=== PATIENT | female | born 1970 | race Caucasian/White ===

== ENCOUNTER → 2019-08-31 15:00 | Outpatient (CLI) | payer BC, SELFPAY ==
--- NOTE | ~2019-08-31 | US_ITS ---
EXAMINATION: US thyroid DATE: 08/31/2019 15:15 INDICATION: Multinodular goiter TECHNIQUE: Multiple ultrasound images of the thyroid were obtained. COMPARISON: 10/18/2018 FINDINGS: The right thyroid lobe measures 4.2 x 1.6 x 1.2 cm. The left thyroid lobe measures 3.9 x 1.2 x 1.3 c m. No significant interval change in a 1.6 x 1.2 x 1.3 cm wider than tall solid heterogeneously hypo echoic nodule was with margins and without internal echogenic foci at the inferior left thyroid (TI-R ADS 4, moderately suspicious , FNA if >=1.5 cm, annual followup is >1 cm). There is normal echotextur e, echogenicity and vascular flow throughout the thyroid gland. IMPRESSION: 1. 1.6 cm TI-RADS 4 nodule at the inferior left thyroid. Size is borderline for, now meeting criteria for recommendation of ultrasound-guided biopsy although there has been no significant interval lutz e since 2016 and could also consider continued annual ultrasound follow-up. Reviewed, dictated and finalized at location A. IMPRESSION: 1. 1.6 cm TI-RADS 4 nodule at the inferior left thyroid. Size is borderline for , now meeting criteria for recommendation of ultrasound-guided biopsy although there has been no significant interval change since 2017 and could also conside r continued annual ultrasound follow-up.
== END ==
PROVIDERS: PCP Internal Medicine
DX: E04.2 Nontoxic multinodular goiter (principal)
CPT/HCPCS: 76536

== ENCOUNTER → 2020-01-09 14:57 | Outpatient (CLI) | payer BC, SELFPAY ==
--- NOTE | ~2020-01-09 | MM_ITS ---
EXAMINATION: MM screening sergio BI w ekta HISTORY: Screening mammogram TECHNIQUE: Craniocaudal and mediolateral oblique 3-D tomosynthesis images were obtained and synthetic 2-D images were generated. CAD analysis was submitted and interpreted. COMPARISON: 10/12/2018 bilateral diagnostic digital mammogram 07/31/2017 diagnostic left digital mammogram and complete left breast ultrasound 07/18/2017 bilateral digital screening mammogram BREAST PARENCHYMAL COMPOSITION: The breasts are heterogeneously dense, which may obscure small masses . The included in the FINDINGS: Focal mild asymmetry along the upper anterior right fibroglandular margin on MLO view. Diag nostic right mammogram is recommended, with ultrasound if required. Otherwise there is no evidence of suspicious mass, calcification, or architectural distortion to sugg est malignancy in either breast. There has been no suspicious interval change. IMPRESSION: 1. Focal asymmetry, right breast, upper outer quadrant 2. Diagnostic right mammogram is recommended, with ultrasound if required BI-RADS Category 0: Incomplete: Needs additional imaging evaluation. Reviewed, dictated and finalized at location A.
== END ==
PROVIDERS: PCP Internal Medicine; Visit Provider Nurse Practitioner
DX: Z12.31 Encounter for screening mammogram for malignant neoplasm of breast (principal); R92.8 Other abnormal and inconclusive findings on diagnostic imaging of breast
CPT/HCPCS: 77063; 77067

== ENCOUNTER → 2020-01-27 08:46 | Outpatient (CLI) | payer BC, SELFPAY ==
--- NOTE | ~2020-01-27 | MMUS_ITS ---
EXAMINATION: MM diagnostic mammo unilat RT, US breast RT limited HISTORY: Follow-up right breast asymmetries TECHNIQUE: Additional 3-D tomosynthesis images of the right breast were performed and synthetic 2-D i mages were generated. CAD analysis was submitted and interpreted. High resolution right breast ultras ound was performed. COMPARISON: Comparison to multiple prior studies sequentially, with oldest reviewed study dated 04/16. BREAST PARENCHYMAL COMPOSITION: The breasts are heterogenously dense, which may obscure small masses. FINDINGS: MAMMOGRAPHIC FINDINGS: There are no suspicious masses, calcifications or architectural distortion in the right breast to sug gest malignancy. ULTRASOUND: Right breast ultrasound: There are cysts in the right breast including a 6 mm cyst at 10:00, 3.5 cm from the nipple and a 1.4 cm cyst near the nipple. No suspicious masses to suggest malignancy. IMPRESSION: 1. No evidence for malignancy in the right breast. Benign findings. 2. Routine yearly screening mammogram and regular clinical breast examination are recommended. BI-RADS Category 2: Benign finding(s). Reviewed, dictated and finalized at location A. IMPRESSION: 1. No evidence for malignancy in the right breast. Benign findings. 2. Routine yearly screening mammogram and regular clinical breast examination a re recommended. BI-RADS Category 2: Benign finding(s).
== END ==
PROVIDERS: Visit Provider Obstetrics & Gynecology Gynecology
DX: R92.8 Other abnormal and inconclusive findings on diagnostic imaging of breast (principal)
CPT/HCPCS: 76642; 77065

== ENCOUNTER → 2020-02-22 15:10 | Outpatient (CLI) | payer BC, SELFPAY ==
--- NOTE | ~2020-02-22 | US_ITS ---
EXAMINATION: US thyroid EXAM DATE: 02/22/2020 15:29 INDICATION: Hypothyroidism. TECHNIQUE: Multiple grayscale and Doppler images of the thyroid were obtained (by a technologist who performed the scan) and subsequently reviewed. Individual nodules and recommendations may be reporte d in accordance with TI-RADS system as designated by the 2017 ACR White Paper TI-RADS committee. Comp tank is made to prior examination from 08/31/2019, 08/30/2016, 02/23/2017. FINDINGS: The right thyroid lobe measures 4.7 x 1.7 x 1.1 cm, the left measuring 4.1 x 1.4 x 1.2 cm. There is m ildly heterogeneous thyroid echogenicity. There is a left thyroid lobe nodule measuring 1.4 x 1.2 x 1.6 centimeters, predominantly solid (2 po ints), hypoechoic (2 points) with spongiform cystic spaces, wider than tall, smooth margin, without e chogenic foci, category TR4 for this nodule. Unchanged compared to 2006, consistent with benign hist ology. There is 4 mm right thyroid lobe nodule also unchanged. IMPRESSION: Stable thyroid nodules for 3 years, not likely clinically significant. Consider 1 or 2 ye ar follow-up ultrasound. Reviewed, dictated and finalized at location A. IMPRESSION: Stable thyroid nodules for 3 years, not likely clinically significa nt. Consider 1 or 2 year follow-up ultrasound.
== END ==
PROVIDERS: Visit Provider Internal Medicine Endocrinology, Diabetes & Metabolism
DX: E03.9 Hypothyroidism, unspecified (principal); E04.2 Nontoxic multinodular goiter
CPT/HCPCS: 76536

== ENCOUNTER 2020-04-16 09:18 | Outpatient (CLI) | payer BC, SELFPAY ==
--- NOTE | ~2020-04-16 | US_ITS ---
EXAMINATION: US abdomen complete EXAM DATE: 04/16/2020 10:45 INDICATION: ABD PAIN R10.9 - Unspecified abdominal pain . TECHNIQUE: Multiple grayscale and Doppler images of the complete abdomen were obtained (by a technolo gist who performed the scan) and subsequently reviewed. There is no prior study for comparison. FINDINGS: The abdominal aorta is normal in caliber. Visualized portion IVC is patent. The pancreatic head a nd body are normal in appearance. The pancreatic tail is not visualized. The liver has normal echogenicity and contour. There are no focal liver lesions identified. There is no evidence of intrahepatic biliary duct dilation. Portal venous flow was seen in the hepatopedal , normal direction and has normal Doppler waveform. Common bile duct measures 2 mm, which is normal. The gallbladder wall is normal in thickness, with ex pected amount of distention. No sonographic evidence of pericholecystic fluid. There is no cholelit hiases. Technologist performing exam reports patient did not demonstrate sonographic Rogers's sign. Please note that this sign is less reliable in patients who have received pain medication. Right kidney: There is normal contour and echogenicity. It measures 10.4 x 5.3 x 5.2 centimeters. There are no focal renal lesions identified. There is no hydronephrosis. Left kidney: There is normal contour and echogenicity. It measures 9.5 x 4.7 x 4.5 centimeters. Ech ogenic region contiguous or within collecting system, could be nephrolithiasis measuring 8 mm. Ther e is no hydronephrosis. The spleen measures 9.1 centimeters and is morphologically normal. IMPRESSION: 1. Possible left nephrolithiasis. 2. No acute findings. Reviewed, dictated and finalized at location B. L TUNER
== END 2020-04-16 09:19 | disposition home or self-care (01) ==
LOC: ANHIMG 09:26
PROVIDERS: PCP Internal Medicine; Visit Provider Internal Medicine
DX: R10.9 Unspecified abdominal pain (principal)
CPT/HCPCS: 76700

== ENCOUNTER 2020-07-02 03:48 | Outpatient (CLI) | payer BC, SELFPAY ==
[2020-07-02 16:31] LABS: SARS-CoV-2 RNA PCR Negative
== END 2020-07-02 03:49 | disposition home or self-care (01) ==
LOC: ANHCOVIDDT 03:48
PROVIDERS: PCP Internal Medicine; Visit Provider Internal Medicine Gastroenterology
DX: Z01.812 Encounter for preprocedural laboratory examination (principal); Z20.822 Contact with and (suspected) exposure to COVID-19
CPT/HCPCS: C9803; U0003; U0005

== ENCOUNTER 2020-07-05 01:32 | Day surgery (SDC) | payer BC, SELFPAY ==
[2020-06-22 10:29] VITALS: BMI 21.7
[2020-07-05 11:48] VITALS: BP 112/77; PULSE 71; RESP 18; TEMP 36.9; O2SAT 98
[2020-07-05] MEDS: LACTATED RINGERS 1,000 ML 150 ML IV CONT (12:03)
--- NOTE | 2020-07-05 12:26 | WPDANESEPPF ---
Anes - Initial Pre Proc Eval Procedure: Operation Date: 07/05/20 13:30 Proposed Procedures p Esophagogastroduodenoscopy & Screening Colonoscopy - Jeramy Velasco MD Date/Time: 07/05/20 12:26 Surgeon: Jeramy Velasco MD Pre Op Diagnosis: abdominal pain, Neoplasm Screening Patient Data Age: 49 Gender: F Height: 5 ft 6 in Weight: 62.6 kg Last Vital Signs Temp 98.5 F 07/05/20 11:48 Pulse 71 07/05/20 11:48 Resp 18 07/05/20 11:48 BP 112/77 07/05/20 11:48 Pulse Ox 98 07/05/20 11:48 Allergies Allergy/AdvReac Type Severity Reaction Status Date / Time Penicillins Allergy Mild Hives Verified 07/05/20 11:45 Home Medications Medication Instructions Recorded Confirmed Type atorvastatin 40 mg tablet 40 mg PO DAILY 04/23/19 06/22/20 History fluticasone propionate 50 1 spray INTRANASAL DAILY #15.8 ml 12/14/19 06/22/20 Rx mcg/actuation nasal spray,suspension lancets #100 each 12/15/19 05/14/20 Rx omeprazole 20 mg capsule,delayed 20 mg PO DAILY #90 cap 12/15/19 06/22/20 Rx release blood sugar diagnostic #100 each 12/19/19 05/14/20 Rx blood-glucose meter #1 each 12/19/19 05/14/20 Rx lancets #100 each 12/19/19 05/14/20 Rx lorazepam 0.5 mg tablet 0.5 mg PO BID PRN #20 tablet 03/21/20 06/22/20 Rx metoprolol succinate 25 mg PO DAILY 06/22/20 06/22/20 History Patient hx anesthesia problems: none Family hx anesthesia problems: none PMFSH Past Medical History Medical History (Updated 07/05/20 @ 12:27 by Kannan Ramos MD) Anemia during Colon cancer screening Gestational diabetes Graves disease High platelet count Hx of gastroesophageal reflux (GERD) Nausea Palpitations Paroxysmal SVT (supraventricular tachycardia) Surgical History Surgical History History of knee surgery History of tonsillectomy Family History Family History Father Cerebrovascular accident Hypertension Family history of elevated blood lipids Family history of diabetes mellitus in first degree relative Grandparent Hypertension Mother Family history of elevated blood lipids Family history of malignant neoplasm of skin FH: cholecystectomy Other Depression Diabetes mellitus Family history of anemia Family history of arthritis Family history of cardiovascular disease Family history of congestive heart failure Family history of malignant neoplasm Social History Social History Smoking status: Never smoker Second hand tobacco smoke exposure: No Alcohol intake: never Substance use type: does not use Living arrangements: with family Gender identity (if verbalized by the patient): Female Spiritual care concerns: No Anes - Eval Final PreProcedure Day of Procedure 07/05/20 12:26 Patient weight: normal Heart: regular rate and rhythm Lungs: clear to auscultation Airway: Mallampati scale class II Neurological: alert and oriented Last oral intake: >/= 8 hours ASA classification: III Emergent: no Anesthetic plan: proceed Anesthesia type and monitoring: general GIVS and standard monitoring Informed Consent: The patient's anesthetic plan and its attendant risks and benefits were discussed with the patient/family/POA. Questions were solicited and answers provided to the satisfaction of the patient/family/POA.
--- NOTE | 2020-07-05 12:31 | PM.HPGS ---
History of Present Illness History of Present Illness Consent: Risks, benefits, and alternatives have been discussed and questions answered. Patient agrees to proceed with procedure. Chief complaint: abdominal pain, Neoplasm Screening Narrative: Chioma Chu is a 49 year old female here with intermittent bloating, dyspepsia already on ppi, also llq pain and alternating constipation diarrhea, never had colonoscopy Review of Systems Constitutional: Constitutional: Denies headache(s) and Denies weakness Eyes: Eyes: Denies blurry vision ENT: Reports Normal hearing present, Denies headache(s) and Denies neck pain Cardiovascular: Cardiovascular: Denies chest pain and Denies dyspnea Respiratory: Respiratory: Denies dyspnea Gastrointestinal: Gastrointestinal: Reports no additional gastrointestinal complaints Genitourinary: Genitourinary: Denies dysuria Musculoskeletal: Musculoskeletal: Denies neck pain Integumentary/Breasts: Skin/Breast: Denies dry skin Neurologic: Reports Normal hearing present, Denies headache(s) and Denies weakness Psychiatric: Psychiatric: Denies anxiety Endocrine: Endocrine: Denies change in body appearance Hematologic/Lymphatic: Hematologic/Lymphatic: Denies easy bleeding Allergic/Immunologic: Allergic/Immunologic: Denies urticaria PMFSH Past Medical History Medical History (Updated 07/05/20 @ 12:32 by Jeramy Velasco MD) Anemia during Bloating Colon cancer screening Gestational diabetes Graves disease High platelet count Hx of gastroesophageal reflux (GERD) Nausea Palpitations Paroxysmal SVT (supraventricular tachycardia) Surgical History Surgical History History of knee surgery History of tonsillectomy Family History Family History Father Cerebrovascular accident Hypertension Family history of elevated blood lipids Family history of diabetes mellitus in first degree relative Grandparent Hypertension Mother Family history of elevated blood lipids Family history of malignant neoplasm of skin FH: cholecystectomy Other Depression Diabetes mellitus Family history of anemia Family history of arthritis Family history of cardiovascular disease Family history of congestive heart failure Family history of malignant neoplasm Social History Social History Smoking status: Never smoker Second hand tobacco smoke exposure: No Alcohol intake: never Substance use type: does not use Living arrangements: with family Gender identity (if verbalized by the patient): Female Spiritual care concerns: No Meds Home Medications and Allergies Home Medications Medication Instructions Recorded Confirmed Type atorvastatin 40 mg tablet 40 mg PO DAILY 04/23/19 06/22/20 History fluticasone propionate 50 1 spray INTRANASAL DAILY #15.8 ml 12/14/19 06/22/20 Rx mcg/actuation nasal spray,suspension lancets #100 each 12/15/19 05/14/20 Rx omeprazole 20 mg capsule,delayed 20 mg PO DAILY #90 cap 12/15/19 06/22/20 Rx release blood sugar diagnostic #100 each 12/19/19 05/14/20 Rx blood-glucose meter #1 each 12/19/19 05/14/20 Rx lancets #100 each 12/19/19 05/14/20 Rx lorazepam 0.5 mg tablet 0.5 mg PO BID PRN #20 tablet 03/21/20 06/22/20 Rx metoprolol succinate 25 mg PO DAILY 06/22/20 06/22/20 History Allergies Allergy/AdvReac Type Severity Reaction Status Date / Time Penicillins Allergy Mild Hives Verified 07/05/20 11:45 Vital Signs Vital Signs - 24 hr 07/05/20 11:48 Temperature 98.5 F Pulse Rate 71 Respiratory Rate 18 Blood Pressure 112/77 Pulse Oximetry 98 Exam Const: General: comfortable and no acute distress HENMT: General nose exam: Normal nares present Eyes: General: appearance normal, both eyes and all related structures Nec
[2020-07-05 13:00] VITALS: BP 101/63; PULSE 84; RESP 22; O2SAT 100
[2020-07-05 13:10] VITALS: BP 112/69; PULSE 61; RESP 18; O2SAT 100
[2020-07-05 13:20] VITALS: BP 119/80; PULSE 55; RESP 14; O2SAT 100
== END 2020-07-05 13:39 | disposition home or self-care (01) ==
PROVIDERS: PCP Internal Medicine; Visit Provider Internal Medicine Gastroenterology
PROC: 0DJ08ZZ Inspection of Upper Intestinal Tract, Via Natural or Artificial Opening Endoscopic (ICD-10-PCS; CPT 43235; principal; 2020-07-05 13:30)
DX: Z12.11 Encounter for screening for malignant neoplasm of colon (principal); K52.9 Noninfective gastroenteritis and colitis, unspecified; K62.89 Other specified diseases of anus and rectum; K64.8 Other hemorrhoids; K29.50 Unspecified chronic gastritis without bleeding; K44.9 Diaphragmatic hernia without obstruction or gangrene; E05.00 Thyrotoxicosis with diffuse goiter without thyrotoxic crisis or storm; I47.1 Supraventricular tachycardia
CPT/HCPCS: 45380; 43239; 88305; J2001; J2704; J7120

== ENCOUNTER → 2021-01-14 17:44 | Outpatient (CLI) | payer BC, SELFPAY ==
--- NOTE | ~2021-01-14 | MM_ITS ---
EXAMINATION: MM screening sergio BI w ekta HISTORY: Screening TECHNIQUE: Craniocaudal and mediolateral oblique 3-D tomosynthesis images were obtained and synthetic 2-D images were generated. CAD analysis was submitted and interpreted. COMPARISON: Comparison to multiple prior studies sequentially, with oldest reviewed study dated 04/16. BREAST PARENCHYMAL COMPOSITION: The breasts are heterogeneously dense, which may obscure small masses . FINDINGS: There are developing nodular asymmetries centered in the upper outer quadrant of the left b reast. The right breast is stable without evidence for malignant IMPRESSION: 1. Developing nodular left breast asymmetries, upper outer quadrant. 2. Additional mammographic views and possible breast ultrasound are recommended. BI-RADS Category 0: Incomplete: Needs additional imaging evaluation. Reviewed, dictated and finalized at location A. IMPRESSION: 1. Developing nodular left breast asymmetries, upper outer quadrant. 2. Additional mammographic views and possible breast ultrasound are recommended . BI-RADS Category 0: Incomplete: Needs additional imaging evaluation.
== END ==
PROVIDERS: Visit Provider Obstetrics & Gynecology Gynecology
DX: Z12.31 Encounter for screening mammogram for malignant neoplasm of breast (principal); R92.8 Other abnormal and inconclusive findings on diagnostic imaging of breast
CPT/HCPCS: 77063; 77067

== ENCOUNTER → 2021-02-11 08:43 | Outpatient (CLI) | payer BC, SELFPAY ==
--- NOTE | ~2021-02-11 | MMUS_ITS ---
EXAMINATION: MM diagnostic sergio LT w ekta, US breast LT complete HISTORY: Follow-up left breast asymmetries TECHNIQUE: Additional 3-D tomosynthesis images of the left breast were performed and synthetic 2-D im ages were generated. CAD analysis was submitted and interpreted. High resolution Limited left breast ultrasound was performed. COMPARISON: None BREAST PARENCHYMAL COMPOSITION: Breast composed of scattered areas of fibroglandular density. The yolanda asts are heterogenously dense, which may obscure small masses. FINDINGS: MAMMOGRAPHIC FINDINGS: There are multiple small masses measuring 5 mm or less in the outer aspect of the left breast, partia lly obscured by fibroglandular tissue. There are no suspicious areas of architectural distortion abno rmal clusters of calcifications. ULTRASOUND: Limited left breast ultrasound: There are multiple cysts of the left breast, largest located superfic ially at 1:00, 5 cm from the nipple, measuring 4 mm. These correspond to the mammographic findings. N o suspicious masses to suggest malignancy. IMPRESSION: 1. No evidence for malignancy in the left breast. Benign findings. 2. Routine yearly screening mammogram and regular clinical breast examination are recommended. BI-RADS Category 2: Benign finding(s). Reviewed, dictated and finalized at location A. IMPRESSION: 1. No evidence for malignancy in the left breast. Benign findings. 2. Routine yearly screening mammogram and regular clinical breast examination a re recommended. BI-RADS Category 2: Benign finding(s).
== END ==
PROVIDERS: PCP Internal Medicine; Visit Provider Obstetrics & Gynecology Gynecology
DX: R92.8 Other abnormal and inconclusive findings on diagnostic imaging of breast (principal)
CPT/HCPCS: 76641; 77061; 77065; G0279

== ENCOUNTER → 2021-03-15 03:01 | Outpatient (CLI) | payer BC, SELFPAY ==
[2021-03-15 18:36] LABS: SARS-CoV-2 RNA PCR Negative
== END ==
PROVIDERS: PCP Internal Medicine; Visit Provider Physician Assistant
DX: R68.89 Other general symptoms and signs (principal); Z20.822 Contact with and (suspected) exposure to COVID-19
CPT/HCPCS: C9803; U0003; U0005

== ENCOUNTER → 2021-04-25 09:22 | Outpatient (CLI) | payer BC, SELFPAY ==
--- NOTE | ~2021-04-25 | US_ITS ---
EXAMINATION: US thyroid EXAM DATE: 04/25/2021 10:09 INDICATION: Nontoxic single thyroid nodule. TECHNIQUE: Multiple grayscale and Doppler images of the thyroid were obtained (by a technologist who performed the scan) and subsequently reviewed. Individual nodules and recommendations may be reporte d in accordance with TI-RADS system as designated by the 2017 ACR White Paper TI-RADS committee. Comp arison is made to prior examination from 02/22/2020, ultrasound from 2017. FINDINGS: The right thyroid lobe measures 4.2 x 1.1 x 1.2 cm, the left measuring 4.1 x 1.7 x 1.2 cm. There is m ildly heterogeneous thyroid echogenicity. In the lower pole of the left thyroid lobe there is a nodule measuring 1.9 x 1.3 x 1.2 cm, solid (2 p oints), hypoechoic (2 points), wider than tall, smooth well defined margin, without echogenic foci, c ategory TR4 for this nodule. Dimensions on previous scan reported as 1.6 x 1.4 x 1.2 cm, which does not constitute interval growth. This has demonstrated stability going back to 2017. IMPRESSION: Stable left thyroid nodule, likely benign. Consider 1 or 2 year follow-up to acquire 5 years stability. Reviewed, dictated and finalized at location A. NNER
== END ==
PROVIDERS: PCP Internal Medicine; Visit Provider Internal Medicine Endocrinology, Diabetes & Metabolism
DX: E04.1 Nontoxic single thyroid nodule (principal)
CPT/HCPCS: 76536

== ENCOUNTER 2021-05-27 09:19 | Outpatient (CLI) | payer BC, SELFPAY ==
--- NOTE | ~2021-05-27 | US_ITS ---
EXAMINATION: US FNA w image guidance DATE: 05/27/2021 10:04 INDICATION: Nontoxic single thyroid nodule. TECHNIQUE: The procedure and its benefits and risks were discussed with the patient. Risks specifically discusse d included bleeding. The patient verbalized understanding of the risks and agreed to proceed. The nec k was prepped and draped in the usual sterile manner. 1% lidocaine was used for local anesthesia. 5 passes were made with a 25G needle into the lesion under ultrasound guidance. There were no immedia te complications. FINDINGS: Grayscale ultrasound images demonstrate needles advanced into a 2.2 cm nodule in left thyroid lobe fo r biopsy. IMPRESSION: 1. Ultrasound-guided fine needle aspiration of a left thyroid nodule. Reviewed, dictated and finalized at location A. RNMENT EMPLOYEE
== END 2021-05-27 09:20 | disposition home or self-care (01) ==
LOC: ANHIMG 09:24
PROVIDERS: PCP Internal Medicine; Visit Provider Internal Medicine Endocrinology, Diabetes & Metabolism
DX: E04.1 Nontoxic single thyroid nodule (principal)
CPT/HCPCS: 10005; 88173; 88305

== ENCOUNTER → 2021-09-30 15:49 | Outpatient (CLI) | payer BC, SELFPAY ==
--- NOTE | ~2021-09-30 | US_ITS ---
EXAMINATION: US thyroid DATE: 09/30/2021 16:01 INDICATION: Thyroid nodule. TECHNIQUE: Multiple ultrasound images of the thyroid were obtained. COMPARISON: Ultrasound 04/25/2021, 05/27/21 FINDINGS: The right thyroid lobe measures 4.6 x 1.6 x 1.1 cm. The left thyroid lobe measures 4.1 x 1.6 x 1.4 c m. In the left thyroid lobe, there is a 2.1 cm predominantly solid, hypoechoic, [id number] nodu le with ill-defined margin without echogenic foci (TI-RADS TR4). IMPRESSION: 1. Left thyroid nodule, stable from 05/27/2021 when biopsy was benign. Reviewed, dictated and finalized at location B.
== END ==
PROVIDERS: Visit Provider Internal Medicine Endocrinology, Diabetes & Metabolism
DX: E04.1 Nontoxic single thyroid nodule (principal)
CPT/HCPCS: 76536

== ENCOUNTER → 2021-12-30 15:41 | Outpatient (CLI) | payer BC, SELFPAY ==
--- NOTE | ~2021-12-30 | US_ITS ---
EXAMINATION: US thyroid DATE: 12/30/2021 15:56 INDICATION: Thyroid nodule. TECHNIQUE: Multiple ultrasound images of the thyroid were obtained. COMPARISON: Ultrasound 09/30/2021, 05/27/2021 FINDINGS: The right thyroid lobe measures 4.9 x 1.8 x 1.6 cm. The left thyroid lobe measures 4.3 x 1.7 x 1.5 c m. In the left thyroid lobe, there is a 1.9 cm solid, hypoechoic, wider than tall nodule with ill-de fined margin without echogenic foci (TI-RADS TR4). IMPRESSION: 1. Left thyroid nodule, stable from 05/27/2021 when biopsy was benign. Reviewed, dictated and finalized at location A.
== END ==
PROVIDERS: PCP Internal Medicine Endocrinology, Diabetes & Metabolism; Visit Provider Internal Medicine Endocrinology, Diabetes & Metabolism
DX: E04.1 Nontoxic single thyroid nodule (principal)
CPT/HCPCS: 76536

== ENCOUNTER → 2022-05-07 14:59 | Outpatient (CLI) | payer BC, SELFPAY ==
--- NOTE | ~2022-05-07 | US_ITS ---
US thyroid INDICATION: Thyroid goiter. Previous benign left thyroid biopsy on 05/27/2021 TECHNIQUE: Real-time sonographic images of the thyroid gland were obtained. COMPARISON: Ultrasound dated 12/30/2021 FINDINGS: The right thyroid lobe measures 4.2 x 1.3 x 1.3 cm. There is a small 4 mm cyst of the right thyroid lobe. The left thyroid lobe measures 4.2 x 1.7 x 1.3 cm. There is a heterogeneous predominan tly hypoechoic solid left thyroid mass measuring 2 x 1.6 x 1.4 cm which is wider than tall, ill-defin ed margins and no echogenic foci. Previous biopsy report demonstrated findings consistent with benign follicular nodule. No new left thyroid masses. Normal vascular flow is present. IMPRESSION: 1. No significant change to 2 cm left thyroid mass, previously biopsy-proven benign. Reviewed, dictated and finalized at location A. UTIVE PERSONAL ASSISTANT IMPRESSION: 1. No significant change to 2 cm left thyroid mass, previously biopsy-proven b enign.
== END ==
PROVIDERS: PCP Internal Medicine; Visit Provider Internal Medicine Endocrinology, Diabetes & Metabolism
DX: E04.9 Nontoxic goiter, unspecified (principal)
CPT/HCPCS: 76536

== ENCOUNTER → 2022-05-27 13:31 | Outpatient (CLI) | payer BC, SELFPAY ==
--- NOTE | ~2022-05-27 | MM_ITS ---
EXAMINATION: MM screening sergio BI w ekta HISTORY: Screening TECHNIQUE: Craniocaudal and mediolateral oblique 3-D tomosynthesis images were obtained and synthetic 2-D images were generated. CAD analysis was submitted and interpreted. COMPARISON: Comparison to multiple prior studies sequentially, with oldest reviewed study dated 10/12. BREAST PARENCHYMAL COMPOSITION: The breasts are heterogeneously dense, which may obscure small masses . FINDINGS: There is no evidence of suspicious mass, calcification, or architectural distortion to sugg est malignancy in either breast. There has been no suspicious interval change. IMPRESSION: 1. No mammographic evidence of malignancy. 2. Recommend routine screening mammography in one year. BI-RADS Category 1: Negative Reviewed, dictated and finalized at location B. GER RECOVERY
--- NOTE | ~2022-05-27 | DEXA_ITS ---
Bone Density Report Name: CECILY WIN Age: 51 Sex: Female Ethnicity: White Date of : 1970 Indication: postmenopausal; Referring Provider: MYLENE HARRIS Study: Bone densitometry was performed. Exam Date: May 27, 2022 Accession number: [id number] Bone Density: Region BMD T-score Z-score Classification AP Spine (L1-L4) 0.877 -1.5 -0.8 Osteopenia Femoral Neck (Left) 0.748 -0.9 -0.2 Normal Total Hip (Left) 0.780 -1.3 -0.9 Osteopenia Femoral Neck (Right) 0.705 -1.3 -0.6 Osteopenia Total Hip (Right) 0.774 -1.4 -0.9 Osteopenia Total Hip Mean 0.777 -1.4 -0.9 Osteopenia World Health Organization criteria for BMD impression classify patients as: Normal (T-score at or above -1.0), Osteopenia (T-score between -1.0 and -2.5), or Osteoporosis (T-score at or below -2.5). 10-year Fracture Risk(1): Major Osteoporotic Fracture 4.1% Hip Fracture 0.3% Reported Risk Factors: [place] (), Neck BMD=0.705, BMI=24.0 (1) FRAX(R) Version 3.08. Fracture probability calculated for an untreated patient. Fracture probability may be lower if the patient has received treatment. Clinical Information Provided by Patient: Patient maximum height was 66.0 Menopause Age: 49 No regular weight bearing exercise Drinks caffeinated beverages Onset of menses at age 14 Number of children 5 Missed period for more than 6 months in a row Impression: The patient has low bone mass, based on the Total Spine T-score. The patient has an estimated ten-year risk of hip fracture of 0.3% and an estimated ten-year risk of major fracture of 4.1%, based on the WHO FRAX algorithm. Discussion: BONE DENSITY IS LOW AT ONE OR MORE SKELETAL SITES. This patient's lowest T-score is low at one or more skeletal sites. It meets the World Health Organization's (WHO) criteria for ?low bone mass? (T-score between -1.0 and -2.5). The patient's 10-year risk of fracture as calculated by FRAX is less than the threshold where pharmacological therapy is recommended by the National Osteoporosis Foundation (NOF). However, all treatment decisions require clinical judgment and consideration of individual patient factors, including patient preferences, comorbidities, previous drug use, risk factors not captured in the FRAX model (e.g., frailty, falls, vitamin D deficiency, increased bone turnover, interval significant decline in bone density) and possible under or overestimation of fracture risk by FRAX. The patient should follow a healthful lifestyle (good nutrition with adequate calcium and vitamin D, and appropriate weight-bearing exercise). Follow-Up: Consider repeating this study in 2 to 3 years to reassess this patient's status, or sooner if there is some new clinical indication. Reported by: DWIGHT on 05/27/2022 2:36:00 PM.
== END ==
PROVIDERS: PCP Internal Medicine; Visit Provider Obstetrics & Gynecology Gynecology
DX: Z12.31 Encounter for screening mammogram for malignant neoplasm of breast (principal); Z78.0 Asymptomatic menopausal state; M85.89 Other specified disorders of bone density and structure, multiple sites
CPT/HCPCS: 77063; 77067; 77080

== ENCOUNTER 2022-08-12 12:50 | Outpatient (CLI) | payer BC, SELFPAY ==
--- NOTE | ~2022-08-12 | US_ITS ---
EXAMINATION: US thyroid DATE: 08/12/2022 13:33 INDICATION: Thyroid nodule. TECHNIQUE: Multiple ultrasound images of the thyroid were obtained. COMPARISON: Ultrasound 05/07/2022, 05/27/21 FINDINGS: The right thyroid lobe measures 4.8 x 1.4 x 1.2 cm. The left thyroid lobe measures 4.3 x 1.4 x 1.6 c m. In the left thyroid lobe, there is a 2.0 cm mixed solid and cystic, hypoechoic, wider than tall nodule with smooth margin without echogenic foci (TI-RADS TR3), stable from 05/27/21 when biopsy was benign. IMPRESSION: 1. Stable benign left thyroid nodule. Reviewed, dictated and finalized at location A. E LACER
== END 2022-08-12 12:51 | disposition home or self-care (01) ==
PROVIDERS: PCP Internal Medicine; Visit Provider Internal Medicine Endocrinology, Diabetes & Metabolism
DX: E04.1 Nontoxic single thyroid nodule (principal)
CPT/HCPCS: 76536

== ENCOUNTER 2023-10-09 15:48 | Outpatient (CLI) | payer BC, SELFPAY ==
--- NOTE | ~2023-10-09 | MM_ITS ---
EXAMINATION: MM screening sergio BI w ekta HISTORY: Screening mammogram TECHNIQUE: Craniocaudal and mediolateral oblique 3-D tomosynthesis images were obtained and synthetic 2-D images were generated. CAD analysis was submitted and interpreted. COMPARISON: 05/27/2022 screening mammogram 02/11/2021 diagnostic left mammogram incomplete left breast ultrasound 01/14/2021 bilateral screening mammogram BREAST PARENCHYMAL COMPOSITION: There are scattered areas of fibroglandular density. FINDINGS: There is no evidence of suspicious mass, calcification, or architectural distortion to sugg est malignancy in either breast. There has been no suspicious interval change. IMPRESSION: 1. No mammographic evidence of malignancy. 2. Recommend routine screening mammography in one year. BI-RADS Category 1: Negative Reviewed, dictated and finalized at location A.
== END 2023-10-09 15:49 ==
LOC: MICIMG 15:52
PROVIDERS: PCP Obstetrics & Gynecology Gynecology; Visit Provider Obstetrics & Gynecology Gynecology
DX: Z12.31 Encounter for screening mammogram for malignant neoplasm of breast (principal)
CPT/HCPCS: 77063; 77067

== ENCOUNTER 2024-02-27 09:03 | Outpatient (CLI) | payer BC, SELFPAY ==
--- NOTE | ~2024-02-27 | US_ITS ---
EXAMINATION: US thyroid DATE: 02/27/2024 09:41 INDICATION: Thyroid nodule TECHNIQUE: Multiple ultrasound images of the thyroid were obtained. COMPARISON: 08/12/2022 FINDINGS: The right thyroid lobe measures 4.7 x 1.6 x 1.3 cm. The thyroid isthmus measures 2 mm in thickness. T he left thyroid lobe measures 5.1 x 1.9 x 1.7 cm. No significant interval change in a 2.3 cm wider t jacinto tall predominately solid isoechoic nodule with smooth to ill-defined margins and without echogeni c foci in the left thyroid lobe (TI-RADS 3, mildly suspicious , FNA if >=2.5 cm, annual followup is > =1.5 cm). There is otherwise normal echotexture, echogenicity and vascular flow throughout the thyroi d gland. IMPRESSION: 1. No significant interval change in a 2.3 cm TI-RADS 3 left thyroid nodule with prior benign biopsy consistent with benign follicular nodule on 05/27/2021. Reviewed, dictated and finalized at location A. IMPRESSION: 1. No significant interval change in a 2.3 cm TI-RADS 3 left thyroid nodule wit h prior benign biopsy consistent with benign follicular nodule on 05/27/2021.
== END 2024-02-27 09:04 | disposition home or self-care (01) ==
PROVIDERS: PCP Obstetrics & Gynecology Gynecology; Referring Provider Internal Medicine
DX: E04.1 Nontoxic single thyroid nodule (principal)
CPT/HCPCS: 76536

== ENCOUNTER 2024-05-28 08:52 | Outpatient (CLI) | payer BC, SELFPAY ==
--- NOTE | ~2024-05-28 | DEXA_ITS ---
Bone Density Report Name: CECILY WIN Age: 53 Sex: Female Ethnicity: White Date of : 1970 Indication: postmenopausal; screening for osteoporosis; Referring Provider: MYLENE HARRIS Study: Bone densitometry was performed. Exam Date: May 28, 2024 Accession number: [id number] Bone Density: Region BMD T-score Z-score Classification AP Spine(L1-L4) 0.830 -2.0 -1.1 Osteopenia Femoral Neck (Left) 0.683 -1.5 -0.7 Osteopenia Total Hip (Left) 0.851 -0.7 -0.2 Normal Femoral Neck (Right) 0.694 -1.4 -0.6 Osteopenia Total Hip (Right) 0.846 -0.8 -0.3 Normal Total Hip Mean 0.849 -0.8 -0.3 Normal World Health Organization criteria for BMD impression classify patients as: Normal (T-score at or above -1.0), Osteopenia (T-score between -1.0 and -2.5), or Osteoporosis (T-score at or below -2.5). 10-year Fracture Risk(1): Major Osteoporotic Fracture 4.9% Hip Fracture 0.4% Reported Risk Factors: US (), Neck BMD=0.683, BMI=22.3 (1) FRAX(R) Version 3.08. Fracture probability calculated for an untreated patient. Fracture probability may be lower if the patient has received treatment. Clinical Information Provided by Patient: Patient maximum height was 66 Menopause Age: 49 No regular weight bearing exercise Drinks caffeinated beverages Onset of menses at age 14 Number of children 5 Impression: The patient has low bone mass, based on the Total Spine T-score. The patient has an estimated ten-year risk of hip fracture of 0.4% and an estimated ten-year risk of major fracture of 4.9%, based on the WHO FRAX algorithm. Discussion: BONE DENSITY IS LOW AT ONE OR MORE SKELETAL SITES. This patient's lowest T-score is low at one or more skeletal sites. It meets the World Health Organization's (WHO) criteria for ?low bone mass? (T-score between -1.0 and -2.5). The patient's 10-year risk of fracture as calculated by FRAX is less than the threshold where pharmacological therapy is recommended by the National Osteoporosis Foundation (NOF). However, all treatment decisions require clinical judgment and consideration of individual patient factors, including patient preferences, comorbidities, previous drug use, risk factors not captured in the FRAX model (e.g., frailty, falls, vitamin D deficiency, increased bone turnover, interval significant decline in bone density) and possible under or overestimation of fracture risk by FRAX. The patient should follow a healthful lifestyle (good nutrition with adequate calcium and vitamin D, and appropriate weight-bearing exercise). Follow-Up: Consider repeating this study in 2 to 3 years to reassess this patient's status, or sooner if there is some new clinical indication. Reported by: DWIGHT on 05/28/2024 10:31:00 AM. Reviewed, dictated and finalized at location A. [facility]
--- OUTSIDE RECORDS SUMMARY | 2024-06-01 00:21 | XMS_ITS | Encounter Summary ---
Author Organization [facility] Healthcare Address [address] [place] [address] Care Team Providers Care Manager User Experience Name Role Phone Jett Yarbrough MD Primary Care Provider [phone]- [phone] Encounter Details Date Type Department Care Team (Late st Contact Info) Description 01/27/2024 3:00 PM CDT Lab [facility] [address] [place] [address] History of hyperthyroidism Social History Tobacco Use Types Packs/Day Years Used Date Smoking Tobacco: Never Smokeless Tobacco: Never Alcohol Use Standard Drinks/Week Comments No 0 (1 standard drink = 0.6 oz pur e alcohol) AUDIT-C Answer Date Recorded Q1: How often do you have a drink containing alc ohol? 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 Please let me know if you have any questions or concerns. Ethan Muñoz MD Endocrinology documented in this encounter Plan of Treatment Not on file documented as of this encounter Procedures Procedure Name Priority Date/Time Associated Diagnosis Comments THYROID FUNCTION CASCADE Routine 01/27/2024 3:15 PM CDT History of hyperthyroidism THYROID PEROXIDASE ANTIBODY Routine 01/27/2024 3:15 PM CDT History of hyperthyroidism THYROID STIMULATING IMMUNOGLOBULIN Routine 01/27/2024 3:15 PM CDT History of hyperthyroidism documented in this encounter Results * Thyroid peroxidase antibody (TPO) (01/27/2024 3:15 PM CDT) Anti Thyroid Peroxidase <30 <=34 IUnits/mL Comment: ATPO Interpretive Data Results may be up to 28% higher in patients receiving Itraconazole. Current interpretive data was last revised 2020. Testing performed by: [facility], [address] [place]., [address] Blood 01/27/2024 3:15 PM CDT 01/27/2024 6:41 PM CDT Ethan Renner MD LAB BLOOD ORDERABLES Final Re sult [facility] [address] [facility]. [place] [address] * Thyroid stimulating immunoglobulin (01/27/2024 3:15 PM CDT) TSIG <1.0 <=1.3 [place] ref [facility] Comment: Test Performed by: [facility] [address] [place] [id number] Interactive Account Manager: Lucius Levy Ph.D.; CLIA# [id number] Blood 01/27/2024 3:15 PM CDT 01/27/2024 4:20 PM CDT us Ethan Renner MD LAB BLOOD ORDERABLES Final Re sult [facility] [address] [employer]. Department Group Therapy Records [place], [place] [id number] [facility] * Thyroid Function [place] (01/27/2024 3:15 PM CDT) TSH 1.14 0.30 - 4.20 mcIUnit/mL Blood 01/27/2024 3:15 PM CDT 01/27/2024 4:20 PM CDT Ethan Renner MD LAB BLOOD ORDERABLES Final Re sult Performing Organization Address [facility] Co de Phone Number [facility] [address] [employer] [address] documented in this encounter Visit Diagnoses Diagnosis History of hyperthyroidism documented in this encounter Care Teams Manager User Experience Relationship Specialty Start Date End Date Jett Yarbrough MD [address] [facility] [address] [place] [address] PCP - General 09/27/15 documented as of this encounter
--- OUTSIDE RECORDS SUMMARY | 2024-06-01 00:21 | XMS_ITS | Encounter Summary ---
Author Organization [facility] Address [address] [place] [address] Phone Care Team Providers Care Highway Technician Name Role Phone Jett Yarbrough MD Primary Care Provider +1- [phone] Reason for Visit * Cardiology (Routine) - Closed Specialty Diagnoses / Procedures Referred By Camryn lo Referred To Contact Diagnoses Palpitations Procedures MCT Mobile Cardiac Telemetry Event Monitor Ирина Murray MD Phone: tel: fax: [facility] (All Locations) Referral ID Status Reason Start Date Expiration Date Visits Re quested Visits Authorized [id number] Closed 08/08/2022 09/07/2023 1 1 Encounter Details Date Type Department Care Team (Late st Contact Info) Description 08/08/2022 3:45 PM METAL CLEANER Ancillary Procedure [facility] Cardiology [facility] [address]th [place] [address] [place] [id number] Palpitations Social History Tobacco Use Types Packs/Day Years Used Date Smoking Tobacco: Never Smokeless Tobacco: Never Alcohol Use Standard Drinks/Week Comments No 0 (1 standard drink = 0.6 oz pur e alcohol) AUDIT-C Answer Date Recorded Q1: How often do you have a drink containing alc ohol? Monthly or less 04/03/2021 Q2: How many drinks containi ng alcohol do you have on a typical day when you are drinking? 1 or 2 04/03/2021 Q3: How often do you have si x or more drinks on one occasion? 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 Monitor overall looks good with no concerning arrhythmias. Overall burden of PACs and PVCs were low(<1%) There were short episodes of Atach and PACs that correlated to times of heart fluttering etc. The episodes were not long and most were over in 1-2secs. There were some epsiodes that did not correlateto anything other than SR or ST. Lets check on the current state of her symptoms to see if we need to make any adjustments to meds/strategy DHC documented in this encounter Plan of Treatment Not on file documented as of this encounter Procedures Procedure Name Priority Date/Time Associated Diagnosis Comments MCT - MOBILE CARDIAC TELEMETRY EVENT MONITOR Routine 08/08/2022 3:23 PM METAL CLEANER Palpitations documented in this encounter Results * MCT Mobile Cardiac Telemetry Event Monitor (08/08/2022 3:23 PM METAL CLEANER) Anatomical Region Laterality Modality Electrocardiogra phy 08/08/2022 3:45 PM METAL CLEANER Narrative 09/21/2022 10:34 PM CDT Patient name: Chioma Chu Date of test: 08/08/2022 Type of Test: Event Monitor ([facility]) [facility] #: [id number] ?Location: [facility] Heart and Vascular : 1970 ??Age: 51 ??Sex: F Ref Physician(s): ИРИНА MURRAY MD Interpreted by: Brian Lara MD Hook-Up Tech: NATASHA Magana Diagnosis: Monitoring Service: [employer] Reason for Test: R00.2: Palpitations Monitor Used: Body Guardian Heart (MCT) ??MAIL Enrollment Period: Aug 19 - Sep 17, 2022 [email or web address] comments: MAIL Number of Transmissions Sent During Enrollment Period: 1 To obtain transmission tracing contact: Rhythm Summary: Bradycardia avg rate: 57 Bradycardia longest duration: 00:54:46 Bradycardia longest episode: 09/07/2022 05:36:00 Bradycardia shortest duration: 00:00:12 Bradycardia shortest episode: 08/21/2022 21:41:00 Mean heart rate: 70 Pauses >= 3 seconds: 0 Tachycardia avg rate: 112 Tachycardia longest duration: 00:47:35 Tachycardia longest episode: 08/23/2022 11:53:00 Tachycardia shortest duration: 00:00:06 Tachycardia shortest episode: 08/20/2022 21:26:00 Cardiologis Review of Transmissions: I have reviewed the findings on the individual tracings for the dates noted below and I agree., The full scanned/data report is available in [employer]. labeled MONITOR STRIPS PDF . This study was interpreted by Brian Lara MD Confirmed on ??09/21/2022 - 22:34:36 by Brina Lara MD Summary of Transmitted Events: # ??Date ? Time ?HR ?Symptoms/Rhythm ? 1 ??08/21/22 15:06 ?? 72.7 ?Baseline Shortness of Breath ? Sinus Rhythm ? I have personally reviewed and interpreted this study. Procedure Note Brian Lara MD PhD - 09/21/2022 Patient name: Chioma Chu Date of test: 08/08/2022 Type of Test: Event Monitor ([facility]) [facility] #: [id number] Location: [facility] Heart and Vascular : 1970 Age: 51 Sex: F Ref Physician(s): ИРИНА MURRAY MD Interpreted by: Brian Lara MD [facility] Tech: NATASHA Magana Diagnosis: Monitoring Service: [employer] Reason for Test: R00.2: Palpitations Monitor Used: Body Guardian Heart (MCT) MAIL Enrollment Period: Aug 19 - Sep 17, 2022 [employer] comments: MAIL Number of Transmissions Sent During Enrollment Period: 1 To obtain transmission tracing contact: Rhythm Summary: Bradycardia avg rate: 57 Bradycardia longest duration: 00:54:46 Bradycardia longest episode: 09/07/2022 05:36:00 Bradycardia shortest duration: 00:00:12 Bradycardia shortest episode: 08/21/2022 21:41:00 Mean heart rate: 70 Pauses >= 3 seconds: 0 Tachycardia avg rate: 112 Tachycardia longest duration: 00:47:35 Tachycardia longest episode: 08/23/2022 11:53:00 Tachycardia shortest duration: 00:00:06 Tachycardia shortest episode: 08/20/2022 21:26:00 Cardiologis Review of Transmissions: I have reviewed the findings on the individual tracings for the dates noted below and I agree., The full scanned/data report is available in [employer]. labeled MONITOR STRIPS PDF . This study was interpreted by Brian Lara MD Confirmed on 09/21/2022 - 22:34:36 by Brian Lara MD Summary of Transmitted Events: # Date Time HR Symptoms/Rhythm 1 08/21/22 15:06 72.7 Baseline Shortness of Breath Sinus Rhythm I have personally reviewed and interpreted this study. us Ирина Murray MD CV C[facility]AC [facility] PRO CEDURES Final Result documented in this encounter Visit Diagnoses Diagnosis Palpitations documented in this encounter Care Teams Highway Technician Relationship Specialty Start Date End Date Jett Yarbrough MD [address] [facility] [address] [place] [address] PCP - General 09/27/15 documented as of this encounter
--- OUTSIDE RECORDS SUMMARY | 2024-06-01 00:21 | XMS_ITS | Encounter Summary ---
Author Organization [facility] Address [address] [place] [address] Phone Care Team Providers Care Churner Name Role Phone Jett Yarbrough MD Primary Care Provider [phone]- [phone] Reason for Referral * Cardiology (Routine) - Closed Specialty Diagnoses / Procedures Referred By Camryn lo Referred To Contact Diagnoses SVT (supraventricular tachycardia) (HCC) Procedures ECG 12 lead Britt Newell NP Phone: tel: fax: [facility] (All Locations) Referral ID Status Reason Start Date Expiration Date Visits Re quested Visits Authorized [id number] Closed 05/01/2021 05/31/2022 1 1 IAC SURGEON Encounter Details Date Type Department Care Team (Late st Contact Info) Description 05/01/2021 9:45 AM CARDIAC SURGEON Office Visit [facility] Cardiology [address] [place] [id number] Britt Newell NP [address] [place] [id number] SVT (supraventricular tachycardia) (CMS/HCC) (HCC) (Primary Dx); Paroxysmal SVT (supraventricular tachycardia) (CMS/HCC) (HCC) Social History Tobacco Use Types Packs/Day Years [...] on file Legal Sex Female 7:06 AM CARDIAC SURGEON Gender Identity Not on file Sexual Orientation Not on file documented as of this encounter Last Filed Vital Signs Vital Sign Reading Time Taken Comments Blood Pressure 92/74 05/01/2021 9:49 AM CARDIAC SURGEON Pulse 84 05/01/2021 9:49 AM CARDIAC SURGEON Temperature - - Respiratory Rate - - Oxygen Saturation 99% 05/01/2021 9:49 AM CARDIAC SURGEON Inhaled Oxygen Concentration - - Weight 67.6 kg (149 lb) 05/01/2021 9:49 AM CARDIAC SURGEON Height 167.6 cm (5' 6 ) 05/01/2021 9:49 AM CARDIAC SURGEON Body Mass Index 24.05 05/01/2021 9:49 AM CARDIAC SURGEON documented in this encounter Patient Instructions * Patient Instructions* Britt Newell NP - 05/01/2021 9:45 AM CARDIAC SURGEON -Can stop ASA in 3 days. -Reduce Metoprolol to 12.5 mg daily. Send me a message in [employer] to let me know how you are feeling on 12.5 mg daily. We may stop it all together. IAC SURGEON IAC SURGEON documented in this encounter Progress Notes * Britt Newell NP - 05/01/2021 9:45 AM CST Electrophysiology Note Patient ID Chioma Chu 1970 is a 50 y.o. female following up on 05/01/2021. The patient's heavy truck technician is Dr. Dale Thibodeaux. HISTORY Chief Complaint: ~1 month post atrial tachycardia ablation ?? HPI I had the pleasure of speaking with??Chioma Chu??in follow-up while [facility]. She??is a 50 y.o.??female??with the following arrhythmia-specific history: ?? 1.??Palpitations/SVT/Ectopic Beats ?? Seen in consultation in June 2019.??Symptoms of frequent episodes of palpitations that were most consistent with paroxysmal SVT with prior monitoring detecting several episodes of short runs oflikely atrial tachycardia.?Episodes occur randomly, often at rest and sometimes wake her from sleep. ??It generally lasts several minutes but she had several episodes that lasted over 1 hour. ?? Associated symptoms also included atypical chest discomfort which prompted stress testing and cardiac catheterization that showed normal coronaries ?? 30dMCT 07/2019:?Episodes of symptoms were consistent with sinus rhythm with frequent PACs or PVCs with occasional short runs of atrial tachycardia. ?? EP study with intent to ablate her arrhythmia mechanism had been discussed but given the multitude of ectopic beats and no clear sustained SVT mechanism,??this was deferred and pharmacologic options were pursued with p.r.n. calcium channel david.? Role of antiarrhythmic drug therapy such as dofetilide also discussed.?Pharmacologic options are somewhat limited due to slow resting heart rate ?? Long-acting diltiazem prescribed for continued palpitations??by??her primary hotbed transfer operator, Dr Guerrero,??in November 2019 to address ongoing palpitations.?The combination of long-acting diltiazem short-acting diltiazem seem to make her heart rate lower as expected and at times has made her feel bad even in the absence of palpitation. ?? Saw Yeny Marylu CNC MILLING MACHINE OPERATOR in clinic on 02/06/21 and was having worsening symptoms of palpitations and associated dizziness. ?? EP Study and ablation was done 04/03/[address] Thibodeaux. Atrial tachycardia was induced that mapped to the RA/high roberta. It was close to the phrenic nerve so he carefully ablated the region and the AT was no longer inducible. DC'd home on ASAx 1 month. 2.??Sinus bradycardia ?? Slow resting heart rate does limit pharmacologic options for palpitations/SVT as noted above ?? Today the pt presents for one month post ablation visit. She has not had any sustained recurrences of her arrhythmia. She has has short lived palpitations from time to time. She also noticed that herresting heart rate was elevated to 90 on one occasion. Denies shortness of breath, chest pain, syncope/near syncope, or fatigue. She did have significant groin bruising post ablation but she tells methat this is almost completely resolved. I offered to evaluate the site today and she declined. Sadia notes occasional dizziness but thinks that this may be due to allergies (ears are full as well). Past Medical History: Diagnosis Date ??? Delayed emergence from general anesthesia ??? History of knee surgery History of knee surgery ??? Hypercholesterolemia High cholesterol ??? PONV (postoperative nausea and vomiting) Past Surgical History: Procedure Laterality Date ??? TONSILLECTOMY Tonsillectomy Allergies Allergies Allergen Reactions ??? Penicillins Hives Medications Outpatient Encounter Medications as of 05/01/2021 Medication Sig Dispense Refill ??? aspirin 81 mg chewable tablet Take 1 tablet (81 mg total) by mouth daily 30 tablet 0 ??? atorvastatin (LIPITOR) 40 mg tablet Take 1 tablet (40 mg total) by mouth daily (Patient taking differently: Take 40 mg by mouth nightly ) 30 tablet 11 ??? azelastine (ASTELIN) 137 mcg (0.1 %) nasal spray Administer 1 spray into each nostril every morning ??? dilTIAZem (CARDIZEM) 30 mg tablet Take 1 tablet (30 mg total) by mouth 4 (four) times a day as needed (for palps) (Patient taking differently: Take 30 mg by mouth as needed (for palps) ) 360 tablet 1 ??? loratadine (Claritin) 10 mg tablet daily ??? LORazepam (ATIVAN) 0.5 mg tablet Take 0.5 mg by mouth as needed for anxiety ??? metoprolol XL (TOPROL-XL) 25 mg extended release tablet Take 1 tablet (25 mg total) by mouth daily (Patient taking differently: Take 25 mg by mouth nightly ) 30 tablet 11 ??? omeprazole (PriLOSEC) 20 mg capsule Take by mouth nightly 3 ??? PARoxetine (PAXIL) 20 mg tablet Take 20 mg by mouth nightly ??? ibuprofen (ibuprofen) 200 mg tab/cap Take 400 mg by mouth as needed for pain (Patient not taking: Reported on 05/01/2021) No facility-administered encounter medications on file as of 05/01/2021. PHYSICAL EXAM BP 92/74 (BP Location: Left arm, Patient Position: Sitting) Pulse 84 Ht 167.6 cm (5' 6 ) Wt 67.6 kg (149 lb) SpO2 99% BMI 24.05 kg/m?? General: Patient is well appearing. No acute distress. HEENT: Normocephalic atraumatic Neck: No thyromegaly, or JVD. Cardiovascular: Regular rate and rhythm. Normal S1-S2. No murmurs, gallops, rubs. Lungs: Clear to auscultation Neuro: Alert and oriented x 3. Gait is normal. Extremities: No edema, no cyanosis, no clubbing. DIAGNOSTIC DATA ECG: SR with non specific t abnormality, rate 77 bpm EP Study with ablation 04/03/21: Procedure Synopsis: The patient entered the room in SR. Catheters were placed. Baseline intervals were normal includinga normal HV. There was no evidence of accessory pathway and there was no evidence of dual AV josh physiology. With single atrial extrastimuli we could reproducibly induce a long RP, narrow complex tachycardia with TCL~ 450ms. This would terminate spontaneously but could be easily reproduced. Characteristics were c/w with atrial tachycardia. Morphology and activation pattern suggested a HRA origin. Utilizing a multielectrode catheter to maximize data collection during nonsustained AT. Earliest activation was near the high CT, approaching the SVC/RA junction. Activation was 80ms pre P wave with QS on unipolar signal. The right phrenic nerve was mapped and was located in close proximity but posterior to our earliest site allowing us to keep 5-10mm away from this region. Ablation was only carried out were diaphragm stim could not be induced with high output pacing. Diaphragm excursion withrespiration was confirmed before and after each ablation. Following ablation, AT could no longer beinduced despite waiting period and repeat testing on and off isuprel. ASA 81mg x 1 month ? Recommendations 1. Bedrest with straight-leg precautions 3 hours 2. Anticipate discharge home after bedrest 3. F/U with Carlos Eduardo FERRARI in 4-6 weeks Lab Results Component Value Date GLUCOSE 105 04/01/2021 CALCIUM 9.5 04/01/2021 SODIUM 141 04/01/2021 POTASSIUM 3.8 04/01/2021 CO2 29 04/01/2021 CHLORIDE 107 04/01/2021 BUNSER 11 04/01/2021 CREATININE 0.61 04/01/2021 Lab Results Component Value Date TSH 1.770 12/22/2019 No results found for: INR, PROTIME IMPRESSION AND PLAN 1. AT s/p ablation on 04/03/21. No sustained recurrences. Metoprolol decreased to 12.5 mg daily dueto dizziness (she is hypotensive today). She will call me in a few weeks and let me know how she isdoing on 12.5 mg a day. We can consider discontinuing if no recurrence. She can stop her ASA 81 mg in 3 days. We will plan routine follow-up in 12 months. Ms. Chu has my contact information for any questions in the interim. Please do not hesitate to call me at for any questions regarding the care of Ms. Chu. Britt Newell NP 05/01/2021 Department of Medicine Cardiovascular Division-Electrophysiology [place] [address] [place] [phone] This note was written using a voice recognition system hardware device. Please note there may be variance in spelling, grammar, and syntax because of the voice recognition system hardware. Not every sentence has been reviewed in its entirety and if there are any concerns about the verbage above please contact Britt Newell directly at [phone]. IAC SURGEON documented in this encounter Plan of Treatment Not on file documented as of this encounter Procedures Procedure Name Priority Date/Time Associated Diagnosis Comments ECG 12-LEAD Routine 05/01/2021 SVT (supraventricular tachycardia) (CMS/HCC) (HCC) documented in this encounter Results * ECG 12 lead (05/01/2021) us Britt Downs Reece CNC MILLING MACHINE OPERATOR ECG ORDERABLES Final Re sult documented in this encounter Visit Diagnoses Diagnosis SVT (supraventricular tachycardia) (HCC)- Primary Other specified cardiac dysrhythmias Paroxysmal SVT (supraventricular tachycardia) (HCC) documented in this encounter Historical Medications * This list may reflect changes made after this encounter. Medication Sig Dispense Quantity Refills Last Filled Start D ate End Date loratadine (CLARITIN) 10 mg tablet daily 09/28/2020 01/27/2024 added in this encounter Care Teams Churner Relationship Specialty Start Date End Date Jett Yarbrough MD [address] [facility] [address] [place] [address] PCP - General 09/27/15 documented as of this encounter
--- OUTSIDE RECORDS SUMMARY | 2024-06-01 00:21 | XMS_ITS | Clinical Summary ---
Author Organization [facility] [address] Address [address] [place] [address] Care Team Providers Care Communications Technologist Name Role Phone Jett Yarbrough MD Primary Care Provider [phone]- [phone] Allergies Active Allergy Reactions Criticality Noted Date Comments Penicillins Hives Medium 07/14/2019 Medications LORazepam (ATIVAN) 0.5 mg tablet Take 1 tablet (0.5 mg total) by mouth as needed for anxiety Active atorvastatin (LIPITOR) 40 mg tabletIndicatio ns:Dyslipidemia Take 1 tablet (40 mg total) by mouth daily 30 tablet 11 0 Active Additional Information Patient taking differently:40 mg oralNightly, Indications: hyperlipidemia, Informant: Self, Reported on 06/03/2023 azelastine (ASTELIN) 137 mcg (0.1 %) nasal sprayIndication s:Seasonal Allergic Rhinitis Administer 1 spray into each nostril every morning 1 Active ibuprofen (ADVIL,MOTRIN) 200 mg tab/cap Take 2 tablet/capsule (400 mg total) by mouth as needed for pain Active dilTIAZem (CARDIZEM) 30 mg tabletIndicatio ns:Paroxysmal SVT (supraventricul ar tachycardia) (HCC) TAKE 1 TABLET BY MOUTH FOUR TIMES A DAY NEEDED FOR PALPS 360 tablet [address] (PROTONIX) 40 mg EC tablet 1 tablet (40 mg total) daily Active PARoxetine (PAXIL) 10 mg tablet Take 1 tablet (10 mg total) by mouth daily 4 Active Active Problems Problem Noted Date Diagnosed Date PAC (premature atrial contraction) 04/24/2020 PVC (premature ventricular contraction) 04/24/20 20 Sinus bradycardia 04/24/2020 Other chest pain 05/05/2019 Multinodular goiter 01/26/2019 Assessment & Plan (07/30/2019 1:25 PM BUSINESS LOAN PROCESSOR): 48 y.o. female with history of hyperthyroidism with MNG (most probable Grave's disease) status-post treatment with Methimazole no longer taking, all of which occurred outside [facility]. Referred here for persistent fatigue and globus sensation, and monitoring of thyroid function. Active symptoms: (+)fatigue and(+)globus sensation Thyroid exam shows no enlargement, masses, nodules, or tenderness Physical exam unremarkable All results from outside labs-facilities Normal TSH and Free T4 No antibodies: anti-TPO Abs and TSI Thyroid US with homogeneous uptake and has refused prior FNA biopsy for nodules Recommendations: Repeat thyroid function studies (TSH and Free T4); monitor annually Thyroid US - if negative, will no longer continue imaging surveillance Assessment & Plan (01/26/2019 6:48 PM CDT): # Multinodular Goiter -Prior history of hyperthyroidism with suppressed TSH -Longstanding fatigue and globus sensation -No overt symptoms of hyperthyroidism or hypothyroidism -No presence of goiter, masses, or enlarged thyroid -No significant thyroid asymmetry, focal firm consistency, or tenderness -No compressive or obstructive symptoms (no dyspnea, cough, wheezing) -Recheck TSH and free T4 Paroxysmal SVT (supraventricular tachycardia) Thrombocytosis 02/26/2017 Immunizations Name Administration Dates Next Due Influenza, Quadrivalent, Spl it, Preservative Free, Intramuscular 04/03/2021 Surgical History Surgery Date Site/Laterality Comments TONSILLECTOMY Tonsillectomy Medical History Medical History Date Comments Hypercholesterolemia High choles terol History of knee surgery History of knee surgery Delayed emergence from general anesthesia PONV (postoperative nausea and vomiting) Family History Medical History Relation Name Comments Other Father 2 Heart Condition ; Cause of : Heart Condition Other Mother 2 Alive and well; Relation Name Status Comments Father 1 (Age 64) Father 2 Mother 1 Alive Mother 2 Social History Tobacco Use Types Packs/Day Years Used Date Smoking Tobacco: Never Smokeless Tobacco: Never Tobacco Cessation:Counseling Given: Not Answered Alcohol Use Standard Drinks/Week Comments No 0 [...] on file Legal Sex Female 7:06 AM BUSINESS LOAN PROCESSOR Gender Identity Not on file Sexual Orientation Not on file Obstetrics History Last Filed Vital Signs Vital Sign Reading Time Taken Comments Blood Pressure 123/84 01/27/2024 2:03 PM CDT Pulse 69 01/27/2024 2:03 PM CDT Temperature 36.9 ??C (98.4 ??F) 04/03/2021 4:06 PM CD T Respiratory Rate 13 04/03/2021 7:35 PM CDT Oxygen Saturation 98% 06/03/2023 10:57 AM BUSINESS LOAN PROCESSOR Inhaled Oxygen Concentration - - Weight 62.6 kg (138 lb) 01/27/2024 2:03 PM CDT Height 167.6 cm (5' 6 ) 01/27/2024 2:03 PM CDT Body Mass Index 22.27 01/27/2024 2:03 PM CDT Plan of Treatment Health Maintenance Due Date Last Done Comments Breast Cancer Screening-Mammogram 1970 Cervical Cancer Screening 1970 Colon Cancer Screening-Colonoscopy 1972 Depression Screening 1972 Hepatitis C Screening 1972 DTaP/Tdap/Td Vaccine (1 - Tdap) 12/10/1983 Hepatitis B Screening 1990 Regular Well Visit/Exam 18-64 1990 Zoster Vaccine (1 of 2) 2022 Influenza Vaccine (#1) 2024 , 07/25/2016, 05/23/2016 Pneumococcal vaccine <65 Aged Out No longer eligible based on patient's age to complete this topic Medical Devices Implanted Type Area Stretcher Leveler Operator Device Identifier Shelf Expiration Date Model / Serial / Lot [employer]) [id number] System 6-12fr Mvp Venous Closure Vascade - [id number] Implanted:Qty : 1 on 04/03/2021 by Dale Thibodeaux MD at [facility] Other - see comments Right: Groin [employer] 10/10/2022 800-612C- [id number] / / [id number] [employer] [id number] Device Closure Vascade Od5 Fr Femoral Artery - [id number] Implanted:Qty : 1 on 04/03/2021 by Dale Thibodeaux MD at [facility] Other - see comments Right: Groin [employer] 12/04/2022 [id number] -[id number] / / [id number] [employer] [id number] Device Closure Vascade Od5 Fr Femoral Artery - [id number] Implanted:Qty : 1 on 04/03/2021 by Dale Thibodeaux MD at [facility] Other - see comments Left: Groin [employer] 12/27/2022 [id number] -[id number] / / [id number] [employer] [id number] System 6-12fr Mvp Venous Closure Vascade - [id number] Implanted:Qty : 1 on 04/03/2021 by Dale Thibodeaux MD at [facility] Other - see comments Left: Groin [employer] 10/10/2022 [id number]- [id number] / / [id number] Insurance [employer] PREFERRED BLUE ACCESS [place] For more information, please contact: [phone] Healthcare Agents on File Name Relationship Healthcare Agent Relationshi p Communication Darryl Vlad Spouse Health Care Agent [id number] (Mobile) Care Teams Communications Technologist Relationship Specialty Start Date End Date Jett Yarbrough MD [address] [facility] [address] [place], [place] [id number] PCP - General 09/27/15
--- OUTSIDE RECORDS SUMMARY | 2024-06-01 00:21 | XMS_ITS | Encounter Summary ---
Author Organization [facility] Address [address] [place] [address] Phone Care Team Providers Care Software Architect Name Role Phone Jett Yarbrough MD Primary Care Provider +1- [phone] Reason for Referral * Consultation (Routine) - Authorized Specialty Diagnoses / Procedures Referred By Camryn lo Referred To Contact Endocrinology Diagnoses Daniel's disease Britt Newell NP Phone: tel: fax: Ethan Renner MD [address] [place] [address] Phone: tel: fax: Referral ID Status Reason Start Date Expiration Date Visits Requested Visits Authorized [id number] Authorized Specialty Services Required 3 07/02/2024 12 12 Question Answer Please select the performing region: [facility] (All Locations) [[id number]] To provider: ETHAN RENNER [[id number]] # of visits: 1 Comments Daniel's ONAUTICAL ENGINEER * Cardiology (Routine) - Authorized Specialty Diagnoses / Procedures Referred By Camryn t Referred To Contact Diagnoses Paroxysmal SVT (supraventricular tachycardia) (HCC) Procedures ECG 12 lead Britt Newell NP Phone: tel: fax: [facility] (All Locations) Referral ID Status Reason Start Date Expiration Date V isits Requested Visits Authorized [id number] Authorized 06/03/2023 07/02/2024 1 1 ONAUTICAL ENGINEER Reason for Visit * Consultation (Routine) - Closed Specialty Diagnoses / Procedures Referred By Contac t Referred To Contact Cardiology Diagnoses Paroxysmal SVT (supraventricular tachycardia) (HCC) Dale Thibodeaux MD Phone: tel: fax: [facility] (All Locations) Referral ID Status Reason Start Date Expiration Date V isits Requested Visits Authorized [id number] Closed Specialty Services Required 05/29/2023 06/27/2024 1 1 Encounter Details Date Type Department Care Team (Late st Contact Info) Description 06/03/2023 11:00 AM ASTRONAUTICAL ENGINEER Office Visit [facility] Cardiology [facility] Medical Office Building [address] [place] [phone] Britt Newell NP [address] [address] Daniel's disease (Primary Dx); Paroxysmal SVT (supraventricular tachycardia) Social History Tobacco Use Types Packs/Day Years [...] more drinks on one occasion? Never 04/03/2021 Personal Safety Answer Date Recorded Getting School Help Needed Not on file 05/29 Comments No Sex and Gender Information Value Date Recorded Sex Assigned at Not on file Legal Sex Female 7:06 AM ASTRONAUTICAL ENGINEER Gender Identity Not on file Sexual Orientation Not on file documented as of this encounter Last Filed Vital Signs Vital Sign Reading Time Taken Comments Blood Pressure 121/83 06/03/2023 10:57 AM ASTRONAUTICAL ENGINEER Pulse 66 06/03/2023 10:57 AM ASTRONAUTICAL ENGINEER Temperature - - Respiratory Rate - - Oxygen Saturation 98% 06/03/2023 10:57 AM ASTRONAUTICAL ENGINEER Inhaled Oxygen Concentration - - Weight 62.1 kg (137 lb) 06/03/2023 10:57 AM ASTRONAUTICAL ENGINEER Height 167.6 cm (5' 6 ) 06/03/2023 10:57 AM ASTRONAUTICAL ENGINEER Body Mass Index 22.11 06/03/2023 10:57 AM ASTRONAUTICAL ENGINEER documented in this encounter Patient Instructions * Patient Instructions* Britt Newell NP - 06/03/2023 11:00 AM ASTRONAUTICAL ENGINEER -Magnesium Oxide 250-500mg at night. Nature Made is ok. -Magnesium Glycinate (120 mg-Pure encapsulations on Amazon) -Take an EKG when you are having symptoms. ONAUTICAL ENGINEER ONAUTICAL ENGINEER documented in this encounter Progress Notes * Britt Newell NP - 06/03/2023 11:00 AM CST Electrophysiology Note Patient ID Chioma Chu 1970 is a 52 y.o. female following up on 06/03/2023. The patient's decision science analyst is Dr. Dale Thibodeaux. HISTORY I had the pleasure of seeing Chioma Chu in [facility]. I have reviewed the pertinent data originating outside our institution and outside my specialty within our institution and summarized the pertinent information below. As you well know, she nita 52 y.o. female with the following arrhythmia-specific history: 1. Palpitations/SVT/Ectopic Beats Seen in consultation in June 2019. Symptoms of frequent episodes of palpitations that were most consistent with paroxysmal SVT with prior monitoring detecting several episodes of short runs of likely atrial tachycardia. Episodes occur randomly, often at rest and sometimes wake her from sleep. Itgenerally lasts several minutes but she had several episodes that lasted over 1 hour. Associated symptoms also included atypical chest discomfort which prompted stress testing and cardiac catheterization that showed normal coronaries 30CT 07/2019: Episodes of symptoms were consistent with sinus rhythm with frequent PACs or PVCs with occasional short runs of atrial tachycardia. EP study with intent to ablate her arrhythmia mechanism had been discussed but given the multitude of ectopic beats and no clear sustained SVT mechanism, this was deferred and pharmacologic options were pursued with p.r.n. calcium channel david. Role of antiarrhythmic drug therapy such as dofetilide also discussed. Pharmacologic options are somewhat limited due to slow resting heart rate Long-acting diltiazem prescribed for continued palpitations by her primary diamond saw operator, Dr Guerrero, in November 2019 to address ongoing palpitations. The combination of long-acting diltiazem short-acting diltiazem seem to make her heart rate lower as expected and at times has made her feel bad even in the absence of palpitation. Saw Yenyvivian Valero SUPERVISOR ROVING in clinic on 02/06/21 and was having worsening symptoms of palpitations and associated dizziness. EP Study and ablation was done 04/03/[address] Thibodeaux. Atrial tachycardia was induced that mapped to the RA/high roberta. It was close to the phrenic nerve so he carefully ablated the region and the AT was no longer inducible. DC'd home on ASAx 1 month. 2. Sinus bradycardia Slow resting heart rate does limit pharmacologic options for palpitations/SVT as noted above Chioma presents today for follow up. She continues on prn diltiazem. Longer acting CCB or BB led to low bp and hr. She notified our office in 08/07 that she was having an increase in intermittent episodes of heart racing while up moving. Led to dyspnea and panic attacks. Had recent thyroid levels drawn that were reportedly normal. Episodes felt a little different than previous arrhythmia. MCT ordered. Dr. Thibodeaux's interpretation as follows: Monitor overall looks good with no concerning arrhythmias. Overall burden of PACs and PVCs were low(<1%) (Premature atrial or ventricular contractions) There were short episodes of Atach and PACs that correlated to times of heart fluttering etc. The episodes were not long and most were over in 1-2secs. There were some epsiodes that did not correlate to anything other than SR or ST. At that time she elected to continue tx with prn Diltiazem. Today she tells me that there were 4 separate times this year where she feels like something is very wrong , feels like I'm going to . Out of nowhere she gets nauseated, jittery, very tired, feels horrible. This usually when she sits down to eat. She took her blood pressure during one of these episodes and BP was elevated 154/90. She has panic attacks but states that this does not feel like a panic attack. First time it happened was about 2020 but it is getting worse. Doesn't feel the same as arrhythmia. Did not happen when she was wearing her monitor. In addition, she has noticed heart rates in general are lower (resting heart rate in the 50s). Past Medical History: Diagnosis Date Delayed emergence from general anesthesia History of knee surgery History of knee surgery Hypercholesterolemia High cholesterol PONV (postoperative nausea and vomiting) Past Surgical History: Procedure Laterality Date TONSILLECTOMY Tonsillectomy Allergies Allergies Allergen Reactions Penicillins Hives Medications Outpatient Encounter Medications as of 06/03/2023 Medication Sig Dispense Refill atorvastatin (LIPITOR) 40 mg tablet Take 1 tablet (40 mg total) by mouth daily (Patient taking differently: Take 1 tablet (40 mg total) by mouth nightly) 30 tablet 11 azelastine (ASTELIN) 137 mcg (0.1 %) nasal spray Administer 1 spray into each nostril every morning dilTIAZem (CARDIZEM) 30 mg tablet TAKE 1 TABLET (30 MG TOTAL) BY MOUTH 4 (FOUR) TIMES A DAY NEEDED (FOR PALPS) 360 tablet 1 ibuprofen (ADVIL,MOTRIN) 200 mg tab/cap Take 2 tablet/capsule (400 mg total) by mouth as needed forpain LORazepam (ATIVAN) 0.5 mg tablet Take 1 tablet (0.5 mg total) by mouth as needed for anxiety omeprazole (PriLOSEC) 20 mg capsule Take by mouth nightly 3 loratadine (CLARITIN) 10 mg tablet daily (Patient not taking: Reported on 05/15/2022) [DISCONTINUED] PARoxetine (PAXIL) 20 mg tablet Take 20 mg by mouth nightly (Patient not taking: Reported on 05/15/2022) No facility-administered encounter medications on file as of 06/03/2023. PHYSICAL EXAM BP 121/83 (BP Location: Left arm, Patient Position: Sitting) Pulse 66 Ht 167.6 cm (5' 6 ) Wt 62.1 kg (137 lb) SpO2 98% BMI 22.11 kg/m?? General: Patient is well appearing. No acute distress. HEENT: Normocephalic atraumatic, mucous membranes are moist. Good dentition. Neck: No thyromegaly, or JVD. Cardiovascular: Regular rate and rhythm. Normal S1-S2. No murmurs, gallops, rubs. Lungs: Clear to auscultation Neuro: Alert and oriented x 3. Gait is normal. Extremities: No edema, no cyanosis, no clubbing. DIAGNOSTIC DATA ECG: SR 65, QTc 402 msec Holter/Monitor: 08/08/22 Enrollment Period: Aug 19 - Sep 17, 2022 [employer] comments: MAIL Number of Transmissions Sent During [...] duration: 00:00:06 Tachycardia shortest episode: 08/20/2022 21:26:00 Lab Results Component Value Date GLUCOSE 105 04/01/2021 CALCIUM 9.5 04/01/2021 SODIUM 141 04/01/2021 POTASSIUM 3.8 04/01/2021 CO2 29 04/01/2021 CHLORIDE 107 04/01/2021 BUNSER 11 04/01/2021 CREATININE 0.61 04/01/2021 Lab Results Component Value Date TSH 1.770 12/22/2019 No results found for: INR , PROTIME IMPRESSION AND PLAN Palpitations: Adah is stable. Continue prn diltiazem. Try supplementing Magnesium in the setting of omeprazole use. Consider coming off of Omeprazole (says she doesn't think she needs it) and trying Pepcid instead. Episodes of nausea, jittery , feeling horrible: I do not think that these symptoms are from isolated elevated bp. Rather, the elevated bp is likely secondary to feeling terrible. 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 Recommended f/u with endocrine. Also asked her to take EKG with smart watch during these episodes so that we can see if they are associated with arrhythmias. Resting bradycardia: Not symptomatic. Reassured her that resting heart rates in the 50s without symptoms is not concerning. Continue to monitor. We will plan routine follow-up in 12 months. Ms. Chu has my contact information for any questions in the interim. Please do not hesitate to call me at for any questions regarding the care of Ms. Chu. Britt Newell NP 06/03/2023 Department of Medicine Cardiovascular Division-Electrophysiology [place] [address] [place] [phone] This note was written using a voice recognition system hardware device. Please note there may be variance in spelling, grammar, and syntax because of the voice recognition system hardware. Not every sentence has been reviewed in its entirety and if there are any concerns about the verbage above please contact Britt Newell directly at [phone]. ONAUTICAL ENGINEER documented in this encounter Plan of Treatment Scheduled Referrals Name Type Priority Associated Diagnoses Order Schedule Ambulatory referral to Endocrinology Outpatient Referral Routine Daniel's disease Expected: 06/17/2023 (Approximate), Expires: 06/03/2024 documented as of this encounter Procedures Procedure Name Priority Date/Time Associated Diagnosis Comments ECG 12-LEAD Routine 06/03/2023 Paroxysmal SVT (supraventricular tachycardia) documented in this encounter Results * ECG 12 lead (06/03/2023) us Britt Newell SUPERVISOR ROVING ECG ORDERABLES Edited R esult - Final documented in this encounter Visit Diagnoses Diagnosis Daniel's disease- Primary Chronic lymphocytic thyroiditis Paroxysmal SVT (supraventricular tachycardia) (HCC) documented in this encounter Discontinued Medications Medication Sig Discontinue Reason Start Date End Da te PARoxetine (PAXIL) 20 mg tabletIndications:Anxiet y with Depression Take 20 mg by mouth nightly 03/18/2021 06/03/2023 documented as of this encounter Orders Outpatient Referral Count Last Ordered Date Fir st Ordered Date AMB REFERRAL TO CARDIOLOGY 1 06/03/2023 documented in this encounter Care Teams Software Architect Relationship Specialty Start Date End Date Jett Yarbrough MD [address] [facility] [address] [place] [address] PCP - General 09/27/15 documented as of this encounter
--- OUTSIDE RECORDS SUMMARY | 2024-06-01 00:21 | XMS_ITS | Encounter Summary ---
Author Organization [facility] Address [address] [place] [address] Phone Care Team Providers Care Environmental Officer Name Role Phone Jett Yarbrough MD Primary Care Provider +1- [phone] Reason for Referral * Cardiology (Routine) - Closed Specialty Diagnoses / Procedures Referred By Camryn lo Referred To Contact Diagnoses Palpitations Procedures MCT Mobile Cardiac Telemetry Event Monitor [place] XTRNL PT ACTIVTD ECG DWNLD W/R&I </30 DAYS Ирина Murray MD Phone: tel: fax: [facility] (All Locations) Referral ID Status Reason Start Date Expiration Date Visits Re quested Visits Authorized [id number] Closed 08/13/2023 09/11/2024 1 1 OR BUSINESS OBJECTS DEVELOPER Encounter Details Date Type Department Care Team (Late st Contact Info) Description 08/13/2023 Telephone [facility] Cardiology [address] [facility] Advanced Medicine 8th [place] [address] [place] [phone] Ирина Murray MD [address] [facility] [address] [place] [address] Social History Tobacco Use Types Packs/Day Years [...] on file Legal Sex Female 7:06 AM SENIOR BUSINESS OBJECTS DEVELOPER Gender Identity Not on file Sexual Orientation Not on file documented as of this encounter Miscellaneous Notes * Telephone Encounter - Yolanda Bryant RN - 08/13/2023 10:18 AM CST Monitor to be mailed to pt. OR BUSINESS OBJECTS DEVELOPER documented in this encounter Plan of Treatment Not on file documented as of this encounter Results * MCT Mobile Cardiac Telemetry Event Monitor (08/13/2023 2:49 PM SENIOR BUSINESS OBJECTS DEVELOPER) Anatomical Region Laterality Modality Electrocardiogra phy 08/13/2023 3:00 PM SENIOR BUSINESS OBJECTS DEVELOPER Narrative 09/09/2023 12:33 PM CDT Patient name: Chioma Chu Date of test: 08/13/2023 Type of Test: Event Monitor ([facility]) [facility] #: [id number] ?Location: [facility] Heart and Vascular : 1970 ??Age: 52 ??Sex: F Ref Physician(s): ИРИНА MURRAY MD Interpreted by: Brian Lara MD [facility] Tech: NATASHA Henderson Diagnosis: Monitoring Service: [employer] Reason for Test: R00.2: Palpitations Monitor Used: Body Guardian Heart (MCT) ??Mail Out Enrollment Period: Aug 24 - Sep 07, 2023 [employer] comments: The device was given by the biomedical technician on this note. The patient was instructed on how to use the device. The patient's questions were answered and arrangements were made for the disconnection and return of this device. [place] Number of Transmissions Sent During Enrollment Period: 12 To obtain transmission tracing contact: Rhythm Summary: Bradycardia avg rate: 57 Bradycardia longest duration: 00:30:12 Bradycardia longest episode: 09/02/2023 05:07:00 Bradycardia shortest duration: 00:00:12 Bradycardia shortest episode: 08/27/2023 03:44:00 Mean heart rate: 71 Pauses >= 3 seconds: 0 Tachycardia avg rate: 112 Tachycardia longest duration: 00:35:40 Tachycardia longest episode: 09/05/2023 10:55:00 Tachycardia shortest duration: 00:00:06 Tachycardia shortest episode: 08/26/2023 17:01:00 Cardiologis Review of Transmissions: 14 day study of 1,309,000 beats. 49 ??<HR< 142 AVG HR=71 NSR, PVCs atrial runs The patient's monitoring period was 08/25/2023 - 09/07/2023. Baseline sample showed Sinus Rhythm w/PACs with a heart rate of 80.1 bpm. There were 0 critical, 0 serious, and 12 stable events that occurred. , I have reviewed the findings on the individual tracings for the dates noted below and I agree., The full scanned/data report is available in Epic. labeled MONITOR STRIPS PDF . This study was interpreted by Brian Lara MD Confirmed on ??09/09/2023 - 12:33:07 by Brian Lara MD Summary of Transmitted Events: # ??Date ? Time ?HR ?Symptoms/Rhythm ? 12 09/04/23 18:48 ?? 65.0 ?None or Accidental Push ? Sinus Rhythm ? 11 09/04/23 18:15 ?? 69.0 ?Flutter or Skipped Beats ? Sinus Rhythm ? 10 09/02/23 21:50 ?? 70.0 ?Flutter or Skipped Beats ? Sinus Rhythm w/PVCs (1 in 1min) ? 9 ??09/01/23 23:22 ?? 60.0 ?Flutter or Skipped Beats ? Sinus Rhythm, Sinus Bradycardia w/PACs ? 8 ??09/01/23 08:10 ?? 72.0 ?None or Accidental Push ? Sinus Rhythm ? 7 ??08/31/23 22:43 ?? 71.0 ?Flutter or Skipped Beats ? Sinus Rhythm w/PACs ? 6 ??08/30/23 19:08 ?? 135.0 ?? Flutter or Skipped Beats ? Sinus Rhythm w/PVCs (1 in 1min)/Atrial Run ? 5 ??08/30/23 01:14 ?? 125.0 ?? Flutter or Skipped Beats ? Sinus Rhythm w/Atrial Run ? 4 ??08/27/23 11:11 ?? 76.0 ?Flutter or Skipped Beats ? Sinus Rhythm w/PACs ? 3 ??08/26/23 12:52 ?? 79.0 ?Flutter or Skipped Beats ? Sinus Rhythm w/PVCs (1 in 1 min)/Atrial Run/PACs ? 2 ??08/25/23 20:54 ?? 157.0 ?? Flutter or Skipped Beats ? Sinus Rhythm w/Atrial Run ? 1 ??08/25/23 15:08 ?? 80.1 ?Baseline Auto Trigger ? Sinus Rhythm w/PACs ? I have personally reviewed and interpreted this study. Procedure Note Brian Lara MD PhD - 09/09/2023 Patient name: Chioma Chu Date of test: 08/13/2023 Type of Test: Event Monitor ([facility]) [facility] #: [id number] Location: [facility] Heart and Vascular : 1970 Age: 52 Sex: F Ref Physician(s): ИРИНА MURRAY MD Interpreted by: Brian Lara MD [employer] Tech: NATASHA Henderson Diagnosis: Monitoring Service: [employer] Reason for Test: R00.2: Palpitations Monitor Used: Body Guardian Heart (MCT) Mail Out Enrollment Period: Aug 24 - Sep 07, 2023 [employer] comments: The device was given by the biomedical technician on this note. The patient was instructed on how to use the device. The patient's questions were answered and arrangements were made for the disconnection and return of this device. JH Number of Transmissions Sent During Enrollment Period: 12 To obtain transmission tracing contact: Rhythm Summary: Bradycardia avg rate: 57 Bradycardia longest duration: 00:30:12 Bradycardia longest episode: 09/02/2023 05:07:00 Bradycardia shortest duration: 00:00:12 Bradycardia shortest episode: 08/27/2023 03:44:00 Mean heart rate: 71 Pauses >= 3 seconds: 0 Tachycardia avg rate: 112 Tachycardia longest duration: 00:35:40 Tachycardia longest episode: 09/05/2023 10:55:00 Tachycardia shortest duration: 00:00:06 Tachycardia shortest episode: 08/26/2023 17:01:00 Cardiologis Review of Transmissions: 14 day study of 1,309,000 beats. 49 <HR< 142 AVG HR=71 NSR, PVCs atrial runs The patient's monitoring period was 08/25/2023 - 09/07/2023. Baseline sample showed Sinus Rhythm w/PACs with a heart rate of 80.1 bpm. There were 0 critical, 0 serious, and 12 stable events that occurred. , I have reviewed the findings on the individual tracings for the dates noted below and I agree., The full scanned/data report is available in [facility]. labeled MONITOR STRIPS PDF . This study was interpreted by Brian Lara MD Confirmed on 09/09/2023 - 12:33:07 by Brian Lara MD Summary of Transmitted Events: # Date Time HR Symptoms/Rhythm 12 09/04/23 18:48 65.0 None or Accidental Push Sinus Rhythm 11 09/04/23 18:15 69.0 Flutter or Skipped Beats Sinus Rhythm 10 09/02/23 21:50 70.0 Flutter or Skipped Beats Sinus Rhythm w/PVCs (1 in 1min) 9 09/01/23 23:22 60.0 Flutter or Skipped Beats Sinus Rhythm, Sinus Bradycardia w/PACs 8 09/01/23 08:10 72.0 None or Accidental Push Sinus Rhythm 7 08/31/23 22:43 71.0 Flutter or Skipped Beats Sinus Rhythm w/PACs 6 08/30/23 19:08 135.0 Flutter or Skipped Beats Sinus Rhythm w/PVCs (1 in 1min)/Atrial Run 5 08/30/23 01:14 125.0 Flutter or Skipped Beats Sinus Rhythm w/Atrial Run 4 08/27/23 11:11 76.0 Flutter or Skipped Beats Sinus Rhythm w/PACs 3 08/26/23 12:52 79.0 Flutter or Skipped Beats Sinus Rhythm w/PVCs (1 in 1 min)/Atrial Run/PACs 2 08/25/23 20:54 157.0 Flutter or Skipped Beats Sinus Rhythm w/Atrial Run 1 08/25/23 15:08 80.1 Baseline Auto Trigger Sinus Rhythm w/PACs I have personally reviewed and interpreted this study. Ирина Murray MD [facility] PRO CEDURES Final Result documented in this encounter Visit Diagnoses Diagnosis Palpitations- Primary Palpitations documented in this encounter Care Teams Environmental Officer Relationship Specialty Start Date End Date Jett Yarbrough MD [address] [facility] [address] [place] [address] PCP - General 09/27/15 documented as of this encounter
--- OUTSIDE RECORDS SUMMARY | 2024-06-01 00:21 | XMS_ITS | Encounter Summary ---
Author Organization [facility] Address [address] [place] [address] Phone Care Team Providers Care Automation Tech Name Role Phone Jett Yarbrough MD Primary Care Provider +1- [phone] Encounter Details Date Type Department Care Team (Late st Contact Info) Description 06/25/2022 Telephone [facility] Cardiology [address] [facility] Advanced Medicine 8th [place] [address] [place] [phone] Dale Thibodeaux MD [address] [facility] [address] [place], [place] [id number] Social History Tobacco Use Types Packs/Day Years [...] on file Legal Sex Female 7:06 AM COLORER MACHINE Gender Identity Not on file Sexual Orientation Not on file documented as of this encounter Miscellaneous Notes * Telephone Encounter - Yolanda Bryant RN - 06/26/2022 11:30 AM CST I called to f/u with pt after speaking with Dr. Thibodeaux and he stated to avoid any medications with pseudoephedrine in them, something like Advil Cold is good anything that you can get without going through the pharmacist should be fine. I LMOR for her with this information. Note to chart. RER MACHINE * Telephone Encounter - Ada Gama - 06/25/2022 3:29 PM COLORER MACHINE Carlos Eduardo She has a head cold and wants to know what she can take with her other medicines and her heart issues. RER MACHINE documented in this encounter Plan of Treatment Not on file documented as of this encounter Visit Diagnoses Not on filedocumented in this encounter Care Teams Automation Tech Relationship Specialty Start Date End Date Jett Yarbrough MD [address] [facility] [address] [place] [address] PCP - General 09/27/15 documented as of this encounter
--- OUTSIDE RECORDS SUMMARY | 2024-06-01 00:21 | XMS_ITS | Encounter Summary ---
Author Organization [facility] Address [address] [place] [address] Phone Care Team Providers Care Piece Hand Name Role Phone Jett Yarbrough MD Primary Care Provider +1- [phone] Reason for Referral * Cardiology (Routine) - Closed Specialty Diagnoses / Procedures Referred By Camryn lo Referred To Contact Diagnoses Paroxysmal SVT (supraventricular tachycardia) (HCC) Procedures ECG 12 lead Dale Thibodeaux MD Phone: tel: fax: [facility] (All Locations) Referral ID Status Reason Start Date Expiration Date Visits Re quested Visits Authorized [id number] Closed 05/15/2022 06/14/2023 1 1 N RESOURCES BENEFITS COORDINATOR Encounter Details Date Type Department Care Team (Late st Contact Info) Description 05/15/2022 9:30 AM HUMAN RESOURCES BENEFITS COORDINATOR Office Visit [facility] Cardiology [address] [facility] [address] [place] [id number] Dale Thibodeaux MD [address] [place] [id number] Paroxysmal SVT (supraventricular tachycardia) (CMS/HCC) (HCC) (Primary Dx); PVC (premature ventricular contraction); PAC (premature atrial contraction); Sinus bradycardia Social History Tobacco Use Types Packs/Day Years [...] on file Legal Sex Female 7:06 AM HUMAN RESOURCES BENEFITS COORDINATOR Gender Identity Not on file Sexual Orientation Not on file documented as of this encounter Last Filed Vital Signs Vital Sign Reading Time Taken Comments Blood Pressure 112/81 05/15/2022 9:40 AM HUMAN RESOURCES BENEFITS COORDINATOR Pulse 72 05/15/2022 9:40 AM HUMAN RESOURCES BENEFITS COORDINATOR Temperature - - Respiratory Rate - - Oxygen Saturation 99% 05/15/2022 9:40 AM HUMAN RESOURCES BENEFITS COORDINATOR Inhaled Oxygen Concentration - - Weight 67.6 kg (149 lb) 05/15/2022 9:40 AM HUMAN RESOURCES BENEFITS COORDINATOR Height 167.6 cm (5' 6 ) 05/15/2022 9:40 AM HUMAN RESOURCES BENEFITS COORDINATOR Body Mass Index 24.05 05/15/2022 9:40 AM HUMAN RESOURCES BENEFITS COORDINATOR documented in this encounter Patient Instructions * Patient Instructions* Dale Thibodeaux MD - 05/15/2022 9:30 AM HUMAN RESOURCES BENEFITS COORDINATOR If another episode, ok to take 1-2 tabs every 4-6 hours. N RESOURCES BENEFITS COORDINATOR documented in this encounter Progress Notes * Dale Thibodeaux MD - 05/15/2022 9:30 AM CST Return Visit Note - Cardiac Electrophysiology Patient Name: Chioma Chu Date of : 1970 Primary Physician: Jett Yarbrough MD I had the pleasure of seeing Chioma Chu in follow[facility]up [facility]. I have reviewed the pertinent data originating outside our institution and outside my specialty within our institution and summarized the pertinent information below. As you well know, she nita 51 y.o. female with the following arrhythmia-specific history: [...] and cardiac catheterization that showed normal coronaries 30dMCT 07/2019: Episodes of symptoms were consistent with [...] prescribed for continued palpitations by her primary rehabilitation services aide, Dr Guerrero, in November 2019 to address ongoing palpitations. The combination of long-acting diltiazem short-acting diltiazem seem to make her heart rate lower as expected and at times has made her feel bad even in the absence of palpitation. Saw Yeny Marylu UPHOLSTERY AUTO TRIMMER in clinic on 02/06/21 and was having [...] pharmacologic options for palpitations/SVT as noted above She presents for arrhythmia follow up. Overall, she is doing well. She has had 2 episodes over the last year where she had some extended palpitations. She had an episode 2 or 3 months ago where she was laying down at night and noticed that her heart started racing at around 100-110 beats per minuteand lasted for approximately 2 hours. Overall the symptoms felt slower and less symptomatic than her pre ablation symptoms and the episodes are few and far between. She is occasional isolated palpitations and occasional sharp chest discomfort likely associated with ectopic beats. She is off of metoprolol which resulted in side effects and relatively low blood pressure. She onlytakes p.r.n. diltiazem. During the aforementioned episode she took 1 dose of 30 mg of diltiazem that did not seem to make a major difference. Past Medical History Past Medical History: Diagnosis Date Delayed emergence from general anesthesia History of knee surgery History of knee surgery Hypercholesterolemia High cholesterol PONV (postoperative nausea and vomiting) Past Surgical History Past Surgical History: Procedure Laterality Date TONSILLECTOMY Tonsillectomy Medications Current Outpatient Medications: atorvastatin (LIPITOR) 40 mg tablet, Take 1 tablet (40 mg total) by mouth daily (Patient taking differently: Take 40 mg by mouth nightly), Disp: 30 tablet, Rfl: 11 azelastine (ASTELIN) 137 mcg (0.1 %) nasal spray, Administer 1 spray into each nostril every morning , Disp: , Rfl: dilTIAZem (CARDIZEM) 30 mg tablet, TAKE 1 TABLET (30 MG TOTAL) BY MOUTH 4 (FOUR) TIMES A DAY NEEDED (FOR PALPS), Disp: 360 tablet, Rfl: 1 ibuprofen (ADVIL,MOTRIN) 200 mg tab/cap, Take 400 mg by mouth as needed for pain, Disp: , Rfl: LORazepam (ATIVAN) 0.5 mg tablet, Take 0.5 mg by mouth as needed for anxiety , Disp: , Rfl: omeprazole (PriLOSEC) 20 mg capsule, Take by mouth nightly , Disp: , Rfl: 3 aspirin 81 mg chewable tablet, Take 1 tablet (81 mg total) by mouth daily, Disp: 30 tablet, Rfl: 0 loratadine (CLARITIN) 10 mg tablet, daily (Patient not taking: Reported on 05/15/2022), Disp: , Rfl: metoprolol XL (TOPROL-XL) 25 mg extended release tablet, Take 1 tablet (25 mg total) by mouth daily(Patient taking differently: Take 25 mg by mouth nightly ), Disp: 30 tablet, Rfl: 11 PARoxetine (PAXIL) 20 mg tablet, Take 20 mg by mouth nightly (Patient not taking: Reported on 05/15/2022), Disp: , Rfl: Allergies Allergies Allergen Reactions Penicillins Hives Family History Family History Problem Relation Age of Onset Other Father Heart Condition; Cause of : Heart Condition Other Mother Alive and well; Social History Social History Tobacco Use Smoking status: Never Smokeless tobacco: Never Substance and Sexual Activity Drug use: No Sexual activity: Defer Alcohol Use: Not on file Exam There were no vitals filed for this visit. Physical Exam Constitutional: No distress. Head: Normocephalic. Nose: Nose normal. Mouth/Throat: Mucous membranes are normal. Eyes: Sclera Anicteric Neck: Supple without appreciable lymphadenopathy, carotid bruits Cardiovascular: Regular rhythm, S1 normal and S2 normal. No murmurs/rubs/gallops. Pulmonary/Chest: Effort normal and breath sounds normal. Abdominal: Soft. Normal appearance. Neurological: alert, oriented Skin: warm and dry, without rashes. Psychiatric: normal mood and affect. Diagnostic Data ECG performed today and reviewed personally reveals SR Labs Creatinine Date Value Ref Range Status 04/01/2021 0.61 0.60 - 1.10 mg/dL Final Creatinine, Serum Date Value Ref Range Status 03/05/2018 0.54 (L) 0.57 - 1.00 mg/dL Final , Plt Date Value Ref Range Status 04/01/2021 383 150 - 400 K/cumm Final , WBC Date Value Ref Range Status 04/01/2021 5.1 3.8 - 9.9 K/cumm Final , Hgb Date Value Ref Range Status 04/01/2021 11.9 11.9 - 15.5 g/dL Final Visit Diagnoses (I47.1) Paroxysmal SVT (supraventricular tachycardia) (CMS/HCC) (HCC) (primary encounter diagnosis) (I49.3) PVC (premature ventricular contraction) (I49.1) PAC (premature atrial contraction) (R00.1) Sinus bradycardia Plan As noted above, she is doing reasonably well from an arrhythmia standpoint. She will continue p.r.n. diltiazem and monitor her symptoms. She will notify us should her symptoms increase in any way and we encouraged her to take 1 or 2 tabs of diltiazem with onset of symptoms and to let us know if the burden of arrhythmia is increasing which would prompt us to do a monitor at that time. Thank you for allowing us to participate in the care of this pleasant patient. Please do not hesitate to call us if any questions arise. Respectfully, Dale Thibodeaux MD veterinary meat inspector Director, EP Fellowship Program [facility] Division of Cardiology, [place] [address] [place] [address] This note was transcribed using speech recognition software. As a result, there may be grammatical and spelling errors that are unintended. If there are any questions or major inaccuracies, please contact us. N RESOURCES BENEFITS COORDINATOR documented in this encounter Plan of Treatment Not on file documented as of this encounter Procedures Procedure Name Priority Date/Time Associated Diagnosis Comments ECG 12-LEAD Routine 05/15/2022 Paroxysmal SVT (supraventricular tachycardia) (CMS/HCC) (HCC) documented in this encounter Results * ECG 12 lead (05/15/2022) us Dale Thibodeaux MD ECG ORDERABLES Final R esult documented in this encounter Visit Diagnoses Diagnosis Paroxysmal SVT (supraventricular tachycardia) (HCC)- Primary PVC (premature ventricular contraction) Other premature beats PAC (premature atrial contraction) Supraventricular premature beats Sinus bradycardia Other specified cardiac dysrhythmias documented in this encounter Discontinued Medications Medication Sig Discontinue Reason Start Date End Da te metoprolol XL (TOPROL-XL) 25 mg extended release tablet Take 1 tablet (25 mg total) by mouth daily 05/25/2020 05/15/2022 aspirin 81 mg chewable tablet Take 1 tablet (81 mg total) by mouth daily 04/03/2021 05/15/2022 documented as of this encounter Care Teams Piece Hand Relationship Specialty Start Date End Date Jett Yarbrough MD [address] [facility] [address] [place] [address] PCP - General 09/27/15 documented as of this encounter
--- OUTSIDE RECORDS SUMMARY | 2024-06-01 00:21 | XMS_ITS | Referral Summary ---
Author Organization [facility] [address] Address [address] [place] [address] Care Team Providers Care Composing Machine Operator Name Role Phone Jett Yarbrough MD Primary Care Provider +1- [phone] Allergies Active Allergy Reactions Criticality Noted Date [...] 01/26/2019 Assessment & Plan (07/30/2019 1:25 PM HOMICIDE SQUAD CAPTAIN): 48 y.o. female with history of hyperthyroidism with MNG (most probable Grave's disease) status-post treatment with Methimazole no longer taking, all of which occurred outside [facility]. Referred here for persistent fatigue and globus [...] Quadrivalent, Spl it, Preservative Free, Intramuscular 04/03/2021 Social History Tobacco Use Types Packs/Day Years [...] on file Legal Sex Female 7:06 AM HOMICIDE SQUAD CAPTAIN Gender Identity Not on file Sexual Orientation Not on file Last Filed Vital Signs Vital Sign Reading Time Taken Comments Blood Pressure 123/84 01/27/2024 2:03 PM CDT Pulse 69 01/27/2024 2:03 PM CDT Temperature 36.9 ??C (98.4 ??F) 04/03/2021 4:06 PM CD T Respiratory Rate 13 04/03/2021 7:35 PM CDT Oxygen Saturation 98% 06/03/2023 10:57 AM HOMICIDE SQUAD CAPTAIN Inhaled Oxygen Concentration - - Weight 62.6 kg (138 lb) 01/27/2024 2:03 PM CDT Height 167.6 cm (5' 6 ) 01/27/2024 2:03 PM CDT Body Mass Index 22.27 01/27/2024 2:03 PM CDT Plan of Treatment Not on file Medical Devices Implanted Type Area Hydraulic Engineer Device Identifier Shelf Expiration Date Model / Serial / Lot [employer] [id number] System 6-12fr Mvp Venous Closure Vascade - [id number] Implanted:Qty : 1 on 04/03/2021 by Dale Thibodeaux MD at [facility] Other - see comments Right: Groin [employer] 10/10/2022 800-612C- [id number] / / [id number] [employer] [id number] Device Closure Vascade Od5 Fr Femoral Artery - [id number] Implanted:Qty : 1 on 04/03/2021 by Dale Thibodeaux MD at [facility] Other - see comments Right: Groin [employer] 12/04/2022 700-500DX -[id number] / / [id number] [employer] [id number] Device Closure Vascade Od5 Fr Femoral Artery - [id number] Implanted:Qty : 1 on 04/03/2021 by Dale Thibodeaux MD at [facility] Other - see comments Left: Groin [employer] 12/27/2022 700-500DX -05U / / [id number] [employer] [id number] System 6-12fr Mvp Venous Closure Vascade - [id number] Implanted:Qty : 1 on 04/03/2021 by Dale Thibodeaux MD at [facility] Other - see comments Left: Arjun [employer] 10/10/2022 800-612C- 10U / / [id number] Insurance BLUE ACCESS OOS Member Subscriber Plan / Payer (Ef fective 2019-Present) Name:Chioma Chu Relation to Subscriber:Self Name:Chioma Chu Payer ID:[id number] (NAIC) Type:[employer] Address: [place] [address] ANTH PREFERRED Member Subscriber Plan / Payer (Ef fective 2018-Present) Name:Chioma Chu Relation to Subscriber:Self Name:Chioma Chu Payer ID:[id number] (NAIC) Type:[employer] Address: [place] [address] [place]ives For more information, please contact: [phone] Healthcare Agents on File Name Relationship Healthcare Agent Relationsnv p Communication Darryl Vlad Spouse Health Care Agent Care Teams Composing Machine Operator Relationship Specialty Start Date End Date Jett Yarbrough MD [address] [facility] [address] [place], [place] [id number] PCP - General 09/27/15
--- OUTSIDE RECORDS SUMMARY | 2024-06-01 00:21 | XMS_ITS | Encounter Summary ---
Author Organization [facility] Address [address] [place] [address] Phone Care Team Providers Care Civil Engineering Intern Name Role Phone Jett Yarbrough MD Primary Care Provider +1- [phone] Encounter Details Date Type Department Care Team (Late st Contact Info) Description 07/24/2023 Telephone [facility] Cardiology [address] [facility] Advanced Medicine 8th [place] [address] [place] [address] Dale Thibodeaux MD [address] [facility] [address] [place], [place] [id number] Social History Tobacco Use Types Packs/Day Years [...] on file Legal Sex Female 7:06 AM FLATWORK FOLDER Gender Identity Not on file Sexual Orientation Not on file documented as of this encounter Miscellaneous Notes * Telephone Encounter - Kip Martin - 07/24/2023 10:32 AM CST Scheduled patient for 06/01/24 with Britt Manager Gas for 1 year follow up. I attempted to schedule patiet with Dr. Thibodeaux but he only has 4 and 4:30 pm appts and pt lives in [place] and there may be traffic around that time. Appt letter mailed. WORK FOLDER * Telephone Encounter - Traci Monroe RN - 07/24/2023 10:09 AM FLATWORK FOLDER Patient was seen in clinic on 06/03/23. She needs a 1 yr f/u appointment. WORK FOLDER documented in this encounter Plan of Treatment Not on file documented as of this encounter Visit Diagnoses Not on filedocumented in this encounter Care Teams Civil Engineering Intern Relationship Specialty Start Date End Date Jett Yarbrough MD [address] [facility] [address] [place] [id number] PCP - General 09/27/15 documented as of this encounter
--- OUTSIDE RECORDS SUMMARY | 2024-06-01 00:21 | XMS_ITS | Encounter Summary ---
Author Organization [facility] Address [address] [place] [address] Phone Care Team Providers Care Performance Specialist Name Role Phone Jett Yarbrough MD Primary Care Provider +1- [phone] Reason for Referral * Cardiology (Routine) - Closed Specialty Diagnoses / Procedures Referred By Camryn lo Referred To Contact Diagnoses Palpitations Procedures MCT Mobile Cardiac Telemetry Event Monitor Ирина Murray MD Phone: tel: fax: [facility] (All Locations) Referral ID Status Reason Start Date Expiration Date Visits Re quested Visits Authorized [id number] Closed 08/08/2022 09/07/2023 1 1 OR TECHNICAL MANAGER Encounter Details Date Type Department Care Team (Late st Contact Info) Description 08/06/2022 Telephone [facility] Cardiology [address] [place] [address] 8th [place] [address] [place] [address] Ирина Murray MD [address] [facility] [address] [place] [address] Social History Tobacco Use Types Packs/Day Years [...] file Legal Sex Female 7:06 AM SENIOR TECHNICAL MANAGER Gender Identity Not on file Sexual Orientation Not on file documented as of this encounter Miscellaneous Notes * Telephone Encounter - Yolanda Bryant RN - 08/08/2022 11:53 AM CST Please see order for monitor to be mailed to the pt. Thank you OR TECHNICAL MANAGER * Telephone Encounter - Yolanda Bryant RN - 08/08/2022 11:48 AM CST I called and was able to speak with pt today, she said she just had her thyroid levels checked and no issue there which may have caused an issue in the past. She said that these episodes feel a little different. I talked to her about wearing a monitor to see if any rhythm causing the episodes. She is fine with this.I will get the order placed and have this mailed to her. OR TECHNICAL MANAGER * Telephone Encounter - Yolanda Bryant RN - 08/07/2022 4:05 PM CST I called back and got voicemail, I let her know I was sorry I was just getting back to her and I wanted to check and see if she had taken the Diltiazem and if she took an extra dose as noted by Dr. Murray previously if she had an episode, if it was helping and how long the episodes were lasting. I asked her to return call. OR TECHNICAL MANAGER * Telephone Encounter - Oralia Murphy - 08/06/2022 3:58 PM CST Carlos Eduardo Pt stating she has been noticing intermittent episodes of her heart racing when she is up moving. Episodes have been happening for the past 2 to 3 weeks. Pt has been having the episodes today. Pt currently having one. Pt has been experiencing SOB and panic attacks with the episodes. Pt recently had blood work done on 07/24/22 --thyroid levels were normal. Pls call pt to discuss. OR TECHNICAL MANAGER documented in this encounter Plan of Treatment Not on file documented as of this encounter Results * MCT Mobile Cardiac Telemetry Event Monitor (08/08/2022 3:23 PM SENIOR TECHNICAL MANAGER) Anatomical Region Laterality Modality Electrocardiogra phy 08/08/2022 3:45 PM SENIOR TECHNICAL MANAGER Narrative 09/21/2022 10:34 PM CDT Patient name: Chioma Chu Date of test: 08/08/2022 Type of Test: Event Monitor ([facility]) [facility] #: [id number] ?Location: [facility] Heart and Vascular : 1970 ??Age: 51 ??Sex: F Ref Physician(s): ИРИНА MURRAY MD Interpreted by: Brian Lara MD [employer]: NATASHA Magana Diagnosis: Monitoring Service: [employer] Reason for Test: R00.2: Palpitations Monitor Used: Body Guardian Heart (MCT) ??MAIL Enrollment Period: Aug 19 - Sep 17, 2022 [employer] comments: MAIL Number of Transmissions Sent During [...] The full scanned/data report is available in [employer] labeled MONITOR STRIPS PDF . This study was interpreted by Brian Lara MD Confirmed on ??09/21/2022 - 22:34:36 by Brian Lara MD Summary of Transmitted Events: # ??Date ? Time ?HR ?Symptoms/Rhythm ? 1 ??08/21/22 15:06 ?? 72.7 ?Baseline Shortness of Breath ? Sinus Rhythm ? I have personally reviewed and interpreted this study. Procedure Note Brian Lara MD PhD - 09/21/2022 Patient name: Chioma Chu Date of test: 08/08/2022 Type of Test: Event Monitor ([facility]) Hospital #: [id number] Location: [facility] Heart and Vascular : 1970 Age: 51 Sex: F Ref Physician(s): ИРИНА MURRAY MD Interpreted by: Brian Lara MD [employer] Tech: NATASHA Magana Diagnosis: Monitoring Service: [employer] Reason for Test: R00.2: Palpitations Monitor Used: Body Guardian Heart (MCT) MAIL Enrollment Period: Aug 19 - Sep 17, 2022 [employer] comments: MAIL Number of Transmissions Sent During [...] The full scanned/data report is available in [employer] labeled MONITOR STRIPS PDF . This study [...] Palpitations documented in this encounter Care Teams Performance Specialist Relationship Specialty Start Date End Date Jett Yarbrough MD [address] [facility] [address] [place], [place] [id number] PCP - General 09/27/15 documented as of this encounter
--- OUTSIDE RECORDS SUMMARY | 2024-06-01 00:21 | XMS_ITS | Encounter Summary ---
Author Organization [facility] Address [address] [place] [address] Phone Care Team Providers Care Supervisor Screen Making Name Role Phone Jett Yarbrough MD Primary Care Provider [phone]- [phone] Reason for Visit * Cardiology (Routine) - Closed Specialty Diagnoses / Procedures Referred By Camryn lo Referred To Contact Diagnoses Palpitations Procedures MCT Mobile Cardiac Telemetry Event Monitor PA XTRNL PT ACTIVTD ECG DWNLD W/R&I </30 DAYS Ирина Murray MD Phone: tel: fax: [facility] (All Locations) Referral ID Status Reason Start Date Expiration Date Visits Re quested Visits Authorized [id number] Closed 08/13/2023 09/11/2024 1 1 Encounter Details Date Type Department Care Team (Late st Contact Info) Description 08/13/2023 3:00 PM PSYCHOLOGY TEACHER Ancillary Procedure [facility] Cardiology [address] 8th [place] [address] [place] [id number] Palpitations Social History Tobacco Use Types Packs/Day [...] on file Legal Sex Female 7:06 AM PSYCHOLOGY TEACHER Gender Identity Not on file Sexual Orientation Not on file documented as of this encounter Plan of Treatment Not on file documented as of this encounter Procedures Procedure Name Priority Date/Time Associated Diagnosis Comments MCT - MOBILE CARDIAC TELEMETRY EVENT MONITOR Routine 08/13/2023 2:49 PM PSYCHOLOGY TEACHER Palpitations documented in this encounter Results * MCT Mobile Cardiac Telemetry Event Monitor (08/13/2023 2:49 PM PSYCHOLOGY TEACHER) Anatomical Region Laterality Modality Electrocardiogra phy 08/13/2023 3:00 PM PSYCHOLOGY TEACHER Narrative 09/09/2023 12:33 PM CDT Patient name: Chioma Chu Date of test: 08/13/2023 Type of Test: Event Monitor ([facility]) [facility] #: [id number] ?Location: [facility] Heart and Vascular : 1970 ??Age: 52 ??Sex: F Ref Physician(s): ИРИНА MURRAY MD Interpreted by: Brian Lara MD Tyto Tech: NATASHA Henderson Diagnosis: Monitoring Service: [employer] Reason for Test: R00.2: Palpitations Monitor Used: Body Guardian Heart (MCT) ??Mail Out Enrollment Period: Aug 24 - Sep 07, 2023 Six Month [employer] Tech comments: The device was given by the veterinary assistant technician on this note. The patient was [...] The full scanned/data report is available in [employer]. labeled MONITOR STRIPS PDF . This study [...] Accidental Push ? Sinus Rhythm ? 7 ??03/18/24 22:43 ?? 71.0 ?Flutter or Skipped Beats [...] test: 08/13/2023 Type of Test: Event Monitor ([facility]) [facility] #: [id number] Location: [facility] Heart and Vascular : 1970 Age: 52 Sex: F Ref Physician(s): ИРИНА MURRAY MD Interpreted by: Brian Lara MD Tyto Tech: NATASHA Henderson Diagnosis: Monitoring Service: [employer] Reason for Test: R00.2: Palpitations Monitor Used: Body Guardian Heart (MCT) Mail Out Enrollment Period: Aug 24 - Sep 07, 2023 Six Month [employer] Tech comments: The device was given by the veterinary assistant technician on this note. The patient was [...] The full scanned/data report is available in [employer]. labeled MONITOR STRIPS PDF . This study was interpreted by Brian Lara MD Confirmed on 09/09/2023 - 12:33:07 by Brian Lara MD Summary of Transmitted Events: # Date Time HR Symptoms/Rhythm 09/04/23 18:48 65.0 None or Accidental Push Sinus Rhythm 09/04/23 18:15 69.0 Flutter or Skipped Beats [...] Palpitations documented in this encounter Care Teams Supervisor Screen Making Relationship Specialty Start Date End Date Jett Yarbrough MD [address] [place] [address] PCP - General 09/27/15 documented as of this encounter
--- OUTSIDE RECORDS SUMMARY | 2024-06-01 00:21 | XMS_ITS | Encounter Summary ---
Author Organization [facility] Address [address] [place] [address] Phone Care Team Providers Care Intelligence Clerk Name Role Phone Jett Yarbrough MD Primary Care Provider [phone]- [phone] Encounter Details Date Type Department Care Team (Late st Contact Info) Description 04/04/2021 Telephone [facility] Cardiology [address] [facility] 8th [place] [address] [place] [id number] Dale Thibodeaux MD [address] [facility] [address] [place] [address] Social History Tobacco Use Types Packs/Day Years [...] on file 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 Describes right groin site as feeling and looking good. She went home with a gauze dressing on the left groin and removed it today. States the left groin is bruised, purple and tender. Denies any numbness or tingling in legs. She does have a bandaid on the site, no bleeding from under the bandaid. Pt describes knot in the groin site approx 1in long. I explained that it is normal to have a knot at the site. She should continue to monitor it and call our office if it becomes swollen or actively bleeding. Also explained that it is normal to have bruising and soreness since they had to press out the hematoma. She has beentaking tylenol for the pain. Informed her that she can continue tylenol for pain and not to exceed 3000mg in 24hrs. Verbalized understanding. * Telephone Encounter - Nicolas Trejo - 04/04/2021 4:22 PM CDT Carlos Eduardo Patient calling to discuss some bleeding she is having after procedure. documented in this encounter Plan of Treatment Not on file documented as of this encounter Visit Diagnoses Not on filedocumented in this encounter Care Teams Intelligence Clerk Relationship Specialty Start Date End Date Jett Yarbrough MD [address] [facility] [address] [place] [address] PCP - General 09/27/15 documented as of this encounter
--- OUTSIDE RECORDS SUMMARY | 2024-06-01 00:21 | XMS_ITS | Encounter Summary ---
Author Organization [facility] Address [address] [place] [address] Phone Care Team Providers Care Precast Concrete Products Installer Name Role Phone Jett Yarbrough MD Primary Care Provider [phone]- [phone] Reason for Referral * Diagnostic Imaging (Routine) - Pending Review Specialty Diagnoses / Procedures Referred By Camryn lo Referred To Contact Diagnoses Thyroid nodule Procedures US Thyroid Ethan Renner MD [address] [address] Phone: tel: fax: External Order Referral ID Status Reason Start Date Expiration Date V isits Requested Visits Authorized [id number] Pending Review 01/27/2024 02/25/2025 1 1 Reason for Visit * Consultation (Routine) - Authorized Specialty Diagnoses / Procedures Referred By Camryn lo Referred To Contact Endocrinology Diagnoses Bryan's disease Britt Newell NP Phone: tel: fax: Ethan Renner MD [address] [place] [address] Phone: tel: fax: Referral ID Status Reason Start Date Expiration Date Visits Requested Visits Authorized [id number] Authorized Specialty Services Required 3 07/02/2024 12 12 Encounter Details Date Type Department Care Team (Latest Contact Info) Description 01/27/2024 2:00 PM CDT Office Visit [facility] Endocrinology Metabolism and Lipid [address] [facility] [address] [place] [address] Ethan Renner MD [address] [place] [address] History of hyperthyroidism (Primary Dx); Bryan's disease; Thyroid nodule Social History Tobacco Use Types Packs/Day Years [...] on file 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 Gender Identity Not on file Sexual Orientation Not on file documented as of this encounter Last Filed Vital Signs Vital Sign Reading Time Taken Comments Blood Pressure 123/84 01/27/2024 2:03 PM CDT Pulse 69 01/27/2024 2:03 PM CDT Temperature - - Respiratory Rate - - Oxygen Saturation - - Inhaled Oxygen Concentration - - Weight 62.6 kg (138 lb) 01/27/2024 2:03 PM CDT Height 167.6 cm (5' 6 ) 01/27/2024 2:03 PM CDT Body Mass Index 22.27 01/27/2024 2:03 PM CDT documented in this encounter Progress Notes * Ethan Renner MD - 01/27/2024 2:00 PM CDT Endocrine Clinic Visit Referring Provider: Britt Newell NP Visit Type: New consult Subjective: Patient is a 53 y.o. 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 HPI: I had the pleasure meeting Chioma Chu in the endocrinology clinic today. She is a pleasant lady who presented to the clinic today for a new consult Hyperthyroid in 03/2017 , also noted enlarged thyroid and started on a medicine ( likely methimazole ) but within one month her levels were off and she was advised to stop it She is followed by endocrine ( she was followed by Dr. Aponte ), and she had a thyroid nodule on theL that was biopsied back in 05/2021 Most recent thyroid US in early 2022 and it showed stable TR3 left thyroid nodule ( she has a very small R thyroid nodule as well ) She had antibodies checked multiple time and they were all nl, and thyroid US never showed any signs of thyroiditis Most recent labs as follows 08/25/2023 TSH 1.43 She has symptoms of something caught in her throat, temperature changes, she stated she can tell whenever her numbers are off as she gets jittery and shaky ( she was never on thyroid hormone replacement , the only med she recalls for thyroid is methimazole the first month after diagnosis ) Gestational DM w the last 2 kids, 2012 and 2005 , most recent HgA1c is 5.8 ( 08/2023 ) Current Outpatient Medications on File Prior to Visit Medication Sig Dispense Refill azelastine (ASTELIN) 137 mcg (0.1 %) nasal spray Administer 1 spray into each nostril every morning dilTIAZem (CARDIZEM) 30 mg tablet TAKE 1 TABLET BY MOUTH FOUR TIMES A DAY NEEDED FOR PALPS 360 tablet 1 ibuprofen (ADVIL,MOTRIN) 200 mg tab/cap Take 2 tablet/capsule (400 mg total) by mouth as needed forpain LORazepam (ATIVAN) 0.5 mg tablet Take 1 tablet (0.5 mg total) by mouth as needed for anxiety pantoprazole DR (PROTONIX) 40 mg EC tablet 1 tablet (40 mg total) daily PARoxetine (PAXIL) 10 mg tablet Take 1 tablet (10 mg total) by mouth daily atorvastatin (LIPITOR) 40 mg tablet Take 1 tablet (40 mg total) by mouth daily (Patient taking differently: Take 1 tablet (40 mg total) by mouth nightly) 30 tablet 11 [DISCONTINUED] loratadine (CLARITIN) 10 mg tablet daily (Patient not taking: Reported on 05/15/2022) [DISCONTINUED] omeprazole (PriLOSEC) 20 mg capsule Take by mouth nightly (Patient not taking: Reported on 01/27/2024) 3 No current facility-administered medications on file prior to visit. Past Medical History: Diagnosis Date Delayed emergence from general anesthesia History of knee surgery History of knee surgery Hypercholesterolemia High cholesterol PONV (postoperative nausea and vomiting) Past Surgical History: Procedure Laterality Date TONSILLECTOMY Tonsillectomy (Not in a hospital admission) Allergies Allergen Reactions Penicillins Hives Social History Tobacco Use Smoking status: Never Smokeless tobacco: Never Substance and Sexual Activity Drug use: No Sexual activity: Defer Alcohol Use: Not At Risk (01/27/2024) AUDIT-C Frequency of Alcohol Consumption: Never Average Number of Drinks: Not on file Frequency of Binge Drinking: Not on file Family History Problem Relation Age of Onset Other Father Heart Condition; Cause of : Heart Condition Other Mother Alive and well; Review Of Systems: All other systems were negative except as noted in HPI. Objective Vitals: Arrival Vitals [01/27/24 1403] Temp Pulse 69 Resp BP 123/84 SpO2 Temp src Heart Rate Source Patient Position Sitting BP Location Left arm FiO2 (%) Physical Exam Constitutional: General: is not in acute distress. Appearance: is not toxic-appearing. HENT: Head: Normocephalic and atraumatic. Eyes: General: No scleral icterus. Right eye: No discharge. Left eye: No discharge. Extraocular Movements: Extraocular movements intact. Conjunctiva/sclera: Conjunctivae normal. Pupils: Pupils are equal, round, and reactive to light. Neck: Supple, nl ROM Thyroid: no goiter, no nodules , no tenderness Cardiovascular: Rate and Rhythm: Normal rate. Pulmonary: Effort: Pulmonary effort is normal. Abdominal: General: There is no distension. Palpations: Abdomen is soft. There is no mass. Tenderness: There is no abdominal tenderness. There is no guarding. Musculoskeletal: General: No swelling. Normal range of motion. Cervical back: Normal range of motion. No rigidity or tenderness. Right lower leg: No edema. Left lower leg: No edema. Lymphadenopathy: Cervical: No cervical adenopathy. Skin: General: Skin is warm. Coloration: Skin is not jaundiced. Neurological: Mental Status: alert and oriented to person, place, and time. Motor: No weakness. Gait: Gait normal. Psychiatric: Mood and Affect: Mood normal. Behavior: Behavior normal. Thought Content: Thought content normal. Judgment: Judgment normal. Lab/Radiology/Diagnostic Review: Lab Results Component Value Date TSH 1.770 12/22/2019 FREET4 1.29 12/22/2019 Assessment/Plan: Chioma Chu is a 53 y.o. female presenting for evaluation of L thyroid nodule and episode of hyperthyroidism back in 2017 . # L thyroid nodule , TR3 This nodule was biopsied and it was benign , follow up US have been reassuring and stable, ( years 1,2 and 3 ) Will follow up w thyroid US ( early 2024 ) and if is stable then no more follow up is indicated TFT annual Checking antibodies profile for one last time to confirm the diagnosis # Hx of gestational DM and currently has prediabetes Discussed risk of development of type 2 DM Dicussed life style changes in length Ethan Renner MD Senior Gl Accountantpasteurizing machine operator Endocrinology, Metabolism and Lipid Research [facility] Email: [email or web address] documented in this encounter Plan of Treatment Scheduled Orders Name Type Priority Associated Diagnoses Orde r Schedule US Thyroid Imaging Schedule Routine , Read Routine (OP Routine) Thyroid nodule Expected: 07/29/2024, Expires: 01/26/2025 documented as of this encounter Results * Thyroid Function [place] (01/27/2024 3:15 PM CDT) TSH 1.14 0.30 - 4.20 mcIUnit/mL Blood 01/27/2024 3:15 PM CDT 01/27/2024 4:20 PM CDT us Ethan Renner MD LAB BLOOD ORDERABLES Final Re sult [facility] [address] [facility] [address] * Thyroid stimulating immunoglobulin (01/27/2024 3:15 PM CDT) TSIG <1.0 <=1.3 [facility] ref [facility] Comment: Test Performed by: [facility] [address] [place] [address] Inserter Operator: Lucius Levy Ph.D.; CLIA# [id number] Blood 01/27/2024 3:15 PM CDT 01/27/2024 4:20 PM CDT Ethan Renner MD LAB BLOOD ORDERABLES Final Re sult Performing Organization Address [facility] Co de Phone Number [facility] [address] [address] [facility] * Thyroid peroxidase antibody (TPO) (01/27/2024 3:15 PM CDT) Anti Thyroid Peroxidase <30 <=34 IUnits/mL Comment: ATPO Interpretive Data Results may be up to 28% higher in patients receiving Itraconazole. Current interpretive data was last revised 2020. Testing performed by: [facility], [address] [place]., [address] Blood 01/27/2024 3:15 PM CDT 01/27/2024 6:41 PM CDT Ethan Renner MD LAB BLOOD ORDERABLES Final Re sult Performing Organization Address [facility] de Phone Number [facility] [address] [place] [address] documented in this encounter Visit Diagnoses Diagnosis History of hyperthyroidism- Primary Bryan's disease Chronic lymphocytic thyroiditis Thyroid nodule Nontoxic uninodular goiter documented in this encounter Discontinued Medications Medication Sig Discontinue Reason Start Date End Da te omeprazole (PriLOSEC) 20 mg capsuleIndications:Stres s Ulcer Prophylaxis Take by mouth nightly Alternate therapy 07/14/2018 01/27/2024 loratadine (CLARITIN) 10 mg tablet daily Therapy completed 09/28/2020 01/27/2024 documented as of this encounter Historical Medications * This list may reflect changes made after this encounter. PARoxetine (PAXIL) 10 mg tablet Take 1 tablet (10 mg total) by mouth daily 11/30/[address] (PROTONIX) 40 mg EC tablet 1 tablet (40 mg total) daily added in this encounter Orders Outpatient Referral Count Last Ordered Date Fir st Ordered Date AMB REFERRAL TO ENDOCRINOLOGY 1 01/27/2024 documented in this encounter Care Teams Precast Concrete Products Installer Relationship Specialty Start Date End Date Jett Yarbrough MD [address] [facility] [address] [place] [address] PCP - General 09/27/15 documented as of this encounter
--- OUTSIDE RECORDS SUMMARY | 2024-06-01 00:22 | XMS_ITS | Encounter Summary ---
Author Organization [facility] Address [address] [facility] [address] [place] [address] Phone Care Team Providers Care Guinea Pig Breeder Name Role Phone Jett Yarbrough MD Primary Care Provider [phone]- [phone] Reason for Visit * Consultation (Routine) - Closed Specialty Diagnoses / Procedures Referred By Camryn lo Referred To Contact Endocrinology Diagnoses Graves disease Multinodular goiter Miscellaneous, Not In File [facility] (All Locations) Referral ID Status Reason Start Date Expiration Date V isits Requested Visits Authorized [id number] Closed Specialty Services Required 10/04/2018 04/14/2020 1 1 Encounter Details Date Type Department Care Team (Latest Contact Info) Description 07/29/2019 1:30 PM INSURANCE ADVISOR Office Visit [facility] Endocrinology Metabolism and Lipid [address] [facility] Advanced Medicine 5th [place] [address] [place] [address] Elton Barcenas MD PhD [address] [place], [place] [id number] Multinodular goiter (Primary Dx) Social History Tobacco Use Types Packs/Day Years Used Date Smoking Tobacco: Never Smokeless Tobacco: Never Alcohol Use Standard Drinks/Week Comments No 0 (1 standard drink = 0.6 oz pur e alcohol) Comments Unknown Sex and Gender Information Value Date Recorded Sex Assigned at Not on file Legal Sex Female 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 Gender Identity Not on file Sexual Orientation Not on file documented as of this encounter Last Filed Vital Signs Vital Sign Reading Time Taken Comments Blood Pressure 115/77 07/29/2019 1:24 PM INSURANCE ADVISOR Pulse 70 07/29/2019 1:24 PM INSURANCE ADVISOR Temperature 36.9 ??C (98.4 ??F) 07/29/2019 1:24 PM CS T Respiratory Rate - - Oxygen Saturation - - Inhaled Oxygen Concentration - - Weight 61.5 kg (135 lb 9.6 oz) 07/29/2019 1:24 P M INSURANCE ADVISOR Height 167.6 cm (5' 6 ) 07/29/2019 1:24 PM INSURANCE ADVISOR Body Mass Index 21.89 07/29/2019 1:24 PM INSURANCE ADVISOR documented in this encounter Progress Notes * Elton Barcenas MD PhD - 07/29/2019 1:30 PM CST Endocrine New Patient Visit Subjective Patient is a 48 y.o. female presenting for evaluation of multinodular goiter. HPI: 48 y.o. female presenting for evaluation of multinodular goiter. Patient has a prior history of hyperthyroidism with suppressed TSH that was initially suspected to be Grave's disease, although no evidence for this per her records with negative TSI, TPO, and Tg Abs. She was treated with Methimazole for a short time with normalization of her thyroid hormones. Prior Thyroid US (07/18/2017) showed multiple nodules, the largest of which was 1.5 x 1.2 x 1.4 cm in left lobe with increased vascularity but no worrisome features, such as microcalcifications, irregular margins, or hypoechoic echogenicity. RAIU (04/28/2018) was performed and showed normal (23.8%) uptake with no focal areas of increased/decreased activity to suggest either a hot/cold nodule. She has since maintained longstanding complaints of fatigue and persistent globus sensation, but no overt symptoms of hyperthyroidism or hypothyroidism. Her most recent thyroid function studies (06/28/2018) were unremarkable (TSH 1.46, FT4 1.35, FT3 2.6). She denies the presence of compressive or obstructive symptoms (no dyspnea, cough, wheezing), has no history of iodine intake or head-neck irradiation or radioiodine exposure. There is nofamily history of benign or malignant thyroid disease. She reports two episodes of supraventricular tachycardia, but states it was transient and self-limiting, and not captured by ECG or cardiac loopmonitoring, which she is currently having performed. Interval History: Despite unremarkable findings outline above, Chioma still maintains her same longstanding complaints of fatigue and persistent globus sensation. Similarly, she denies the presence of compressive orobstructive symptoms (no dyspnea, cough, wheezing), dysphagia (no issues of choking, gagging with solids-liquids), and has no overt signs-symptoms of hyperthyroidism or hypothyroidism, aside from aforementioned. She has no history of iodine intake or head-neck irradiation or radioiodine exposure. There is no family history of benign or malignant thyroid disease. She has had prior episodes of supraventricular tachycardia, and is currently undergoing a second round of cardiac loop monitoring. Shefeels unassured by prior negative work-up and would like to repeat thyroid US, which we can oblige in conjunction with thyroid hormone monitoring. Past Medical History: Diagnosis Date ??? History of knee surgery History of knee surgery ??? Hypercholesterolemia High cholesterol Past Surgical History: Procedure Laterality Date ??? TONSILLECTOMY Tonsillectomy Current Outpatient Medications Medication Sig Dispense Refill ??? atorvastatin (LIPITOR) 40 mg tablet Take 1 tablet (40 mg total) by mouth daily. 30 tablet 11 ??? dilTIAZem (CARDIZEM) 60 mg tablet Take 1 tablet (60 mg total) by mouth 4 (four) times a day as needed (palpitations). 20 tablet 3 ??? fluticasone propionate (FLONASE) 50 mcg/actuation nasal spray Administer 1 spray into each nostril daily ??? omeprazole (PriLOSEC) 20 mg capsule Take by mouth daily before breakfast. 3 ??? ondansetron (ZOFRAN) 4 mg tablet TAKE 2 TABLETS BY MOUTH EVERY 8 HOURS FOR as needed 0 ??? ergocalciferol (VITAMIN D) 50,000 unit capsule TAKE ONE CAPSULE BY MOUTH 3 TIMES WEEKLY 0 No current facility-administered medications for this visit. Allergies Allergen Reactions ??? Penicillins Hives Social History Tobacco Use ??? Smoking status: Never Smoker ??? Smokeless tobacco: Never Used Substance Use Topics ??? Alcohol use: No Family History Problem Relation Age of Onset ??? Other Father Heart Condition; Cause of : Heart Condition ??? Other Mother Alive and well; Review of Systems As per HPI, or all others systems negative Objective Vitals: Vitals BP 115/77 Pulse 70 Temp 36.9 ??C (98.4 ??F) Ht 167.6 cm (5' 6 ) Wt 61.5 kg (135 lb 9.6 oz) BMI 21.89 kg/m?? Physical exam: General Appearance: Alert, cooperative, no distress, appears stated age, well developed, well nourished Head: Normocephalic, without obvious abnormality, atraumatic Eyes: Conjunctiva/corneas clear, both eyes, anicteric. No exophthalmos. No lid lag. Nose: Nares normal, septum midline, mucosa normal, no drainage or sinus tenderness Throat: Mucous membranes moist Neck: Supple, symmetrical, trachea midline, no adenopathy; Thyroid: mildly asymmetric, although no appreciable enlargement/tenderness/nodules Lungs: Clear to auscultation bilaterally, respirations unlabored, no wheezing or stridor Cardiovascular: Regular rate and rhythm, S1 and S2 normal, no murmur, rub or gallop, no edema, pulses 2+ and symmetric to all extremeties Abdomen: Soft, non-tender, bowel sounds active, no masses, no organomegaly, non-distended Extremities: Extremities normal, atraumatic, no cyanosis or edema, no clubbing Skin: Skin color, texture, turgor normal, no rashes or striae, lesions or bruising Neurologic: Alert & oriented x 4, CNII-XII grossly intact. Normal strength, sensation and normal reflexes, no tremor throughout Psychosocial: Normal affect and mood Lab/Radiology/Diagnostic Review: I have reviewed the following labs and imaging: No results found for: HGBA1C Lab Results Component Value Date CREATININE 0.54 (L) 03/05/2018 Lab Results Component Value Date CALCIUM 9.3 03/05/2018 Lab Results Component Value Date GLUCOSE 91 03/05/2018 CALCIUM 9.3 03/05/2018 SODIUM 139 03/05/2018 CO2 22 03/05/2018 CHLORIDE 102 03/05/2018 BUNSER 6 03/05/2018 CREATININE 0.54 (L) 03/05/2018 IMAGING: No images are attached to the encounter. Assessment/Plan: Problem List Endocrine/Metabolic Multinodular goiter - Primary Current Assessment & Plan 48 y.o. female with history of hyperthyroidism with MNG (most probable Grave's disease) status-posttreatment with Methimazole no longer taking, all of which occurred outside [facility] and [facility]. Referred here for persistent fatigue and globus [...] negative, will no longer continue imaging surveillance Relevant Orders US Thyroid TSH T4, free Return to clinic in 6 months Patient seen and staffed with Dr. Shahriar Conde ([facility]) MD Swapna, PhD (Endocrinology Fellow) Cosigned by Luciano Bess MD at 08/02/2019 9:37 AM INSURANCE ADVISOR RANCE ADVISOR RANCE ADVISOR Associated attestation - Luciano Bess MD - 08/02/2019 9:37 AM INSURANCE ADVISOR I have seen and examined the patient. I agree with the findings and plan of care as documented in the resident/fellow's note. documented in this encounter Miscellaneous Notes * Assessment & Plan Note - Elton Barcenas MD PhD - 07/30/2019 1:12 PM INSURANCE ADVISOR Associated Problem(s): Multinodular goiter 48 y.o. female with history of hyperthyroidism with MNG (most probable Grave's disease) status-posttreatment with Methimazole no longer taking, all of which occurred outside [facility] and [facility]. Referred here for persistent fatigue and globus [...] negative, will no longer continue imaging surveillance RANCE ADVISOR * Addendum Note - Madie Blair LPN - 07/29/2019 1:30 PM CSTAddended by: MADIE BLAIR on: 08/08/2019 02:09 PM Modules accepted: Orders RANCE ADVISOR * Addendum Note - Madie Blair LPN - 07/29/2019 1:30 PM CSTAddended by: MADIE BLAIR on: 08/08/2019 02:09 PM Modules accepted: Orders RANCE ADVISOR documented in this encounter Plan of Treatment Scheduled Orders Name Type Priority Associated Diagnoses Orde r Schedule T4, free Lab Routine Multinodular goiter Expected: 07/29/2019, Expires: 07/29/2020 TSH Lab Routine Multinodular goiter Expected: 07/29/2019, Expires: 07/29/2020 documented as of this encounter Visit Diagnoses Diagnosis Multinodular goiter- Primary Nontoxic multinodular goiter documented in this encounter Care Teams Guinea Pig Breeder Relationship Specialty Start Date End Date Jett Yarbrough MD [address] [facility] [address] [place] [address] PCP - General 09/27/15 documented as of this encounter
--- OUTSIDE RECORDS SUMMARY | 2024-06-01 00:22 | XMS_ITS | Encounter Summary ---
Author Organization [facility] Address [address] [place] [address] Phone Care Team Providers Care Newspaper Deliverer Name Role Phone Jett Yarbrough MD Primary Care Provider [phone]- [phone] Encounter Details Date Type Department Care Team (Late st Contact Info) Description 02/14/2021 Telephone [facility] Cardiology [address] [facility] 8th [place] [address] [place] [address] Dale Thibodeaux MD [address] [id number] Social History Tobacco Use Types Packs/Day Years Used Date Smoking Tobacco: Never Smokeless Tobacco: Never Alcohol Use Standard Drinks/Week Comments No 0 (1 standard drink = 0.6 oz pur e alcohol) Comments Unknown Sex and Gender Information Value Date Recorded Sex Assigned at Not on file 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 Please call documented in this encounter Plan of Treatment Not on file documented as of this encounter Visit Diagnoses Not on filedocumented in this encounter Care Teams Newspaper Deliverer Relationship Specialty Start Date End Date Jett Yarbrough MD [address] [facility] [address] [place] [address] PCP - General 09/27/15 documented as of this encounter
--- OUTSIDE RECORDS SUMMARY | 2024-06-01 00:22 | XMS_ITS | Encounter Summary ---
Author Organization [facility] Address [address] [place] [address] Phone Care Team Providers Care Dramatic Critic Name Role Phone Jett Yarbrough MD Primary Care Provider +1- [phone] Encounter Details Date Type Department Care Team (Late st Contact Info) Description 11/18/2019 Telephone [facility] Cardiology [address] [facility] Advanced Medicine 8th [place] [address] [place] [address] Dale Thibodeaux MD [address] [facility] [address] [place], [place] [id number] Social History Tobacco Use Types Packs/Day Years Used Date Smoking Tobacco: Never Smokeless Tobacco: Never Alcohol Use Standard Drinks/Week Comments No 0 (1 standard drink = 0.6 oz pur e alcohol) Comments Unknown Sex and Gender Information Value Date Recorded Sex Assigned at Not on file 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 Thibodeaux's note. When she has symptoms I just feel something is really wrong . She also gets tired, feels off, and gets a pain in her chest. These symptoms happen 3-4 times a month without medicine. She said at some point she would like an office visit to discuss ablation. She has decided she prefers to use the diltiazem 30mg IR PRN. She has medication at home and does not need it called in today. * Telephone Encounter - Dale Thibodeaux MD - 11/18/2019 4:23 PM CDT Noted. It was very reasonable to try long acting dilt and if the slow HR is making her feel worse then we may want to back off to 120 XL daily or just continue to take 30mg IR PRN Q4-6 hours more regularly. Attached is my previous response in August 2019 to inquiry regarding ablation vs AAD options: That is a good question. The EP study and ablation has lower success rate due to the multitude of aarrhythmias. It is possible that we can eliminate the atrial tachycardia in the PACs after coming from 1 location but this is hard to predict. The PVCs come from a different chamber and if they are multifocal, we typically do not recommend targeting multiple areas in someone with a structurally normal heart without a substantially high burden or significant symptoms. Overall, I would say it is hard to predict success rate prior to procedure in this situation and so it is a very personal choice.Pharmacologic options are limited due to bradycardia. Heart rates in the 50s certainly do not worryme if she is asymptomatic and it is helping reduce her ectopic burden. If the meds are making her feel fatigued and run down and/or dizzy then the risks may outweigh the benefits due to the side effects. Dofetilide would be an antiarrhythmic that would not impact heart rate and could be considered but would require an in patient hospitalization for 2-3 days and in the current environment we wouldnot recommend this until the COVID crisis has passed. ?? It would be ok to offer EPS/SVT RFA versus admit for dofetilide if symptoms are not improving with the understanding that we may not be able to eliminate all Sx with ablation. Lets reach out and see what she would like to do. [facility] * Telephone Encounter - May Hernández RN - 11/18/2019 4:09 PM CDT Ms. Chu calls to report that Dr. Guerrero prescribed long acting Diltiazem, 180 mg, to her, for treatment of her palpitations. She states she has been taking this for about 1.5 weeks and reportsconcern that her HR is 50s to 60s, when it previously was in the 70s. I informed her that this in itself is not concerning, depending on whether she is having symptoms. She states she notices that when her HR is low, I feel really really bad, to the point where it scares me. Like really tired, an odd feeling. Arms feel heavy and weird, and yesterday I had to lay down . She states BP today was 130/85, but usually 120s/80s. I asked if she thinks the medication is helping her palpitations. She states she doesn't notice a difference. She is still having fluttering and heart rate spikes for a minute or two . She did not take the Diltiazem today. She would like Dr. Thibodeaux' recommendations on whether she should continue taking the Diltiazem. * Telephone Encounter - Talita Meek - 11/18/2019 3:35 PM CDT Carlos Eduardo Pt states her numberer and wirer gave her ditalizem and pt has been on it for about a wk and half. Dropping heart during the day to 60's and at night into the 50's. Pt was told to keep taking it and just deal with the symptoms or call Dr. Thibodeaux and see what he would like her to do. Pt had an episode last night where her heart dropped and pt was very tired, arms heavy. Would like to discuss. Please call. documented in this encounter Plan of Treatment Not on file documented as of this encounter Visit Diagnoses Not on filedocumented in this encounter Care Teams Dramatic Critic Relationship Specialty Start Date End Date Jett Yarbrough MD [address] [address] PCP - General 09/27/15 documented as of this encounter
--- OUTSIDE RECORDS SUMMARY | 2024-06-01 00:22 | XMS_ITS | Encounter Summary ---
Author Organization [facility] Address [address] [place] [address] Phone Care Team Providers Care Embedded Case Manager Name Role Phone Jett Yarbrough MD Primary Care Provider +1- [phone] Reason for Referral * (Routine) - Closed Specialty Diagnoses / Procedures Referred By Camryn lo Referred To Contact Diagnoses Paroxysmal SVT (supraventricular tachycardia) (HCC) Procedures MCT Mobile Cardiac Telemetry Event Monitor Ирина Murray MD Phone: tel: fax: [facility] (All Locations) Referral ID Status Reason Start Date Expiration Date Visits Re quested Visits Authorized [id number] Closed 03/16/2020 04/15/2021 1 1 Encounter Details Date Type Department Care Team (Late st Contact Info) Description 03/15/2020 Telephone [facility] Cardiology [address] [facility] [facility] 8th [place] [address] [place] [address] Ирина Murray MD [address] [facility] [address] [place] [address] Social History Tobacco Use Types Packs/Day Years Used Date Smoking Tobacco: Never Smokeless Tobacco: Never Alcohol Use Standard Drinks/Week Comments No 0 (1 standard drink = 0.6 oz pur e alcohol) Comments Unknown Sex and Gender Information Value Date Recorded Sex Assigned at Not on file 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 * Telephone Encounter - Ирина Murray MD - 03/16/2020 9:46 AM CDT 30d MCT. If we get a lot of data in first few weeks we can end early. Thx! [facility] * Telephone Encounter - Nataliya Sarabia - 03/15/2020 12:27 PM CDT Please let me know what monitor you would like the pt to wear and I can put the order in and call her. thanks * Telephone Encounter - Ada Gama - 03/15/2020 11:52 AM CDT Carlos Eduardo She wants to know if the heart monitor you want her to wear is going to be the same one as last time? documented in this encounter Plan of Treatment Not on file documented as of this encounter Results * MCT Mobile Cardiac Telemetry Event Monitor (03/16/2020 11:09 AM CDT) Anatomical Region Laterality Modality Electrocardiogra phy 03/16/2020 10:3 0 AM CDT Narrative 05/01/2020 6:29 PM CREDIT PRODUCT ANALYST Patient name: Chioma Chu Date of test: 03/16/2020 Type of Test: Event Monitor ([facility]) [facility] #: [id number] ?Location: [facility] V[facility] : 1970 ??Age: 49 ??Sex: F Ref Physician(s): ИРИНА MURRAY MD Interpreted by: Brian Lara MD [employer]: Anju Benitez Diagnosis: Monitoring Service: [employer] Reason for Test: I47.9: Paroxysmal tachycardia, unspecified Monitor Used: Body Guardian Heart (MCT) ??mail Enrollment Period: Mar 25 - Apr 23, 2020 [employer] comments: The device was mailed by the metal wire technician on this note. The patient was instructed on how to use the device. The patient's questions were answered and arrangements were made for the disconnection and return of this device. Number of Transmissions Sent During Enrollment Period: 33 To obtain transmission tracing contact: Rhythm Summary: Bradycardia avg rate: 56 Bradycardia longest duration: 00:55:53 Bradycardia longest episode: 04/11/2020 03:34:00 Bradycardia shortest duration: 00:00:10 Bradycardia shortest episode: 04/04/2020 02:35:00 Mean heart rate: 71 Pauses >= 3 seconds: 0 Tachycardia avg rate: 108 Tachycardia longest duration: 00:27:21 Tachycardia longest episode: 03/25/2020 15:07:00 Tachycardia shortest duration: 00:00:12 Tachycardia shortest episode: 03/25/2020 10:15:00 Cardiologis Review of Transmissions: I have reviewed the findings on the individual tracings for the dates noted below and I agree., The full scanned/data report is available in [facility]. labeled MONITOR STRIPS PDF . This study was interpreted by Brian Lara MD Confirmed on ??05/01/2020 - 18:29:11 by Brian Lara MD Summary of Transmitted Events: # ??Date ? Time ?HR ?Symptoms/Rhythm ? 33 04/22/20 23:08 ?? 66.4 ?Flutter or Skipped Beats ? Sinus Rhythm w/Couplet PACs/Artifact ? 32 04/22/20 18:33 ?? 80.1 ?Flutter or Skipped Beats ? Sinus Arrhythmia, Sinus Rhythm w/PVCs (1 in 1/Min)/Artif 31 04/21/20 20:14 ?? 126.3 ?? Flutter or Skipped Beats ? Sinus Rhythm, Sinus Arrhythmia w/Atrial Run/PACs/Artifac 30 04/19/20 21:01 ?? 63.1 ?Flutter or Skipped Beats ? Sinus Rhythm w/PVCs (1 in 1/Min) ? 29 04/19/20 12:34 ?? 71.2 ?Flutter or Skipped Beats; Rapid orSinus Rhythm w/PVCs (1 in 1/Min)/PACs/Artifact ? 28 04/18/20 15:38 ?? 70.1 ?Chest Pain or Pressure ? Sinus Arrhythmia, Sinus Rhythm w/Artifact ? 27 04/18/20 10:24 ?? 85.8 ?Flutter or Skipped Beats ? Sinus Rhythm w/PVCs (1 in 1/Min) ? 26 04/17/20 15:33 ?? 75.8 ?Flutter or Skipped Beats; Rapid orSinus Rhythm ? 25 04/17/20 11:23 ?? 80.1 ?Flutter or Skipped Beats ? Sinus Arrhythmia w/PVCs (2 in 1/Min)/Artifact ? 24 04/16/20 15:22 ?? 64.5 ?Flutter or Skipped Beats ? Sinus Rhythm w/PVCs (1 in 1 min) ? 23 04/14/20 20:46 ?? 71.1 ?Flutter or Skipped Beats ? Sinus Rhythm ? 22 04/13/20 21:02 ?? 67.8 ?Flutter or Skipped Beats ? Sinus Rhythm w/PACs/Lead Loss ? 21 04/13/20 14:10 ?? 89.1 ?Flutter or Skipped Beats ? Sinus Rhythm w/Atrial Run ? 20 04/11/20 21:36 ?? 67.9 ?Flutter or Skipped Beats ? Sinus Rhythm w/PVCs (1 in 1/Min)/Artifact ? 19 04/10/20 23:35 ?? 153.6 ?? Flutter or Skipped Beats ? Sinus Arrhythmia, Sinus Rhythm w/Atrial Run/Artifact ?? 18 04/10/20 19:43 ?? 139.2 ?? Flutter or Skipped Beats ? Sinus Rhythm w/PSVT/Artifact ? 17 04/10/20 17:06 ?? 70.1 ?Chest Pain or Pressure ? Sinus Rhythm w/Artifact ? 16 04/09/20 19:54 ?? 71.1 ?Flutter or Skipped Beats ? Sinus Rhythm w/Artifact ? 15 04/09/20 09:20 ?? 69.8 ?Flutter or Skipped Beats; Chest PaSinus Rhythm, Sinus Arrhythmia w/PACs/Artifact ? 14 04/08/20 20:53 ?? 66.0 ?Flutter or Skipped Beats ? Sinus Rhythm w/Artifact ? 13 04/03/20 20:05 ?? 76 ?Flutter or Skipped Beats ? Sinus Rhythm w/PACs ? 12 03/30/20 22:42 ?? 70.1 ?Flutter or Skipped Beats ? Sinus Arrhythmia w/PVCs (1 in 1/min)/Artifact ? 11 03/30/20 14:25 ?? 76.4 ?Rapid or Fast Heartbeat ? Sinus Rhythm w/PACs/Artifact ? 10 03/30/20 09:41 ?? 73.9 ?Flutter or Skipped Beats ? Sinus Rhythm w/PVCs (1 In 1Min)/Artifact ? 9 ??03/27/20 19:44 ?? 75 ?Flutter or Skipped Beats ? Sinus Rhythm w/PVCs ? 8 ??03/27/20 15:25 ?? 75.4 ?Flutter or Skipped Beats ? Sinus Rhythm w/Artifact ? 7 ??03/26/20 19:38 ?? 100.6 ?? Rapid or Fast Heartbeat ? Sinus Arrhythmia, Sinus Rhythm w/Atrial Run/Artifact ?? 6 ??03/26/20 18:43 ?? 84.5 ?Dizziness; Shortness of Breath ?? Sinus Rhythm w/Artifact ? 5 ??03/25/20 21:15 ?? 75.1 ?Chest Pain or Pressure ? Sinus Rhythm w/Artifact ? 4 ??03/25/20 19:36 ?? 76.9 ?Flutter or Skipped Beats ? Sinus Rhythm w/Artifact ? 3 ??03/25/20 14:51 ?? 106.3 ?? Flutter or Skipped Beats ? Sinus Tachycardia, Sinus Rhythm w/Artifact ? 2 ??03/25/20 08:04 ?? 90.1 ?None or Accidental Push ? Sinus Arrhythmia, Sinus Rhythm w/Artifact/Lead Loss ? 1 ??03/25/20 04:37 ?? 64.4 ?Baseline ? Sinus Rhythm ? I have personally reviewed and interpreted this study. Procedure Note Brian Lara Jr., MD PhD - 05/01/2020 Patient name: Chioma Chu Date of test: 03/16/2020 Type of Test: Event Monitor ([facility]) [facility] #: [id number] Location: [facility] Heart and Vascular : 1970 Age: 49 Sex: F Ref Physician(s): ИРИНА MURRAY MD Interpreted by: Brian Lara MD [employer] Tech: [employer] Mobileandree Benitez Diagnosis: Monitoring Service: [employer] Reason for Test: I47.9: Paroxysmal tachycardia, unspecified Monitor Used: Body Guardian Heart (MCT) mail Enrollment Period: Mar 25 - Apr 23, 2020 [employer] comments: The device was mailed by the metal wire technician on this note. The patient was instructed on how to use the device. The patient's questions were answered and arrangements were made for the disconnection and return of this device. Number of Transmissions Sent During Enrollment Period: 33 To obtain transmission tracing contact: Rhythm Summary: Bradycardia avg rate: 56 Bradycardia longest duration: 00:55:53 Bradycardia longest episode: 04/11/2020 03:34:00 Bradycardia shortest duration: 00:00:10 Bradycardia shortest episode: 04/04/2020 02:35:00 Mean heart rate: 71 Pauses >= 3 seconds: 0 Tachycardia avg rate: 108 Tachycardia longest duration: 00:27:21 Tachycardia longest episode: 03/25/2020 15:07:00 Tachycardia shortest duration: 00:00:12 Tachycardia shortest episode: 03/25/2020 10:15:00 Cardiologis Review of Transmissions: I have reviewed the findings on the individual tracings for the dates noted below and I agree., The full scanned/data report is available in [facility]. labeled MONITOR STRIPS PDF . This study was interpreted by Brian Lara MD Confirmed on 05/01/2020 - 18:29:11 by Brian Lara MD Summary of Transmitted Events: # Date Time HR Symptoms/Rhythm 33 04/22/20 23:08 66.4 Flutter or Skipped Beats Sinus Rhythm w/Couplet PACs/Artifact 32 04/22/20 18:33 80.1 Flutter or Skipped Beats Sinus Arrhythmia, Sinus Rhythm w/PVCs (1 in 1/Min)/Artif 31 04/21/20 20:14 126.3 Flutter or Skipped Beats Sinus Rhythm, Sinus Arrhythmia w/Atrial Run/PACs/Artifac 30 04/19/20 21:01 63.1 Flutter or Skipped Beats Sinus Rhythm w/PVCs (1 in 1/Min) 29 04/19/20 12:34 71.2 Flutter or Skipped Beats; Rapid orSinus Rhythm w/PVCs (1 in 1/Min)/PACs/Artifact 28 04/18/20 15:38 70.1 Chest Pain or Pressure Sinus Arrhythmia, Sinus Rhythm w/Artifact 27 04/18/20 10:24 85.8 Flutter or Skipped Beats Sinus Rhythm w/PVCs (1 in 1/Min) 26 04/17/20 15:33 75.8 Flutter or Skipped Beats; Rapid orSinus Rhythm 04/17/20 11:23 80.1 Flutter or Skipped Beats Sinus Arrhythmia w/PVCs (2 in 1/Min)/Artifact 24 04/16/20 15:22 64.5 Flutter or Skipped Beats Sinus Rhythm w/PVCs (1 in 1 min) 04/14/20 20:46 71.1 Flutter or Skipped Beats Sinus Rhythm 22 04/13/20 21:02 67.8 Flutter or Skipped Beats Sinus Rhythm w/PACs/Lead Loss 04/13/20 14:10 89.1 Flutter or Skipped Beats Sinus Rhythm w/Atrial Run 20 04/11/20 21:36 67.9 Flutter or Skipped Beats Sinus Rhythm w/PVCs (1 in 1/Min)/Artifact 19 04/10/20 23:35 153.6 Flutter or Skipped Beats Sinus Arrhythmia, Sinus Rhythm w/Atrial Run/Artifact 18 04/10/20 19:43 139.2 Flutter or Skipped Beats Sinus Rhythm w/PSVT/Artifact 17 04/10/20 17:06 70.1 Chest Pain or Pressure Sinus Rhythm w/Artifact 16 04/09/20 19:54 71.1 Flutter or Skipped Beats Sinus Rhythm w/Artifact 15 04/09/20 09:20 69.8 Flutter or Skipped Beats; Chest PaSinus Rhythm, Sinus Arrhythmia w/PACs/Artifact 14 04/08/20 20:53 66.0 Flutter or Skipped Beats Sinus Rhythm w/Artifact 13 04/03/20 20:05 76 Flutter or Skipped Beats Sinus Rhythm w/PACs 12 03/30/20 22:42 70.1 Flutter or Skipped Beats Sinus Arrhythmia w/PVCs (1 in 1/min)/Artifact 11 03/30/20 14:25 76.4 Rapid or Fast Heartbeat Sinus Rhythm w/PACs/Artifact 10 03/30/20 09:41 73.9 Flutter or Skipped Beats Sinus Rhythm w/PVCs (1 In 1Min)/Artifact 9 03/27/20 19:44 75 Flutter or Skipped Beats Sinus Rhythm w/PVCs 8 03/27/20 15:25 75.4 Flutter or Skipped Beats Sinus Rhythm w/Artifact 7 03/26/20 19:38 100.6 Rapid or Fast Heartbeat Sinus Arrhythmia, Sinus Rhythm w/Atrial Run/Artifact 6 03/26/20 18:43 84.5 Dizziness; Shortness of Breath Sinus Rhythm w/Artifact 5 03/25/20 21:15 75.1 Chest Pain or Pressure Sinus Rhythm w/Artifact 4 03/25/20 19:36 76.9 Flutter or Skipped Beats Sinus Rhythm w/Artifact 3 03/25/20 14:51 106.3 Flutter or Skipped Beats Sinus Tachycardia, Sinus Rhythm w/Artifact 2 03/25/20 08:04 90.1 None or Accidental Push Sinus Arrhythmia, Sinus Rhythm w/Artifact/Lead Loss 1 03/25/20 04:37 64.4 Baseline Sinus Rhythm I have personally reviewed and interpreted this study. us Ирина Murray MD [facility] PRO CEDURES Final Result documented in this encounter Visit Diagnoses Diagnosis Paroxysmal SVT (supraventricular tachycardia) (HCC)- Primary Paroxysmal SVT (supraventricular tachycardia) (HCC) documented in this encounter Care Teams Embedded Case Manager Relationship Specialty Start Date End Date Jett Yarbrough MD [address] [facility] [address] [place] [address] PCP - General 09/27/15 documented as of this encounter
--- OUTSIDE RECORDS SUMMARY | 2024-06-01 00:22 | XMS_ITS | Encounter Summary ---
Author Organization [facility] Address [address] [place] [address] Phone Care Team Providers Care Director Electronics Name Role Phone Jett Yarbrough MD Primary Care Provider +1- [phone] Encounter Details Date Type Department Care Team (Latest Contact Info) Description 08/31/2019 Orders Only [facility] Scanning, Provider Social History Tobacco Use Types Packs/Day Years Used Date Smoking Tobacco: Never Smokeless Tobacco: Never Alcohol Use Standard Drinks/Week Comments No 0 (1 standard drink = 0.6 oz pur e alcohol) Comments Unknown Sex and Gender Information Value Date Recorded Sex Assigned at Not on file 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 Gender Identity Not on file Sexual Orientation Not on file documented as of this encounter Plan of Treatment Not on file documented as of this encounter Procedures Procedure Name Priority Date/Time Associated Diagnosis Comments SCAN - RADIOLOGY/IMAGING 08/31/2019 documented in this encounter Results * SCAN - RADIOLOGY/IMAGING (08/31/2019) Anatomical Region Laterality Modality Other us Provider Scanning Final Result documented in this encounter Visit Diagnoses Not on filedocumented in this encounter Care Teams Director Electronics Relationship Specialty Start Date End Date Jett Yarbrough MD [address] [place] [address] PCP - General 09/27/15 documented as of this encounter
--- OUTSIDE RECORDS SUMMARY | 2024-06-01 00:22 | XMS_ITS | Encounter Summary ---
Author Organization [facility] Address [address] [place] [address] Phone Care Team Providers Care Building Insulation Installer Name Role Phone Jett Yarbrough MD Primary Care Provider +1- [phone] Encounter Details Date Type Department Care Team (Latest Contact Info) Description 08/27/2019 Orders Only [facility] Scanning, Provider Social History Tobacco Use Types Packs/Day Years Used Date Smoking Tobacco: Never Smokeless Tobacco: Never Alcohol Use Standard Drinks/Week Comments No 0 (1 standard drink = 0.6 oz pur e alcohol) Comments Unknown Sex and Gender Information Value Date Recorded Sex Assigned at Not on file 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 Gender Identity Not on file Sexual Orientation Not on file documented as of this encounter Plan of Treatment Not on file documented as of this encounter Procedures Procedure Name Priority Date/Time Associated Diagnosis Comments SCAN - LABS 08/27/2019 documented in this encounter Results * SCAN - LABS (08/27/2019) us Provider Scanning Final Result documented in this encounter Visit Diagnoses Not on filedocumented in this encounter Care Teams Building Insulation Installer Relationship Specialty Start Date End Date Jett Yarbrough MD [address] [place] [address] PCP - General 09/27/15 documented as of this encounter
--- OUTSIDE RECORDS SUMMARY | 2024-06-01 00:22 | XMS_ITS | Encounter Summary ---
Author Organization [facility] Address [address] [place] [address] Care Team Providers Care Pharmacy Consultant Name Role Phone Jett Yarbrough MD Primary Care Provider +1- [phone] Encounter Details Date Type Department Care Team (Late st Contact Info) Description 10/11/2019 Telephone [facility] Cardiology [address] [place] [address] Markus Guerrero MD [address] [place] [address] Social History Tobacco Use Types Packs/Day Years Used Date Smoking Tobacco: Never Smokeless Tobacco: Never Alcohol Use Standard Drinks/Week Comments No 0 (1 standard drink = 0.6 oz pur e alcohol) Comments Unknown Sex and Gender Information Value Date Recorded Sex Assigned at Not on file 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 She verbalized understanding and is grateful for the response. * Telephone Encounter - Markus Guerrero MD - 10/12/2019 8:09 AM CDT The above note in the patient's chart have been reviewed. The answer to the patient's question is that I am in agreement with Dr. Thibodeaux is analysis of her situation. I would only like to add to thatanother treatment option is to do nothing at all. She is having arrhythmias that she consents and feel and are creating symptoms but once again there is nothing at all dangerous about this. Having anablation procedures certainly has risks. I understand the patient's desire to avoid medications. Since she has no structural cardiac abnormalities and no ischemic disease simply tolerating her ectopic activity and recognizing that it is not dangerous is a reasonable option as well. * Telephone Encounter - Tricia Jacob RN - 10/11/2019 1:20 PM CDT Pt called office asking to have TINO review her 30 day holter report. She would like to make sure that TINO is on the same page as Dr Thibodeaux as far a a treatment plan. See message in chart encounters 08/31 patient message And monitor report from 07/14 under cardiology. Monitor report summary attached to this thread. documented in this encounter Plan of Treatment Not on file documented as of this encounter Visit Diagnoses Not on filedocumented in this encounter Care Teams Pharmacy Consultant Relationship Specialty Start Date End Date Jett Yarbrough MD [address] [place] [address] PCP - General 09/27/15 documented as of this encounter
--- OUTSIDE RECORDS SUMMARY | 2024-06-01 00:22 | XMS_ITS | Encounter Summary ---
Author Organization [facility] Address [address] [place] [address] Phone Care Team Providers Care Real Estate Rep Name Role Phone Jett Yarbrough MD Primary Care Provider +1- [phone] Encounter Details Date Type Department Care Team (Late st Contact Info) Description 03/13/2021 Telephone [facility] Cardiology [address] [facility] 8th [place] [address] [place] [address] Dale Thibodeaux MD [address] [facility] [address] [place] [address] Social History Tobacco Use Types [...] drinks on one occasion? 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 She said her ears are kind of clogged and it is causing her to have some intermittent dizziness. She will call her PCP to f/u also, may be getting a sinus infection and need to be evaluated or antibiotic. She will call today. * Telephone Encounter - Jessica Glez - 03/13/2021 9:42 AM CDT Livia PTs allergies are not working well. She wants to know if its okay to take something with decongestion in it. pls call Livia back documented in this encounter Plan of Treatment Not on file documented as of this encounter Visit Diagnoses Not on filedocumented in this encounter Care Teams Real Estate Rep Relationship Specialty Start Date End Date Jett Yarbrough MD [address] [facility] [address] [place] [address] PCP - General 09/27/15 documented as of this encounter
--- OUTSIDE RECORDS SUMMARY | 2024-06-01 00:22 | XMS_ITS | Encounter Summary ---
Author Organization [facility] Address [address] [place] [address] Phone Care Team Providers Care Galvanizer Zinc Name Role Phone Jett Yarbrough MD Primary Care Provider +1- [phone] Reason for Visit * Cardiology (Routine) - Closed Specialty Diagnoses / Procedures Referred By Camryn lo Referred To Contact Diagnoses Paroxysmal SVT (supraventricular tachycardia) (HCC) Procedures MCT Mobile Cardiac Telemetry Event Monitor Ирина Murray MD Phone: tel: fax: [address] [address] Referral ID Status Reason Start Date Expiration Date Visits Re quested Visits Authorized [id number] Closed 12/19/2020 01/18/2022 1 1 Encounter Details Date Type Department Care Team (Latest Contact Info) Description 12/20/2020 10:00 AM CDT Ancillary Procedure [facility] Cardiology [address] [facility] Advanced [facility] 8th [place] [address] [place] [address] Paroxysmal SVT (supraventricular tachycardia) (CMS/HCC) Social History Tobacco Use Types Packs/Day Years Used Date Smoking Tobacco: Never Smokeless Tobacco: Never Alcohol Use Standard Drinks/Week Comments No 0 (1 standard drink = 0.6 oz pur e alcohol) Comments Unknown Sex and Gender Information Value Date Recorded Sex Assigned at Not on file 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 Gender Identity Not on file Sexual Orientation Not on file documented as of this encounter Plan of Treatment Not on file documented as of this encounter Procedures Procedure Name Priority Date/Time Associated Diagnosis Comments MCT - MOBILE CARDIAC TELEMETRY EVENT MONITOR Routine 12/20/2020 2:29 PM CDT Paroxysmal SVT (supraventricular tachycardia) (CMS/HCC) (HCC) documented in this encounter Results * MCT Mobile Cardiac Telemetry Event Monitor (12/20/2020 2:29 PM CDT) Anatomical Region Laterality Modality Electrocardiogra phy 12/20/2020 10:0 0 AM CDT Narrative 01/29/2021 12:21 PM CDT Patient name: Chioma Chu Date of test: 12/20/2020 Type of Test: Event Monitor ([facility]) Hospital #: [id number] ?Location: [facility] Heart and Vascular : 1970 ??Age: 50 ??Sex: F Ref Physician(s): ИРИНА MURRAY MD Interpreted by: Markus Kidd MD [employer] Tech: NATASHA Henderson Diagnosis: Monitoring Service: [employer] Reason for Test: I47.1: Supraventricular tachycardia Monitor Used: Body Guardian Heart (MCT) ??mailed Enrollment Period: Dec 29 - Jan 27, 2021 Ismole comments: Patient Instructions: Understood directions and use of equipment. The device was applied by the computer hardware technician on this note. ?? The patient was instructed on how to use the device. ?? The patient's questions were answered and arrangements were made for the disconnection and return of this device. Number of Transmissions Sent During Enrollment Period: 37 To obtain transmission tracing contact: Rhythm Summary: Bradycardia avg rate: 57 Bradycardia longest duration: 00:38:52 Bradycardia longest episode: 01/21/2021 05:20:00 Bradycardia shortest duration: 00:00:01 Bradycardia shortest episode: 01/01/2021 00:00:00 Mean heart rate: 69 Pauses >= 3 seconds: 0 Tachycardia avg rate: 112 Tachycardia longest duration: 01:04:44 Tachycardia longest episode: 01/19/2021 16:15:00 Tachycardia shortest duration: 00:00:06 Tachycardia shortest episode: 12/29/2020 20:12:00 Cardiologis Review of Transmissions: The predominant rhythm was sinus, average HR 69 bpm, range 51-151 bpm. ?? Rare APDs with rare atrial runs of up to 6 beats. Rare VPDs with one ventricular triplet and one possible 4-beat V-run (vs SV run). ?? The patient pressed the event button on 36 occasions. Symptoms included flutter/skipped beats, rapid heart beat, chest pain, and SOB. ??These events corrrelated with atrial and ventricular ectopy, including short runs, about 50% of the time. The full scanned/data report is available in [employer]. labeled MONITOR STRIPS PDF . This study was interpreted by Markus Kidd MD Confirmed on ??01/29/2021 - 12:21:27 by Markus Kidd MD Summary of Transmitted Events: # ??Date ? Time ?HR ?Symptoms/Rhythm ? 37 01/27/21 21:29 ?? 67.0 ?Flutter or Skipped Beats ? Sinus Rhythm w/PVCs (1 in 1 min) ? 36 01/27/21 14:55 ?? 60.0 ?Flutter or Skipped Beats ? Sinus Rhythm w/PVCs (1 in 1 min )/Artifact ? 35 01/26/21 18:28 ?? 69.0 ?Chest Pain or Pressure ? Sinus Rhythm w/Artifact ? 34 01/23/21 22:40 ?? 158.0 ?? Flutter or Skipped Beats; Chest PaSinus Rhythm w/Atrial Run/Artifact ? 33 01/21/21 15:20 ?? 104.0 ?? Flutter or Skipped Beats; Rapid orSinus Tachycardia w/PVCs (1 In 1Min)/Artifact ? 32 01/21/21 12:05 ?? 85.0 ?Flutter or Skipped Beats ? Sinus Rhythm w/Artifact ? 31 01/19/21 16:24 ?? 126.0 ?? Rapid or Fast Heartbeat ? Sinus Tachycardia w/Artifact ? 30 01/19/21 14:20 ?? 74.0 ?Flutter or Skipped Beats ? Sinus Rhythm w/PACs/Artifact ? 29 01/19/21 01:58 ?? 68.0 ?None Reported ? Sinus Rhythm w/PVCs (1 in 1 min)/Artifact ? 28 01/18/21 17:55 ?? 65.0 ?Flutter or Skipped Beats ? Sinus Rhythm w/Artifact ? 27 01/17/21 12:41 ?? 69.0 ?Flutter or Skipped Beats ? Sinus Rhythm w/PACs/Artifact ? 26 01/15/21 16:45 ?? 65.0 ?Flutter or Skipped Beats ? Sinus Rhythm w/Interpolated PVC/Artifact ? 25 01/15/21 12:41 ?? 162.0 ?? Flutter or Skipped Beats ? Sinus Rhythm, Sinus Bradycardia w/Run of V-Tach (4 Beats 24 01/14/21 18:28 ?? 65.0 ?Chest Pain or Pressure ? Sinus Rhythm w/Artifact ? 23 01/14/21 15:34 ?? 201.0 ?? Flutter or Skipped Beats ? Sinus Rhythm w/Run of V-Tach (3 beats) ? 01/14/21 14:14 ?? 61.0 ?Flutter or Skipped Beats ? Sinus Rhythm w/PVCs (1 in 1 min)/Artifact ? 01/13/21 01:05 ?? 71.0 ?Flutter or Skipped Beats ? Sinus Rhythm ? 01/13/21 00:52 ?? 143.0 ?? Flutter or Skipped Beats ? Sinus Rhythm, Sinus Arrhythmia w/Atrial Run/Artifact ?? 01/12/21 15:39 ?? 71.0 ?Chest Pain or Pressure ? Sinus Rhythm w/Artifact ? 01/11/21 19:39 ?? 69.0 ?Flutter or Skipped Beats ? Sinus Rhythm w/Couplet PACs ? 01/10/21 09:44 ?? 64.0 ?Flutter or Skipped Beats ? Sinus Rhythm w/PACs ? 01/09/21 20:45 ?? 76.0 ?None Reported ? Sinus Rhythm w/Artifact ? 15 01/09/21 12:38 ?? 74.0 ?Flutter or Skipped Beats ? Sinus Rhythm w/PVCs (1 in 1 min) ? 14 01/09/21 11:02 ?? 66.0 ?None Reported ? Sinus Rhythm w/Artifact ? 13 01/06/21 19:28 ?? 101.0 ?? Flutter or Skipped Beats ? Sinus Tachycardia w/Artifact ? 12 01/06/21 16:10 ?? 97.0 ?Flutter or Skipped Beats ? Sinus Rhythm ? 11 01/04/21 20:01 ?? 104.0 ?? Rapid or Fast Heartbeat ? Sinus Tachycardia, Sinus Rhythm w/Artifact ? 10 01/04/21 11:35 ?? 123.0 ?? Rapid or Fast Heartbeat ? Sinus Tachycardia w/Artifact ? 9 ??01/04/21 10:51 ?? 74.0 ?Flutter or Skipped Beats ? Sinus Rhythm w/Artifact ? 8 ??01/02/21 21:37 ?? 64.0 ?Flutter or Skipped Beats ? Sinus Rhythm w/PACs/Artifact ? 7 ??01/02/21 14:25 ?? 103.0 ?? Shortness of Breath ? Sinus Tachycardia, Sinus Rhythm w/Artifact ? 6 ??01/02/21 12:32 ?? 86.0 ?Chest Pain or Pressure ? Sinus Rhythm w/Artifact ? 5 ??01/02/21 11:11 ?? 71.0 ?None Reported ? Sinus Rhythm w/Artifact ? 4 ??01/01/21 15:45 ?? 79.0 ?Chest Pain or Pressure ? Sinus Rhythm w/Artifact ? 3 ??12/30/20 10:37 ?? 143.0 ?? Flutter or Skipped Beats ? Sinus Rhythm w/Atrial Run/Artifact ? 2 ??12/30/20 00:06 ?? 123.0 ?? Flutter or Skipped Beats ? Sinus Rhythm w/Atrial Run/Artifact ? 1 ??12/29/20 11:56 ?? 77 ?Baseline ? Sinus Rhythm w/Artifact ? I have personally reviewed and interpreted this study. Procedure Note Markus Kidd MD - 01/29/2021 Patient name: Chioma Chu Date of test: 12/20/2020 Type of Test: Event Monitor ([facility]) Hospital #: 0 Location: [facility] Heart and Vascular : 1970 Age: 50 Sex: F Ref Physician(s): ИРИНА MURRAY MD Interpreted by: Markus Kidd MD Hook-Up Tech: NATASHA Henderson Diagnosis: Monitoring Service: [employer] Reason for Test: I47.1: Supraventricular tachycardia Monitor Used: Body Guardian Heart (MCT) mailed Enrollment Period: Dec 29 - Jan 27, 2021 Hook-Up Tech comments: Patient Instructions: Understood directions and use of equipment. The device was applied by the computer hardware technician on this note. The patient was instructed on how to use the device. The patient's questions were answered and arrangements were made for the disconnection and return of this device. Number of Transmissions Sent During Enrollment Period: 37 To obtain transmission tracing contact: Rhythm Summary: Bradycardia avg rate: 57 Bradycardia longest duration: 00:38:52 Bradycardia longest episode: 01/21/2021 05:20:00 Bradycardia shortest duration: 00:00:01 Bradycardia shortest episode: 01/01/2021 00:00:00 Mean heart rate: 69 Pauses >= 3 seconds: 0 Tachycardia avg rate: 112 Tachycardia longest duration: 01:04:44 Tachycardia longest episode: 01/19/2021 16:15:00 Tachycardia shortest duration: 00:00:06 Tachycardia shortest episode: 12/29/2020 20:12:00 Cardiologis Review of Transmissions: The predominant rhythm was sinus, average HR 69 bpm, range 51-151 bpm. Rare APDs with rare atrial runs of up to 6 beats. Rare VPDs with one ventricular triplet and one possible 4-beat V-run (vs SV run). The patient pressed the event button on 36 occasions. Symptoms included flutter/skipped beats, rapid heart beat, chest pain, and SOB. These events corrrelated with atrial and ventricular ectopy, including short runs, about 50% of the time. The full scanned/data report is available in [employer]. labeled MONITOR STRIPS PDF . This study was interpreted by Markus Kidd MD Confirmed on 01/29/2021 - 12:21:27 by Markus Kidd MD Summary of Transmitted Events: # Date Time HR Symptoms/Rhythm 37 01/27/21 21:29 67.0 Flutter or Skipped Beats Sinus Rhythm w/PVCs (1 in 1 min) 36 01/27/21 14:55 60.0 Flutter or Skipped Beats Sinus Rhythm w/PVCs (1 in 1 min )/Artifact 35 01/26/21 18:28 69.0 Chest Pain or Pressure Sinus Rhythm w/Artifact 34 01/23/21 22:40 158.0 Flutter or Skipped Beats; Chest PaSinus Rhythm w/Atrial Run/Artifact 33 01/21/21 15:20 104.0 Flutter or Skipped Beats; Rapid orSinus Tachycardia w/PVCs (1 In 1Min)/Artifact 32 01/21/21 12:05 85.0 Flutter or Skipped Beats Sinus Rhythm w/Artifact 31 01/19/21 16:24 126.0 Rapid or Fast Heartbeat Sinus Tachycardia w/Artifact 30 01/19/21 14:20 74.0 Flutter or Skipped Beats Sinus Rhythm w/PACs/Artifact 29 01/19/21 01:58 68.0 None Reported Sinus Rhythm w/PVCs (1 in 1 min)/Artifact 28 01/18/21 17:55 65.0 Flutter or Skipped Beats Sinus Rhythm w/Artifact 01/17/21 12:41 69.0 Flutter or Skipped Beats Sinus Rhythm w/PACs/Artifact 01/15/21 16:45 65.0 Flutter or Skipped Beats Sinus Rhythm w/Interpolated PVC/Artifact 01/15/21 12:41 162.0 Flutter or Skipped Beats Sinus Rhythm, Sinus Bradycardia w/Run of V-Tach (4 Beats 24 01/14/21 18:28 65.0 Chest Pain or Pressure Sinus Rhythm w/Artifact 01/14/21 15:34 201.0 Flutter or Skipped Beats Sinus Rhythm w/Run of V-Tach (3 beats) 01/14/21 14:14 61.0 Flutter or Skipped Beats Sinus Rhythm w/PVCs (1 in 1 min)/Artifact 01/13/21 01:05 71.0 Flutter or Skipped Beats Sinus Rhythm 01/13/21 00:52 143.0 Flutter or Skipped Beats Sinus Rhythm, Sinus Arrhythmia w/Atrial Run/Artifact 19 01/12/21 15:39 71.0 Chest Pain or Pressure Sinus Rhythm w/Artifact 18 01/11/21 19:39 69.0 Flutter or Skipped Beats Sinus Rhythm w/Couplet PACs 17 01/10/21 09:44 64.0 Flutter or Skipped Beats Sinus Rhythm w/PACs 16 01/09/21 20:45 76.0 None Reported Sinus Rhythm w/Artifact 15 01/09/21 12:38 74.0 Flutter or Skipped Beats Sinus Rhythm w/PVCs (1 in 1 min) 14 01/09/21 11:02 66.0 None Reported Sinus Rhythm w/Artifact 13 01/06/21 19:28 101.0 Flutter or Skipped Beats Sinus Tachycardia w/Artifact 12 01/06/21 16:10 97.0 Flutter or Skipped Beats Sinus Rhythm 11 01/04/21 20:01 104.0 Rapid or Fast Heartbeat Sinus Tachycardia, Sinus Rhythm w/Artifact 10 01/04/21 11:35 123.0 Rapid or Fast Heartbeat Sinus Tachycardia w/Artifact 9 01/04/21 10:51 74.0 Flutter or Skipped Beats Sinus Rhythm w/Artifact 8 01/02/21 21:37 64.0 Flutter or Skipped Beats Sinus Rhythm w/PACs/Artifact 7 01/02/21 14:25 103.0 Shortness of Breath Sinus Tachycardia, Sinus Rhythm w/Artifact 6 01/02/21 12:32 86.0 Chest Pain or Pressure Sinus Rhythm w/Artifact 5 01/02/21 11:11 71.0 None Reported Sinus Rhythm w/Artifact 4 01/01/21 15:45 79.0 Chest Pain or Pressure Sinus Rhythm w/Artifact 3 12/30/20 10:37 143.0 Flutter or Skipped Beats Sinus Rhythm w/Atrial Run/Artifact 2 12/30/20 00:06 123.0 Flutter or Skipped Beats Sinus Rhythm w/Atrial Run/Artifact 1 12/29/20 11:56 77 Baseline Sinus Rhythm w/Artifact I have personally reviewed and interpreted this study. us Ирина Murray MD [facility] PRO CEDURES Final Result documented in this encounter Visit Diagnoses Diagnosis Paroxysmal SVT (supraventricular tachycardia) (HCC) documented in this encounter Care Teams Galvanizer Zinc Relationship Specialty Start Date End Date Jett Yarbrough MD [address] [address] PCP - General 09/27/15 documented as of this encounter
--- OUTSIDE RECORDS SUMMARY | 2024-06-01 00:22 | XMS_ITS | Encounter Summary ---
Author Organization [facility] Address [address] [place] [address] Phone Care Team Providers Care Pulp Bleacher Name Role Phone Jett Yarbrouhg MD Primary Care Provider +1- [phone] Encounter Details Date Type Department Care Team (Late st Contact Info) Description 12/20/[address] 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
--- OUTSIDE RECORDS SUMMARY | 2024-06-01 00:22 | XMS_ITS | Encounter Summary ---
Author Organization [facility] Address [address] [place] [address] Phone Care Team Providers Care Return To Vendor Name Role Phone Jett Yarbrough MD Primary Care Provider +1- [phone] Encounter Details Date Type Department Care Team (Late st Contact Info) Description 04/02/2021 Telephone [facility] Cardiology [address] [facility] Advanced Medicine 8th [place] [address] [place] [address] Dale Thibodeaux MD [address] [facility] [address] [place], [place] [id number] Social History Tobacco Use Types Packs/Day Years [...] on file 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 Thibodeaux, she has to get her son to school and will be in at original time of 1100. * Telephone Encounter - Oralia Mascorro - 04/02/2021 11:32 AM CDT TERRI HAVING PROCEDURE TOMORROW. WOULD LIKE TO KNOW WHAT TIME TO BE THERE documented in this encounter Plan of Treatment Not on file documented as of this encounter Visit Diagnoses Not on filedocumented in this encounter Care Teams Return To Vendor Relationship Specialty Start Date End Date Jett Yarbrough MD [address] [facility] [address] [place] [address] PCP - General 09/27/15 documented as of this encounter
--- OUTSIDE RECORDS SUMMARY | 2024-06-01 00:22 | XMS_ITS | Encounter Summary ---
Author Organization [facility] Address [address] [place] [address] Phone Care Team Providers Care Maintainer Plant Name Role Phone Jett Yarbrough MD Primary Care Provider +1- [phone] Encounter Details Date Type Department Care Team (Late st Contact Info) Description 02/22/2021 Telephone [facility] Cardiology [address] [facility] 8th [place] [address] [place] [address] Dale Thibodeaux MD [address] [facility] [address] [place], [place] [id number] Social History Tobacco Use Types Packs/Day Years Used Date Smoking Tobacco: Never Smokeless Tobacco: Never Alcohol Use Standard Drinks/Week Comments No 0 (1 standard drink = 0.6 oz pur e alcohol) Comments Unknown Sex and Gender Information Value Date Recorded Sex Assigned at Not on file 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 * Telephone Encounter - Saray Higuera - 02/22/2021 11:43 AM CDT ----- Message from Patty Gates RN sent at 02/20/2021 3:00 PM CDT ----- Regarding: RE: Procedure for Dr. Thibodeaux pt on April 03, 2021 Please allow time in between appointments, so that patients arrive 15-20 minutes prior to the CPAP time, so that they can register and complete paperwork Our CPAP appointments last on average 1.5 hours. Please confirm appointment for CPAP with patient Your patient has been scheduled for CPAP at the [facility] on: 04/01 @ 1000 Please respond to the [facility] CPAP SCHEDULERS POOL or call us at [phone] Thank you, CPAP SCHEDULERS ----- Message ----- From: Saray Echols Sent: 02/20/2021 2:24 PM CDT To: [facility] Cpap Schedulers Subject: FW: Procedure for Dr. Thibodeaux pt on March 16# Please schedule CPAP for 04.01.21. Thank you! ----- Message ----- From: Yolanda Bryant RN Sent: 02/20/2021 2:08 PM CDT To: [facility] Cath/Ep/Cisco/Vasc Scheduling Pool, # Subject: Procedure for Dr. Thibodeaux pt on April 03# Please schedule and precert for Dr. Thibodeaux pt on April 03, 2021. No special needs or testing Thank you. documented in this encounter Plan of Treatment Not on file documented as of this encounter Visit Diagnoses Not on filedocumented in this encounter Care Teams Maintainer Plant Relationship Specialty Start Date End Date Jett Yarbrough MD [address] [place] [address] PCP - General 09/27/15 documented as of this encounter
--- OUTSIDE RECORDS SUMMARY | 2024-06-01 00:22 | XMS_ITS | Encounter Summary ---
Author Organization [facility] Address [address] [place] [address] Phone Care Team Providers Care Revenue Enforcement Agent Name Role Phone Jett Yarbrough MD Primary Care Provider +1- [phone] Encounter Details Date Type Department Care Team (Late st Contact Info) Description 12/18/2020 Telephone [facility] Cardiology [address] [facility] 8th [place] [address] [place] [address] Dale Thibodeaux MD [address] [id number] Social History Tobacco Use Types Packs/Day Years Used Date Smoking Tobacco: Never Smokeless Tobacco: Never Alcohol Use Standard Drinks/Week Comments No 0 (1 standard drink = 0.6 oz pur e alcohol) Comments Unknown Sex and Gender Information Value Date Recorded Sex Assigned at Not on file 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 Was unsure, please advise and feel free to send back if not. Thank you. * Telephone Encounter - Yolanda Bryant RN - 12/19/2020 8:56 AM CDT I called and spoke with pt she is still having some palpitations and occasional rapid rates. History of SVT noted. I told her that she will need a monitor and I will go ahead and order so we have theresults prior to her visit in one month with our CLIENT TECHNICAL PROFESSIONAL. She was very happy with this. Please see order for monitor to be mailed and will need Sensitive patches as necessary. * Telephone Encounter - Patty Mcgarry BS - 12/18/2020 4:11 PM CDT TERRI PT STILL HAS EPISODES, NOT OFTEN BEFORE. IF SHE NEEDS TO HAVE ANOTHER HOLTER MONITOR, CAN SHEWEAR IT BEFORE HER JANUARY APPT? documented in this encounter Plan of Treatment Not on file documented as of this encounter Visit Diagnoses Not on filedocumented in this encounter Care Teams Revenue Enforcement Agent Relationship Specialty Start Date End Date Jett Yarbrough MD [address] [address] PCP - General 09/27/15 documented as of this encounter
--- OUTSIDE RECORDS SUMMARY | 2024-06-01 00:22 | XMS_ITS | Encounter Summary ---
Author Organization [facility] Address [address] [place] [address] Care Team Providers Care Equine Vet Name Role Phone Jett Yarbrough MD Primary Care Provider [phone]- [phone] Encounter Details Date Type Department Care Team (Latest Contact Info) Description 04/03/2021 11:51 AM CDT Anesthesia Event [facility] Electrophysiology Lab [address] [place] [address] Lawrence Fernandez MD [address] [place] [address] Nicolas Cornell MD [address] [place] [address] Anesthesia Record Procedure Summary Procedure Name Responsible Anesthesiologist Anesthesia Start Time Anesthesia Stop Time ELECTROPHYSIOLOGIC EVALUATION (EPS) WITH INDUCTION OR ATTEMPTED INDUCTION OF ARRHYTHMIA 88821 (Bilateral) Lawrence Fernandez MD 04/03/21 1151 04/03/21 1606 Events Date Time Event Comment 04/03/2021 1119 1151 An Start 1154 An Start Data 1204 Start Supplemental O2 1204 An Induction The patient was reevaluated immediately before moderate or deep sedation use and before anesthesia induction. 1212 Anesthesia Ready 1242 Local injected by surgeon 1403 Quick Note Paced into atri al tachycardia, episodes brief and break spontaneously 1501 Quick Note Ablation layla lazaro 1528 Anes Handoff 1555 an stop data 1604 Handoff to RN I completed my handoff to the receiving nurse during which we: 1. Patient identified 2. Responsible provider identified 3. Pertinent medical history reviewed 4. Procedure type and surgical course discussed 5. Intraoperative anesthetic management and any significant issues discussed 6. Expectations and concerns for postop period discussed 7. Questions solicited from receiving nurse 8. Patient disposition at the time of handoff: PACU 1606 An Stop Meds Name Total midazolam PF 3 mg lidocaine (cardiac) syringe 2 % 0.2 mL propofol 100 mg propofol 1,077.22 mg heparin 1,000 unit/mL PF 16,000 Units sodium chloride 0.9% infusion 0 mL Lactated Ringer's (LR) infusion 400 mL * Agents Name O2% N2O O2 * Blood No blood administrations on file. Lines, Drains, and Airways Type Details Placement Removal Peripheral IV Placement Date: 04/03/21; Placement Time: 1129; Catheter Size: 20 G; Orientation: Right; Location: Antecubital; Site Prep: Chlorhexidine; Inserted by: maribel saucedo rn; Insertion Attempts: 1; Patient Tolerance: Tolerated well; Removal Date: 04/03/21; Removal Time: 193904/03/21 1130 by Shanika Zuniga RN 04/03/211939 by Shanika Zuniga RN Peripheral IV Placement Date: 04/03/21; Placement Time: 1211; Catheter Size: 18 G; Orientation: Left; Location: Wrist; Site Prep: Chlorhexidine; Insertion Attempts: 1; Patient Tolerance: Tolerated well; Removal Date: 04/03/21; Removal Time: 193904/03/21 121 by Corry Ramos CRNA 04/03/211939 by Shanika Zuniga RN documented in this encounter Social History Tobacco Use Types Packs/Day Years [...] on file 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 Gender Identity Not on file Sexual Orientation Not on file documented as of this encounter OR Notes * Anesthesia Postprocedure Evaluation - Lawrence Fernandez MD - 04/03/2021 4:08 PM CDT Patient: Chioma Chu Procedure Summary Date: 04/03/21 Room / Location: [facility] EP [facility] Anesthesia Start: 1151 Anesthesia Stop: 1604 Procedures: ELECTROPHYSIOLOGIC EVALUATION (EPS) WITH INDUCTION OR ATTEMPTED INDUCTION OF ARRHYTHMIA 09604 (Bilateral ) CORONARY SINUS/LEFT ATRIUM PACING AND RECORDING (+) 81510 (N/A ) POST DRUG PROGRAM STIM AND PACING (+) 98263 (N/A ) ABLATION SUPRAVENTRICULAR TACHYCARDIA (SVT) 10459 (Bilateral ) Diagnosis: Paroxysmal SVT (supraventricular tachycardia) (CMS/HCC) (HCC) (Paroxysmal SVT (supraventricular tachycardia) (CMS/HCC) (HCC) [I47.1]) Providers: Dale Thibodeaux MD Responsible Provider: Lawrence Fernandez MD Anesthesia Type: MAC ASA Status: 2 Anesthesia Type: MAC Last vitals BP 107/68 Pulse 82 Temp 36.9 ??C (98.4 ??F) (Axillary) Resp 25 SpO2 100% Anesthesia Post Evaluation Patient location during evaluation: PACU Patient participation: complete - patient participated Level of consciousness: responsive to noxious stimuli and fully awake Pain score: 0 Pain management: adequate Airway patency: adequate Cardiovascular status: hemodynamically stable Respiratory status: acceptable Hydration status: acceptable Pt is: normothermic Nausea/Vomiting status: none No complications documented. * Anesthesia Preprocedure Evaluation - Lawrence Fernandez MD - 04/01/2021 10:33 AM CDT Images from the original note were not included. [facility] Preoperative Evaluation Record Evaluation type/location: [facility] Planned procedure site: Other EP Lab Date: 04/01/21 Anesthesia Evaluation Chioma Chu is a 50 y.o. female Procedure(s): ELECTROPHYSIOLOGIC EVALUATION (EPS) WITH INDUCTION OR ATTEMPTED INDUCTION OF ARRHYTHMIA 86710 CORONARY SINUS/LEFT ATRIUM PACING AND RECORDING (+) 26993 POST DRUG PROGRAM STIM AND PACING (+) 35846 ABLATION SUPRAVENTRICULAR TACHYCARDIA (SVT) 88653 Pre-Op Diagnosis Codes: * Paroxysmal SVT (supraventricular tachycardia) (CMS/HCC) (HCC) [I47.1] HISTORY HPI Chioma Chu is a 50 y.o. female with PMHx of anxiety, PSVT, PACs, PVCs, HLD, multinodular goider, GERD, OA, gestational DM, multinodular goiter presenting for evaluation prior to ELECTROPHYSIOLOGIC EVALUATION (EPS) WITH INDUCTION OR ATTEMPTED INDUCTION OF ARRHYTHMIA 72366: CORONARY SINUS/LEFT ATRIUM PACING AND RECORDING (+) 39389: POST DRUG PROGRAM STIM AND PACING (+) 61567: ABLATION SUPRAVENTRICULAR TACHYCARDIA (SVT) 84579: Past Medical History Neurological + Psychiatric history - anxiety Pertinent negatives: seizures and CVA/stroke Cardiovascular + Hyperlipidemia + Current valvular disease (mild MVP) - TR - mild. + Other arrhythmia - PSVT, PACs, PVCs and bradycardia. Pertinent negatives: hypertension ; CAD ; NC and DVT/PE Respiratory Pertinent negatives: non-smoker Respiratory system: negative Hepatic / Heme Hepatic/Heme system: negative Gastrointestinal + GERD (questionable diagnosis, for voice loss) - on daily therapy. Asymptomatic. 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 female who is being evaluated prior to undergoing an intermediate cardiac risk surgery. Revised Cardiac Risk Index factors are (none) for a total RCRI of 0 out of 6. Functional capacity is 4-6 METs. Obstructive sleep apnea (MONTY) screening status is STOP-Bang=1 suggesting low risk for MONTY. Blood bank needs for day of procedure: No type and screen needed Pending labs/tests include: CBC BMP Urinalysis flex hCG COVID swab Previous thyroid labs WNL in 2019. Preoperative evaluation performed by Nicolas Cornell MD on 04/01/21 at 11:38 AM. Patient's COVID19 status is: Unexposed. The patient currently has no concerning symptoms of COVID19. . Patient's COVID-19 vaccination status is Not vaccinated. Plan for pre-procedure COVID19 testing:Surgery date within 4 days. Pre-procedure COVID19 testing performed at [facility]. Result pending- to be reviewed by surgeon's office. . Follow up note Labs reviewed and are without significant findings. Surgeon's office reviews laboratory results independently, including final results of surgeon ordered labs. CPAP process complete. Follow-up completed by: Nicolas Cornell MD on 04/02/21 at 8:38 AM Patient Active Problem List Diagnosis ??? Paroxysmal SVT (supraventricular tachycardia) (CMS/HCC) (HCC) ??? Thrombocytosis ??? Multinodular goiter ??? Other chest pain ??? PAC (premature atrial contraction) ??? PVC (premature ventricular contraction) ??? Sinus bradycardia Past Medical History: Diagnosis Date ??? Delayed emergence from general anesthesia ??? History of knee surgery History of knee surgery ??? Hypercholesterolemia High cholesterol ??? PONV (postoperative nausea and vomiting) Past Surgical History: Procedure Laterality Date ??? TONSILLECTOMY Tonsillectomy OB History No obstetric history on file. Allergies Allergen Reactions ??? Penicillins Hives Med List Status: Nurse Complete Set By: Senthil Mai RN at 04/01/2021 10:44 AM Taking? Last Dose Start Date End Date Provider atorvastatin (LIPITOR) 40 mg tablet 03/31/2021 07/30/20 10/18/21 Markus Guerrero MD Take 1 tablet (40 mg total) by mouth daily Patient taking differently: Take 40 mg by mouth nightly azelastine (ASTELIN) 137 mcg (0.1 %) nasal spray 04/01/2021 03/13/21 -- Yoli Alves MD dilTIAZem (CARDIZEM) 30 mg tablet Past Week 02/06/21 -- Yeny Valero NP Take 1 tablet (30 mg total) by mouth 4 (four) times a day as needed (for palps) Patient taking differently: Take 30 mg by mouth as needed (for palps) ibuprofen (ibuprofen) 200 mg tab/cap Past Week -- -- Yoli Alves MD LORazepam (ATIVAN) 0.5 mg tablet Past Month -- -- Yoli Alves MD metoprolol XL (TOPROL-XL) 25 mg extended release tablet 03/31/2021 05/25/20 05/25/21 Leslie Thibodeaux MD Take 1 tablet (25 mg total) by mouth daily Patient taking differently: Take 25 mg by mouth nightly omeprazole (PriLOSEC) 20 mg capsule 03/31/2021 07/14/18 -- Yoli Alves MD PARoxetine (PAXIL) 20 mg tablet 03/31/2021 03/18/21 -- Yoli Alves MD Current Outpatient Medications: ??? atorvastatin (LIPITOR) 40 mg tablet ??? azelastine (ASTELIN) 137 mcg (0.1 %) nasal spray ??? dilTIAZem (CARDIZEM) 30 mg tablet ??? ibuprofen (ibuprofen) 200 mg tab/cap ??? LORazepam (ATIVAN) 0.5 mg tablet ??? metoprolol XL (TOPROL-XL) 25 mg extended release tablet ??? omeprazole (PriLOSEC) 20 mg capsule ??? PARoxetine (PAXIL) 20 mg tablet Social History Tobacco Use Smoking Status Never Smoker Smokeless Tobacco Never Used Substance and Sexual Activity Alcohol Use No Substance and Sexual Activity Drug Use No Family History Problem Relation Age of Onset ??? Other Father Heart Condition; Cause of : Heart Condition ??? Other Mother Alive and well; PAT Physical Exam Airway Exam: Mallampati: II Cervical ROM: FROM TM distance: 3 Patient presents with retrognathia. Jaw ROM: full Cardiovascular Exam: Rate: regular Rhythm: regular Negative for Murmur No extra heart sounds appreciated Negative for peripheral edema Negative for weak pulses Pulmonary Exam: LCTA, bilat EENT Exam: trachea midline Dental Exam: Appears intact Skin Exam: Skin is warm. Capillary refill is < 3 seconds. Turgor is normal. Abdominal exam: Abdomen is soft. Bowel sounds are present. Current state: Patient's current state is cooperative and interactive. Vitals: 04/01/21 1045 04/01/21 1050 BP: 120/83 116/76 Pulse: 63 Resp: 18 SpO2: 100% Relevant diagnostics: ECG(s): 02/06/21: NSR 61 w/ LA enlargement Event Monitor 12/20/20: Predominantly SR, avg 69 bpm w/ range 51-151, rare atrial runs, rare ventricular runs (one possible 4 beat run vs. SV run), button pressed 36 times 50% correlated w/ atrial or ventricular ectopy. Echocardiogram(s): 08/13/2018: Mild concentric LVH w/ normal function EF 68%, inferior LV hypokinetic. Mild LA enlargement, mild MVP of anterior leaflet, mild TR. Stress test(s): 08/16/2018: Normal response, no ischemia on echo Cardiac catheterization(s): N/A PFT(s): N/A Vascular studies: N/A Other: N/A PT: No results found for requested labs within last 720 hours. INR: No results found for requested labs within last 720 hours. APTT: No results found for requested labs within last 720 hours. Hgb A1C: No results found for requested labs within last 720 hours. CBC RBC: No results found for requested labs within last 720 hours. RDW: No results found for requested labs within last 720 hours. MCHC: No results found for requested labs within last 720 hours. MCH: No results found for requested labs within last 720 hours. MCV: No results found for requested labs within last 720 hours. Hct: No results found for requested labs within last 720 hours. Hgb: No results found for requested labs within last 720 hours. WBC: No results found for requested labs within last 720 hours. MPV: No results found for requested labs within last 720 hours. Platelets: No results found for requested labs within last 720 hours. RDW CV: No results found for requested labs within last 720 hours. RDW Sd: No results found for requested labs within last 720 hours. BMP Glucose: No results found for requested labs within last 720 hours. Calcium: No results found for requested labs within last 720 hours. Sodium: No results found for requested labs within last 720 hours. Potassium: No results found for requested labs within last 720 hours. CO2: No results found for requested labs within last 720 hours. Chloride: No results found for requested labs within last 720 hours. BUN: No results found for requested labs within last 720 hours. Creatinine: No results found for requested labs within last 720 hours. STOP-Bang Total Score: 1 Keira index score: 100 DOS Physical Exam Medical history, medications, and allergies reviewed. Attestation: I endorse the findings of the anesthesia pre-evaluation assessment dated: 04/01/2021. Airway Exam: Mallampati: II Cervical ROM: FROM Cardiovascular Exam: Rate: regular Rhythm: regular Pulmonary Exam: LCTA Anesthesia Plan ASA 2 My patient is approved for the Anesthesia Controlled Medication protocol when under care of a TRUCK SHOP SUPERVISOR Planned anesthesia: MAC Induction: Induction: intravenous. Postoperative Plan: No plan for postoperative opioid use. No postoperative mechanical ventilation intended. Patient's planned disposition post procedure is Floor. Informed Consent: Discussed plan with TRUCK SHOP SUPERVISOR. Anesthesia plan and risks discussed with patient. Consent and Attending signature: I and/or my designee have discussed the anesthesia plan, benefits, possible alternatives, parental presence at time of induction (if indicated), and clinically relevant risks that may include dental injury, unintentional awareness, and/or other complications. The patient and/or parent/legal guardian understand, and agree to proceed. All questions answered. documented in this encounter Plan of Treatment Not on file documented as of this encounter Visit Diagnoses Not on filedocumented in this encounter Administered Medications Inactive Administered Medications - up to 3 most recent administrations Medication Order MAR Action Action Date Dose Rate Site heparin 1,000 unit/mL preservative free injection intravenous, As needed, Starting on Thu04/03/21 at 1347, Anesthesia Intra-op Given 04/03/2021 2:25 PM CDT 4,000 Units Given 04/03/2021 2:02 PM CDT 2,000 Units Given 04/03/2021 1:47 PM CDT 10,000 Units Lactated Ringer's (LR) infusion 30 mL/hr, intravenous, Continuous, Starting on Thu04/03/21 at 1130, Pre-Op New Bag 04/03/2021 12:12 PM CDT lidocaine (cardiac) (XYLOCAINE) preservative free injection intravenous, As needed, Starting on Thu04/03/21 at 1209, Anesthesia Intra-op, Indications: Ventricular ArrhythmiasIndications:Ventricular Arrhythmias Given 04/03/2021 12:09 PM CDT 0.2 mL midazolam (VERSED) 1 mg/mL preservative free injection intravenous, Administer over 2 Minutes, As needed, Starting on Thu04/03/21 at 1154, Anesthesia Intra-op Given 04/03/2021 1:34 PM CDT 1 mg Given 04/03/2021 11:54 AM CDT 2 mg propofoL (DIPRIVAN) 10 mg/mL IV intravenous, Continuous PRN, Starting on Thu04/03/21 at 1206, Anesthesia Intra-op Rate/Dose Change 04/03/2021 3:34 PM CDT 75 mcg/kg/min 30.24 mL/hr Rate/Dose Change 04/03/2021 3:03 PM CDT 100 mcg/kg/min 40. 32 mL/hr Rate/Dose Change 04/03/2021 1:27 PM CDT 75 mcg/kg/min 30.2 4 mL/hr propofoL (DIPRIVAN) 10 mg/mL IV intravenous, As needed, Starting on Thu04/03/21 at 1500, Anesthesia Intra-op Given 04/03/2021 3:11 PM CDT 40 mg Given 04/03/2021 3:03 PM CDT 40 mg Given 04/03/2021 3:00 PM CDT 20 mg sodium chloride 0.9% infusion 30 mL/hr, intravenous, Continuous, Starting on Thu04/03/21 at 1215, Pre-Procedure (CV) Rate/Dose Change 04/03/2021 3:33 PM CDT 200 mL/hr Rate/Dose Verify 04/03/2021 11:51 AM CDT 50 mL/ hr New Bag 04/03/2021 11:33 AM CDT 30 mL/hr 30 mL/hr documented in this encounter Care Teams Equine Vet Relationship Specialty Start Date End Date Jett Yarbrough MD [address] [facility] [address] [place] [address] PCP - General 09/27/15 documented as of this encounter
--- OUTSIDE RECORDS SUMMARY | 2024-06-01 00:22 | XMS_ITS | Encounter Summary ---
Author Organization [facility] Healthcare Address [address] [place] [address] Care Team Providers Care Crna Name Role Phone Jett Yarbrough MD Primary Care Provider [phone]- [phone] Encounter Details Date Type Department Care Team (Latest Contact Info) Description 04/03/2021 12:00 PM CDT - 04/03/2021 5:00 PM CDT Surgery [facility] Electrophysiology Lab [address] [place] [address] Dale Thibodeaux MD [facility] [address] [address] ELECTROPHYSIOLOGIC EVALUATION (EPS) WITH INDUCTION OR ATTEMPTED INDUCTION OF ARRHYTHMIA 72518 Surgery Details Date/Time Status Location OR Service Patient Class Case Class Case Type Trauma Case? 04/03/2021 12:00 PM Posted [facility] EP LAB EP 09 Cardiovascular Outpatient in Bed Elective Panel 1 Procedure LRB Anes Op Region Wound Class Comments ELECTROPHYSIOLOGIC EVALUATION (EPS) WITH INDUCTION OR ATTEMPTED INDUCTION OF ARRHYTHMIA 32235 Bilateral Choice EPS +/- SVT RFA NPO after 2400 on April 02, 2021. No medications morning of the procedure with arrival on April 03, 2021 of 1100 am, plan on home following adequate recovery with possible overnight stay. CORONARY SINUS/LEFT ATRIUM PACING AND RECORDING (+) 14117 N/A Choice POST DRUG PROGRAM STIM AND PACING (+) 40769 N/A Choice ABLATION SUPRAVENTRICULAR TACHYCARDIA (SVT) 19087 Bilateral Choice Surgeon Surgeon Role Service Panel Dale Thibodeaux MD Primary Cardiovascular 1 Rob Coley MD Fellow Cardiovascular 1 Kaylene Bauer MD Fellow Cardiov ascular 1 Case Notes 1100 am Special Needs NPO after 2400 on April 02, 2021. No medications morning of the procedure with arrival on April 03, 2021 of 1100 am, plan on home following adequate recovery with possible overnight stay.Spoke with pt, f/u appt scheduled, verified on EP schedule , CPAP scheduled, PIL sent via mail and [employer]. 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 Gender Identity Not on file Sexual Orientation Not on file documented as of this encounter Last Filed Vital Signs Vital Sign Reading Time Taken Comments Blood Pressure 115/73 04/03/2021 4:50 PM CDT Pulse 69 04/03/2021 4:50 PM CDT Temperature 36.9 ??C (98.4 ??F) 04/03/2021 4:06 PM CD T Respiratory Rate 22 04/03/2021 4:50 PM CDT Oxygen Saturation 100% 04/03/2021 4:50 PM CDT Inhaled Oxygen Concentration - - Weight 67.2 kg (148 lb 2.4 oz) 04/03/2021 11:01 AM CDT Height 167.6 cm (5' 6 ) 04/03/2021 11:01 AM CDT Body Mass Index 23.91 04/03/2021 11:01 AM CDT documented in this encounter Discharge Instructions * Discharge Instructions* Rob Coley MD - 04/03/2021 3:57 PM CDT Medication Instructions: Continue all of your home medications. Take a baby aspirin (81mg) once a day for the next 30 days. You may stop after this. We can discuss if you still need metoprolol or diltiazem at your follow up appointment. Patient Instructions First 2 days: No driving First 7 days: No submersion in pool/water tub Okay to shower; gently wash area with soap/water and pat dry No lifting, running, pulling, or pushing anything greater than 10 pounds (~gallon of milk) After 2 weeks: Resume normal activity Bleeding Precautions: Check for bleeding at catheter sites, characterized by bright red blood at the puncture sites without swelling. Small amounts of ???oozing?? may be controlled by applying direct pressure to the site for 5-10 minutes with a piece of gauze or Band-Aid. If bleeding continues, patient instructed to call EP physician and seek immediate medical attention. Hematoma Precautions: characterized by a firm mass under the skin that may cause a sensation of tightness or pain. If a hematoma grows rapidly in size, apply direct pressure and seek immediate medical attention. documented in this encounter Medications at Time of Discharge atorvastatin (LIPITOR) 40 mg tabletIndications :Dyslipidemia Take 1 tablet (40 mg total) by mouth daily 30 tablet 11 01/12/2020 azelastine (ASTELIN) 137 mcg (0.1 %) nasal sprayIndications: Seasonal Allergic Rhinitis Administer 1 spray into each nostril every morning 03/13/2021 ibuprofen (ADVIL,MOTRIN) 200 mg tab/cap Take 2 tablet/capsule (400 mg total) by mouth as needed for pain LORazepam (ATIVAN) 0.5 mg tablet Take 1 tablet (0.5 mg total) by mouth as needed for anxiety aspirin 81 mg chewable tablet Take 1 tablet (81 mg total) by mouth daily 30 tablet 04/03/2021 2 dilTIAZem (CARDIZEM) 30 mg tabletIndications :Paroxysmal SVT (supraventricular tachycardia) (HCC) Take 1 tablet (30 mg total) by mouth 4 (four) times a day as needed (for palps) 360 tablet 1 02/06/2021 2 loratadine (CLARITIN) 10 mg tablet daily 09/28/2020 4 metoprolol XL (TOPROL-XL) 25 mg extended release tablet Take 1 tablet (25 mg total) by mouth daily 30 tablet 11 05/25/2020 2 omeprazole (PriLOSEC) 20 mg capsuleIndication s:Stress Ulcer Prophylaxis Take by mouth nightly 3 07/14/2018 4 PARoxetine (PAXIL) 20 mg tabletIndications :Anxiety with Depression Take 20 mg by mouth nightly 03/18/2021 3 documented as of this encounter Ordered Prescriptions Prescription Sig Dispense Quantity Refills Last Filled Start Date End Date aspirin 81 mg chewable tablet Take 1 tablet (81 mg total) by mouth daily 30 tablet 04/03/2021 05/15/2022 documented in this encounter Discharge Disposition Disposition Code Departure Means Destination Discharge to home or self care documented in this encounter H&P Notes * Dale Thibodeaux MD - 04/03/2021 10:40 AM CDT I have reviewed the H&P, examined the patient, and endorse the findings as written. Plan of Care : Based on the above findings, I consider Chioma Chu to be an acceptable risk for : Procedure(s): ELECTROPHYSIOLOGIC EVALUATION (EPS) WITH INDUCTION OR ATTEMPTED INDUCTION OF ARRHYTHMIA 78063 CORONARY SINUS/LEFT ATRIUM PACING AND RECORDING (+) 13116 POST DRUG PROGRAM STIM AND PACING (+) 99143 ABLATION SUPRAVENTRICULAR TACHYCARDIA (SVT) 88830 Source Note - Nicolas Cornell MD - 04/01/2021 10:33 AM CDT Images from the original note were not included. [facility] Preoperative [facility] and Planning Preoperative Evaluation Record Evaluation type/location: [facility] Planned procedure site: Other EP Lab Date: 04/01/21 Anesthesia Evaluation Chioma Chu is a 50 y.o. female Procedure(s): ELECTROPHYSIOLOGIC EVALUATION (EPS) WITH INDUCTION OR ATTEMPTED INDUCTION OF ARRHYTHMIA 93184 CORONARY SINUS/LEFT ATRIUM PACING AND RECORDING (+) 02021 POST DRUG PROGRAM STIM AND PACING (+) 96230 ABLATION SUPRAVENTRICULAR TACHYCARDIA (SVT) 16643 Pre-Op Diagnosis Codes: * Paroxysmal SVT (supraventricular tachycardia) (CMS/HCC) (HCC) [I47.1] HISTORY HPI Chioma Chu is a 50 y.o. female with PMHx of anxiety, PSVT, PACs, PVCs, HLD, multinodular goider, GERD, OA, gestational DM, multinodular goiter presenting for evaluation prior to ELECTROPHYSIOLOGIC EVALUATION (EPS) WITH INDUCTION OR ATTEMPTED INDUCTION OF ARRHYTHMIA 56033: CORONARY SINUS/LEFT ATRIUM PACING AND RECORDING (+) 67049: POST DRUG PROGRAM STIM AND PACING (+) 85248: ABLATION SUPRAVENTRICULAR TACHYCARDIA (SVT) 41523: Past Medical History Neurological + Psychiatric history - anxiety Pertinent negatives: seizures and CVA/stroke Cardiovascular + Hyperlipidemia + Current valvular disease (mild MVP) - TR - mild. + Other arrhythmia - PSVT, PACs, PVCs and bradycardia. Pertinent negatives: hypertension ; CAD ; NE and DVT/PE Respiratory Pertinent negatives: non-smoker Respiratory [...] 4 days. Pre-procedure COVID19 testing performed at CPAP. Result pending- to be reviewed by surgeon's [...] Provider atorvastatin (LIPITOR) 40 mg tablet 03/31/2021 01/12/20 04/01/21 Markus Guerrero MD Take 1 tablet (40 [...] Total Score: 1 Keira index score: 100 documented in this encounter Miscellaneous Notes * Perioperative Nursing Note - Shanika Zuniga RN - 04/03/2021 8:05 PM CDT Pt ambulated in luevano independently at 19:30. Bilateral groin sites without complication: no hematoma or bleeding noted. * Perioperative Nursing Note - Shanika Zuniga RN - 04/03/2021 8:05 PM CDT Pt s/p A-tach ablation. Pt is A&Ox4, VS stable. Pt ambulated independently in luevano/to bathroom without c/o lightheadedness/dizziness. Bilateral groin sites without complication: no bleeding or hematoma noted. IVs removed. Belongings returned to patient. AVS reviewed and signed by patient. Pt discharged per MD order and left via wheelchair with responsible caregiver: . * Perioperative Nursing Note - Shanika Zuniga RN - 04/03/2021 6:40 PM CDT Pt's bedrest over at 18:30. Pt ambulated to bathroom independently and after returning to bed RN noted small amount of fresh blood on bandages. Adhesive bandage removed, bilateral sites were no longer oozing. New gauze/transparent dressing applied to each groin and pt instructed to lay flat for 30 minutes. Will continue to monitor. documented in this encounter Plan of Treatment Not on file documented as of this encounter Procedures Procedure Name Priority Date/Time Associated Diagnosis Comments ABLATION SUPRAVENTRICULAR TACHYCARDIA TREATMENT (SVT) Routine 04/03/2021 3:35 PM CDT Paroxysmal SVT (supraventricular tachycardia) (CMS/HCC) (HCC) POST DRUG PROGRAM STIM AND PACING Routine 04/03/2021 3:35 PM CDT Paroxysmal SVT (supraventricular tachycardia) (CMS/HCC) (HCC) CORONARY SINUS/LEFT ATRIUM PACING AND RECORDING Routine 04/03/2021 3:35 PM CDT Paroxysmal SVT (supraventricular tachycardia) (CMS/HCC) (HCC) ELECTROPHYSIOLOGIC EVALUATION (EPS) WITH INDUCTION OR ATTEMPTED INDUCTION OF ARRHYTHMIA Routine 04/03/2021 3:35 PM CDT Paroxysmal SVT (supraventricular tachycardia) (CMS/HCC) (HCC) POCT ACTIVATED CLOTTING TIME, HIGH RANGE Routine 04/03/2021 2:18 PM CDT POCT ACTIVATED CLOTTING TIME, HIGH RANGE Routine 04/03/2021 2:11 PM CDT POCT ACTIVATED CLOTTING TIME, HIGH RANGE Routine 04/03/2021 1:54 PM CDT documented in this encounter Results * ELECTROPHYSIOLOGIC EVALUATION (EPS) WITH INDUCTION OR ATTEMPTED INDUCTION OF ARRHYTHMIA, CORONARY SINUS/LEFT ATRIUM PACING AND RECORDING, POST DRUG PROGRAM STIM AND PACING, ABLATION SUPRAVENTRICULAR TACHYCARDIA TREATMENT (SVT) (04/03/2021 3:35 PM CDT) Anatomical Region Laterality Modality X-Ray Angiograph y Narrative 04/03/2021 3:56 PM CDT Patient Name: Chioma Chu Date of : 1970 ?? Procedure Electrophysiology Study with SVT ablation Left atrial recording / pacing IV drug for arrhythmia induction Patient History Ms Chu is an extremely pleasant 50 y.o.??female??with the following arrhythmia-specific history: ?? 1.??Palpitations/SVT/Ectopic Beats ?? Seen in consultation in June 2019.??Symptoms of frequent episodes of palpitations that were most consistent with paroxysmal SVT with prior monitoring detecting several episodes of short runs of likely atrial tachycardia.?Episodes occur randomly, often at rest [...] Long-acting diltiazem prescribed for continued palpitations??by??her primary book sewing machine operator, Dr Guerrero,??in November 2019 to address ongoing palpitations.?The combination of long-acting diltiazem short-acting diltiazem seem to make her heart rate lower as expected and at times has made her feel bad even in the absence of palpitation 2.??Sinus bradycardia ?? Slow resting heart rate does limit pharmacologic options for palpitations/SVT as noted above ?? She was seen in follow-up and reported that she continues to have palpitations at times as noted above and is considering her options including role of pharmacologic therapy versus EP study. She continues to have palpitations. She is aware when they are PAC/PVC's. She also has episodes where she feels extremely dizzy and she describes the room going black with an associated lump in her throat. These previously occurred less frequently. Now, they are happening twice per month or more. Options discussed and she wishes to proceed with EPS +/- SVT RFA Method After informed consent was obtained, the patient was brought to the EP lab in a post-absorptive, non-sedated state. ??A peripheral IV was in place. ?? Continuous electrocardiography, blood pressure and pulse oximetry monitoring was initiated and cardioversion / defibrillator electrodes were positioned on the chest in an AP orientation. ??Conscious sedation was administered with the assistance of the anesthesia services, and local anesthesia was given at the femoral vein access sites. ?? Using modified Seldinger technique, vascular access was achieved and sheaths were placed. ??Multipolar catheters were advanced to the coronary sinus, His bundle recording position, and right ventricle. ??Following the determination of baseline conduction intervals, comprehensive EP study was performed. ??Pacing and recording from the RA, RV, HBE, and CS / LA was performed. ?? For arrhythmia details, see below. At the end of the procedure, all catheters and sheaths were removed and hemostasis was assured with Vascade. ??The patient was returned to the recovery area in stable condition. Access Sites: ?? Left femoral vein: ? 2 sheaths (7 Fr, 5 Fr): deca, 4Fr Debra Right Femoral Vein: ?? 2 sheaths (8 Fr, 5 Fr): CRD2, 4Fr Debra, D/F Tacticath Conduction Intervals (Pre Ablation) V-V P-R QRS Q-T A-H H-V 884 150 85 423 88 36 Conduction Intervals (Post Ablation) V-V P-R QRS Q-T A-H H-V 706 150 86 370 80 36 AV Conduction AVWB at 390 msec VA Diss @ 600ms Refractory Periods ??AV Node ERP 600/300; 450/320 Procedure Synopsis: The patient entered the room in SR. Catheters were placed. Baseline intervals were normal including a normal HV. There was no evidence of accessory pathway and there was no evidence of dual AV josh physiology. With single atrial extrastimuli we could reproducibly induce a long RP, narrow complex tachycardia with TCL~ 450ms. This would terminate spontaneously but could be easily reproduced. Characteristics were c/w with atrial tachycardia. ??Morphology and activation pattern suggested a HRA origin. [...] induced with high output pacing. Diaphragm excursion with respiration was confirmed before and after each ablation. Following ablation, AT could no longer be induced despite waiting period and repeat testing on and off isuprel. ASA 81mg x 1 month Recommendations 1. Bedrest with straight-leg precautions 3 hours 2. Anticipate discharge home after bedrest 3. F/U with Carlos Eduardo BLACK MILL OPERATOR in 4-6 weeks Dale Thibodeaux MD Dale Thibodeaux MD CV ELECTROPHYSIOLOGY NM OCS Final Result * (ABNORMAL) POC Activated Clotting Time, High Range (04/03/2021 2:18 PM CDT) ACT 266(H) 87 - 138 sec [facility] Blood 04/03/2021 2:18 PM CDT 04/03/2021 2:18 PM CDT Dale Thibodeaux MD LAB BLOOD ORDERABLES Fi nal Result [facility] Department [place] [address] * (ABNORMAL) POC Activated Clotting Time, High Range (04/03/2021 2:11 PM CDT) ACT 446(H) 87 - 138 sec [facility] Blood 04/03/2021 2:11 PM CDT 04/03/2021 2:11 PM CDT Dale Thibodeaux MD LAB BLOOD ORDERABLES Fi nal Result [facility] [place] [address] * (ABNORMAL) POC Activated Clotting Time, High Range (04/03/2021 1:54 PM CDT) ACT 285(H) 87 - 138 sec [facility] Blood 04/03/2021 1:54 PM CDT 04/03/2021 1:54 PM CDT Dale Thibodeaux MD LAB BLOOD ORDERABLES Fi nal Result Performing Organization Address [facility] Co de Phone Number [facility] [place] [address] documented in this encounter Visit Diagnoses Diagnosis Paroxysmal SVT (supraventricular tachycardia) (HCC)- Primary Paroxysmal SVT (supraventricular tachycardia) (HCC) documented in this encounter Admitting Diagnoses Diagnosis Paroxysmal SVT (supraventricular tachycardia) (HCC) documented in this encounter Administered Medications Inactive Administered Medications - up to 3 most recent administrations Medication Order MAR Action Action Date Dose Rate Site acetaminophen (TYLENOL) tablet 650 mg 650 mg, oral, Once, On Thu04/03/21 at 1700, For 1 dose, Recovery (CV) Given 04/03/2021 4:23 PM CDT 650 mg heparin in 0.9% sodium chloride 2,000 unit/1,000 mL (2 unit/mL) infusion (premix) Continuous PRN, Starting on Thu04/03/21 at 1257, Intra-Procedure (CV) New Bag 04/03/2021 12:57 PM CDT 60 mL/hr 60 mL/hr heparin in 0.9% sodium chloride 2,000 unit/1,000 mL (2 unit/mL) infusion (premix) Continuous PRN, Starting on Thu04/03/21 at 1257, Intra-Procedure (CV) New Bag 04/03/2021 12:57 PM CDT 60 mL/hr 60 mL/hr heparin in 0.9% sodium chloride 2,000 unit/1,000 mL (2 unit/mL) infusion (premix) Continuous PRN, Starting on Thu04/03/21 at 1403, Intra-Procedure (CV) New Bag 04/03/2021 2:03 PM CDT 120 mL/hr 120 mL/hr heparin in 0.9% sodium chloride 2,000 unit/1,000 mL (2 unit/mL) infusion (premix) Continuous PRN, Starting on Thu04/03/21 at 1437, Intra-Procedure (CV) New Bag 04/03/2021 2:37 PM CDT 120 mL/hr 120 mL/hr isoproterenol (ISUPREL) 1,000 mcg in dextrose 5% 100 mL (10 mcg/mL) infusion Continuous PRN, Starting on Thu04/03/21 at 1520, Intra-Procedure (CV) New 04/03/2021 3:20 PM CDT 1 mcg/min 6 mL/hr Lactated Ringer's (LR) infusion 30 mL/hr, intravenous, Continuous, Starting on Thu04/03/21 at 1130, Pre-Op New 04/03/2021 12:12 PM CDT lidocaine (XYLOCAINE) 20 mg/mL (2 %) injection As needed, Starting on Thu04/03/21 at 1237, Intra-Procedure (CV), Indications: Administration of Local AnesthesiaIndications:Admi nistration of Local Anesthesia Given 04/03/2021 12:42 PM CDT 5 mL Left Groin Given 04/03/2021 12:37 PM CDT 5 mL R ight Groin sodium chloride 0.9% flush 0.5-20 mL 0.5-20 mL, intra-catheter, As needed, line care, Starting on Thu04/03/21 at 1046, Pre-Op, Flush volume based on line type and size. Flush before and after each use. sodium chloride 0.9% flush 0.5-20 mL 0.5-20 mL, intra-catheter, Every 8 hours scheduled, First dose on Thu04/03/21 at 1700, Recovery (CV), Flush volume based on line type and size. sodium chloride 0.9% flush 0.5-20 mL 0.5-20 mL, intra-catheter, As needed, line care, Starting on Thu04/03/21 at 1617, Recovery (CV), Flush volume based on line type and size. Flush before and after each use. sodium chloride 0.9% infusion 30 mL/hr, intravenous, Continuous, Starting on Thu04/03/21 at 1215, Pre-Procedure (CV) Rate/Dose Change 04/03/2021 3:33 PM CDT 200 mL/hr Rate/Dose Verify 04/03/2021 11:51 AM CDT 50 mL/ hr New Bag 04/03/2021 11:33 AM CDT 30 mL/hr 30 mL/hr documented in this encounter Active and Recently Administered Medications Times are shown in CDT. Scheduled Medication Order 04/01/2021 04/02/2021 04/03/2021 acetaminophen (TYLENOL) tablet 650 mg (COMPLETED) 650 mg, oral, Once, On Thu04/03/21 at 1700, For 1 dose, Recovery (CV) 1623 (Given - Provid er: Shanika Zuniga RN) sodium chloride 0.9% flush 0.5-20 mL 0.5-20 mL, intra-catheter, Every 8 hours scheduled, First dose on Thu04/03/21 at 1700, Recovery (CV), Flush volume based on line type and size. 1638 (Not Given - Pr ovider: Shanika Zuniga RN - Reason: IV Infusing) Continuous Medication Order 04/01/2021 04/02/2021 04/03/2021 Lactated Ringer's (LR) infusion 30 mL/hr, intravenous, Continuous, Starting on Thu04/03/21 at 1130, Pre-Op 1212 (New Bag - Prov ider: Corry Ramos CRNA)1533 (Anesthesia Volume Adjustment - Provider: Griesl Draper CRNA) sodium chloride 0.9% infusion 30 mL/hr, intravenous, Continuous, Starting on Thu04/03/21 at 1215, Pre-Procedure (CV) 1133 (New Bag - Prov ider: Shanika Zuniga RN)1151 (Rate/Dose Verify - Provider: Corry Ramos CRNA)1533 (Rate/Dose Change - Provider: Grisel Draper CRNA) PRN Medication Order 04/01/2021 04/02/2021 04/03/2021 heparin in 0.9% sodium chloride 2,000 unit/1,000 mL (2 unit/mL) infusion (premix) (COMPLETED) Continuous PRN, Starting on Thu04/03/21 at 1257, Intra-Procedure (CV) 1257 (New Bag - Prov ider: Yeny Duran RN - Comment: left femoral sheaths) heparin in 0.9% sodium chloride 2,000 unit/1,000 mL (2 unit/mL) infusion (premix) (COMPLETED) Continuous PRN, Starting on Thu04/03/21 at 1257, Intra-Procedure (CV) 1257 (New Bag - Prov ider: Yeny Duran RN - Comment: right femoral sheaths) heparin in 0.9% sodium chloride 2,000 unit/1,000 mL (2 unit/mL) infusion (premix) (CANCELED) Continuous PRN, Starting on Thu04/03/21 at 1403, Intra-Procedure (CV) 1403 (New Bag - Prov ider: Yeny Duran RN - Comment: GRID catheter irrigation via right femoral sheath)1440 (Stopped - Provider: Yeny Duran RN) heparin in 0.9% sodium chloride 2,000 unit/1,000 mL (2 unit/mL) infusion (premix) (COMPLETED) Continuous PRN, Starting on Thu04/03/21 at 1437, Intra-Procedure (CV) 1437 (New Bag - Prov ider: Yeny Duran RN - Comment: ablation catheter irrigation via right femoral sheath) isoproterenol (ISUPREL) 1,000 mcg in dextrose 5% 100 mL (10 mcg/mL) infusion (COMPLETED) Continuous PRN, Starting on Thu04/03/21 at 1520, Intra-Procedure (CV) 1520 (New Bag - Prov ider: Yeny Duran RN) lidocaine (XYLOCAINE) 20 mg/mL (2 %) injection (CANCELED) As needed, Starting on Thu04/03/21 at 1237, Intra-Procedure (CV), Indications: Administration of Local Anesthesia 1237 (Given - Provid er: Rob Coley MD)1242 (Given - Provider: Rob Coley MD) sodium chloride 0.9% flush 0.5-20 mL 0.5-20 mL, intra-catheter, As needed, line care, Starting on Thu04/03/21 at 1046, Pre-Op, Flush volume based on line type and size. Flush before and after each use. sodium chloride 0.9% flush 0.5-20 mL 0.5-20 mL, intra-catheter, As needed, line care, Starting on Thu04/03/21 at 1617, Recovery (CV), Flush volume based on line type and size. Flush before and after each use. documented in this encounter Orders Medications Ordered That Kwabena ht Not Have Been Administered Count Last Ordered Date First Ordered Date Lactated Ringer's (LR) infusion 1 sodium chloride 0.9% flush 0.5-20 mL 3 03/16 CORE MEASURES Count Last Ordered Date First Ord ered Date REASON FOR NO VTE PROPHYLAXIS AT ADMISSION 1 04/03/2021 documented in this encounter Care Teams Crna Relationship Specialty Start Date End Date Jett Yarbrough MD [address] [facility] [address] [place] [address] PCP - General 09/27/15 documented as of this encounter
--- OUTSIDE RECORDS SUMMARY | 2024-06-01 00:22 | XMS_ITS | Encounter Summary ---
Author Organization [facility] Healthcare Address [address] [place] [address] Care Team Providers Care Marine Engine Driver Name Role Phone Jett Yarbrough MD Primary Care Provider [phone]- [phone] Encounter Details Date Type Department Care Team (Late st Contact Info) Description 10/10/2019 Patient Self-Triage [facility] HealthCare/ Physicians [address] [place] [address] Mychart, Generic Provider [address] [place], [place] [id number] Social History Tobacco Use Types Packs/Day Years Used Date Smoking Tobacco: Never Smokeless Tobacco: Never Alcohol Use Standard Drinks/Week Comments No 0 (1 standard drink = 0.6 oz pur e alcohol) Comments Unknown Sex and Gender Information Value Date Recorded Sex Assigned at Not on file 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
--- OUTSIDE RECORDS SUMMARY | 2024-06-01 00:22 | XMS_ITS | Encounter Summary ---
Author Organization [facility] Address [address] [place] [address] Phone Care Team Providers Care Paste Up Artist Name Role Phone Jett Yarbrough MD Primary Care Provider +1- [phone] Encounter Details Date Type Department Care Team (Late st Contact Info) Description 05/18/2020 Telephone [facility] Cardiology [address] [facility] 8th [place] [address] [place] [address] Dale Thibodeaux MD [address] [facility] [address] [place], [place] [id number] Social History Tobacco Use Types Packs/Day Years Used Date Smoking Tobacco: Never Smokeless Tobacco: Never Alcohol Use Standard Drinks/Week Comments No 0 (1 standard drink = 0.6 oz pur e alcohol) Comments Unknown Sex and Gender Information Value Date Recorded Sex Assigned at Not on file Legal Sex Female 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 Rx sent. ESS CLEANER * Telephone Encounter - Dale Thibodeaux MD - 05/25/2020 9:57 AM HARNESS CLEANER If long acting dilt was not great. We could offer metop XL 25 daily to see if it helps [facility] ESS CLEANER * Telephone Encounter - Traci Monroe RN - 05/22/2020 10:46 AM HARNESS CLEANER Strips mailed to patient. ESS CLEANER * Telephone Encounter - Traci Monroe RN - 05/22/2020 10:01 AM HARNESS CLEANER Went through MCT results and 's recommendations with patient. Patient says she is open to discussing any treatment that will give her some relieve regardless of how small it will be. She is aware an ablation might not be successful in eliminating the symptoms due to the multiple mechanism.She knows AAD will require 3 day hospitalization and with COVID, this is not an option at the moment. Patient is on diltiazem as needed. She is wondering if taking a continuous medication? will help manage her symptoms better. She was on diltiazem XR 180 mg daily for a week but could not tolerate it because it made her very tired. She could hardly stay awake. She says she has a big family to take care of and needs to be functional. Every 2-3 weeks she has days when is feels completely rundown. Recommendations? Strips will be mailed to patient. ESS CLEANER * Telephone Encounter - Dale Thibodeaux MD - 05/21/2020 4:39 PM HARNESS CLEANER Rev'd 30d MCT. It does not show anything of great concern. It does have PACs and PVCs and occasional short bursts of AT. Her overall arrhythmia burden is not bad though. <1% PVCs and slightly morePACs but not anything that should impact heart function. Here ectopic beast and short bursts of AT did correspond to Sx. previously discussed, there is not a clear cut targete for ablation that would have high success for eliminating Sx since there are multiple mechanisms. OK to provide with strips if she would like. Cont present medication and see how she would like to proceed. It ewould be reaonsable to conitnue with observation and simple medication rather than considering AAD and/or catheter ablation [facility] ESS CLEANER * Telephone Encounter - Nataliya Sarabia - 05/18/2020 4:17 PM CST Monitor report is available in [facility]. I can call her with your interpretation and recommendations. ESS CLEANER * Telephone Encounter - Gaston Chavez - 05/18/2020 3:51 PM CST TERRI PT REQ CALL BACK REGARDING PORTAL MESSAGE SENT ON 05/07/2020, PLS CALL ESS CLEANER documented in this encounter Plan of Treatment Not on file documented as of this encounter Visit Diagnoses Not on filedocumented in this encounter Discontinued Medications Medication Sig Discontinue Reason Start Date End Da te dilTIAZem (CARDIZEM) 30 mg tablet Take 1 tablet (30mg) PO every 3-4 hours as need for palpitations. Alternate therapy 11/21/2019 05/25/2020 documented as of this encounter Care Teams Paste Up Artist Relationship Specialty Start Date End Date Jett Yarbrough MD [address] [place] [address] PCP - General 09/27/15 documented as of this encounter
--- OUTSIDE RECORDS SUMMARY | 2024-06-01 00:22 | XMS_ITS | Encounter Summary ---
Author Organization [facility] Address [address] [place] [address] Phone Care Team Providers Care Equipment Tester Name Role Phone Jett Yarbrough MD Primary Care Provider [phone]- [phone] Encounter Details Date Type Department Care Team (Late st Contact Info) Description 12/20/2019 Orders Only [facility] Rheumatology [address] 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 Gender Identity Not on file Sexual Orientation Not on file documented as of this encounter Plan of Treatment Not on file documented as of this encounter Procedures Procedure Name Priority Date/Time Associated Diagnosis Comments T3, FREE Routine 12/22/2019 2:00 PM CDT Multinodular goiter TSH Routine 12/22/2019 2:00 PM CDT Multinodular goiter T4, FREE Routine 12/22/2019 2:00 PM CDT Multinodular goiter documented in this encounter Results * T3, free (12/22/2019 2:00 PM CDT) Triiodothyronin e,Free,Serum 3.2 2.0 - 4.4 pg/mL [facility] - 01 Blood specimen (specimen) 12/22/2019 2:00 PM CDT 12/22/2019 Narrative [facility] - 12/23/2019 8:14 AM CDT Performed at: ??[address] ??[id number] Master Yacht: Salomón Ornelas PhD, Phone: ??[phone] Elton Barcenas MD PhD LAB BLOOD ORDERABLES Fin al Result Performing Organization Address City/[facility] Co de Phone Number [facility] - 01 * T4, free (12/22/2019 2:00 PM CDT) Pathologist [facility] T4,Free(Direct) 1.29 0.82 - 1.77 ng/dL [facility] - 01 Blood specimen (specimen) 12/22/2019 2:00 PM CDT 12/22/2019 Narrative [facility] - 12/23/2019 8:14 AM CDT Performed at: ??[address] ??[id number] Master Yacht: Salomón Ornelas PhD, Phone: ??[phone] Elton Barcenas MD PhD LAB BLOOD ORDERABLES Fin al Result Performing Organization Address City/[facility] Co de Phone Number [facility] - 01 * TSH (12/22/2019 2:00 PM CDT) Pathologist [facility] TSH 1.770 0.450 - 4.500 uIU/mL [facility] - 01 Blood specimen (specimen) 12/22/2019 2:00 PM CDT 12/22/2019 Narrative [facility] - 12/23/2019 8:14 AM CDT Performed at: ??01 - [facility] [address] ??[id number] Master Yacht: Salomón Ornelas PhD, Phone: ??[phone] us Elton Barcenas MD PhD LAB BLOOD ORDERABLES Fin al Result [facility] - 01 documented in this encounter Visit Diagnoses Diagnosis Multinodular goiter- Primary Nontoxic multinodular goiter documented in this encounter Care Teams Equipment Tester Relationship Specialty Start Date End Date Jett Yarbrough MD [address] [facility] [address] [place] [address] PCP - General 09/27/15 documented as of this encounter
--- OUTSIDE RECORDS SUMMARY | 2024-06-01 00:22 | XMS_ITS | Encounter Summary ---
Author Organization [facility] Address [address] [place] [address] Phone Care Team Providers Care Sheet Metal Duct Installer Name Role Phone Jett Yarbrough MD Primary Care Provider [phone]- [phone] Reason for Visit * Cardiology (Routine) - Closed Specialty Diagnoses / Procedures Referred By Camryn lo Referred To Contact Cardiology Diagnoses SVT (supraventricular tachycardia) (HCC) Mireya Yin NP Phone: tel: fax: Dale Thibodeaux MD [address] [address] Phone: tel: fax: Referral ID Status Reason Start Date Expiration Date V isits Requested Visits Authorized [id number] Closed Specialty Services Required 05/20/2019 11/28/2020 2 2 Encounter Details Date Type Department Care Team (Late st Contact Info) Description 03/14/2020 4:30 PM CDT Telemedicine [facility] Cardiology [address] [place] [address] Medical Office Building [address] [place] [address] Dale Thibodeaux MD [address] [address] Paroxysmal SVT (supraventricular tachycardia) (CMS/HCC) (Primary Dx); PAC (premature atrial contraction); PVC (premature ventricular contraction) Social History Tobacco Use Types Packs/Day Years Used Date Smoking Tobacco: Never Smokeless Tobacco: Never Alcohol Use Standard Drinks/Week Comments No 0 (1 standard drink = 0.6 oz pur e alcohol) Comments Unknown Sex and Gender Information Value Date Recorded Sex Assigned at Not on file 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 Gender Identity Not on file Sexual Orientation Not on file documented as of this encounter Last Filed Vital Signs Vital Sign Reading Time Taken Comments Blood Pressure 122/85 03/14/2020 9:09 AM CDT pt obtained Pulse 65 03/14/2020 9:09 AM CDT pt ob tained Temperature - - Respiratory Rate - - Oxygen Saturation - - Inhaled Oxygen Concentration - - Weight 61.2 kg (135 lb) 03/14/2020 9:09 AM CDT p t obtained Height - - Body Mass Index 21.79 11/01/2019 11:51 AM CDT documented in this encounter Progress Notes * Dale Thibodeaux MD - 03/14/2020 4:30 PM CDT Images from the original note were not included. This was a telemedicine visit with Chioma Chu alone which took place via Telephone. During the visit, I was located in the office and the patient was located at home in the [facility]. The patient visit started at 446pm and ended at 511pm. Total encounter time was 35 minutes, which includes time spent today on pre charting, the patient encounter, and post charting. The patient has been informed that the visit may not be secure and acknowledged the information. I have explained the option of participating in a telephone or video visit during the [facility] public health emergency to the patient. After being given an opportunity to ask questions about and discuss this type of visit, the patient verbally consented to proceeding with the telephone/video visit.The patient understands that this service replaces an office visit and they may be billed and/or responsible for any applicable copayments. Dale Thibodeaux MD Telemedicine Note - Cardiac Electrophysiology Patient Name: Chioma Chu Date of : 1970 Primary Physician: Jett Yarbrough MD I had the pleasure of speaking with Chioma Chu in follow-up while I was at the [facility]. As you well know, she is a 49 y.o. female with the following arrhythmia-specific history: 1. Palpitations/SVT/Ectopic Beats ?? Seen in consultation in June 2019. Symptoms of frequent episodes of palpitations that were most consistent with paroxysmal SVT with prior monitoring detecting several episodes of short runs of likely atrial tachycardia. Episodes occur randomly, often at rest and sometimes wake her from sleep.It generally lasts several minutes but she had several episodes that lasted over 1 hour. ?? Associated symptoms also included atypical chest discomfort which prompted stress testing and cardiac catheterization that showed normal coronaries ?? 30dMCT 07/2019: Episodes of symptoms were consistent with sinus rhythm with frequent PACs or PVCswith occasional short runs of atrial tachycardia. ?? EP study with intent to ablate her arrhythmia mechanism had been discussed but given the multitude of ectopic beats and no clear sustained SVT mechanism, this was deferred and pharmacologic options were pursued with p.r.n. calcium channel david. ?? Role of antiarrhythmic drug therapy such as dofetilide also discussed. Pharmacologic options aresomewhat limited due to slow resting heart rate ?? Long-acting diltiazem prescribed for continued palpitations by her primary technical adjuster, Dr Guerrero, in November 2019 to address ongoing palpitations. The combination of long-acting diltiazem short-acting diltiazem seem to make her heart rate lower as expected and at times has made her feel bad even in the absence of palpitation 2. Sinus bradycardia ?? Slow resting heart rate does limit pharmacologic options for palpitations/SVT as noted above She presents for arrhythmia follow-up and reports that she continues to have palpitations at times as noted above and is considering her options including role of pharmacologic therapy versus EP study Past Medical History Past Medical History: Diagnosis Date ??? History of knee surgery History of knee surgery ??? Hypercholesterolemia High cholesterol Past Surgical History Past Surgical History: Procedure Laterality Date ??? TONSILLECTOMY Tonsillectomy Medications Current Outpatient Medications: ??? atorvastatin (LIPITOR) 40 mg tablet, Take 1 tablet (40 mg total) by mouth daily, Disp: 30 tablet, Rfl: 11 ??? dilTIAZem (CARDIZEM) 30 mg tablet, Take 1 tablet (30mg) PO every 3-4 hours as need for palpitations., Disp: 20 tablet, Rfl: 2 ??? dilTIAZem (CARDIZEM) 30 mg tablet, Take 1 tablet (30 mg total) by mouth 4 (four) times a day asneeded (for palps) (Patient not taking: Reported on 03/13/2020), Disp: 360 tablet, Rfl: 1 ??? fluticasone propionate (FLONASE) 50 mcg/actuation nasal spray, Administer 1 spray into each nostril daily, Disp: , Rfl: ??? LORazepam (ATIVAN) 0.5 mg tablet, Take 0.5 mg by mouth every 6 (six) hours as needed for anxiety, Disp: , Rfl: ??? omeprazole (PriLOSEC) 20 mg capsule, Take by mouth daily before breakfast., Disp: , Rfl: 3 ??? ondansetron (ZOFRAN) 4 mg tablet, TAKE 2 TABLETS BY MOUTH EVERY 8 HOURS FOR as needed, Disp: , Rfl: 0 Allergies Allergies Allergen Reactions ??? Penicillins Hives Family History Family History Problem Relation Age of Onset ??? Other Father Heart Condition; Cause of : Heart Condition ??? Other Mother Alive and well; Social History Social History Socioeconomic History ??? Marital status: Spouse name: Not on file ??? Number of children: Not on file ??? Years of education: Not on file ??? Highest education level: Not on file Occupational History ??? Not on file Social Needs ??? Financial resource strain: Not on file ??? Food insecurity Worry: Not on file Inability: Not on file ??? Transportation needs Medical: Not on file Non-medical: Not on file Tobacco Use ??? Smoking status: Never Smoker ??? Smokeless tobacco: Never Used Substance and Sexual Activity ??? Alcohol use: No ??? Drug use: No ??? Sexual activity: Not on file Lifestyle ??? Physical activity Days per week: Not on file Minutes per session: Not on file ??? Stress: Not on file Relationships ??? Social connections Talks on phone: Not on file Gets together: Not on file Attends evangelical service: Not on file Active member of club or organization: Not on file Attends meetings of clubs or organizations: Not on file Relationship status: Not on file ??? Intimate partner violence Fear of current or ex partner: Not on file Emotionally abused: Not on file Physically abused: Not on file Forced sexual activity: Not on file Other Topics Concern ??? Not on file Social History Narrative ??? Not on file Exam Vitals: 03/14/20 0909 BP: 122/85 Pulse: 65 Weight: 61.2 kg (135 lb) Physical Exam Constitutional: No distress. Hearing: Intact to the spoken word Pulmonary/Chest: No audible wheezing Neurological: alert, oriented Psychiatric: normal mood and affect. Diagnostic Data Labs Creatinine, Serum Date Value Ref Range Status 03/05/2018 0.54 (L) 0.57 - 1.00 mg/dL Final , No results found for: LABPLAT , No results found for: WBC , No results found for: HGB Visit Diagnoses (I47.1) Paroxysmal SVT (supraventricular tachycardia) (CMS/HCC) (primary encounter diagnosis) (I49.1) PAC (premature atrial contraction) (I49.3) PVC (premature ventricular contraction) Plan noted above, Ms Chu continues to have symptoms of tachy palpitations at times and is also having issues with sinus bradycardia while on pharmacologic treatment for her palpitations. We had a discussion today regarding management of her arrhythmias moving forward. As discussed in the past, the role of electrophysiology study with intent to ablate her arrhythmia mechanism has beendiscussed in given the multitude of ectopic beats and nonsustained SVT, it is unclear if we would be able to control her symptoms with ablation alone. That being said, it may be reasonable to consider the electrophysiology study to provide diagnostic evidence of a reentrant tachyarrhythmia if present. We would also be able to target ectopic beats, particularly if they are coming from a focal arearather than multiform coming from multiple chambers. She remains on the fence regarding moving forward with invasive procedures and we will plan on getting additional monitoring to ascertain her current arrhythmia burden. She will continue her current medical regimen without change for now and will notify us should anything change. Thank you for allowing us to participate in the care of this pleasant patient. Please do not hesitate to call us if any questions arise. Respectfully, Dale Thibodeaux MD registered clinical dietitian Director, EP Fellowship Program [facility] Division of Cardiology, [address] [place] [address] This note was transcribed using speech recognition software. As a result, there may be grammatical and spelling errors that are unintended. If there are any questions or major inaccuracies, please contact us. ING MACHINE STRIPER documented in this encounter Plan of Treatment Not on file documented as of this encounter Visit Diagnoses Diagnosis Paroxysmal SVT (supraventricular tachycardia) (HCC)- Primary PAC (premature atrial contraction) Supraventricular premature beats PVC (premature ventricular contraction) Other premature beats documented in this encounter Care Teams Sheet Metal Duct Installer Relationship Specialty Start Date End Date Jett Yarbrough MD [address] [facility] [address] [place] [address] PCP - General 09/27/15 documented as of this encounter
--- OUTSIDE RECORDS SUMMARY | 2024-06-01 00:22 | XMS_ITS | Encounter Summary ---
Author Organization [facility] Address [address] [place] [address] Phone Care Team Providers Care Keymodule Assembly Supervisor Name Role Phone Jett Yarbrough MD Primary Care Provider +1- [phone] Encounter Details Date Type Department Care Team (Late st Contact Info) Description 08/29/2019 Orders Only 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
--- OUTSIDE RECORDS SUMMARY | 2024-06-01 00:22 | XMS_ITS | Encounter Summary ---
Author Organization [facility] Address [address] [place] [address] Care Team Providers Care Manager Case Management Name Role Phone Jett Yarbrough MD Primary Care Provider +1- [phone] Reason for Visit * Reason Comments Follow-up 1 yr fu Encounter Details Date Type Department Care Team (Late st Contact Info) Description 11/01/2019 11:45 AM CDT Office Visit [facility] Cardiology [address] [facility] [address] [place] [id number] Markus Guerrero MD [address] [facility] [address] [place] [address] Paroxysmal SVT (supraventricular tachycardia) (CMS/HCC) (Primary Dx); BMI 22.0-22.9, adult; Lipid screening Social History Tobacco Use Types Packs/Day Years Used Date Smoking Tobacco: Never Smokeless Tobacco: Never Tobacco Cessation:Counseling Given: No Alcohol Use Standard Drinks/Week Comments No 0 (1 standard drink = 0.6 oz pur e alcohol) Comments Unknown Sex and Gender Information Value Date Recorded Sex Assigned at Not on file 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 Gender Identity Not on file Sexual Orientation Not on file documented as of this encounter Last Filed Vital Signs Vital Sign Reading Time Taken Comments Blood Pressure 118/72 11/01/2019 11:51 AM CDT Pulse 64 11/01/2019 11:51 AM CDT Temperature - - Respiratory Rate - - Oxygen Saturation 99% 11/01/2019 11:51 AM CDT Inhaled Oxygen Concentration - - Weight 62.6 kg (138 lb) 11/01/2019 11:51 AM CDT Height 167.6 cm (5' 6 ) 11/01/2019 11:51 AM CDT Body Mass Index 22.27 11/01/2019 11:51 AM CDT documented in this encounter Ordered Prescriptions Prescription Sig Dispense Quantity Refills Last Filled Start Date End Date dilTIAZem XR (CARDIZEM CD,DILACOR XR) 180 mg 24 hr capsule Take 1 capsule (180 mg total) by mouth daily 30 capsule 11 11/01/2019 0 documented in this encounter Progress Notes * Markus Guerrero MD - 11/01/2019 11:45 AM CDT [facility] FOLLOW UP 11/01/2019 Chioma Chu is a 48 y.o. female who presents for follow up of palpitations. This is a patient that I saw in consultation initially in 2017. She was having some very atypical sounding chest pain and did not have any other cardiac problems. She is known to have some palpitations and wore a Holter monitor that demonstrated some infrequent episodes of SVT. She was seen in the office a couple of months ago for further evaluation/discussion of this since the episodes are brief and self limited at this point the decision was made to not institute any medical treatment for this at with as was her preference. She presents for follow-up today for further discussion of this she looks and feels well she is having occasional brief unpredictable episodes of palpitations that are self-limited and are not associated with any significant hemodynamic symptoms she has never had a syncopal episode. The patient underwent an ischemic workup in May of 2019 where she was brought to the cardiac catheterization lab for angiography. Patient has had for a long time a history of several different types of chest pain that are atypical in my opinion of angina. Despite this a stress echo was done in the office that was ordered by her PCP and interpreted by Dr. Sanchez. The ST segment abnormalities raise concern although she had no wall motion abnormalities. To clarify this situation an angiogram was done which was unremarkable. She has right coronary dominant circulation and no angiographic abnormalities. She was referred to and seen by the electrophysiology group down at [place] regarding her SVT. Patient's monitoring shows a variety of arrhythmias including brief episodes of SVT but as well as frequent to occasional atrial and ventricular extrasystoles. According to the chart notes there was some discussion of arranging for an ablation then the patient was contacting both their office anhours to further discuss the advisability/necessity of doing an ablation procedure. It looks like she is currently taking short-acting diltiazem 60 mg 4 times daily She presents today to the office for previously scheduled follow-up. Had a long and detailed discussion with the patient about her arrhythmias. She actually is not taking the diltiazem as mentioned above 4 times daily. She was instructed to use it in a p.r.n. fashion. She estimates she takes 1 or 2tablets a week when she feels the SVT going on. She is waiting to hear from Dr. Thibodeaux about follow- up appointments and/or scheduling an attempt at ablating her SVT. Of course that was all scheduled and then canceled because of the coronavirus pandemic. She all all all otherwise is feeling well. I told her that it is not realistic that all of her ectopic activity both atrial and ventricular will be able to be ablated. Possibly the SVT can be ablated if in fact she has an automatic atrial tachyca rdia that will be more challenging to ablate. After lengthy discussion we tried to consider a long-acting diltiazem which I am going to prescribe for her today. REVIEW OF SYSTEMS General ROS: negative for - chills, fatigue, fever, malaise, night sweats, weight gain or weight loss Psychological ROS: negative for - anxiety, depression, memory difficulties or sleep disturbances Ophthalmic ROS: negative for - blurry vision, decreased vision, loss of vision or scotomata ENT ROS: negative for - epistaxis, headaches, hearing change, nasal congestion, nasal discharge, sore throat, vertigo or visual changes Hematological and Lymphatic ROS: negative for - bleeding problems, blood clots, bruising, fatigue or weight loss Endocrine ROS: negative for - hot flashes, palpitations, polydipsia/polyuria or unexpected weight changes Respiratory ROS: negative for - cough, hemoptysis, orthopnea, shortness of breath, tachypnea or wheezing Cardiovascular ROS: negative for - chest pain, dyspnea on exertion, edema, irregular heartbeat, loss of consciousness, murmur, orthopnea, palpitations, paroxysmal nocturnal dyspnea, rapid heart rate or shortness of breath Gastrointestinal ROS: negative for - abdominal pain, appetite loss, blood in stools, constipation, diarrhea, gas/bloating, heartburn, hematemesis, melena or nausea/vomiting Genito-Urinary ROS: negative for - dysuria, erectile dysfunction or hematuria Musculoskeletal ROS: negative for - joint pain, muscle pain or muscular weakness Dermatological ROS: negative for dry skin, eczema, pruritus and rash HOME MEDICATIONS Current Outpatient Medications: ??? atorvastatin (LIPITOR) 40 mg tablet, Take 1 tablet (40 mg total) by mouth daily., Disp: 30 tablet, Rfl: 11 ??? dilTIAZem (CARDIZEM) 60 mg tablet, Take 1 tablet (60 mg total) by mouth 4 (four) times a day asneeded (palpitations)., Disp: 20 tablet, Rfl: 3 ??? fluticasone propionate (FLONASE) 50 mcg/actuation [...] FOR as needed, Disp: , Rfl: 0 LABS AND OTHER DIAGNOSTIC TESTS No results found for: CHOL No results found for: HDL No results found for: LDLCALC No results found for: TRIG No results found for: CHOLHDL No results found for: WBC, HGB, HCT, MCV, PLT No lab exists for component: LABALBU PHYSICAL EXAM Vitals Ht 167.6 cm (5' 6 ) Wt 62.6 kg (138 lb) BMI 22.27 kg/m?? Physical Examination: General appearance - alert, well appearing, and in no distress, oriented to person, place, and time and acyanotic, in no respiratory distress Mental status - affect appropriate to mood Eyes - extraocular eye movements intact, sclera anicteric, no pallor Ears - external earsappear normal, hearing grossly normal bilaterally Nose - normal and patent, no erythema or discharge Mouth - mucous membranes moist, pharynx appears normal, dental hygiene good and tongue normal Neck - supple, no significant neck masses, carotids upstroke normal bilaterally, no bruits, no JVD Chest - clear to auscultation, no wheezes, rales or rhonchi, symmetric air entry, no tachypnea, retractions or cyanosis Heart - normal rate, regular rhythm, normal S1, S2, no murmurs, rubs, clicks or gallops, no JVD Abdomen - soft, nontender, nondistended, no masses or organomegaly bowel sounds normal Neurological - alert, oriented, normal speech, no focal findings or movement disorder noted Musculoskeletal - no joint tenderness, deformity or swelling, no muscular tenderness noted Extremities - peripheral pulses normal, no pedal edema, no clubbing or cyanosis Skin - normal coloration and turgor, no rashes, no suspicious skin lesions noted ASSESSMENT Chioma was seen today for follow-up. Diagnoses and all orders for this visit: Paroxysmal SVT (supraventricular tachycardia) ([facility]) PLAN/RECOMMENDATIONS Try prescribing diltiazem CD 180 mg daily Follow-up in 6 months Patient may or may not be having an attempt at ablating her SVT in the EP lab at [place] we will keep an eye on that as well Markus Guerrero MD documented in this encounter Miscellaneous Notes * Addendum Note - Ludwin Rojo MA - 11/01/2019 11:45 AM CDTAddended by: LUDWIN ROJO on: 11/01/2019 03:09 PM Modules accepted: Orders documented in this encounter Plan of Treatment Not on file documented as of this encounter Procedures Procedure Name Priority Date/Time Associated Diagnosis Comments POCT LIPID PANEL Routine 11/01/2019 3:07 PM CDT Lipid screening documented in this encounter Results * (ABNORMAL) POCT lipid panel (11/01/2019 3:07 PM CDT) Cholesterol, POC 219 mg/dL HDL, POC 56 mg/dL Triglycerides, POC 93 mg/dL LDL Cholesterol POC 144 mg/dL Chol/HDL Ratio, POC 3.9 Non-HDL Cholesterol, POC 163 mg/dL Cholesterol Total, POC 219 mg/dL Capillary blood 11/01/2019 3 :07 PM CDT Markus Guerrero MD POINT OF CARE TEST ORDER KAREN Edited Result - Final documented in this encounter Visit Diagnoses Diagnosis Paroxysmal SVT (supraventricular tachycardia) (HCC)- Primary BMI 22.0-22.9, adult Lipid screening Screening for lipoid disorders documented in this encounter Discontinued Medications Medication Sig Discontinue Reason Start Date End Da te dilTIAZem (CARDIZEM) 60 mg tabletIndications:Paroxysma l Supraventricular Tachycardia Take 1 tablet (60 mg total) by mouth 4 (four) times a day as needed (palpitations). 08/04/2018 11/01/2019 documented as of this encounter Care Teams Manager Case Management Relationship Specialty Start Date End Date Jett Yarbrough MD [address] [facility] [address] [place] [address] PCP - General 09/27/15 documented as of this encounter
--- OUTSIDE RECORDS SUMMARY | 2024-06-01 00:22 | XMS_ITS | Encounter Summary ---
Author Organization [facility] Address [address] [place] [address] Care Team Providers Care Credit Coordinator Name Role Phone Jett Yarbrough MD Primary Care Provider [phone]- [phone] Encounter Details Date Type Department Care Team (Late st Contact Info) Description 11/18/2019 Telephone [facility] Cardiology [address] [place] [address] Markus Guerrero MD [address] [facility] [address] [place] [address] Social History Tobacco Use Types Packs/Day Years Used Date Smoking Tobacco: Never Smokeless Tobacco: Never Alcohol Use Standard Drinks/Week Comments No 0 (1 standard drink = 0.6 oz pur e alcohol) Comments Unknown Sex and Gender Information Value Date Recorded Sex Assigned at Not on file 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 Pt asked how would she know when to go to the ER for her SVT. I recommended for lightheadedness, dizziness, sob, cp. Reviewed measures to help stop svt such as coughing, bearing down. Pt agrees * Telephone Encounter - Tricia Jacob RN - 11/18/2019 9:51 AM CDT Discussed with TINO. His recommendation is to stay on the med (with svt better controlled) and deal with the Side effects until seen by Dr Thibodeaux or stop the med, knowing that SVT may / will occur andknow she will be ok/ if needs to go to the ER then not [facility] no EP Dr moreira.. * Telephone Encounter - Tricia Jacob RN - 11/18/2019 9:31 AM CDT Spoke with pt. She has been taking diltiazem XR 180 mg daily the past couple weeks . The past several days she has been experiencing increasing episodes of feeling extremely tired and fatigued to thepoint she could just fall asleep, strange in her chest, arms feel heavy and she feels terrible. HerHR has been running in the 60's and dropping down to the 50's which she understands is not terriblylow but she said she is feeling poorly from it. Some episodes of lightheadedness. These episodes are lasting a few hours at a time. The episode last night started at about 6 and lasted through the evening. She said her chest still has an odd feeing this morning, still not 100%. Pt has not been checking her BP during these episodes, but did while we were on the phone, 134/89, HR 61 Encouraged pt to call Dr Thibodeaux's office to set up appointment. Please advise * Telephone Encounter - Leelee Gil - 11/18/2019 8:49 AM CDT Pt has requested a return call to discuss the medication Diltiazem XR 180 mg [phone] documented in this encounter Plan of Treatment Not on file documented as of this encounter Visit Diagnoses Not on filedocumented in this encounter Care Teams Credit Coordinator Relationship Specialty Start Date End Date Jett Yarbrough MD [address] [facility] [address] [place] [address] PCP - General 09/27/15 documented as of this encounter
--- OUTSIDE RECORDS SUMMARY | 2024-06-01 00:22 | XMS_ITS | Encounter Summary ---
Author Organization [facility] Address [address] [place] [address] Care Team Providers Care Emergency Care Tech Name Role Phone Jett Yarbrough MD Primary Care Provider +1- [phone] Encounter Details Date Type Department Care Team (Late st Contact Info) Description 06/22/2020 Orders Only [facility] Cardiology [address] [place] [id number] Provider, MD Yoli [address] [place] [address] Social History Tobacco Use Types Packs/Day Years Used Date Smoking Tobacco: Never Smokeless Tobacco: Never Alcohol Use Standard Drinks/Week Comments No 0 (1 standard drink = 0.6 oz pur e alcohol) Comments Unknown Sex and Gender Information Value Date Recorded Sex Assigned at Not on file 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 Gender Identity Not on file Sexual Orientation Not on file documented as of this encounter Plan of Treatment Not on file documented as of this encounter Procedures Procedure Name Priority Date/Time Associated Diagnosis Comments SCAN - OTHER ORDERS Routine 06/22/2020 documented in this encounter Results * SCAN - OTHER ORDERS (06/22/2020) Historical Provider Final Res ult documented in this encounter Visit Diagnoses Not on filedocumented in this encounter Care Teams Emergency Care Tech Relationship Specialty Start Date End Date Jett Yarbrough MD [address] [address] [place] [address] PCP - General 09/27/15 documented as of this encounter
--- OUTSIDE RECORDS SUMMARY | 2024-06-01 00:22 | XMS_ITS | Encounter Summary ---
Author Organization 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
--- OUTSIDE RECORDS SUMMARY | 2024-06-01 00:22 | XMS_ITS | Encounter Summary ---
Author Organization [facility] Address [address] [place] [address] Phone Care Team Providers Care Band Splitter Name Role Phone Jett Yarbrough MD Primary Care Provider +1- [phone] Reason for Referral * Cardiology (Routine) - Closed Specialty Diagnoses / Procedures Referred By Camryn lo Referred To Contact Diagnoses Paroxysmal SVT (supraventricular tachycardia) (HCC) Procedures ECG 12 lead Yeny Valero NP Phone: tel: fax: [facility] (All Locations) Referral ID Status Reason Start Date Expiration Date Visits Re quested Visits Authorized [id number] Closed 02/06/2021 03/08/2022 1 1 Reason for Visit * Reason Comments Follow-up Encounter Details Date Type Department Care Team (Late st Contact Info) Description 02/06/2021 2:15 PM CDT Office Visit [facility] Cardiology [facility] [address] [place] [address] Yeny Valero NP [address] [address] Paroxysmal SVT (supraventricular tachycardia) (CMS/HCC) (HCC) Social History Tobacco Use Types Packs/Day Years Used Date Smoking Tobacco: Never Smokeless Tobacco: Never Alcohol Use Standard Drinks/Week Comments No 0 (1 standard drink = 0.6 oz pur e alcohol) Comments Unknown Sex and Gender Information Value Date Recorded Sex Assigned at Not on file 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 Gender Identity Not on file Sexual Orientation Not on file documented as of this encounter Last Filed Vital Signs Vital Sign Reading Time Taken Comments Blood Pressure 125/81 02/06/2021 2:14 PM CDT Pulse 67 02/06/2021 2:14 PM CDT Temperature - - Respiratory Rate - - Oxygen Saturation 97% 02/06/2021 2:14 PM CDT Inhaled Oxygen Concentration - - Weight 63.5 kg (140 lb) 02/06/2021 2:14 PM CDT Height 167.6 cm (5' 6 ) 02/06/2021 2:14 PM CDT Body Mass Index 22.6 02/06/2021 2:14 PM CDT documented in this encounter Ordered Prescriptions Prescription Sig Dispense Quantity Refills Last Filled Start Date End Date dilTIAZem (CARDIZEM) 30 mg tabletIndications: Paroxysmal SVT (supraventricular tachycardia) (HCC) Take 1 tablet (30 mg total) by mouth 4 (four) times a day as needed (for palps) 360 tablet 1 02/06/2021 01/01/2022 documented in this encounter Progress Notes * Yeny Valero, VONDA - 02/06/2021 2:15 PM CDT AR[facility]HYTHMIA CLINIC RETURN OFFICE VISIT Patient ID Chioma Chu 1970 is a 50 y.o. female presenting to the Arrhythmia Clinic on 02/06/2021. HISTORY Chief Complaint:Lightheaded dizzy and feels a lump in her throat more frequently. HPI I had the pleasure of speaking with??Chioma Chu??in follow-up while I was at the [facility]. As you well know,??she??is a 49 y.o.??female??with the following arrhythmia-specific history: ?? 1.??Palpitations/SVT/Ectopic [...] Long-acting diltiazem prescribed for continued palpitations??by??her primary natural science manager, Dr Guerrero,??in November 2019 to address ongoing palpitations.?The combination of long-acting diltiazem short-acting diltiazem seem to make her heart rate lower as expected and at times has made her feel bad even in the absence of palpitation 2.??Sinus bradycardia ?? Slow resting heart rate does limit pharmacologic options for palpitations/SVT as noted above ?? She presents for arrhythmia follow-up and reports [...] going black with an associated lump in herthroat. These previously occurred less frequently. Now, they are happening twice per month or more. ?? Review of Systems As per HPI. All other systems negative. Allergies Allergies Allergen Reactions ??? Penicillins Hives Medications Current Outpatient Medications Medication Sig Dispense Refill ??? atorvastatin (LIPITOR) 40 mg tablet Take 1 tablet (40 mg total) by mouth daily 30 tablet 11 ??? dilTIAZem (CARDIZEM) 30 mg tablet Take 1 tablet (30 mg total) by mouth 4 (four) times a day as needed (for palps) 360 tablet 1 ??? fluticasone propionate (FLONASE) 50 mcg/actuation nasal spray Administer 1 spray into each nostril daily ??? LORazepam (ATIVAN) 0.5 mg tablet Take 0.5 mg by mouth every 6 (six) hours as needed for anxiety ??? metoprolol XL (TOPROL-XL) 25 mg extended release tablet Take 1 tablet (25 mg total) by mouth daily 30 tablet 11 ??? omeprazole (PriLOSEC) 20 mg capsule Take by mouth daily before breakfast. 3 ??? ondansetron (ZOFRAN) 4 mg tablet TAKE 2 TABLETS BY MOUTH EVERY 8 HOURS FOR as needed (Patient not taking: Reported on 02/06/2021) 0 No current facility-administered medications for this visit. Past Medical History Past Medical History: Diagnosis Date ??? History of knee surgery History of knee surgery ??? Hypercholesterolemia High cholesterol Past Surgical History: Procedure Laterality Date ??? TONSILLECTOMY Tonsillectomy PHYSICAL EXAM BP 125/81 Pulse 67 Ht 167.6 cm (5' 6 ) Wt 63.5 kg (140 lb) SpO2 97% BMI 22.60 kg/m?? General: No acute distress. Psychiatric: Normal affect. Skin: No evident lesions. WDI Eyes: No pallor or icterus. Lungs: Clear to auscultation bilaterally. Cardiovascular: RRR Abdomen: Soft and non-tender. Neurologic: Handgrip strength symmetric. Cranial nerves grossly intact. Extremities: no edema noted DIAGNOSTIC DATA ECG: NSR Labs: No results found for: INR, APTT No results found for: TROPONINI, CKTOTAL, CKMB, CKMBINDEX, BNP, NTPROBNP Lab Results Component Value Date TSH 1.770 12/22/2019 TSH 1.510 08/26/2019 FREET4 1.29 12/22/2019 Lab Results Component Value Date POCCHOL 219 11/01/2019 POCTRIG 93 11/01/2019 POCHDL 56 11/01/2019 POCLDL 144 11/01/2019 ASSESSMENT/PLAN 1. Palpitations- complains that episodes are more frequent in duration. She would like to move forward and have the EPS with intent of ablation if indicated. I will send a note to have scheduled. We will plan routine follow-up in post EPS. Please do not hesitate to call the office with any questions for any questions regarding the care of Ms. Chu. Yeny Valero NP 02/06/2021 This note was written using a voice recognition system hardware device. Please note there may be variance in spelling, aneta, and syntax because of the voice recognition system hardware. Therefore,not every sentence has been reviewed in its entirety. If there are any concerns about verbage aboveplease contact Yeny Valero at [phone]. documented in this encounter Plan of Treatment Not on file documented as of this encounter Procedures Procedure Name Priority Date/Time Associated Diagnosis Comments ECG 12-LEAD Routine 01/30/2021 Paroxysmal SVT (supraventricular tachycardia) (CMS/HCC) (HCC) documented in this encounter Results * ECG 12 lead (01/30/2021) Yeny Valero NP ECG ORDERABLES Final Re sult documented in this encounter Visit Diagnoses Diagnosis Paroxysmal SVT (supraventricular tachycardia) (HCC) documented in this encounter Discontinued Medications Medication Sig Discontinue Reason Start Date End Da te dilTIAZem (CARDIZEM) 30 mg tabletIndications:Paroxy smal SVT (supraventricular tachycardia) (HCC) Take 1 tablet (30 mg total) by mouth 4 (four) times a day as needed (for palps) Reorder 12/14/2019 02/06/2021 documented as of this encounter Care Teams Band Splitter Relationship Specialty Start Date End Date Jett Yarbrough MD [address] [facility] [address] [place] [address] PCP - General 09/27/15 documented as of this encounter
--- OUTSIDE RECORDS SUMMARY | 2024-06-01 00:22 | XMS_ITS | Encounter Summary ---
Author Organization [facility] Address [address] [place] [address] Phone Care Team Providers Care Pipe Fitter Helper Name Role Phone Jett aYrbrough MD Primary Care Provider +1- [phone] Reason for Referral * Cardiology (Routine) - Closed Specialty Diagnoses / Procedures Referred By Camryn lo Referred To Contact Diagnoses Paroxysmal SVT (supraventricular tachycardia) (HCC) Procedures MCT Mobile Cardiac Telemetry Event Monitor Ирина Murray MD Phone: tel: fax: [facility] [address] [place] [address] Referral ID Status Reason Start Date Expiration Date Visits Re quested Visits Authorized [id number] Closed 12/19/2020 01/18/2022 1 1 Encounter Details Date Type Department Care Team (Late st Contact Info) Description 12/19/2020 Orders Only [facility] Cardiology [address] 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 The device was applied by the lead technician on this note. ?? The patient [...] The full scanned/data report is available in Qeexo. labeled MONITOR STRIPS PDF . This study [...] Skipped Beats ? Sinus Rhythm w/PACs ? 16 01/09/21 20:45 ?? 76.0 ?None Reported ? [...] test: 12/20/2020 Type of Test: Event Monitor ([facility]) Hospital #: [id number] Location: [facility] Heart and Vascular : 1970 Age: 50 Sex: F Ref Physician(s): ИРИНА MURRAY MD Interpreted by: Markus Kidd MD Link Trigger-Up Tech: NATASHA Henderson Diagnosis: Monitoring Service: Preventice Reason for Test: I47.1: Supraventricular tachycardia Monitor Used: Body Guardian Heart (MCT) mailed Enrollment Period: Dec 29 - Jan 27, 2021 Hook-Up Tech comments: Patient Instructions: Understood directions and use of equipment. The device was applied by the lead technician on this note. The patient was [...] The full scanned/data report is available in Qeexo. labeled MONITOR STRIPS PDF . This study [...] Flutter or Skipped Beats Sinus Rhythm w/Artifact 27 01/17/21 12:41 69.0 Flutter or Skipped Beats Sinus Rhythm w/PACs/Artifact 26 01/15/21 16:45 65.0 Flutter or Skipped Beats Sinus Rhythm w/Interpolated PVC/Artifact 01/15/21 12:41 162.0 Flutter or Skipped Beats Sinus Rhythm, Sinus Bradycardia w/Run of V-Tach (4 Beats 24 01/14/21 18:28 65.0 Chest Pain or Pressure Sinus Rhythm w/Artifact 23 01/14/21 15:34 201.0 Flutter or Skipped Beats [...] (HCC) documented in this encounter Care Teams Pipe Fitter Helper Relationship Specialty Start Date End Date Jett Yarbrough MD [address] [facility] [address] [place] [address] PCP - General 09/27/15 documented as of this encounter
--- OUTSIDE RECORDS SUMMARY | 2024-06-01 00:22 | XMS_ITS | Encounter Summary ---
Author Organization [facility] Address [address] [place] [address] Phone Care Team Providers Care Adventure Guide Name Role Phone Jett Yarbrough MD Primary Care Provider +1- [phone] Reason for Visit * (Routine) - Closed Specialty Diagnoses / Procedures Referred By Camryn lo Referred To Contact Diagnoses Paroxysmal SVT (supraventricular tachycardia) (HCC) Procedures MCT Mobile Cardiac Telemetry Event Monitor Ирина Murray MD Phone: tel: fax: [facility] (All Locations) Referral ID Status Reason Start Date Expiration Date Visits Re quested Visits Authorized [id number] Closed 03/16/2020 04/15/2021 1 1 Encounter Details Date Type Department Care Team (Latest Contact Info) Description 03/16/2020 10:30 AM CDT Ancillary Procedure [facility] Cardiology [address] [facility] Advanced Medicine 8th [place] [address] [place] [address] Paroxysmal SVT (supraventricular tachycardia) (CMS/HCC) Social History Tobacco Use Types Packs/Day Years Used Date Smoking Tobacco: Never Smokeless Tobacco: Never Alcohol Use Standard Drinks/Week Comments No 0 (1 standard drink = 0.6 oz pur e alcohol) Comments Unknown Sex and Gender Information Value Date Recorded Sex Assigned at Not on file 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 Gender Identity Not on file Sexual Orientation Not on file documented as of this encounter Plan of Treatment Not on file documented as of this encounter Procedures Procedure Name Priority Date/Time Associated Diagnosis Comments MCT - MOBILE CARDIAC TELEMETRY EVENT MONITOR Routine 03/16/2020 11:09 AM CDT Paroxysmal SVT (supraventricular tachycardia) ([facility]) documented in this encounter Results * MCT Mobile Cardiac Telemetry Event Monitor (03/16/2020 11:09 AM CDT) Anatomical Region Laterality Modality Electrocardiogra phy 03/16/2020 10:3 0 AM CDT Narrative 05/01/2020 6:29 PM SENIOR GAMES TECHNICIAN Patient name: Chioma Chu Date of test: 03/16/2020 Type of Test: Event Monitor ([facility]) [place] [facility] #: [id number] ?Location: [facility] Heart and Vascular : 1970 ??Age: 49 ??Sex: F Ref Physician(s): ИРИНА MURRAY MD Interpreted by: Brian Lara MD Blockboard Tech: Anju Benitez Diagnosis: Monitoring Service: Preventice Reason for Test: I47.9: Paroxysmal tachycardia, unspecified Monitor Used: Body Guardian Heart (MCT) ??mail Enrollment Period: Mar 25 - Apr 23, 2020 Kongregate comments: The device was mailed by the coffee machine technician on this note. The patient was [...] The full scanned/data report is available in CostPrize. labeled MONITOR STRIPS PDF . This study [...] test: 03/16/2020 Type of Test: Event Monitor ([facility]) [place] [facility] #: [id number] Location: [facility] Heart and Vascular : 1970 Age: 49 Sex: F Ref Physician(s): ИРИНА MURRAY MD Interpreted by: Brian Lara MD Kongregate: Anju Benitez Diagnosis: Monitoring Service: Preventice Reason for Test: I47.9: Paroxysmal tachycardia, unspecified Monitor Used: Body Guardian Heart (MCT) mail Enrollment Period: Mar 25 - Apr 23, 2020 Kongregate comments: The device was mailed by the coffee machine technician on this note. The patient was [...] The full scanned/data report is available in CostPrize. labeled MONITOR STRIPS PDF . This study [...] Beats Sinus Rhythm w/PVCs (1 in 1/Min) 04/17/20 15:33 75.8 Flutter or Skipped Beats; Rapid orSinus Rhythm 25 04/17/20 11:23 80.1 Flutter or Skipped Beats Sinus Arrhythmia w/PVCs (2 in 1/Min)/Artifact 24 04/16/20 15:22 64.5 Flutter or Skipped Beats Sinus Rhythm w/PVCs (1 in 1 min) 04/14/20 20:46 71.1 Flutter or Skipped Beats Sinus Rhythm 22 04/13/20 21:02 67.8 Flutter or Skipped Beats Sinus Rhythm w/PACs/Lead Loss 04/13/20 14:10 89.1 Flutter or Skipped Beats Sinus Rhythm w/Atrial Run 04/11/20 21:36 67.9 Flutter or Skipped Beats Sinus Rhythm w/PVCs (1 in 1/Min)/Artifact 19 04/10/20 23:35 153.6 Flutter or Skipped Beats Sinus Arrhythmia, Sinus Rhythm w/Atrial Run/Artifact 18 04/10/20 19:43 139.2 Flutter or Skipped Beats Sinus Rhythm w/PSVT/Artifact 17 04/10/20 17:06 70.1 Chest Pain or Pressure Sinus Rhythm w/Artifact 16 04/09/20 19:54 71.1 Flutter or Skipped Beats Sinus Rhythm w/Artifact 15 10/26/20 09:20 69.8 Flutter or Skipped Beats; Chest [...] (HCC) documented in this encounter Care Teams Adventure Guide Relationship Specialty Start Date End Date Jett Yarbrough MD [address] [facility] [address] [place] [address] PCP - General 09/27/15 documented as of this encounter
--- OUTSIDE RECORDS SUMMARY | 2024-06-01 00:22 | XMS_ITS | Encounter Summary ---
Author Organization [facility] Address [address] [place] [address] Phone Care Team Providers Care Gas Brazer Name Role Phone Jett Yarbrough MD Primary Care Provider +1- [phone] Encounter Details Date Type Department Care Team (Late st Contact Info) Description 03/06/2020 Telephone [facility] Cardiology [address] [facility] 8th [place] [address] [place] [address] Dale Thibodeaux MD [address] [id number] Social History Tobacco Use Types Packs/Day Years Used Date Smoking Tobacco: Never Smokeless Tobacco: Never Alcohol Use Standard Drinks/Week Comments No 0 (1 standard drink = 0.6 oz pur e alcohol) Comments Unknown Sex and Gender Information Value Date Recorded Sex Assigned at Not on file 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 (there were openings for Telemed on 03/13/20, put in ROV and Phone and then [facility] and they will be there) * Telephone Encounter - Veronika Sapp RN - 03/07/2020 1:14 PM CDT Spoke with pt and reviewed note from Dr. Thibodeaux. HR is mostly low during the night. She reports shedoes not take calcium channel david daily, only as needed for tachy episode > 20 min. Last time she took it was December. Lower HR has been happening the past 2-3 weeks. She agrees with having a telemedicine visit soon. Will send this to scheduling to request telemed visit with Dr. Thibodeaux. * Telephone Encounter - Dale Thibodeaux MD - 03/07/2020 12:34 PM CDT Rev'd prior notes from us and her primary bareback rider. Happy to discuss relative merits of continued medical therapy versus consideration of catheter ablation. As previously outlined, it is unlikelythat ablation will eliminate all of her palpitations as she also has ventricular and atrial ectopy in addition to to her runs of SVT/atrial tachycardia. The low heart rates do not bother me, particularly if they are occurring at night. It is all about her symptoms. If she is feeling fatigued and run down and it temporally correlates with heart rates in the 40s, then that would be a good reason to back off the calcium channel david use. If howeverher symptoms correlate to a time of sinus rhythm or heart rate is in the 60s, it is unlikely that calcium channel blockers cessation would help. It may worsen her palpitations It may be a good time to arrange for a telemedicine visit on an upcoming to discuss options further. C * Telephone Encounter - Saw Ball - 03/06/2020 12:39 PM CDT Spoke with patient, she reports her symptoms noted below are correct. She recently had thyroid tests done and she reports those are normal. She wanted these results before calling. She would like to have a telemedicine visit with Dr. Thibodeaux if possible as tachy episodes are less concerning than thebrady episodes she has. She does not report any medication changes. Recommendations? Thank you. * Telephone Encounter - Oralia Mascorro - 03/06/2020 12:18 PM CDT TERRI STATES HR HAS BEEN LOWER THAN NORMAL ESPECIALLY AT NIGHT. IT'S DROPS FROM 40'S TO 50'S AT NIGHT. MOST RECENT, 62 AT 12:15 TODAY. THE LOWEST LAST NIGHT WAS 48. HAS EXTREME TIREDNESS AND CHEST PAIN OFTEN. FEELS OFF BALANCE AT TIMES documented in this encounter Plan of Treatment Not on file documented as of this encounter Visit Diagnoses Not on filedocumented in this encounter Care Teams Gas Brazer Relationship Specialty Start Date End Date Jett Yarbrough MD [address] [address] PCP - General 09/27/15 documented as of this encounter
--- OUTSIDE RECORDS SUMMARY | 2024-06-01 00:22 | XMS_ITS | Encounter Summary ---
Author Organization [facility] Address [address] [place] [address] Care Team Providers Care Panel Edge Sealer Name Role Phone Jett Yarbrough MD Primary Care Provider +1- [phone] Encounter Details Date Type Department Care Team (Latest Contact Info) Description 04/03/2021 10:30 AM CDT - 04/03/2021 8:05 PM CDT Hospital Encounter [facility] Electrophysiology Lab 1 [place] [address] Dale Thibodeaux MD [address] [address] Paroxysmal SVT (supraventricular tachycardia) (CMS/HCC) (HCC) Discharge Disposition: Discharge to home or self care Social History Tobacco Use Types Packs/Day Years [...] on file 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 Gender Identity Not on file Sexual Orientation Not on file documented as of this encounter Last Filed Vital Signs Vital Sign Reading Time Taken Comments Blood Pressure 100/72 04/03/2021 7:35 PM CDT Pulse 79 04/03/2021 7:35 PM CDT Temperature 36.9 ??C (98.4 ??F) 04/03/2021 4:06 PM CD T Respiratory Rate 13 04/03/2021 7:35 PM CDT Oxygen Saturation 100% 04/03/2021 7:35 PM CDT Inhaled Oxygen Concentration - - Weight 67.2 kg (148 lb 2.4 oz) 04/03/2021 11:01 AM CDT Height 167.6 cm (5' 6 ) 04/03/2021 11:01 AM CDT Body Mass Index 23.91 04/03/2021 11:01 AM CDT documented in this encounter Discharge Diagnoses Diagnosis Supraventricular tachycardia (HCC) - SUPRAVENTRICULAR TACHYCARDIA Other specified cardiac dysrhythmias Anxiety disorder, unspecified - ANXIETY DISORDER, UNSPECIFIED Ventricular premature depolarization - VENTRICULAR PREMATURE DEPOLARIZATION Other premature beats Atrial premature depolarization - ATRIAL PREMATURE DEPOLARIZATION Supraventricular premature beats Pure hypercholesterolemia, unspecified - PURE HYPERCHOLESTEROLEMIA, UNSPECIFIED Gastro-esophageal reflux disease without esophagitis - GASTRO-ESOPHAGEAL REFLUX DISEASE WITHOUT ESOPHAGITIS Obstructive sleep apnea (adult) (pediatric) - OBSTRUCTIVE SLEEP APNEA (ADULT) (PEDIATRIC) Nontoxic multinodular goiter - NONTOXIC MULTINODULAR GOITER Hyperlipidemia, unspecified - HYPERLIPIDEMIA, UNSPECIFIED Rheumatic disorders of both mitral and tricuspid valves - RHEUMATIC DISORDERS OF BOTH MITRAL AND TRICUSPID VALVES Type 2 diabetes mellitus without complications (CMS/HCC) (HCC) - TYPE 2 DIABETES MELLITUS WITHOUT COMPLICATIONS Allergy status to penicillin - ALLERGY STATUS TO PENICILLIN Other emt intermediate (current) drug therapy - OTHER C JAVA DEVELOPER (CURRENT) DRUG THERAPY documented in this encounter Discharge Instructions * [...] WITH INDUCTION OR ATTEMPTED INDUCTION OF ARRHYTHMIA 76650 CORONARY SINUS/LEFT [facility] PACING AND RECORDING (+) 68547 POST DRUG PROGRAM STIM AND PACING (+) 37538 ABLATION SUPRAVENTRICULAR TACHYCARDIA (SVT) 40475 Source Note - Nicolas Cornell MD - 04/01/2021 10:33 AM CDT Images from the original note were not included. [facility] Preoperative Evaluation Record Evaluation type/location: [facility] Planned procedure site: Other EP Lab Date: 04/01/21 Anesthesia Evaluation Chioma Chu is a 50 y.o. female Procedure(s): ELECTROPHYSIOLOGIC EVALUATION (EPS) WITH INDUCTION OR ATTEMPTED INDUCTION OF ARRHYTHMIA 69828 CORONARY SINUS/LEFT [facility] PACING AND RECORDING (+) 56866 POST DRUG PROGRAM STIM AND PACING (+) 14447 ABLATION SUPRAVENTRICULAR TACHYCARDIA (SVT) 89091 Pre-Op Diagnosis Codes: * Paroxysmal SVT (supraventricular tachycardia) (CMS/HCC) (HCC) [I47.1] HISTORY HPI Chioma Chu is a 50 y.o. female with PMHx of anxiety, PSVT, PACs, PVCs, HLD, multinodular goider, GERD, OA, gestational DM, multinodular goiter presenting for evaluation prior to ELECTROPHYSIOLOGIC EVALUATION (EPS) WITH INDUCTION OR ATTEMPTED INDUCTION OF ARRHYTHMIA 52393: CORONARY SINUS/LEFT [facility] PACING AND RECORDING (+) 18509: POST DRUG PROGRAM STIM AND PACING (+) 63847: ABLATION SUPRAVENTRICULAR TACHYCARDIA (SVT) 76189: Past Medical History Neurological + Psychiatric history - anxiety Pertinent negatives: seizures and CVA/stroke Cardiovascular + Hyperlipidemia + Current valvular disease (mild MVP) - TR - mild. + Other arrhythmia - PSVT, PACs, PVCs and bradycardia. Pertinent negatives: hypertension ; CAD ; GA and DVT/PE Respiratory Pertinent negatives: non-smoker Respiratory [...] (0.1 %) nasal spray 04/01/2021 03/13/21 -- ProviderYoli MD dilTIAZem (CARDIZEM) 30 mg tablet Past [...] Long-acting diltiazem prescribed for continued palpitations??by??her primary cooker pie filling, Dr Guerrero,??in November 2019 to address ongoing [...] with Carlos Eduardo FERRARI in 4-6 weeks Dale Thibodeaux MD Dale Thibodeaux MD CV ELECTROPHYSIOLOGY RI OCS Final Result * (ABNORMAL) POC Activated Clotting Time, High Range (04/03/2021 2:18 PM CDT) [facility] Signature ACT 266(H) 87 - 138 sec [facility] Blood 04/03/2021 2:18 PM CDT 04/03/2021 2:18 PM CDT Dale Thibodeaux MD LAB BLOOD ORDERABLES Fi nal Result Performing Organization Address City/[facility]/ZIP Co de Phone Number [facility] Department [facility] [employer] [place] [address] * (ABNORMAL) POC Activated Clotting Time, High Range (04/03/2021 2:11 PM CDT) [facility] Signature ACT 446(H) 87 - 138 sec [facility] Blood 04/03/2021 2:11 PM CDT 04/03/2021 2:11 PM CDT Dale Thibodeaux MD LAB BLOOD ORDERABLES Fi nal Result [facility] Department [place] [address] * (ABNORMAL) POC Activated Clotting Time, High Range (04/03/2021 1:54 PM CDT) ACT 285(H) 87 - 138 sec [facility] Blood 04/03/2021 1:54 PM CDT 04/03/2021 1:54 PM CDT us Dale Thibodeaux MD LAB BLOOD ORDERABLES Fi nal Result [facility] Department [place] [address] documented in this encounter Visit Diagnoses Diagnosis [...] Given 04/03/2021 4:23 PM CDT 650 mg Lactated Ringer's (LR) infusion 30 mL/hr, intravenous, Continuous, Starting on Thu04/03/21 at 1130, Pre-Op New Bag 04/03/2021 12:12 PM CDT sodium chloride 0.9% flush 0.5-20 mL 0.5-20 [...] Ramos CRNA)1533 (Anesthesia Volume Adjustment - Provider: Grisel Draper CRNA) sodium chloride 0.9% infusion 30 [...] (CV) 1437 (New Bag - Prov ider: Yney Duran RN - Comment: ablation catheter irrigation [...] intra-catheter, As needed, line care, Starting on 04/03/21 at 1617, Recovery (CV), Flush volume based on line type and size. Flush before and after each use. documented in this encounter Orders Medications Ordered That Kwabena ht Not Have Been Administered Count Last Ordered Date First Ordered Date heparin in 0.9% sodium chlor hermes 2,000 unit/1,000 mL (2 unit/mL) infusion (premix) 4 04/03/2021 isoproterenol (ISUPREL) 1,00 0 mcg in dextrose 5% 100 mL (10 mcg/mL) infusion 1 04/03/2021 Lactated Ringer's (LR) infusion 1 lidocaine (XYLOCAINE) 20 mg/ mL (2 %) injection 1 04/03/2021 sodium chloride 0.9% flush 0.5-20 mL 3 03/16 CORE MEASURES Count Last Ordered Date First Ord ered Date REASON FOR NO VTE PROPHYLAXIS AT ADMISSION 1 04/03/2021 documented in this encounter Care Teams Panel Edge Sealer Relationship Specialty Start Date End Date Jett Yarbrough MD [address] [facility] [address] [place] [address] PCP - General 09/27/15 documented as of this encounter
--- OUTSIDE RECORDS SUMMARY | 2024-06-01 00:22 | XMS_ITS | Encounter Summary ---
Author Organization [facility] Address [address] [place] [address] Phone Care Team Providers Care Emergency Management Specialist Name Role Phone Jett Yarbrough MD Primary Care Provider +1- [phone] Encounter Details Date Type Department Care Team (Late st Contact Info) Description 02/13/2021 Telephone [facility] Cardiology [address] [facility] 8th [place] [address] [place] [address] Dale Thibodeaux MD [address] [id number] Social History Tobacco Use Types Packs/Day Years Used Date Smoking Tobacco: Never Smokeless Tobacco: Never Alcohol Use Standard Drinks/Week Comments No 0 (1 standard drink = 0.6 oz pur e alcohol) Comments Unknown Sex and Gender Information Value Date Recorded Sex Assigned at Not on file 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 * Telephone Encounter - Nataliya Sarabia - 02/14/2021 9:35 AM CDT Reviewed available procedure dates with pt. She is out of town the week of Mar 25 and will be returning home on Mar 30. States anytime after that would work with her schedule. Informed her that she will receive a call back with other procedure date options. * Telephone Encounter - Yolanda Bryant RN - 02/13/2021 4:22 PM CDT I have called today to f/u with pt regarding message to schedule her for an EPS +/- SVT RFA with Dr. Thibodeaux per recent visit with VP CONSTRUCTION. I LMOR to please call back to check dates. First available would be March 25, 2021 with an 1100 arrival or March 27, 2021 with an 0600 am arrival. I will make note and try to reach her again to check dates. documented in this encounter Plan of Treatment Not on file documented as of this encounter Visit Diagnoses Not on filedocumented in this encounter Care Teams Emergency Management Specialist Relationship Specialty Start Date End Date Jett Yarbrough MD [address] [facility] [address] [place] [address] PCP - General 09/27/15 documented as of this encounter
--- OUTSIDE RECORDS SUMMARY | 2024-06-01 00:22 | XMS_ITS | Encounter Summary ---
Author Organization [facility] Address [address] [facility] [address] [place] [address] Care Team Providers Care Caser In Name Role Phone Jett Yarbrough MD Primary Care Provider +1- [phone] Encounter Details Date Type Department Care Team (Late st Contact Info) Description 12/15/2019 Telephone [facility] Cardiology [address] [place] [address] Markus Guerrero MD [address] [place] [address] Social History Tobacco Use Types Packs/Day Years Used Date Smoking Tobacco: Never Smokeless Tobacco: Never Alcohol Use Standard Drinks/Week Comments No 0 (1 standard drink = 0.6 oz pur e alcohol) Comments Unknown Sex and Gender Information Value Date Recorded Sex Assigned at Not on file 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 Thibodeaux has changed the dose of diltiazem so hewould be the one to contact for correct instructions. * Telephone Encounter - Jessie Gutierres - 12/15/2019 10:53 AM CDT Pharm called to confirm dosage on pt diltiazem 30 mg tabs. Pt waiting at the pharm. documented in this encounter Plan of Treatment Not on file documented as of this encounter Visit Diagnoses Not on filedocumented in this encounter Care Teams Caser In Relationship Specialty Start Date End Date Jett Yarbrough MD [address] [address] PCP - General 09/27/15 documented as of this encounter
--- OUTSIDE RECORDS SUMMARY | 2024-06-01 00:22 | XMS_ITS | Encounter Summary ---
Author Organization [facility] Address [address] [place] [address] Phone Care Team Providers Care Dialysis Equipment Technician Name Role Phone Jett Yarbrough MD Primary Care Provider +1- [phone] Encounter Details Date Type Department Care Team (Late st Contact Info) Description 12/19/2019 Telephone [facility] Endocrinology Metabolism and Lipid [address] [facility] 5th [place] [address] [place] [address] Maame Bird RN Social History Tobacco Use Types Packs/Day Years Used Date Smoking Tobacco: Never Smokeless Tobacco: Never Alcohol Use Standard Drinks/Week Comments No 0 (1 standard drink = 0.6 oz pur e alcohol) Comments Unknown Sex and Gender Information Value Date Recorded Sex Assigned at Not on file Legal Sex Female 7:06 AM PRODUCT SAFETY LEAD Gender Identity Not on file Sexual Orientation Not on file documented as of this encounter Miscellaneous Notes * Telephone Encounter - Maame Bird RN - 12/19/2019 12:24 PM CDT Patient called to see if she could get blood work done. States she feels like her thyroid levels are off. For the last couple of weeks she has been feeling fatigued, has felt cold and her heart rate is lower. She will go to [facility] but requests orders faxed to her at [phone] documented in this encounter Plan of Treatment Not on file documented as of this encounter Visit Diagnoses Not on filedocumented in this encounter Care Teams Dialysis Equipment Technician Relationship Specialty Start Date End Date Jett Yarbrough MD [address] [facility] [address] [place] [address] PCP - General 09/27/15 documented as of this encounter
--- OUTSIDE RECORDS SUMMARY | 2024-06-01 00:22 | XMS_ITS | Encounter Summary ---
Author Organization [facility] Address [address] [place] [address] Phone Care Team Providers Care Solution Mixer Name Role Phone Jett Yarbrough MD Primary Care Provider +1- [phone] Encounter Details Date Type Department Care Team (Late st Contact Info) Description 07/20/2020 Telephone [facility] Cardiology [address] [facility] 8th [place] [address] [place] [address] Dale Thibodeaux MD [address] [id number] Social History Tobacco Use Types Packs/Day Years Used Date Smoking Tobacco: Never Smokeless Tobacco: Never Alcohol Use Standard Drinks/Week Comments No 0 (1 standard drink = 0.6 oz pur e alcohol) Comments Unknown Sex and Gender Information Value Date Recorded Sex Assigned at Not on file Legal Sex Female 7:06 AM COLOR DEVELOPER Gender Identity Not on file Sexual Orientation Not on file documented as of this encounter Miscellaneous Notes * Telephone Encounter - Saw Ball - 07/20/2020 2:49 PM CST Pt is aware she can take PRN dilt while on Metoprolol. R DEVELOPER * Telephone Encounter - Felicita Joiner - 07/20/2020 1:44 PM CST Carlos Eduardo Pt calling to see if she is able to take diltiazem while on metoprolol, she says she had an elevated hr last night and would like to know before the weekend if possible R DEVELOPER documented in this encounter Plan of Treatment Not on file documented as of this encounter Visit Diagnoses Not on filedocumented in this encounter Care Teams Solution Mixer Relationship Specialty Start Date End Date Jett Yarbrough MD [address] [facility] [address] [place] [id number] PCP - General 09/27/15 documented as of this encounter
--- OUTSIDE RECORDS SUMMARY | 2024-06-01 00:22 | XMS_ITS | Encounter Summary ---
Author Organization [facility] Address [address] [place] [address] Phone Care Team Providers Care Traveling Engineer Name Role Phone Jett Yarbrough MD Primary Care Provider +1- [phone] Encounter Details Date Type Department Care Team (Late st Contact Info) Description 01/02/2021 Telephone [facility] Cardiology [address] 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
--- OUTSIDE RECORDS SUMMARY | 2024-06-01 00:23 | XMS_ITS | Encounter Summary ---
Author Organization [facility] Address [address] [facility] [address] [place] [address] Care Team Providers Care Hand Chain Maker Name Role Phone Jett Yarbrough MD Primary Care Provider +1- [phone] Encounter Details Date Type Department Care Team (Late st Contact Info) Description 08/16/2018 Telephone [facility] [address] [address] Markus Guerrero MD [address] [address] Social History Tobacco Use Types Packs/Day Years Used Date Smoking Tobacco: Never Smokeless Tobacco: Never Alcohol Use Standard Drinks/Week Comments No 0 (1 standard drink = 0.6 oz pur e alcohol) Comments Unknown Sex and Gender Information Value Date Recorded Sex Assigned at Not on file Legal Sex Female 7:06 AM FOUNTAIN CLERK Gender Identity Not on file Sexual Orientation Not on file documented as of this encounter Miscellaneous Notes * Telephone Encounter - Michelle Soriano RN - 08/16/2018 3:59 PM FOUNTAIN CLERK Returned call to patient and LMOM with results, advised to call with any questions and to review results again. TAIN CLERK * Telephone Encounter - Candelaria Ontiveros - 08/16/2018 3:02 PM FOUNTAIN CLERK Pt called requesting echo results, cb [phone] TAIN CLERK documented in this encounter Plan of Treatment Not on file documented as of this encounter Visit Diagnoses Not on filedocumented in this encounter Care Teams Hand Chain Maker Relationship Specialty Start Date End Date Jett Yarbrough MD [address] [facility] [address] [place] [id number] PCP - General 09/27/15 documented as of this encounter
--- OUTSIDE RECORDS SUMMARY | 2024-06-01 00:23 | XMS_ITS | Encounter Summary ---
Author Organization [facility] Address [address] [place] [address] Phone Care Team Providers Care Income Tax Auditor Name Role Phone Jett Yarbrough MD Primary Care Provider +1- [phone] Encounter Details Date Type Department Care Team (Late st Contact Info) Description 07/14/2019 Orders Only [facility] Endocrinology Metabolism and Lipid [address] [facility] 5th [place] [address] [place] [address] Elton Barcenas MD PhD [address] [place], [place] [id number] Multinodular goiter (Primary Dx) Social History Tobacco Use Types Packs/Day Years Used Date Smoking Tobacco: Never Smokeless Tobacco: Never Alcohol Use Standard Drinks/Week Comments No 0 (1 standard drink = 0.6 oz pur e alcohol) Comments Unknown Sex and Gender Information Value Date Recorded Sex Assigned at Not on file Legal Sex Female 7:06 AM CRTT Gender Identity Not on file Sexual Orientation Not on file documented as of this encounter Plan of Treatment Scheduled Orders Name Type Priority Associated Diagnoses Orde r Schedule TSH Lab Routine Multinodular goiter Expected: 07/15/2019 (Approximate), Expires: 07/14/2020 T4, free Lab Routine Multinodular goiter Expected: 07/15/2019 (Approximate), Expires: 07/14/2020 documented as of this encounter Visit Diagnoses Diagnosis Multinodular goiter- Primary Nontoxic multinodular goiter documented in this encounter Care Teams Income Tax Auditor Relationship Specialty Start Date End Date Jett Yarbrough MD [address] [facility] 120 [place] [address] PCP - General 09/27/15 documented as of this encounter
--- OUTSIDE RECORDS SUMMARY | 2024-06-01 00:23 | XMS_ITS | Encounter Summary ---
Author Organization [facility] Address [address] [facility] [address] [place] [address] Care Team Providers Care Recreation Therapy Director Name Role Phone Jett Yarbrough MD Primary Care Provider +1- [phone] Reason for Visit * (Routine) - Closed Specialty Diagnoses / Procedures Referred By Contac t Referred To Contact Diagnoses Paroxysmal SVT (supraventricular tachycardia) ([facility]) Procedures Event Monitor, 30 Day Event Shanika Gamez NP Phone: tel: fax: [facility] Referral ID Status Reason Start Date Expiration Date Visits Re quested Visits Authorized [id number] Closed 08/04/2018 02/13/2020 1 1 Encounter Details Date Type Department Care Team (Latest Contact Info) Description 08/04/2018 3:00 PM CORRECTIONS NURSE Ancillary Procedure [facility] Cardiology [facility] [address] [place] [phone] Paroxysmal SVT (supraventricular tachycardia) ([facility]) Social History Tobacco Use Types Packs/Day Years Used Date Smoking Tobacco: Never Smokeless Tobacco: Never Alcohol Use Standard Drinks/Week Comments No 0 (1 standard drink = 0.6 oz pur e alcohol) Comments Unknown Sex and Gender Information Value Date Recorded Sex Assigned at Not on file Legal Sex Female 7:06 AM CORRECTIONS NURSE Gender Identity Not on file Sexual Orientation Not on file documented as of this encounter Procedure Notes * Cristina Steele MD - 08/04/2018 12:00 AM CST EVENT MONITOR Date of service 08/04/[address] Guerrero. Referring Doctor Dr. Yarbrough. History 47-year-old female with palpitations and history of SVT. The patient was monitored from 08/04/2018 to 09/02/2018. The quality of the study was good. The underlying rhythm was sinus with an average heart rate ranging from 70 to 90 beats per minute. There was no SVT or atrial fibrillation noted. Rare PVCs were seen. The underlying conduction is normal. Nopauses were recorded. The patient sent in 2 rhythm strips for symptoms of palpitations and rapid heartbeat. The 1st was associated with rare PVCs and the 2nd was associated with sinus rhythm. Conclusion 30-day event monitor is remarkable for occasional premature ventricular contractions. The patient'ssymptoms once occurred with occasional premature ventricular contractions and once occurred during sinus rhythm. Job ID/VF Job ID: [id number] documented in this encounter Plan of Treatment Pending Results Name Type Priority Associated Diagnoses Date /Time Event Monitor, 30 Day Event Cardiac Services Routine Paroxysmal SVT (supraventricular tachycardia) (CMS/HCC) 08/04/2018 4:58 PM CORRECTIONS NURSE documented as of this encounter Procedures Procedure Name Priority Date/Time Associated Diagnosis Comments ECG 12-LEAD Routine 08/04/2018 Paroxysmal SVT (supraventricular tachycardia) (CMS/HCC) documented in this encounter Results * ECG 12 lead (08/04/2018) Shanika Gamez CISTERN ROOM OPERATOR ECG ORDERABLES Edited Re sult - Final documented in this encounter Visit Diagnoses Diagnosis Paroxysmal SVT (supraventricular tachycardia) (HCC) documented in this encounter Care Teams Recreation Therapy Director Relationship Specialty Start Date End Date Jett Yarbrough MD [address] [facility] 120 [place] [id number] PCP - General 09/27/15 documented as of this encounter
--- OUTSIDE RECORDS SUMMARY | 2024-06-01 00:23 | XMS_ITS | Encounter Summary ---
Author Organization [facility] Address [address] [facility] [address] [place] [address] Care Team Providers Care Master Barber Name Role Phone Jett Yarbrough MD Primary Care Provider +1- [phone] Reason for Visit * Cardiology (Routine) - Closed Specialty Diagnoses / Procedures Referred By Contac t Referred To Contact Cardiology Imaging Diagnoses Chest pain, unspecified type Procedures Stress Treadmill Test Luis Sun PA Phone: tel: fax: [facility] Cardiology [address] [place] [address] Phone: tel: fax: Referral ID Status Reason Start Date Expiration Date Visits Re quested Visits Authorized [id number] Closed 04/26/2019 11/04/2020 1 1 Encounter Details Date Type Department Care Team (Latest Contact Info) Description 05/02/2019 2:30 PM PILOT PLANT OPERATOR Ancillary Procedure [facility] Cardiology [address] [facility] [address] [place] [phone] Chest pain, unspecified type Social History Tobacco Use Types Packs/Day Years Used Date Smoking Tobacco: Never Smokeless Tobacco: Never Alcohol Use Standard Drinks/Week Comments No 0 (1 standard drink = 0.6 oz pur e alcohol) Comments Unknown Sex and Gender Information Value Date Recorded Sex Assigned at Not on file Legal Sex Female 7:06 AM PILOT PLANT OPERATOR Gender Identity Not on file Sexual Orientation Not on file documented as of this encounter Procedure Notes * Uppstrom, Cristina L., MD - 05/02/2019 12:00 AM CST TREADMILL STRESS TEST Ordered By Karen Figueroa. Dr. Markus Guerrero is also involved in her care. History A 48-year-old female with chest pain. Resting EKG normal sinus rhythm, nonspecific ST and T-wave changes. The patient exercised for 8 minutes and 30 seconds of the Mason protocol reaching a peak heart rateof 173 beats per minute which is 99% of predicted maximal heart rate, stopping because of chest pain, shortness of breath, and fatigue. The patient's resting blood pressure is 100/70 with a peak blood pressure of 170/86. She felt wrong during the 2nd stage for about 10 seconds and on the 3rd stage she complained of 3/10 chest pain, shortness of breath, sharp chest pain, and tingling. The patient developed borderline EKG changes of 0.5-[address]-depression in the inferior lateral leads with exercise, primarily upsloping and nonspecific, but in recovery there was some flattening of the ST segments. Conclusion Borderline positive treadmill stress test for ischemia with exercise-induced atypical chest pain. However, the resting ST-segment abnormalities reduces specificity of these findings. Consider furtherevaluation (stress testing with imaging?) if clinically appropriate. Job ID/VF Job ID: [id number] T PLANT OPERATOR documented in this encounter Plan of Treatment Pending Results Name Type Priority Associated Diagnoses Date /Time Stress Treadmill Test Cardiac Services Routine Chest pain, unspecified type 05/02/2019 3:00 PM PILOT PLANT OPERATOR documented as of this encounter Visit Diagnoses Diagnosis Chest pain, unspecified type documented in this encounter Care Teams Master Barber Relationship Specialty Start Date End Date Jett Yarbrough MD [address] [facility] 120 [place] [address] PCP - General 09/27/15 documented as of this encounter
--- OUTSIDE RECORDS SUMMARY | 2024-06-01 00:23 | XMS_ITS | Encounter Summary ---
Author Organization [facility] Address [address] [facility] [address] [place] [address] Care Team Providers Care Transformer Assembler Name Role Phone Jett Yarbrough MD Primary Care Provider +1- [phone] Encounter Details Date Type Department Care Team (Late st Contact Info) Description 08/09/2018 Orders Only [facility] Information Management [address] [place] [address] Scanning, Provider Social History Tobacco Use Types Packs/Day Years Used Date Smoking Tobacco: Never Smokeless Tobacco: Never Alcohol Use Standard Drinks/Week Comments No 0 (1 standard drink = 0.6 oz pur e alcohol) Comments Unknown Sex and Gender Information Value Date Recorded Sex Assigned at Not on file Legal Sex Female 7:06 AM GRAVITY FLOW IRRIGATOR Gender Identity Not on file Sexual Orientation Not on file documented as of this encounter Plan of Treatment Not on file documented as of this encounter Procedures Procedure Name Priority Date/Time Associated Diagnosis Comments SCAN - LABS 08/09/2018 documented in this encounter Results * SCAN - LABS (08/09/2018) us Provider Scanning Final Result documented in this encounter Visit Diagnoses Not on filedocumented in this encounter Care Teams Transformer Assembler Relationship Specialty Start Date End Date Jett Yarbrough MD [address] [facility] [address] [place] [address] PCP - General 09/27/15 documented as of this encounter
--- OUTSIDE RECORDS SUMMARY | 2024-06-01 00:23 | XMS_ITS | Encounter Summary ---
Author Organization [facility] Address [address] [facility] [address] [place] [address] Care Team Providers Care Electronic Test Technician Name Role Phone Jett Yarbrough MD Primary Care Provider +1- [phone] Encounter Details Date Type Department Care Team (Late st Contact Info) Description 08/24/2018 Telephone [facility] [address] [address] Markus Guerrero MD [address] [address] Social History Tobacco Use Types Packs/Day Years Used Date Smoking Tobacco: Never Smokeless Tobacco: Never Alcohol Use Standard Drinks/Week Comments No 0 (1 standard drink = 0.6 oz pur e alcohol) Comments Unknown Sex and Gender Information Value Date Recorded Sex Assigned at Not on file Legal Sex Female 7:06 AM PILLOWCASE CLEANER Gender Identity Not on file Sexual Orientation Not on file documented as of this encounter Miscellaneous Notes * Telephone Encounter - Michelle Soriano RN - 08/24/2018 1:56 PM CDT Results faxed per request to number provided. * Telephone Encounter - Candelaria Ontiveros - 08/24/2018 1:33 PM CDT Pt called requesting for stress test and TTE results be faxed to [phone], pt cb [phone] documented in this encounter Plan of Treatment Not on file documented as of this encounter Visit Diagnoses Not on filedocumented in this encounter Care Teams Electronic Test Technician Relationship Specialty Start Date End Date Jett Yarbrough MD [address] [facility] 120 [place] [address] PCP - General 09/27/15 documented as of this encounter
--- OUTSIDE RECORDS SUMMARY | 2024-06-01 00:23 | XMS_ITS | Encounter Summary ---
Author Organization [facility] Address [address] [facility] [address] [place] [address] Care Team Providers Care Sewer Connector Name Role Phone Jett Yarbrough MD Primary Care Provider +1- [phone] Encounter Details Date Type Department Care Team (Late st Contact Info) Description 08/17/2018 Telephone [facility] [address] [facility] 162 [facility] 102 [place] [address] Shanika Gamez NP [address] [facility] [address] [place] [address] Social History Tobacco Use Types Packs/Day Years Used Date Smoking Tobacco: Never Smokeless Tobacco: Never Alcohol Use Standard Drinks/Week Comments No 0 (1 standard drink = 0.6 oz pur e alcohol) Comments Unknown Sex and Gender Information Value Date Recorded Sex Assigned at Not on file Legal Sex Female 7:06 AM MID LEVEL BUSINESS ANALYST Gender Identity Not on file Sexual Orientation Not on file documented as of this encounter Miscellaneous Notes * Telephone Encounter - Carol Sparks RN - 08/17/2018 4:12 PM MID LEVEL BUSINESS ANALYST Called [facility] and requested tsh results that we have not yet received. They are to fax to [facility] office. LEVEL BUSINESS ANALYST documented in this encounter Plan of Treatment Not on file documented as of this encounter Visit Diagnoses Not on filedocumented in this encounter Care Teams Sewer Connector Relationship Specialty Start Date End Date Jett Yarbrough MD [address] [facility] 120 [place] [address] PCP - General 09/27/15 documented as of this encounter
--- OUTSIDE RECORDS SUMMARY | 2024-06-01 00:23 | XMS_ITS | Encounter Summary ---
Author Organization [facility] Care Team Providers Care Pluck Separator Name Role Phone Jett Yarbrough MD Primary Care Provider +1- [phone] Encounter Details Date Type Department Care Team (Latest Contact Info) Description 08/16/2018 Travel Social History Tobacco Use Types Packs/Day Years Used Date Smoking Tobacco: Never Smokeless Tobacco: Never Alcohol Use Standard Drinks/Week Comments No 0 (1 standard drink = 0.6 oz pur e alcohol) Comments Unknown Sex and Gender Information Value Date Recorded Sex Assigned at Not on file Legal Sex Female 7:06 AM DIRECTOR MOBILE Gender Identity Not on file Sexual Orientation Not on file documented as of this encounter Plan of Treatment Not on file documented as of this encounter Visit Diagnoses Not on filedocumented in this encounter Care Teams Pluck Separator Relationship Specialty Start Date End Date Jett Yarbrough MD [address] [facility] 120 [place] [address] PCP - General 09/27/15 documented as of this encounter
--- OUTSIDE RECORDS SUMMARY | 2024-06-01 00:23 | XMS_ITS | Encounter Summary ---
Author Organization [facility] Address [address] [place] [address] Phone Care Team Providers Care Periodontist Name Role Phone Jett Yarbrough MD Primary Care Provider +1- [phone] Encounter Details Date Type Department Care Team (Latest Contact Info) Description 01/27/2019 Orders Only [facility] Scanning, Provider Social History Tobacco Use Types Packs/Day Years Used Date Smoking Tobacco: Never Smokeless Tobacco: Never Alcohol Use Standard Drinks/Week Comments No 0 (1 standard drink = 0.6 oz pur e alcohol) Comments Unknown Sex and Gender Information Value Date Recorded Sex Assigned at Not on file Legal Sex Female 7:06 AM WEARING APPAREL FOLDER Gender Identity Not on file Sexual Orientation Not on file documented as of this encounter Plan of Treatment Not on file documented as of this encounter Procedures Procedure Name Priority Date/Time Associated Diagnosis Comments SCAN - LABS 01/27/2019 documented in this encounter Results * SCAN - LABS (01/27/2019) us Provider Scanning Final Result documented in this encounter Visit Diagnoses Not on filedocumented in this encounter Care Teams Periodontist Relationship Specialty Start Date End Date Jett Yarbrough MD [address] [facility] [address] [place] [address] PCP - General 09/27/15 documented as of this encounter
--- OUTSIDE RECORDS SUMMARY | 2024-06-01 00:23 | XMS_ITS | Encounter Summary ---
Author Organization [facility] Address [address] [place] [address] Phone Care Team Providers Care Head Of Biology Name Role Phone Jett Yarbrough MD Primary Care Provider +1- [phone] Reason for Referral * (Routine) - Closed Specialty Diagnoses / Procedures Referred By Contac t Referred To Contact Diagnoses SVT (supraventricular tachycardia) (HCC) Procedures MCT Mobile Cardiac Telemetry Event Monitor Ирина Murray MD Phone: tel: fax: [facility] Referral ID Status Reason Start Date Expiration Date Visits Re quested Visits Authorized [id number] Closed 07/14/2019 01/22/2021 1 1 E[employer]REE [employer]OOK [employer] * (Routine) - Closed Specialty Diagnoses / Procedures Referred By Contac t Referred To Contact Diagnoses SVT (supraventricular tachycardia) (HCC) Procedures ECG 12 lead Ирина Murray MD Phone: tel: fax: [facility] (All Locations) Referral ID Status Reason Start Date Expiration Date Visits Re quested Visits Authorized [id number] Closed 07/14/2019 01/22/2021 1 1 [employer]REE [employer]OOK [employer]IER Reason for Visit * Cardiology (Routine) - Closed Specialty Diagnoses / Procedures Referred By Contac t Referred To Contact Cardiology Diagnoses SVT (supraventricular tachycardia) (HCC) Mireya Yin NP Phone: tel: fax: Ирина Murray MD [address] [place] [address] Phone: tel: fax: Referral ID Status Reason Start Date Expiration Date V isits Requested Visits Authorized [id number] Closed Specialty Services Required 05/20/2019 11/28/2020 2 2 Encounter Details Date Type Department Care Team (Late st Contact Info) Description 07/14/2019 9:45 AM MAIN E[employer]REE COOK [employer] CASHIER Office Visit [facility] Cardiology [address] [place] [address] Medical Office Building [address] [place] [id number] Ирина Murray MD [address] [place] [address] SVT (supraventricular tachycardia) (CMS/HCC) Social History Tobacco Use Types Packs/Day Years Used Date Smoking Tobacco: Never Smokeless Tobacco: Never Alcohol Use Standard Drinks/Week Comments No 0 (1 standard drink = 0.6 oz pur e alcohol) Comments Unknown Sex and Gender Information Value Date Recorded Sex Assigned at Not on file Legal Sex Female 7:06 AM MAIN E[employer]REE 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 [employer] 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 Gender Identity Not on file Sexual Orientation Not on file documented as of this encounter Last Filed Vital Signs Vital Sign Reading Time Taken Comments Blood Pressure 122/78 07/14/2019 10:04 AM MAIN E[employer]REE [employer] C[employer]IER Pulse 71 07/14/2019 10:02 AM MAIN E[employer]REE [employer]OOK [employer]IER Temperature - - Respiratory Rate - - Oxygen Saturation 98% 07/14/2019 10:02 AM MAIN E[employer]REE [employer]OOK [employer] C[employer]IER Inhaled Oxygen Concentration - - Weight 60.5 kg (133 lb 6.4 oz) 07/14/2019 10:02 AM MAIN E[employer]REE [employer]OOK [employer] C[employer] Height 167.6 cm (5' 6 ) 07/14/2019 10:02 AM MAIN [employer]REE [employer] Body Mass Index 21.53 07/14/2019 10:02 AM MAIN E[employer]REE [employer]OOK [employer] CASHIER documented in this encounter Patient Instructions * Patient Instructions* Ирина Murray MD - 07/14/2019 9:45 AM MAIN [employer] C[employer]IER EKG looks good Strips from old monitors show bursts of SVT, likely atrial tachycardia Unclear cause of current symptoms but likely an SVT Options moving forward include continued observation versus medical therapy trial versus EP study with possible ablation Will call with dates for EP Study +/- SVT RFA (anesth, Ensleobardo) Okay to take as needed diltiazem with significant episodes E[employer]REE [employer] CASHIER documented in this encounter Progress Notes * Ирина Murray MD - 07/14/2019 9:45 AM CST Consult Note - Cardiac Electrophysiology Patient Name: Chioma Chu Date of : 1970 Primary Physician: Jett Yarbrough MD I had the pleasure of seeing Chioma Chu in [facility]. As you well know, she is a 48 y.o. female with the following arrhythmia-specific history: ?? Supraventricular tachycardia ?? 11 beat run recorded on event monitor 02/2018 ?? No prior treatment Ms. Chu is seen in consultation for evaluation of SVT. She has a long history of intermittent palpitations since her teen years, but started having a distinct syndrome over the last several years. She describes abrupt onset of tachypalpitations or fluttering in the chest. The episodes occur randomly, often at rest and sometimes wake her from sleep. They generally last several minutes, but shehas had several episodes lasting over one hour. They cause her to feel anxious, short of breath, and fatigued. She has never passed out. She has worn monitors in the past, however she has not had a longer lasting episode while being monitored. Ms. Chu was recently evaluated for these symptoms along with atypical chest discomfort. She underwent stress testing which was reassuring. She underwent cardiac catheterization showing normal coronaries. During her postprocedure monitoring, she apparently had several episodes of SVT up to 140 bpm. We do not have strips. Past Medical History Past Medical History: Diagnosis [...] resource strain: Not on file ??? Food insecurity: Worry: Not on file Inability: Not on file ??? Transportation needs: Medical: Not on file Non-medical: Not on file Tobacco Use ??? Smoking status: Never Smoker ??? Smokeless tobacco: Never Used Substance and Sexual Activity ??? Alcohol use: No ??? Drug use: No ??? Sexual activity: Not on file Lifestyle ??? Physical activity: Days per week: Not on file Minutes per session: Not on file ??? Stress: Not on file Relationships ??? Social connections: Talks on phone: Not on file Gets together: Not on file Attends hoahaoism service: Not on file Active member of club or organization: Not on file Attends meetings of clubs or organizations: Not on file Relationship status: Not on file ??? Intimate partner violence: Fear of current or ex partner: Not on file Emotionally abused: Not on file Physically abused: Not on file Forced sexual activity: Not on file Other Topics Concern ??? Not on file Social History Narrative ??? Not on file Review of Systems Review of Systems As per HPI. Otherwise, ALL OTHER SYSTEMS ARE NEGATIVE. Objective Vitals: 07/14/19 1002 07/14/19 1004 BP: 122/68 122/78 BP Location: Right arm Left arm Patient Position: Sitting Sitting Pulse: 71 SpO2: 98% Weight: 60.5 kg (133 lb 6.4 oz) Height: 167.6 cm (5' 6 ) Physical Exam Constitutional: No distress. Head: Normocephalic. [...] ECG performed today and reviewed personally reveals normal sinus rhythm. Nonspecific T wave abnormality. Normal QRS. Normal QT. No preexcitation. Event monitor from 02/2018 reviewed personally. There are two episodes of NCT. The longest episode lasts 11 beats, appears consistent with atrial tachycardia Labs Creatinine, Serum Date Value Ref Range Status 03/05/2018 0.54 (L) 0.57 - 1.00 mg/dL Final , No results found for: LABPLAT , No results found for: WBC , No results found for: HGB Visit Diagnoses (I47.1) SVT (supraventricular tachycardia) ([facility]) Plan: Ambulatory referral to Cardiology Impression and Plan Ms. Chu has frequent episodes of palpitations that are most consistent with paroxysmal SVT. Monitoring has detected several episodes of short runs of SVT, most likely atrial tachycardia. We discuss management options, including observation, beta blockers or calcium channel blockers, antiarrhythmic drugs and EP study/catheter ablation. The patient strongly wishes to avoid medical therapy. She favors ablation. We will arrange for EPS and SVT ablation when available. In the meantime, we have the patient wear a 30 day event monitor to capture more SVT. She can continue to use diltiazem on a PRN basis until her procedure. Thank you for allowing us to participate in the care of this pleasant patient. Please do not hesitate to call us if any questions arise. Respectfully, Gonzalez Davis III, M.D. Fellow Physician, Cardiac Electrophysiology Cardiovascular Division, [facility] in [place] I have seen and examined the patient on 07/14/2019 . I agree with the findings and plan of care as documented in Dr Davis' note. Ирина Murray MD supervisor home energy consultant Director, EP Fellowship Program [facility] of Medicine Division of Cardiology, [place] [address] [place] [address] This note was transcribed using speech recognition software. As a result, there may be grammatical and spelling errors that are unintended. If there are any questions or major inaccuracies, please contact us. [employer] documented in this encounter Plan of Treatment Not on file documented as of this encounter Procedures Procedure Name Priority Date/Time Associated Diagnosis Comments ECG 12-LEAD Routine 07/14/2019 SVT (supraventricular tachycardia) ([facility]) documented in this encounter Results * MCT Mobile Cardiac Telemetry Event Monitor (07/14/2019 11:37 AM MAIN [employer]) Anatomical Region Laterality Modality Electrocardiogra phy 07/14/2019 11:3 0 AM MAIN [employer] Narrative 08/22/2019 6:04 PM CDT Patient name: Chioma Chu Date of test: 07/14/2019 Type of Test: Event Monitor ([facility] [id number] ?Location: [facility] : 1970 ??Age: 48 ??Sex: F Ref Physician(s): ИРИНА MURRAY MD Interpreted by: Patty Garcia MD [facility] Tech: [employer] Monitoring Service Diagnosis: Monitoring Service: [employer] Reason for Test: I47.1: Supraventricular tachycardia Monitor Used: Body [facility] Heart (MCT) ??mail out Enrollment Period: Jul 19 - Aug 17, 2019 Project Fixup comments: Patient Instructions: Patient support person included in instructions Number of Transmissions Sent During Enrollment Period: 17 To obtain transmission tracing contact: [facility] ??[phone] Rhythm Summary: Bradycardia avg rate: 57 Bradycardia longest duration: 00:19:02 Bradycardia longest episode: 07/20/2019 04:32:00 Bradycardia shortest duration: 00:00:07 Bradycardia shortest episode: 07/21/2019 23:59:00 Mean heart rate: 71 Pauses >= 3 seconds: 0 Tachycardia avg rate: 110 Tachycardia longest duration: 00:25:13 Tachycardia longest episode: 08/07/2019 13:55:00 Tachycardia shortest duration: 00:00:07 Tachycardia shortest episode: 08/14/2019 00:00:00 Cardiologis Review of Transmissions: Baseline rhythm is NSR. 6 beat VT ??seen. Ventricular couplets, PVCs, atrial run seen. Correlation between symptoms and rhythm listed below. This study was interpreted by Patty Garcia MD Confirmed on ??08/22/2019 - 18:04:03 by Patty Garcia MD Summary of Transmitted Events: # ??Date ? Time ?HR ?Symptoms/Rhythm ? 17 08/16/19 17:03 ?? 69.3 ?Flutter or Skipped Beats ? Sinus Rhythm w/Couplet PACs/Artifact ? 16 08/11/19 17:08 ?? 67.9 ?Flutter or Skipped Beats ? Sinus Rhythm w/Couplet PVCs/PVCs (2 in 1 min)/Atrial Run 15 08/10/19 19:44 ?? 151.9 ?? Rapid or Fast Heartbeat; Flutter oSinus Rhythm w/Atrial Run ? 14 08/09/19 15:21 ?? 80.1 ?Rapid or Fast Heartbeat ? Sinus Arrhythmia, Sinus Rhythm w/Artifact ? 13 08/08/19 17:19 ?? 158.1 ?? Flutter or Skipped Beats ? Sinus Rhythm, Sinus Arrhythmia w/Atrial Run/Couplet PVCs 12 08/04/19 15:08 ?? 157.7 ?? Flutter or Skipped Beats; Rapid orSinus Rhythm, Sinus Arrhythmia w/Atrial Run/Artifact ? 11 08/03/19 08:11 ?? 190.5 ?? Auto Trigger ? Sinus Rhythm w/Run of V-Tach (6 Beats)/Couplet PVCs/PVCs 10 08/02/19 21:54 ?? 61.7 ?Flutter or Skipped Beats ? Sinus Rhythm w/PACs ? 9 ??07/31/19 16:10 ?? 113.1 ?? Flutter or Skipped Beats ? Sinus Arrhythmia, Sinus Rhythm w/Atrial Run/Artifact ?? 8 ??07/30/19 09:36 ?? 128.1 ?? Flutter or Skipped Beats ? Sinus Tachycardia w/Artifact ? 7 ??07/30/19 00:19 ?? 72.7 ?Flutter or Skipped Beats ? Sinus Rhythm ? 6 ??07/26/19 15:13 ?? 62.9 ?Flutter or Skipped Beats ? Sinus Rhythm w/PVCs (1 in 1 min) ? 5 ??07/25/19 19:25 ?? 80.1 ?Flutter or Skipped Beats ? Sinus Arrhythmia, Sinus Rhythm w/Artifact ? 4 ??07/22/19 14:10 ?? 66 ?Flutter or Skipped Beats ? Sinus Rhythm w/PACs ? 3 ??07/21/19 10:11 ?? 69 ?Flutter or Skipped Beats ? Sinus Rhythm ? 2 ??07/19/19 22:24 ?? 106.8 ?? Flutter or Skipped Beats ? Sinus Rhythm w/PVCs (1 in 1 min)/PACs ? 1 ??07/19/19 21:29 ?? 62.8 ?Baseline ? Sinus Rhythm w/Artifact ? I have personally reviewed and interpreted this study. Procedure Note Patty Garcia MD - 08/22/2019 Patient name: Chioma Chu Date of test: 07/14/2019 Type of Test: Event Monitor ([facility]) [facility] [id number] Location: [facility] : 1970 Age: 48 Sex: F Ref Physician(s): ИРИНА MURRAY MD Interpreted by: Patty Garcia MD Hook-Up Tech: [employer] Monitoring Service Diagnosis: Monitoring Service: [employer] Reason for Test: I47.1: Supraventricular tachycardia Monitor Used: [facility] Heart (MCT) mail out Enrollment Period: Jul 19 - Aug 17, 2019 Project Fixup comments: Patient Instructions: Patient support person included in instructions Number of Transmissions Sent During Enrollment Period: 17 To obtain transmission tracing contact: [facility] [phone] Rhythm Summary: Bradycardia avg rate: 57 Bradycardia longest duration: 00:19:02 Bradycardia longest episode: 07/20/2019 04:32:00 Bradycardia shortest duration: 00:00:07 Bradycardia shortest episode: 07/21/2019 23:59:00 Mean heart rate: 71 Pauses >= 3 seconds: 0 Tachycardia avg rate: 110 Tachycardia longest duration: 00:25:13 Tachycardia longest episode: 08/07/2019 13:55:00 Tachycardia shortest duration: 00:00:07 Tachycardia shortest episode: 08/14/2019 00:00:00 Cardiologis Review of Transmissions: Baseline rhythm is NSR. 6 beat VT seen. Ventricular couplets, PVCs, atrial run seen. Correlation between symptoms and rhythm listed below. This study was interpreted by Patty Garcia MD Confirmed on 08/22/2019 - 18:04:03 by Patty Garcia MD Summary of Transmitted Events: # Date Time HR Symptoms/Rhythm 17 08/16/19 17:03 69.3 Flutter or Skipped Beats Sinus Rhythm w/Couplet PACs/Artifact 16 08/11/19 17:08 67.9 Flutter or Skipped Beats Sinus Rhythm w/Couplet PVCs/PVCs (2 in 1 min)/Atrial Run 15 08/10/19 19:44 151.9 Rapid or Fast Heartbeat; Flutter oSinus Rhythm w/Atrial Run 14 08/09/19 15:21 80.1 Rapid or Fast Heartbeat Sinus Arrhythmia, Sinus Rhythm w/Artifact 13 08/08/19 17:19 158.1 Flutter or Skipped Beats Sinus Rhythm, Sinus Arrhythmia w/Atrial Run/Couplet PVCs 12 08/04/19 15:08 157.7 Flutter or Skipped Beats; Rapid orSinus Rhythm, Sinus Arrhythmia w/Atrial Run/Artifact 11 08/03/19 08:11 190.5 Auto Trigger Sinus Rhythm w/Run of V-Tach (6 Beats)/Couplet PVCs/PVCs 10 08/02/19 21:54 61.7 Flutter or Skipped Beats Sinus Rhythm w/PACs 9 07/31/19 16:10 113.1 Flutter or Skipped Beats Sinus Arrhythmia, Sinus Rhythm w/Atrial Run/Artifact 8 07/30/19 09:36 128.1 Flutter or Skipped Beats Sinus Tachycardia w/Artifact 7 07/30/19 00:19 72.7 Flutter or Skipped Beats Sinus Rhythm 6 07/26/19 15:13 62.9 Flutter or Skipped Beats Sinus Rhythm w/PVCs (1 in 1 min) 5 07/25/19 19:25 80.1 Flutter or Skipped Beats Sinus Arrhythmia, Sinus Rhythm w/Artifact 4 07/22/19 14:10 66 Flutter or Skipped Beats Sinus Rhythm w/PACs 3 07/21/19 10:11 69 Flutter or Skipped Beats Sinus Rhythm 2 07/19/19 22:24 106.8 Flutter or Skipped Beats Sinus Rhythm w/PVCs (1 in 1 min)/PACs 1 07/19/19 21:29 62.8 Baseline Sinus Rhythm w/Artifact I have personally reviewed and interpreted this study. us Ирина Murray MD [facility] PRO CEDURES Final Result * ECG 12 lead (07/14/2019) us Ирина Murray MD ECG ORDERABLES Edited Result - Final documented in this encounter Visit Diagnoses Diagnosis SVT (supraventricular tachycardia) (HCC) Other specified cardiac dysrhythmias SVT (supraventricular tachycardia) (HCC) Other specified cardiac dysrhythmias documented in this encounter Orders Outpatient Referral Count Last Ordered Date Fir st Ordered Date AMB REFERRAL TO CARDIOLOGY 1 07/14/2019 documented in this encounter Care Teams Head Of Biology Relationship Specialty Start Date End Date Jett Yarbrough MD [address] [facility] [address] [place] [address] PCP - General 09/27/15 documented as of this encounter
--- OUTSIDE RECORDS SUMMARY | 2024-06-01 00:23 | XMS_ITS | Encounter Summary ---
Author Organization [facility] Address [address] [facility] [address] [place] [address] Care Team Providers Care Line Staker Name Role Phone Jett Yarbrough MD Primary Care Provider +1- [phone] Reason for Visit * Reason Comments Follow-up DISCUSS ST Encounter Details Date Type Department Care Team (Late st Contact Info) Description 05/05/2019 4:30 PM WATER SUPERINTENDENT Office Visit [facility] [address] [place] [address] Markus Guerrero MD [address] [address] [facility] [address] [place] [address] Paroxysmal SVT (supraventricular tachycardia) (CMS/HCC) (Primary Dx); Other chest pain Social History Tobacco Use Types Packs/Day Years Used Date Smoking Tobacco: Never Smokeless Tobacco: Never Alcohol Use Standard Drinks/Week Comments No 0 (1 standard drink = 0.6 oz pur e alcohol) Comments Unknown Sex and Gender Information Value Date Recorded Sex Assigned at Not on file Legal Sex Female 7:06 AM WATER SUPERINTENDENT Gender Identity Not on file Sexual Orientation Not on file documented as of this encounter Last Filed Vital Signs Vital Sign Reading Time Taken Comments Blood Pressure 108/76 05/05/2019 4:22 PM WATER SUPERINTENDENT Pulse 72 05/05/2019 4:22 PM WATER SUPERINTENDENT Temperature - - Respiratory Rate - - Oxygen Saturation 99% 05/05/2019 4:22 PM WATER SUPERINTENDENT Inhaled Oxygen Concentration - - Weight 58.1 kg (128 lb) 05/05/2019 4:22 PM WATER SUPERINTENDENT Height 167.6 cm (5' 6 ) 05/05/2019 4:22 PM WATER SUPERINTENDENT Body Mass Index 20.66 05/05/2019 4:22 PM WATER SUPERINTENDENT documented in this encounter Progress Notes * Markus Guerrero MD - 05/05/2019 4:30 PM CST [facility] FOLLOW UP 05/05/2019 Chioma Chu is a 48 y.o. female who presents for follow up of palpitations. This is a patient that I saw in consultation initially in 2016. She was having some very atypical sounding [...] never had a syncopal episode. The patient was seen earlier in the year by me in follow-up of all of this and she was doing well in my opinion she had occasional extrasystoles by history and by 30 day event monitoring but no otherarrhythmias. She was concerned as I mentioned before about her risk for premature coronary disease because of her family history. The patient had a stress echo done again in August which was negative.In fact there were some minor nondiagnostic ST segment changes but no wall motion abnormalities according to the study which was interpreted by Dr. Sanchez. Earlier this week the patient was sent here by her primary care physician for a stress electrocardiogram without imaging because of ongoing sym ptoms. The stress test was this time interpreted by Dr. Steele and because of the ECG abnormalityshe is referred here to see me again today [facility] to discuss these findings. And detailed history shehas 2 different types of chest pain both of which are law highly atypical. She has a dull central deep chest discomfort that is very atypical in the sense that she states that the discomfort is presen t about 90% of every day. Activity or work for anything that his known to aggravate or alleviate this symptom. She also has momentary fleeting episodes of left lateral chest discomfort which occur micah sharp jabbing fashion. After this all very lengthy conversation was had with the patient and her . They are significantly concerned that she might have previously undiagnosed coronary disease and in my opinion the only way to settle this issue reliably is to perform an angiogram. I discussed this in detail with them the nature of the procedure the risks and the details and they would like to proceed. It is reasonable since she is symptomatic and has had 2 stress tests this year with equivocal ECG findings and a family history of prevalent coronary disease. I hope and expect her angiogram to be negative. REVIEW OF SYSTEMS General ROS: negative for [...] exists for component: LABALBU PHYSICAL EXAM Vitals BP 108/76 (BP Location: Right arm, Patient Position: Sitting) Pulse 72 Ht 167.6 cm (5' 6 ) Wt 58.1 kg (128 lb) SpO2 99% BMI 20.66 kg/m?? Physical Examination: General appearance - alert, [...] for this visit: Paroxysmal SVT (supraventricular tachycardia) (CMS/HCC) Other chest pain PLAN/RECOMMENDATIONS My clinical sense is the patient has a low probability of coronary disease with the noninvasive testing that has been done and with her atypical symptoms Having said that the patient her and physicians are obviously concerned that she may have coronary disease and so an angiogram has been offered to her and after detailed explanation of the procedure she would like to proceed and I believe it is reasonable in this setting Markus Guerrero MD R SUPERINTENDENT documented in this encounter Plan of Treatment Not on file documented as of this encounter Visit Diagnoses Diagnosis Paroxysmal SVT (supraventricular tachycardia) (HCC)- Primary Other chest pain documented in this encounter Discontinued Medications Medication Sig Discontinue Reason Start Date End Da te ergocalciferol (VITAMIN D) 50,000 unit capsule TAKE ONE CAPSULE BY MOUTH 3 TIMES WEEKLY Therapy completed 06/29/2018 05/05/2019 documented as of this encounter Historical Medications * This list may reflect changes made after this encounter. LORazepam (ATIVAN) 0.5 mg tablet Take 1 tablet (0.5 mg total) by mouth as needed for anxiety added in this encounter Care Teams Line Staker Relationship Specialty Start Date End Date Jett Yarbrough MD [address] [facility] [address] [place] [address] PCP - General 09/27/15 documented as of this encounter
--- OUTSIDE RECORDS SUMMARY | 2024-06-01 00:23 | XMS_ITS | Encounter Summary ---
Author Organization [facility] Address [address] [place] [address] Phone Care Team Providers Care Cannery Tender Engineer Name Role Phone Jett Yarbrough MD Primary Care Provider +1- [phone] Encounter Details Date Type Department Care Team (Late st Contact Info) Description 05/20/2019 Telephone [facility] Cardiology [facility] 8th [place] [address] [place] [address] Ada Gama Social History Tobacco Use Types Packs/Day Years Used Date Smoking Tobacco: Never Smokeless Tobacco: Never Alcohol Use Standard Drinks/Week Comments No 0 (1 standard drink = 0.6 oz pur e alcohol) Comments Unknown Sex and Gender Information Value Date Recorded Sex Assigned at Not on file Legal Sex Female 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 ADRIÁN Diagnosis/Reason for Appointment: SVT (supraventricular tachycardia Best Contact Number for Patient: [phone] Who: Primary Care Physician: Prim Phone: Referring Physician: Ref Phone: If Referring MD is not PCP, list specialty: Yes No If yes, who, phone, when & where? Have you ever seen a Crate Repairer in an office setting? [x] [] DR. GONZALEZ IN [facility] IF YES: Are you planning on transferring care to a [facility] MD or are you looking for a second opinion onyour current diagnosis? [] 2nd Opinion (Appts will be CX if records not received 48hrs prior to appt) []Transferring Care to Congenital Patients Only Date and location of last echo: Dr. Nataliya Rai Patients OnlyHemodialysis or peritoneal dialysis need referral from MD (DO NOT SCHEDULE) Date and location of last renal ultrasound (with doppler or duplex scan): Date and location of last Abd CT Angiogram or Abd MR Angiogram (looks at adrenal glands or blood flow to kidneys): Date and location of last 24-hour Blood Pressure Monitor: Most recent lab work (BMP, Lipids): Patient History Questions Yes No Where/When/Notes Have you ever been diagnosed with or have you ever undergone treatments for cancer? [] [x] If 'Yes', Schedule first available with Dept: [id number]; Team: Oncology Cardiology If yes, when and where? [] [x] Have you been hospitalized at [facility] within the last 3 years? [] [x] If yes, did you see a Crate Repairer while hospitalized? [] [x] Have you EVER been hospitalized for ANY cardiac issue? [] [x] Have you ever had an EKG? [x] [] 2 WK'S AGO @ [facility] Have you ever had a stress test? [x] [] 05/02/19 @ [facility] Have you ever had an echo? [x] [] 07/2018 @ [facility] Have you ever worn a heart monitor at home? [x] [] 07/[address] PEREZ 30 DAY MONITOR Have you ever had a Cardiac Cath? [x] [] 05/16/19 @ [facility] Have you ever had a Cardiac Surgery (including ablations, cardioversions, CABG, etc.)? [] [x] Have you ever had a sleep study? [] [x] Do you have a device? If yes what type? (Pacemaker, Defibrillator, Implanted Loop Recorder) [] [x] If yes, where and when was device put in? Information Technology Coordinator? ([employer], [employer], [employer]) FEMALE PTS: Were any of the tests/procedures completed under a different (maiden) name? If yes, what was it? Notes: Appointment Date: 07/14/19 Type: ashleev Provider: jose Location: [facility] [x] Confirm appt date, time, provider and location. [x] Advise pt to arrive 15- 20 min early (30 forANA Rai). [x] Advise patient to bring medications/list, photo ID and insurance card [] Advise of New Patient Packet being mailed to them. [] Inform ref MD Office to fax cardiac related records. ING MACHINE SETTER documented in this encounter Plan of Treatment Not on file documented as of this encounter Visit Diagnoses Not on filedocumented in this encounter Care Teams Cannery Tender Engineer Relationship Specialty Start Date End Date Jett Yarbrough MD [address] [facility] [address] [place] [address] PCP - General 09/27/15 documented as of this encounter
--- OUTSIDE RECORDS SUMMARY | 2024-06-01 00:23 | XMS_ITS | Encounter Summary ---
Author Organization [facility] Address [address] [place] [address] Care Team Providers Care Communications Tech Name Role Phone Jett Yarbrough MD Primary Care Provider +1- [phone] Encounter Details Date Type Department Care Team (Late st Contact Info) Description 05/17/2019 Orders Only [facility] [address] [place] [address] Markus Guerrero MD [address] [facility] [facility] [facility] [address] [place], [place] [id number] SVT (supraventricular tachycardia) (CMS/HCC) (Primary Dx) Social History Tobacco Use Types Packs/Day Years Used Date Smoking Tobacco: Never Smokeless Tobacco: Never Alcohol Use Standard Drinks/Week Comments No 0 (1 standard drink = 0.6 oz pur e alcohol) Comments Unknown Sex and Gender Information Value Date Recorded Sex Assigned at Not on file Legal Sex Female 7:06 AM PUBLIC AREA ATTENDANT Gender Identity Not on file Sexual Orientation Not on file documented as of this encounter Plan of Treatment Not on file documented as of this encounter Visit Diagnoses Diagnosis SVT (supraventricular tachycardia) (HCC)- Primary Other specified cardiac dysrhythmias documented in this encounter Care Teams Communications Tech Relationship Specialty Start Date End Date Jett Yarbrough MD [address] [facility] [facility] [address] [place], [place] [id number] PCP - General 09/27/15 documented as of this encounter
--- OUTSIDE RECORDS SUMMARY | 2024-06-01 00:23 | XMS_ITS | Encounter Summary ---
Author Organization 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
--- OUTSIDE RECORDS SUMMARY | 2024-06-01 00:23 | XMS_ITS | Encounter Summary ---
Author Organization [facility] Facility Care Team Providers Care Mileage Clerk Name Role Phone Jett Yarbrough MD Primary Care Provider +1- [phone] Encounter Details Date Type Department Care Team (Latest Contact Info) Description 10/12/2018 Travel Social History Tobacco Use Types Packs/Day Years Used Date Smoking Tobacco: Never Smokeless Tobacco: Never Alcohol Use Standard Drinks/Week Comments No 0 (1 standard drink = 0.6 oz pur e alcohol) Comments Unknown Sex and Gender Information Value Date Recorded Sex Assigned at Not on file Legal Sex Female 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
--- OUTSIDE RECORDS SUMMARY | 2024-06-01 00:23 | XMS_ITS | Encounter Summary ---
Author Organization [facility] Facility Care Team Providers Care Eligibility Services Representative Name Role Phone Jett Yarbrough MD Primary Care Provider +1- [phone] Encounter Details Date Type Department Care Team (Latest Contact Info) Description 07/14/2019 Travel Social History Tobacco Use Types Packs/Day Years Used Date Smoking Tobacco: Never Smokeless Tobacco: Never Alcohol Use Standard Drinks/Week Comments No 0 (1 standard drink = 0.6 oz pur e alcohol) Comments Unknown Sex and Gender Information Value Date Recorded Sex Assigned at Not on file Legal Sex Female 7:06 AM AUTOMOTIVE PARTS SPECIALIST Gender Identity Not on file Sexual Orientation Not on file documented as of this encounter Plan of Treatment Not on file documented as of this encounter Visit Diagnoses Not on filedocumented in this encounter Care Teams Eligibility Services Representative Relationship Specialty Start Date End Date Jett Yarbrough MD [address] [facility] [address] [place] [address] PCP - General 09/27/15 documented as of this encounter
--- OUTSIDE RECORDS SUMMARY | 2024-06-01 00:23 | XMS_ITS | Encounter Summary ---
Author Organization [facility] Address [address] [place] [address] Care Team Providers Care Embroidery Specialist Name Role Phone Jett Yarbrough MD Primary Care Provider +1- [phone] Reason for Referral * Cardiology (Routine) - Closed Specialty Diagnoses / Procedures Referred By Contac t Referred To Contact Cardiology Diagnoses SVT (supraventricular tachycardia) (HCC) Mireya Yin NP Phone: tel: fax: Ирина Murray MD [address] [address] Phone: tel: fax: Referral ID Status Reason Start Date Expiration Date V isits Requested Visits Authorized [id number] Closed Specialty Services Required 05/20/2019 11/28/2020 2 2 Question Answer Please select the performing region: [facility] (All Locations) [167] To provider: ИРИНА MURRAY [[id number]] # of visits: [address] Guerrero referring for SVT. Event monitor report in [employer] for review. Cardiac cath done for chest discomfort negative for CAD 05/16/2019. She is symptomatic with her episodes which are more frequent. Please call her with an appointment UNITY DEVELOPMENT DIRECTOR Encounter Details Date Type Department Care Team (Late st Contact Info) Description 05/20/2019 Orders Only [facility] [address] [facility] [address] [place] [address] Markus Guerrero MD [address] [facility] [address] [place] [address] SVT (supraventricular tachycardia) (CMS/HCC) (Primary Dx) Social History Tobacco Use Types Packs/Day Years Used Date Smoking Tobacco: Never Smokeless Tobacco: Never Alcohol Use Standard Drinks/Week Comments No 0 (1 standard drink = 0.6 oz pur e alcohol) Comments Unknown Sex and Gender Information Value Date Recorded Sex Assigned at Not on file Legal Sex Female 7:06 AM COMMUNITY DEVELOPMENT DIRECTOR Gender Identity Not on file Sexual Orientation Not on file documented as of this encounter Plan of Treatment Scheduled Referrals Name Type Priority Associated Diagnoses Order Schedule Ambulatory referral to Cardiology Outpatient Referral Routine SVT (supraventricular tachycardia) (CMS/HCC) Expected: 06/03/2019 (Approximate), Expires: 05/20/2020 documented as of this encounter Visit Diagnoses Diagnosis SVT (supraventricular tachycardia) (HCC)- Primary Other specified cardiac dysrhythmias documented in this encounter Care Teams Embroidery Specialist Relationship Specialty Start Date End Date Jett Yarbrough MD [address] [place] [address] PCP - General 09/27/15 documented as of this encounter
--- OUTSIDE RECORDS SUMMARY | 2024-06-01 00:23 | XMS_ITS | Encounter Summary ---
Author Organization [facility] Address [address] [place] [address] Care Team Providers Care Pastry Mixer Name Role Phone Jett Yarbrough MD Primary Care Provider +1- [phone] Encounter Details Date Type Department Care Team (Late st Contact Info) Description 08/17/2018 Telephone [facility] [address] [facility] [address] [place] [id number] Markus Guerrero MD [address] [facility] [address] [place] [address] Social History Tobacco Use Types Packs/Day Years Used Date Smoking Tobacco: Never Smokeless Tobacco: Never Alcohol Use Standard Drinks/Week Comments No 0 (1 standard drink = 0.6 oz pur e alcohol) Comments Unknown Sex and Gender Information Value Date Recorded Sex Assigned at Not on file Legal Sex Female 7:06 AM COOLING TOWER TECHNICIAN Gender Identity Not on file Sexual Orientation Not on file documented as of this encounter Miscellaneous Notes * Telephone Encounter - Carol Sparks RN - 08/17/2018 11:51 AM COOLING TOWER TECHNICIAN Spoke with patient and discussed echo and stress test results. ING TOWER TECHNICIAN documented in this encounter Plan of Treatment Not on file documented as of this encounter Visit Diagnoses Not on filedocumented in this encounter Care Teams Pastry Mixer Relationship Specialty Start Date End Date Jett Yarbrough MD [address] [facility] [address] [place] [address] PCP - General 09/27/15 documented as of this encounter
--- OUTSIDE RECORDS SUMMARY | 2024-06-01 00:23 | XMS_ITS | Encounter Summary ---
Author Organization [facility] Address [address] [place] [address] Care Team Providers Care Plant Equipment Engineer Name Role Phone Jett Yarbrough MD Primary Care Provider +1- [phone] Encounter Details Date Type Department Care Team (Late st Contact Info) Description 08/06/2018 Telephone [facility] [address] [facility] [address] [facility] [address] [place] [address] Shanika Gamez NP [address] [place] [address] Social History Tobacco Use Types Packs/Day Years Used Date Smoking Tobacco: Never Smokeless Tobacco: Never Alcohol Use Standard Drinks/Week Comments No 0 (1 standard drink = 0.6 oz pur e alcohol) Comments Unknown Sex and Gender Information Value Date Recorded Sex Assigned at Not on file Legal Sex Female 7:06 AM FINANCIAL INVESTMENT ADVISER Gender Identity Not on file Sexual Orientation Not on file documented as of this encounter Miscellaneous Notes * Telephone Encounter - Carol Sparks RN - 08/06/2018 11:20 AM FINANCIAL INVESTMENT ADVISER Spoke with patient and scheduled stress test for 08/16/18. Instructions given to patient. NCIAL INVESTMENT ADVISER * Telephone Encounter - Carol Sparks RN - 08/06/2018 11:20 AM FINANCIAL INVESTMENT ADVISER ----- Message from Shanika Gamez NP sent at 08/05/2018 4:01 PM FINANCIAL INVESTMENT ADVISER ----- Regarding: scheduling stress test I saw her in the office yesterday after an episode of SVT, and we discussed stress testing. Please let her know I talked to Dr. Guerrero and he recommends an exercise stress echo for her. Maybe we could schedule it the same day as her 2D echo?? Thanks. NCIAL INVESTMENT ADVISER documented in this encounter Plan of Treatment Not on file documented as of this encounter Visit Diagnoses Not on filedocumented in this encounter Care Teams Plant Equipment Engineer Relationship Specialty Start Date End Date Jett Yarbrough MD [address] [address] PCP - General 09/27/15 documented as of this encounter
--- OUTSIDE RECORDS SUMMARY | 2024-06-01 00:23 | XMS_ITS | Encounter Summary ---
Author Organization [facility] Address [address] [place] [address] Care Team Providers Care Senior C Developer Name Role Phone Jett Yarbrough MD Primary Care Provider +1- [phone] Reason for Visit * Reason Comments Follow-up fu psvt, palps, lipi demia, h/o graves disease Encounter Details Date Type Department Care Team (Late st Contact Info) Description 10/12/2018 2:15 PM CDT Office Visit [facility] [address] [place] [address] Markus Guerrero MD [address] [place] [address] [address] [address] Paroxysmal SVT (supraventricular tachycardia) (CMS/HCC) (Primary Dx) Social History Tobacco Use Types Packs/Day Years Used Date Smoking Tobacco: Never Smokeless Tobacco: Never Alcohol Use Standard Drinks/Week Comments No 0 (1 standard drink = 0.6 oz pur e alcohol) Comments Unknown Sex and Gender Information Value Date Recorded Sex Assigned at Not on file Legal Sex Female 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 Gender Identity Not on file Sexual Orientation Not on file documented as of this encounter Last Filed Vital Signs Vital Sign Reading Time Taken Comments Blood Pressure 108/64 10/12/2018 2:17 PM CDT Pulse 77 10/12/2018 2:17 PM CDT Temperature - - Respiratory Rate - - Oxygen Saturation 98% 10/12/2018 2:17 PM CDT Inhaled Oxygen Concentration - - Weight 59 kg (130 lb) 10/12/2018 2:17 PM CDT Height 167.6 cm (5' 6 ) 10/12/2018 2:17 PM CDT Body Mass Index 20.98 10/12/2018 2:17 PM CDT documented in this encounter Progress Notes * Markus Guerrero MD - 10/12/2018 2:15 PM CDT [facility] FOLLOW UP 10/12/2018 Chioma Chu is a 47 y.o. female who presents for follow up [...] since the episodes are brief and self limitedat this point the decision was made to not institute any medical treatment for this at with as was her preference. She presents for follow-up today for further discussion of this she looks and feels well she is having occasional brief unpredictable episodes of palpitations that are self-limited andare not associated with any significant hemodynamic symptoms she has never had a syncopal episode. Since her last appointment with me the patient was seen by the nurse practitioner in had a variety of symptoms related to her cardiac rhythm that she was concerned about she had a 30 day event monitor performed which showed some PVCs but no other arrhythmias specifically there was no SVT or atrial f ibrillation identified. She had a stress echocardiogram done in the part august of this year which was normal. According to the note that she was expressing concern about risk of premature coronary disease because this is present in a couple of family members. Had a lengthy detailed discussion with this patient about the findings of her 30 day event monitor on her stress test. It sounds like right now she is just noticing occasional extrasystoles which correspond with the sort of PVCs that were seen on her monitor. There she had no other arrhythmias that would be of any concern and her stress test would seem to effectively rule out significant coronary artery disease. REVIEW OF SYSTEMS General ROS: negative for [...] (palpitations)., Disp: 20 tablet, Rfl: 3 ??? ergocalciferol (VITAMIN D) 50,000 unit capsule, TAKE ONE CAPSULE BY MOUTH 3 TIMES WEEKLY, Disp:, Rfl: 0 ??? omeprazole (PriLOSEC) 20 mg capsule, Take [...] for component: LABALBU PHYSICAL EXAM Vitals BP 108/64 (BP Location: Left arm, Patient Position: Sitting) Pulse 77 Ht 167.6 cm (5' 6 ) Wt 59 kg (130 lb) SpO2 98% BMI 20.98 kg/m?? Physical Examination: General appearance - alert, [...] this visit: Paroxysmal SVT (supraventricular tachycardia) (CMS/HCC) PLAN/RECOMMENDATIONS As I mentioned in my previous notes I will not recommend specific treatment of her cardiac rhythm at this time since things appear to be stable and she is having nothing more than occasional to sometimes frequent PVCs. The patient continues to have concerns enough about her cardiac status where she would like to haveannual follow-up visits and I told her that was fine. Markus Guerrero MD documented in this encounter Plan of Treatment Not on file documented as of this encounter Visit Diagnoses Diagnosis Paroxysmal SVT (supraventricular tachycardia) (HCC)- Primary documented in this encounter Care Teams Senior C Developer Relationship Specialty Start Date End Date Jett Yarbrough MD [address] [facility] [address] [place] [address] PCP - General 09/27/15 documented as of this encounter
--- OUTSIDE RECORDS SUMMARY | 2024-06-01 00:23 | XMS_ITS | Encounter Summary ---
Author Organization [facility] Medical Group Address [address] [place] [address] Care Team Providers Care Risk Investigator Name Role Phone Jett Yarbrough MD Primary Care Provider [phone]- [phone] Reason for Visit * Diagnostic Imaging (Routine) - Closed Specialty Diagnoses / Procedures Referred By Contac t Referred To Contact Cardiology Imaging Diagnoses Paroxysmal SVT (supraventricular tachycardia) (HCC) Procedures Transthoracic Echo Complete W Doppler/CF Alexi Almeida NP Phone: tel: fax: [facility] Cardiology [address] [facility] [address] [place] [phone] Phone: tel: fax: Referral ID Status Reason Start Date Expiration Date Visits Re quested Visits Authorized [id number] Closed 08/06/2018 09/04/2018 1 1 Encounter Details Date Type Department Care Team (Latest Contact Info) Description 08/13/2018 11:15 AM SUPERVISOR STENO POOL Ancillary Procedure [facility] Cardiology [address] [place] [phone] Paroxysmal SVT (supraventricular tachycardia) (CMS/HCC) Social History Tobacco Use Types Packs/Day Years Used Date Smoking Tobacco: Never Smokeless Tobacco: Never Alcohol Use Standard Drinks/Week Comments No 0 (1 standard drink = 0.6 oz pur e alcohol) Comments Unknown Sex and Gender Information Value Date Recorded Sex Assigned at Not on file Legal Sex Female 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 STENO POOL Gender Identity Not on file Sexual Orientation Not on file documented as of this encounter Last Filed Vital Signs Vital Sign Reading Time Taken Comments Blood Pressure - - Pulse - - Temperature - - Respiratory Rate - - Oxygen Saturation - - Inhaled Oxygen Concentration - - Weight 59.9 kg (132 lb) 08/13/2018 11:27 AM SUPERVISOR STENO POOL Height 167.6 cm (5' 6 ) 08/13/2018 11:27 AM SUPERVISOR STENO POOL Body Mass Index 21.31 08/13/2018 11:27 AM SUPERVISOR STENO POOL documented in this encounter Plan of Treatment Not on file documented as of this encounter Procedures Procedure Name Priority Date/Time Associated Diagnosis Comments TRANSTHORACIC ECHO (TTE) COMPLETE W DOPPLER/CF WO CONTRAST Routine 08/13/2018 12:38 PM SUPERVISOR STENO POOL Paroxysmal SVT (supraventricular tachycardia) (CMS/HCC) documented in this encounter Results * TRANSTHORACIC ECHO (TTE) COMPLETE W DOPPLER/CF WO CONTRAST (08/13/2018 12:38 PM SUPERVISOR STENO POOL) Anatomical Region Laterality Modality Ultrasound 08/13/2018 10:3 6 AM SUPERVISOR STENO POOL Narrative 08/13/2018 5:22 PM SUPERVISOR STENO POOL [facility] [address] [facility] [address] [address] [address] [facility] [address], [place] [address] P:[phone] P:[phone] Echocardiographic Report Patient Name: CHIOMA CHU : [birth year] Study Date: 08/13/2018 10:36:04 AM Gender: F Tech: Location: [place] Ref.Provider: CASPER Height(Cm): 168 BSA: 1.68 Weight(Kg): 59.88 Heart Rate: 72 BP: 108/71 Quality: Good Order Provider: ALEXI ALMEIDA Procedures: Echocardiographic Report: Transthoracic echocardiogram with complete 2D, M-Mode, and color Doppler examination. Indications: PSVT. Measurements: 2D/M Mode ?Doppler ? Measurement ?Value ?Normal Range ? Measurement ?Value ?Normal Range ? EF Mod ? 68 ?AV Mean PG ? 2 ?mmHg ? EF MM ?71 ? [ 55 - 70 ] % ?AV Peak Darian ?1.07 ? m/s ? LVIDd MM ? 4.93 ? [ 3.90 - 5.30 ] cm ? AV Peak PG ? 5 ?mmHg ? LVIDs MM ? 2.93 ? [ 2.30 - 3.90 ] cm ? AV VTI ? 0.20 ? cm ? LVPWd MM ? 0.80 ? [ 0.60 - 1.00 ] cm ? LVOT Peak Darian ?0.94 ? [ 0.70 - 1.10 ] m/s ? IVSd MM ?1.07 ? [ 0.60 - 0.90 ] cm ? LVOT VTI ? 0.20 ? cm ? LA Dimension MM ?2.93 ? [ 2.70 - 3.80 ] cm ? MV E Peak Darian ?0.75 ? [ 0.60 - 1.30 ] m/s ? AoR Diam MM ?3.47 ? [ 2.60 - 3.70 ] cm ? MV A Peak Darian ?0.58 ? [ 0.40 - 0.80 ] m/s ? LA Volume Index ?22.00 ?[ 16.00 - 28.00 ] cc/m2 ?MV Decel Time ?240 ?[ 150 - 200 ] msec ? ACS MM ? 2.13 ? cm ? PV Peak Darian ?0.66 ? [ 0.40 - 0.80 ] m/s ? TR Peak Darian ?2.02 ? [ 0.40 - 0.80 ] m/s ? TR Peak PG ? 16 ? mmHg ? RVSP ? 24.00 ?mmHg ? E' ? 0.15 ? E/E' ? 5 ? Findings: Interpretation Site: Exam was interpreted at [facility]. Left Ventricle: Normal left ventricular size. Mild concentric left ventricular hypertrophy. Normal global left ventricular systolic function. Normal left ventricular diastolic function. Ejection fraction is visually estimated at 60-65 %. Ejection fraction is measured at 68 %. These segments of the LV are hypokinetic: inferior segment. Right Ventricle: Normal right ventricular size. Normal right ventricular systolic function. Left Atrium: There is mild enlargement of left atrium. Right Atrium: The right atrium is normal in size. Atrial Septum: Normal atrial septum. Mitral Valve: Mitral valve leaflets appear mildly thickened. Mild mitral valve prolapse involving the anterior mitral leaflet. Trivial regurgitation of the mitral valve. There is no hemodynamically significant mitral stenosis by Doppler. Aortic Valve: Normal appearance of the aortic valve. No evidence of hemodynamically significant aortic stenosis by Doppler. Trileaflet aortic valve. Trace aortic valve regurgitation. Tricuspid Valve: Normal appearance of the tricuspid valve. Normal right ventricular systolic pressure. Estimated peak RVSP is 24 mmHg. Mild tricuspid regurgitation. Pulmonic Valve: Normal appearance of the pulmonic valve. No pulmonic stenosis. Trivial regurgitation in the pulmonic valve. Pericardium: Normal pericardium with no significant pericardial effusion. Aorta: The aortic root is borderline dilated. IVC: Normal size and no respiratory collapse consistent with elevated right atrial pressure (5-10 mmHg). Conclusions: Normal left ventricular size. Mild concentric left ventricular hypertrophy. Normal global left ventricular systolic function. Normal left ventricular diastolic function. Ejection fraction is visually estimated at 60-65 %. Ejection fraction is measured at 68 %. These segments of the LV are hypokinetic: inferior segment. There is mild enlargement of left atrium. Mitral valve leaflets appear mildly thickened. Mild mitral valve prolapse involving the anterior mitral leaflet. Trivial regurgitation of the mitral valve. Mild tricuspid regurgitation. Normal sinus rhythm. Electronically Signed By: Norman Cr MD 2018-08-13 17:22:48 SUPERVISOR STENO POOL Procedure Note Norman Cr MD - 08/13/2018 [facility] [employer] [facility] [address] [address] [address] [facility] [address] [place], [place] [address] P:[phone] P:[phone] Echocardiographic Report Patient Name: CHIOMA CHUPatient ID: [id number] : [id number] Date: 08/13/2018 10:36:04 AM Gender: FAccession #: [id number] Tech: GMLocation: [place] Ref.Provider: Rachelight(Cm): 168 BSA: 1.68Weight(Kg): 59.88 Heart Rate: 72BP: 108/71 Quality: GoodOrder Provider: ALEXI ALMEIDA Procedures: Echocardiographic Report: Transthoracic echocardiogram with complete 2D, M-Mode, and color Dopplerexamination. Indications: PSVT. Measurements: 2D/M Mode Doppler Measurement Value Normal Range MeasurementValue Normal Range EF Mod 68 AV Mean PG 2mmHg EF MM 71 [ 55 - 70 ] % AV Peak Vel1.07 m/s LVIDd MM 4.93 [ 3.90 - 5.30 ] cm AV Peak PG 5mmHg LVIDs MM 2.93 [ 2.30 - 3.90 ] cm AV VTI0.20 cm LVPWd MM 0.80 [ 0.60 - 1.00 ] cm LVOT Peak Vel0.94 [ 0.70 - 1.10 ] m/s IVSd MM 1.07 [ 0.60 - 0.90 ] cm LVOT VTI0.20 cm LA Dimension MM 2.93 [ 2.70 - 3.80 ] cm MV E Peak Vel0.75 [ 0.60 - 1.30 ] m/s AoR Diam MM 3.47 [ 2.60 - 3.70 ] cm MV A Peak Vel0.58 [ 0.40 - 0.80 ] m/s LA Volume Index 22.00 [ 16.00 - 28.00 ] cc/m2 MV Decel [id number] [ 150 - 200 ] msec ACS MM 2.13 cm PV Peak Vel0.66 [ 0.40 - 0.80 ] m/s TR Peak Vel2.02 [ 0.40 - 0.80 ] m/s TR Peak PG 16mmHg RVSP24.00 mmHg E'0.15 E/E' 5 Findings: Interpretation Site: Exam was interpreted at [facility]. Left Ventricle: Normal left ventricular size. Mild concentric left ventricularhypertrophy. Normal global left ventricular systolic function. Normal left ventricular diastolicfunction. Ejection fraction is visually estimated at 60-65 %. Ejection fraction is measuredat 68 %. These segments of the LV are hypokinetic: inferior segment. Right Ventricle: Normal right ventricular size. Normal right ventricular systolicfunction. Left Atrium: There is mild enlargement of left atrium. Right Atrium: The right atrium is normal in size. Atrial Septum: Normal atrial septum. Mitral Valve: Mitral valve leaflets appear mildly thickened. Mild mitral valve prolapseinvolving the anterior mitral leaflet. Trivial regurgitation of the mitral valve. Thereis no hemodynamically significant mitral stenosis by Doppler. Aortic Valve: Normal appearance of the aortic valve. No evidence of hemodynamicallysignificant aortic stenosis by Doppler. Trileaflet aortic valve. Trace aortic valveregurgitation. Tricuspid Valve: Normal appearance of the tricuspid valve. Normal right ventricularsystolic pressure. Estimated peak RVSP is 24 mmHg. Mild tricuspid regurgitation. Pulmonic Valve: Normal appearance of the pulmonic valve. No pulmonic stenosis. Trivialregurgitation in the pulmonic valve. Pericardium: Normal pericardium with no significant pericardial effusion. Aorta: The aortic root is borderline dilated. IVC: Normal size and no respiratory collapse consistent with elevated rightatrial pressure (5-10 mmHg). Conclusions: Normal left ventricular size. Mild concentric left ventricularhypertrophy. Normal global left ventricular systolic function. Normal left ventricular diastolicfunction. Ejection fraction is visually estimated at 60-65 %. Ejection fraction is measuredat 68 %. These segments of the LV are hypokinetic: inferior segment. There is mild enlargement of left atrium. Mitral valve leaflets appear mildly thickened. Mild mitral valve prolapseinvolving the anterior mitral leaflet. Trivial regurgitation of the mitral valve. Mild tricuspid regurgitation. Normal sinus rhythm. Electronically Signed By: Norman Cr MD 2018-08-13 17:22:48 SUPERVISOR STENO POOL Alexi Almeida NP CV ECHO PROCEDURES Final Result documented in this encounter Visit Diagnoses Diagnosis Paroxysmal SVT (supraventricular tachycardia) (HCC) documented in this encounter Care Teams Risk Investigator Relationship Specialty Start Date End Date Jett Yarbrough MD [address] [facility] [address] [place] [address] PCP - General 09/27/15 documented as of this encounter
--- OUTSIDE RECORDS SUMMARY | 2024-06-01 00:23 | XMS_ITS | Encounter Summary ---
Author Organization [facility] Care Team Providers Care Fleet Manager Name Role Phone Jett Yarbrough MD Primary Care Provider +1- [phone] Encounter Details Date Type Department Care Team (Latest Contact Info) Description 05/02/2019 Travel Social History Tobacco Use Types Packs/Day Years Used Date Smoking Tobacco: Never Smokeless Tobacco: Never Alcohol Use Standard Drinks/Week Comments No 0 (1 standard drink = 0.6 oz pur e alcohol) Comments Unknown Sex and Gender Information Value Date Recorded Sex Assigned at Not on file Legal Sex Female 7:06 AM ROADABILITY MACHINE OPERATOR Gender Identity Not on file Sexual Orientation Not on file documented as of this encounter Plan of Treatment Not on file documented as of this encounter Visit Diagnoses Not on filedocumented in this encounter Care Teams Fleet Manager Relationship Specialty Start Date End Date Jett Yabrrough MD [address] [facility] [address] [place] [address] PCP - General 09/27/15 documented as of this encounter
--- OUTSIDE RECORDS SUMMARY | 2024-06-01 00:23 | XMS_ITS | Encounter Summary ---
Author Organization [facility] Address [address] [place] [address] Phone Care Team Providers Care Industrial Coffee Grinder Name Role Phone Jett Yarbrough MD Primary Care Provider +1- [phone] Reason for Visit * (Routine) - Closed Specialty Diagnoses / Procedures Referred By Contac t Referred To Contact Diagnoses SVT (supraventricular tachycardia) ([facility]) Procedures MCT Mobile Cardiac Telemetry Event Monitor Ирина Murray MD Phone: tel: fax: [facility] Referral ID Status Reason Start Date Expiration Date Visits Re quested Visits Authorized [id number] Closed 07/14/2019 01/22/2021 1 1 Encounter Details Date Type Department Care Team (Latest Contact Info) Description 07/14/2019 11:30 AM AIRCRAFT CYLINDER MECHANIC Ancillary Procedure [facility] [address] [facility] [facility] [address] [facility] [address] [place] [phone] Ирина Murray MD [address] [address] SVT (supraventricular tachycardia) ([facility]/HCC) Social History Tobacco Use Types Packs/Day Years Used Date Smoking Tobacco: Never Smokeless Tobacco: Never Alcohol Use Standard Drinks/Week Comments No 0 (1 standard drink = 0.6 oz pur e alcohol) Comments Unknown Sex and Gender Information Value Date Recorded Sex Assigned at Not on file Legal Sex Female 7:06 AM AIRCRAFT CYLINDER MECHANIC Gender Identity Not on file Sexual Orientation Not on file documented as of this encounter Plan of Treatment Not on file documented as of this encounter Procedures Procedure Name Priority Date/Time Associated Diagnosis Comments MCT - MOBILE CARDIAC TELEMETRY EVENT MONITOR Routine 07/14/2019 11:37 AM AIRCRAFT CYLINDER MECHANIC SVT (supraventricular tachycardia) (CMS/HCC) documented in this encounter Results * MCT Mobile Cardiac Telemetry Event Monitor (07/14/2019 11:37 AM AIRCRAFT CYLINDER MECHANIC) Anatomical Region Laterality Modality Electrocardiogra phy 07/14/2019 11:3 0 AM AIRCRAFT CYLINDER MECHANIC Narrative 08/22/2019 6:04 PM CDT Patient name: Chioma Chu Date of test: 07/14/2019 Type of Test: Event Monitor ([facility]) [facility] #: [id number] ?Location: [facility] : 1970 ??Age: 48 ??Sex: F Ref Physician(s): ИРИНА MURRAY MD Interpreted by: Patty Garcia MD [employer] Tech: [employer] Monitoring Service Diagnosis: Monitoring Service: [employer] Reason for Test: I47.1: Supraventricular tachycardia Monitor Used: [facility] (MCT) ??mail out Enrollment Period: Jul 19 - Aug 17, 2019 [employer] comments: Patient Instructions: Patient support person included in instructions Number of Transmissions Sent During Enrollment Period: 17 To obtain transmission tracing contact: [facility] ??[phone] Rhythm Summary: Bradycardia avg rate: 57 Bradycardia [...] test: 07/14/2019 Type of Test: Event Monitor ([facility]) [facility] #: [id number] Location: [facility] : 1970 Age: 48 Sex: F Ref Physician(s): ИРИНА MURRAY MD Interpreted by: Patty Garcia MD [employer] Tech: [employer] Monitoring Service Diagnosis: Monitoring Service: [employer] Reason for Test: I47.1: Supraventricular tachycardia Monitor Used: [facility] (MCT) mail out Enrollment Period: Jul 19 - Aug 17, 2019 [employer] comments: Patient Instructions: Patient support person included in instructions Number of Transmissions Sent During Enrollment Period: 17 To obtain transmission tracing contact: [facility] [phone] Rhythm Summary: Bradycardia avg rate: 57 Bradycardia [...] Transmitted Events: # Date Time HR Symptoms/Rhythm 08/16/19 17:03 69.3 Flutter or Skipped Beats Sinus Rhythm w/Couplet PACs/Artifact 08/11/19 17:08 67.9 Flutter or Skipped Beats Sinus Rhythm w/Couplet PVCs/PVCs (2 in 1 min)/Atrial Run 08/10/19 19:44 151.9 Rapid or Fast Heartbeat; Flutter oSinus Rhythm w/Atrial Run 08/09/19 15:21 80.1 Rapid or Fast Heartbeat [...] dysrhythmias documented in this encounter Care Teams Industrial Coffee Grinder Relationship Specialty Start Date End Date Jett Yarbrough MD [address] [facility] [address] [place] [id number] PCP - General 09/27/15 documented as of this encounter
--- OUTSIDE RECORDS SUMMARY | 2024-06-01 00:23 | XMS_ITS | Encounter Summary ---
Author Organization [facility] Medical Group Address [address] [place] [address] Care Team Providers Care Refueling Ramp Supervisor Name Role Phone Jett Yarbrough MD Primary Care Provider +1- [phone] Encounter Details Date Type Department Care Team (Late st Contact Info) Description 09/15/2018 Telephone [facility] [address] [address] Shanika Gamez NP [address] [address] Social History Tobacco Use Types Packs/Day Years Used Date Smoking Tobacco: Never Smokeless Tobacco: Never Alcohol Use Standard Drinks/Week Comments No 0 (1 standard drink = 0.6 oz pur e alcohol) Comments Unknown Sex and Gender Information Value Date Recorded Sex Assigned at Not on file Legal Sex Female 7:06 AM LABOR 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 Copy of results faxed to her per request at number [phone] * Telephone Encounter - Candelaria Ontiveros - 09/15/2018 1:24 PM CDT PT CALLED REQUESTING EVENT MONITOR RESULTS. PT CB [phone] documented in this encounter Plan of Treatment Not on file documented as of this encounter Visit Diagnoses Not on filedocumented in this encounter Care Teams Refueling Ramp Supervisor Relationship Specialty Start Date End Date Jett Yarbrough MD [address] [facility] [address] [place] [id number] PCP - General 09/27/15 documented as of this encounter
--- OUTSIDE RECORDS SUMMARY | 2024-06-01 00:23 | XMS_ITS | Encounter Summary ---
Author Organization [facility] Address [address] [place] [address] Phone Care Team Providers Care Flat Grinder Operator Name Role Phone Jett Yarbrough MD Primary Care Provider +1- [phone] Encounter Details Date Type Department Care Team (Late st Contact Info) Description 06/28/2019 Telephone [facility] Cardiology [address] [facility] 8[address] [place] [address] [place] [phone] Dale Thibodeaux MD [address] [facility] [address] [place], [place] [id number] Social History Tobacco Use Types Packs/Day Years Used Date Smoking Tobacco: Never Smokeless Tobacco: Never Alcohol Use Standard Drinks/Week Comments No 0 (1 standard drink = 0.6 oz pur e alcohol) Comments Unknown Sex and Gender Information Value Date Recorded Sex Assigned at Not on file Legal Sex Female 7:06 AM DISK RECORDIST Gender Identity Not on file Sexual Orientation Not on file documented as of this encounter Miscellaneous Notes * Telephone Encounter - Sundeep Rogers - 06/28/2019 3:11 PM CST Spoke w/ pt and made aware that paperwork comes from [employer] and comes closer to appt date RECORDIST * Telephone Encounter - Anusha Mtz RN - 06/28/2019 12:25 PM CST Can you help please with the paperwork? RECORDIST * Telephone Encounter - Patty Mcgarry BS - 06/28/2019 11:29 AM CST TERRI PT CALLING TO SAY THAT SHE HAS NOT GOTTEN HER NEW PT PAPERWORK. RECORDIST documented in this encounter Plan of Treatment Not on file documented as of this encounter Visit Diagnoses Not on filedocumented in this encounter Care Teams Flat Grinder Operator Relationship Specialty Start Date End Date Jett Yarbrough MD [address] [address] PCP - General 09/27/15 documented as of this encounter
--- OUTSIDE RECORDS SUMMARY | 2024-06-01 00:23 | XMS_ITS | Encounter Summary ---
Author Organization [facility] Address [address] [place] [address] Care Team Providers Care Residential Sales Associate Name Role Phone Jett Yarbrough MD Primary Care Provider +1- [phone] Reason for Referral * (Routine) - Closed Specialty Diagnoses / Procedures Referred By Contac t Referred To Contact Diagnoses Paroxysmal SVT (supraventricular tachycardia) (HCC) Procedures Event Monitor, 30 Day Event Alexi Almeida NP Phone: tel: fax: [facility] Medical [facility] Referral ID Status Reason Start Date Expiration Date Visits Re quested Visits Authorized [id number] Closed 08/04/2018 02/13/2020 1 1 R CONTRACTOR * Diagnostic Imaging (Routine) - Closed Specialty Diagnoses / Procedures Referred By Contac t Referred To Contact Cardiology Imaging Diagnoses Paroxysmal SVT (supraventricular tachycardia) (HCC) Procedures Transthoracic Echo Complete W Doppler/CF Alexi Almeida NP Phone: tel: fax: [facility] Cardiology [address] [place] [address] Phone: tel: fax: Referral ID Status Reason Start Date Expiration Date Visits Re quested Visits Authorized [id number] Closed 08/06/2018 09/04/2018 1 1 R CONTRACTOR Reason for Visit * Reason Comments Follow-up Encounter Details Date Type Department Care Team (Late st Contact Info) Description 08/04/2018 3:00 PM SEWER CONTRACTOR Office Visit [facility] [address] [place] [address] [place] [id number] Alexi Almeida NP [address] [address] Paroxysmal SVT (supraventricular tachycardia) (CMS/HCC); Palpitations; History of Graves' disease; Family history of heart disease; Dyslipidemia; Lipid screening Social History Tobacco Use Types Packs/Day Years Used Date Smoking Tobacco: Never Smokeless Tobacco: Never Alcohol Use Standard Drinks/Week Comments No 0 (1 standard drink = 0.6 oz pur e alcohol) Comments Unknown Sex and Gender Information Value Date Recorded Sex Assigned at Not on file Legal Sex Female 7:06 AM SEWER CONTRACTOR Gender Identity Not on file Sexual Orientation Not on file documented as of this encounter Last Filed Vital Signs Vital Sign Reading Time Taken Comments Blood Pressure 122/82 08/04/2018 3:09 PM SEWER CONTRACTOR Pulse 67 08/04/2018 3:09 PM SEWER CONTRACTOR Temperature - - Respiratory Rate 18 08/04/2018 3:09 PM SEWER CONTRACTOR Oxygen Saturation - - Inhaled Oxygen Concentration - - Weight 59.9 kg (132 lb) 08/04/2018 3:09 PM SEWER CONTRACTOR Height 167.6 cm (5' 6 ) 08/04/2018 3:09 PM SEWER CONTRACTOR Body Mass Index 21.31 08/04/2018 3:09 PM SEWER CONTRACTOR documented in this encounter Ordered Prescriptions Prescription Sig Dispense Quantity Refills Last Filled Start Date End Date dilTIAZem (CARDIZEM) 60 mg tabletIndications:Paro xysmal Supraventricular Tachycardia Take 1 tablet (60 mg total) by mouth 4 (four) times a day as needed (palpitation s). 20 tablet 3 08/04/2018 0 atorvastatin (LIPITOR) 40 mg tabletIndications:Dysl ipidemia Take 1 tablet (40 mg total) by mouth daily. 30 tablet 11 08/04/2018 0 documented in this encounter Progress Notes * Alexi Almeida NP - 08/04/2018 3:00 PM CST [facility] Date of Visit: 08/04/2018 Patient ID: Chioma Chu 1970 Chief Complaint: Chioma Chu is a 47 y.o. female who is an established patient of Dr. Guerrero here to discuss an episode of palpitations that occurred last night. History of Present Illness: Office visit with Dr. Guerrero 04/22/2018: Chioma Chu is a 47 y.o. female who presents for follow up of palpitations. This is a patient that I saw in consultation initially in 2017. She was having some very atypical sounding chest pain and did not have any other cardiac problems. She is known to have some palpitations and wore a Holter monitor that demonstrated some infrequent episodes ofSVT. She was seen in the office a couple of months ago for further evaluation/discussion of this since the episodes are brief and self limited at this point the decision was made to not institute anymedical treatment for this at with as was her preference. She presents for follow-up today for further discussion of this she looks and feels well she is having occasional brief unpredictable episodes of palpitations that are self-limited and are not associated with any significant hemodynamic symptoms she has never had a syncopal episode. Office visit with CLINICAL CARE COORDINATOR 08/04/2018: Patient reports that yesterday she ???felt off?? and was mildly nauseated, so she went to bed early, then woke up from sleep in the middle the night with a tight sensation in her throat and feeling her pulse pounding in her neck, she checked her heart rate on the appt on her phone and it was 105-180 b.p.m., primarily 135-150 b.p.m.. Episode lasted about 1 hr. Shetried bearing down and tried walking outside in the cold air, but she could not break the palpitations. She did not call EMS because she was home alone with her young children (her was of [facility]). Prior to this, she states she has been in her usual state of health. However, since the last appo intment, she found out from her paper coating machine operator that she had Graves disease but was currently in remission and she was euthyroid at the time. She also sought the care of an ENT for or hoarse voice and swollen throat, the scope showed esophageal irritation and she was started on omeprazole. She is concerned about her risk of premature heart disease, stating that her father had a stroke at age 39, had heart valve surgery, and at age 64 intraoperatively while he was attempting to have an ascending aortic aneurysm repair; paternal grandfather had fatal NV at age 70 to, paternal uncle has mitral valve problems. She also states both her father and her grandfather had a heart abnormality where ???they only had 2 when you are supposed to have 3?? and I can't discern whether she is referringto bicuspid aortic valve or anomalous coronary arteries. POC lipid panel in the office today: TC 291, TG 94, LDL 218, HDL 54. 12-lead ECG performed in the office today was reviewed by me personally and shows sinus rhythm, normal axis and normal intervals, rate 67 b.p.m. Records that I personally reviewed on the day of this visit include: (the interpretation is outlined in the HPI above) 03/09/2018 office note from myself, 04/22/[address] Guerrero, today's POC lipid panel results and 12 lead ECG, echocardiogram report from September 2015, stress test report from September 2016. I have also reviewed: allergies, current medications, past family history, past medical history, past social history, past surgical history and problem list Review of Systems Constitution: Positive for malaise/fatigue and weight loss. Negative for diaphoresis, fever and weight gain. HENT: Negative for hearing loss. Eyes: Positive for blurred vision. Negative for visual disturbance. Cardiovascular: Positive for chest pain. Negative for claudication, dyspnea on exertion, leg swelling, orthopnea, palpitations, paroxysmal nocturnal dyspnea and syncope. Respiratory: Negative for cough, hemoptysis, shortness of breath, snoring and wheezing. Hematologic/Lymphatic: Does not bruise/bleed easily. Skin: Negative for poor wound healing and rash. No easy bruising. No bleeding problems. Musculoskeletal: Negative for joint pain and myalgias. Gastrointestinal: Positive for nausea and vomiting. Negative for heartburn. Acid reflux Genitourinary: Negative for hematuria. Neurological: Negative for dizziness, headaches and light-headedness. Psychiatric/Behavioral: Negative for depression. The patient is not nervous/anxious. Vital Signs: BP 122/82 (BP Location: Right arm, Patient Position: Sitting) Pulse 67 Resp 18 Ht 167.6 cm (5' 6 ) Wt 59.9 kg (132 lb) BMI 21.31 kg/m?? Physical Exam Constitutional: She is oriented to person, place, and time. She appears well- developed and well-nourished. No distress. HENT: Head: Normocephalic and atraumatic. Nose: Nose normal. Mouth/Throat: Mucous membranes are normal. Eyes: Pupils are equal, round, and reactive to light. Conjunctivae and EOM are normal. No scleral icterus. Neck: Normal range of motion. No JVD present. No tracheal deviation present. Cardiovascular: Normal rate, regular rhythm and normal heart sounds. No murmur heard. Pulmonary/Chest: Effort normal and breath sounds normal. No respiratory distress. Abdominal: Soft. Bowel sounds are normal. There is no tenderness. Musculoskeletal: Normal range of motion. She exhibits no edema. Neurological: She is alert and oriented to person, place, and time. Skin: Skin is warm and dry. Psychiatric: She has a normal mood and affect. Tearful No Known Allergies Current Outpatient Prescriptions: ??? ondansetron (ZOFRAN) 4 mg tablet, TAKE 2 TABLETS BY MOUTH EVERY 8 HOURS FOR as needed, Disp: , Rfl: 0 ??? atorvastatin (LIPITOR) 40 mg tablet, Take [...] daily before breakfast., Disp: , Rfl: 3 Assessment: Diagnoses and all orders for this visit: Paroxysmal SVT (supraventricular tachycardia) (CMS/HCC) - Basic metabolic panel; Future - TSH reflex to free T4; Future - Transthoracic Echo Complete W Doppler/CF; Future - dilTIAZem (CARDIZEM) 60 mg tablet; Take 1 tablet (60 mg total) by mouth 4 (four) times a day as needed (palpitations). - Event Monitor, 30 Day Event; Future Palpitations History of Graves' disease Family history of heart disease Dyslipidemia - atorvastatin (LIPITOR) 40 mg tablet; Take 1 tablet (40 mg total) by mouth daily. Lipid screening - POCT lipid panel Plan/Recommendations: She most likely had an episode of SVT last night. She was not able to break it with vagal maneuver.She is visibly shaken by this episode, and this has triggered further concerned about her family history of heart disease and she wishes further evaluation of her cardiac status. I will begin by sending her for lab work to check her thyroid hormone levels and check her electrolytes. A previous episode of SVT occurred in the setting of hypokalemia. Up to this point, her episodes of SVT have been infrequent. Therefore I do not want to start her lizeth daily medication at this time. However, she is very unsettled by last night's episode. She tried a beta-david in the past but had problems with bradycardia. Therefore I will prescribe her short-acting diltiazem 60 mg to be used as a ???pill in the pocket approach.?? If palpitations recur take the diltiazem. Notify our office of further episodes and response to diltiazem. She also request to have another event monitor placed to see if we can capture another episode of SVT, and I told her this was reasonable. We will place the monitor today. Based on point of care testing in the office today, her lipids are extremely elevated. She was able to provide her lipid panel done by her PCP last year and it showed similar results. With this information, and her family history, I highly recommend beginning medical therapy today, and the patientagrees. I will prescribe her atorvastatin 40 mg daily. I reviewed potential side effects and instructor her to call us if she has any concerns about side effects, particularly the possibility myalgias. The patient verbalized understanding and agreed. She has a history of premature heart disease on her father side of the family. Is unclear whether there is definite coronary artery disease in the history, but there does appear to be valvular heart disease and aortic aneurysm. Her last echo was September of 2015. This echo did comment on some mild ascending aortic dilatation. Therefore I will order an echocardiogram to assess her valvular structure and function and the aortic root. The patient is also asking about whether would be appropriate to perform a stress test. Particularly, she is interested in nuclear stress testing. She had an exercise stress echo in September of 2016. I told her I would discuss this with Dr. Guerrero and follow-up with her over the phone. For now, I will move up her next appointment with Dr. Guerrero to us sooner date, and follow up with her on the results of the above testing as they are received. Alexi Almeida ANP-BC Nurse Practitioner with [facility] This note is dictated and transcribed using [employer] Direct Software. Forest Technology Professor variancesmay occur. Despite proofreading, typographical errors may occur. R CONTRACTOR documented in this encounter Plan of Treatment Pending Results Name Type Priority Associated Diagnoses Date /Time Event Monitor, 30 Day Event Cardiac Services Routine Paroxysmal SVT (supraventricular tachycardia) ([facility]) 08/04/2018 4:58 PM SEWER CONTRACTOR Scheduled Orders Name Type Priority Associated Diagnoses Orde r Schedule Basic metabolic panel Lab Routine Paroxysmal SVT (supraventricular tachycardia) ([facility]) Expected: 08/04/2018, Expires: 08/04/2019 TSH reflex to free T4 Lab Routine Paroxysmal SVT (supraventricular tachycardia) ([facility]) Expected: 08/04/2018, Expires: 08/04/2019 Event Monitor, 30 Day Event Cardiac Services Routine Paroxysmal SVT (supraventricular tachycardia) ([facility]) Expected: 08/04/2018, Expires: 08/04/2019 documented as of this encounter Procedures Procedure Name Priority Date/Time Associated Diagnosis Comments POCT LIPID PANEL Routine 08/04/2018 3:16 PM SEWER CONTRACTOR Lipid screening documented in this encounter Results * TRANSTHORACIC ECHO (TTE) COMPLETE W DOPPLER/CF WO CONTRAST (08/13/2018 12:38 PM SEWER CONTRACTOR) Anatomical Region Laterality Modality Ultrasound 08/13/2018 10:3 6 AM SEWER CONTRACTOR Narrative 08/13/2018 5:22 PM SEWER CONTRACTOR [facility] [facility] [address], [place] [address] [address], [place] [address] P:[phone] P:[phone] Echocardiographic Report Patient Name: CHIOMA CHU : 1970 Study Date: 08/13/2018 10:36:04 AM Gender: F Tech: Location: [place] Ref.Provider: CASPER Height(Cm): 168 BSA: 1.68 Weight(Kg): [...] Findings: Interpretation Site: Exam was interpreted at [facility]. Left Ventricle: Normal left ventricular size. Mild [...] Signed By: Norman Cr MD 2018-08-13 17:22:48 SEWER CONTRACTOR Procedure Note Norman Cr MD - 08/13/2018 [facility] [address] [facility] [address] [facility] [address], [place] [address] [address] [facility] [address], [place] [address] P:[phone] P:[phone] Echocardiographic Report Patient Name: CHIOMA CHUPatient ID: [id number] : [id number] Date: 08/13/2018 10:36:04 AM Gender: FAccession #: [id number] Tech: GMLocation: [place] Ref.Provider: Neena(Cm): 168 BSA: 1.68Weight(Kg): 59.88 Heart Rate: 72BP: [...] 16.00 - 28.00 ] cc/m2 MV Decel Ishm196 [ 150 - 200 ] msec ACS MM 2.13 cm PV Peak Vel0.66 [ 0.40 - 0.80 ] m/s TR Peak Vel2.02 [ 0.40 - 0.80 ] m/s TR Peak PG 16mmHg RVSP24.00 mmHg E'0.15 E/E' 5 Findings: Interpretation Site: Exam was interpreted at [facility]. Left Ventricle: Normal left ventricular size. Mild [...] Signed By: Norman Cr MD 2018-08-13 17:22:48 SEWER CONTRACTOR Alexi Almeida NP CV ECHO PROCEDURES Final Result * (ABNORMAL) POCT lipid panel (08/04/2018 3:16 PM SEWER CONTRACTOR) Cholesterol, POC 291 mg/dL HDL, POC 54 mg/dL Triglycerides, POC 94 mg/dL LDL Cholesterol POC 218 mg/dL Chol/HDL Ratio, POC 5.4 Non-HDL Cholesterol, POC 237 mg/dL Cholesterol Total, POC 291 mg/dL Blood specimen (specimen) 08/04/2018 3:16 PM SEWER CONTRACTOR Alexi Gomes Franco CLINICAL CARE COORDINATOR POINT OF CARE TEST ORDERA BLES Final Result documented in this encounter Visit Diagnoses Diagnosis Paroxysmal SVT (supraventricular tachycardia) (HCC) Palpitations History of Graves' disease Family history of heart disease Dyslipidemia Other and unspecified hyperlipidemia Lipid screening Screening for lipoid disorders Paroxysmal SVT (supraventricular tachycardia) (HCC) documented in this encounter Historical Medications * This list may reflect changes made after this encounter. ondansetron (ZOFRAN) 4 mg tablet TAKE 2 TABLETS BY MOUTH EVERY 8 HOURS FOR as needed 0 07/12/2018 04/01/2021 ergocalciferol (VITAMIN D) 50,000 unit capsule TAKE ONE CAPSULE BY MOUTH 3 TIMES WEEKLY 0 06/29/2018 05/05/2019 omeprazole (PriLOSEC) 20 mg capsuleIndication s:Stress Ulcer Prophylaxis Take by mouth nightly 3 07/14/2018 01/27/2024 added in this encounter Care Teams Residential Sales Associate Relationship Specialty Start Date End Date Jett Yarbrough MD [address] [address] PCP - General 09/27/15 documented as of this encounter
--- OUTSIDE RECORDS SUMMARY | 2024-06-01 00:23 | XMS_ITS | Encounter Summary ---
Author Organization [facility] Address [address] [place] [address] Care Team Providers Care Tipple Boss Name Role Phone Jett Yarbrough MD Primary Care Provider +1- [phone] Encounter Details Date Type Department Care Team (Late st Contact Info) Description 05/04/2019 Telephone [facility] [address] [address] Markus Guerrero MD [address] [address] Social History Tobacco Use Types Packs/Day Years Used Date Smoking Tobacco: Never Smokeless Tobacco: Never Alcohol Use Standard Drinks/Week Comments No 0 (1 standard drink = 0.6 oz pur e alcohol) Comments Unknown Sex and Gender Information Value Date Recorded Sex Assigned at Not on file Legal Sex Female 7:06 AM TRAVELING ACCOUNTANT Gender Identity Not on file Sexual Orientation Not on file documented as of this encounter Miscellaneous Notes * Telephone Encounter - Carol Sparks RN - 05/06/2019 4:18 PM TRAVELING ACCOUNTANT Spoke with patient and all questions answered. ELING ACCOUNTANT * Telephone Encounter - Jessie Gutierres - 05/06/2019 3:03 PM CST Pt called to speak with Danette ARRIOLA in regards to the angiogram scheduled for her. cb [phone] ELING ACCOUNTANT * Telephone Encounter - Markus Guerrero MD - 05/05/2019 8:04 AM TRAVELING ACCOUNTANT Pt may need an angiogram . Has an appt with me TODAY ELING ACCOUNTANT * Telephone Encounter - Tricia Jacob RN - 05/04/2019 3:57 PM CST [facility] ELING ACCOUNTANT * Telephone Encounter - Tita Mcgee RN - 05/04/2019 3:15 PM TRAVELING ACCOUNTANT Please review stress test results and comment. Patient is wondering if further testing is required (see previous note) ELING ACCOUNTANT * Telephone Encounter - Tita Mcgee RN - 05/04/2019 3:15 PM TRAVELING ACCOUNTANT ----- Message from Chioma Chu sent at 05/04/2019 3:04 PM TRAVELING ACCOUNTANT ----- Regarding: RE:stress test results Contact: Thank you! If more tests are necessary, which it seems they may be, could we please schedule them soon. I would prefer to get them done before the end of the year as my deductible for this year has been met not to mention that this is my heart we're talking about and I'd rather not take any chances. ----- Message ----- From: Nurse Tita Martinez Sent: 05/04/2019 2:24 PM TRAVELING ACCOUNTANT To: Chioma Chu Subject: stress test results Here is a copy of the report. The Boning Room Worker who dictated the report (Dr. Steele) felt that further testing was warranted. Dr. Guerrero has not yet commented on it. When he does, we will let youknow what he has to say. Please see report below. Cristina Steele MD Physician Cardiology Procedures Signed Encounter Date: 05/02/2019 TREADMILL STRESS TEST ?? ORDERED BY Karen Figueroa. Dr. Markus Guerrero is also involved in her care. ?? HISTORY A 48-year-old female with chest pain. ?? Resting EKG normal sinus rhythm, nonspecific ST and T-wave changes. ?? The patient exercised for 8 minutes and [...] was some flattening of the ST segments. ?? CONCLUSION Borderline positive treadmill stress test for ischemia with exercise-induced atypical chest pain. However, the resting ST-segment abnormalities reduces specificity of these findings. Consider furtherevaluation (stress testing with imaging?) if clinically appropriate. Job ID/VF Job ID: [id number] ?? ELING ACCOUNTANT documented in this encounter Plan of Treatment Not on file documented as of this encounter Visit Diagnoses Not on filedocumented in this encounter Care Teams Tipple Boss Relationship Specialty Start Date End Date Jett Yarbrough MD [address] [facility] [address] [place] [address] PCP - General 09/27/15 documented as of this encounter
--- OUTSIDE RECORDS SUMMARY | 2024-06-01 00:23 | XMS_ITS | Encounter Summary ---
Author Organization [facility] Address [address] [place] [address] Care Team Providers Care Coupon Manifest Clerk Name Role Phone Jett Yarbrough MD Primary Care Provider +1- [phone] Encounter Details Date Type Department Care Team (Late st Contact Info) Description 08/10/2018 Telephone [facility] [address] [facility] [address] [facility] [address] [place] [address] Markus Guerrero MD [address] [facility] [address] [place] [address] Social History Tobacco Use Types Packs/Day Years Used Date Smoking Tobacco: Never Smokeless Tobacco: Never Alcohol Use Standard Drinks/Week Comments No 0 (1 standard drink = 0.6 oz pur e alcohol) Comments Unknown Sex and Gender Information Value Date Recorded Sex Assigned at Not on file Legal Sex Female 7:06 AM SIGNS AND DISPLAYS SALES REPRESENTATIVE Gender Identity Not on file Sexual Orientation Not on file documented as of this encounter Miscellaneous Notes * Telephone Encounter - Carol Sparks RN - 08/10/2018 4:22 PM SIGNS AND DISPLAYS SALES REPRESENTATIVE Patient given results of BMP. Aware that we are still waiting for TSH. S AND DISPLAYS SALES REPRESENTATIVE * Telephone Encounter - Jenny Funes MA - 08/10/2018 4:15 PM CST Patient is calling for blood work results she had done at [facility] in [place] S AND DISPLAYS SALES REPRESENTATIVE documented in this encounter Plan of Treatment Not on file documented as of this encounter Visit Diagnoses Not on filedocumented in this encounter Care Teams Coupon Manifest Clerk Relationship Specialty Start Date End Date Jett Yarbrough MD [address] [facility] [address] [place] [address] PCP - General 09/27/15 documented as of this encounter
--- OUTSIDE RECORDS SUMMARY | 2024-06-01 00:23 | XMS_ITS | Encounter Summary ---
Author Organization [facility] Address [address] [facility] [address] [place] [address] Phone Care Team Providers Care Baker Head Name Role Phone Jett Yarbrough MD Primary Care Provider [phone]- [phone] Reason for Visit * Consultation (Routine) - Closed Specialty Diagnoses / Procedures Referred By Camryn lo Referred To Contact Endocrinology Diagnoses Graves disease Multinodular goiter Miscellaneous, Not In File [facility] (All Locations) Referral ID Status Reason Start Date Expiration Date V isits Requested Visits Authorized [id number] Closed Specialty Services Required 10/04/2018 04/14/2020 1 1 Encounter Details Date Type Department Care Team (Latest Contact Info) Description 01/26/2019 3:00 PM CDT Office Visit [facility] Endocrinology Metabolism and Lipid [address] [facility] Advanced Medicine 5th [place] [address] [place] [address] Elton Barcenas MD PhD [address] [place], [place] [id number] Multinodular goiter (Primary Dx); Graves disease Social History Tobacco Use Types Packs/Day Years Used Date Smoking Tobacco: Never Smokeless Tobacco: Never Alcohol Use Standard Drinks/Week Comments No 0 (1 standard drink = 0.6 oz pur e alcohol) Comments Unknown Sex and Gender Information Value Date Recorded Sex Assigned at Not on file Legal Sex Female 7:06 AM SCALE CLERK Gender Identity Not on file Sexual Orientation Not on file documented as of this encounter Last Filed Vital Signs Vital Sign Reading Time Taken Comments Blood Pressure 121/80 01/26/2019 2:58 PM CDT Pulse 73 01/26/2019 2:58 PM CDT Temperature 36.7 ??C (98 ??F) 01/26/2019 2:58 PM CDT Respiratory Rate - - Oxygen Saturation - - Inhaled Oxygen Concentration - - Weight 58.2 kg (128 lb 3.2 oz) 01/26/2019 2:58 P M CDT Height - - Body Mass Index 20.69 10/12/2018 2:17 PM CDT documented in this encounter Progress Notes * Elton Barcenas MD PhD - 01/26/2019 3:00 PM CDT Endocrine New Patient Visit Subjective Patient is [...] captured by ECG or cardiac loopmonitoring, which were performed. Past Medical History: Diagnosis Date ??? History [...] No current facility-administered medications for this visit. No Known Allergies Social History Tobacco Use ??? Smoking status: Never Smoker ??? Smokeless tobacco: Never Used Substance Use Topics ??? Alcohol use: No Family History Problem Relation Age of Onset ??? Other Father Heart Condition; Cause of : Heart Condition ??? Other Mother Alive and well; Review of Systems As per HPI, or all others systems negative Objective Vitals: Vitals BP 121/80 (BP Location: Left arm, Patient Position: Sitting) Pulse 73 Temp 36.7 ??C (98 ??F) (Oral) Wt 58.2 kg (128 lb 3.2 oz) BMI 20.69 kg/m?? Physical exam: General Appearance: Alert, cooperative, [...] grossly intact. Normal strength, sensation and normal reflexes throughout Psychosocial: Normal affect and mood Lab/Radiology/Diagnostic [...] goiter - Primary Current Assessment & Plan # Multinodular Goiter -Prior history of hyperthyroidism with suppressed TSH -Longstanding fatigue and globus sensation -No overt symptoms of hyperthyroidism or hypothyroidism -No presence of goiter, masses, or enlarged thyroid -No significant thyroid asymmetry, focal firm consistency, or tenderness -No compressive or obstructive symptoms (no dyspnea, cough, wheezing) -Recheck TSH and free T4 Relevant Orders TSH T4, free T3, free Return to clinic in 6 months Patient seen and staff[facility] with Dr. [facility] PhD (Endocrinology Fellow) Cosigned by Luciano Bess MD at 01/31/2019 9:20 AM CDT Associated attestation - Luciano Bess MD - 01/31/2019 9:20 AM CDT I have seen and examined the patient. I agree with the findings and plan of care as documented in the resident/fellow's note. documented in this encounter Miscellaneous Notes * Assessment & Plan Note - Elton Barcenas MD PhD - 01/26/2019 6:12 PM CDT Associated Problem(s): Multinodular goiter # Multinodular Goiter -Prior history of hyperthyroidism with suppressed TSH -Longstanding fatigue and globus sensation -No overt symptoms of hyperthyroidism or hypothyroidism -No presence of goiter, masses, or enlarged thyroid -No significant thyroid asymmetry, focal firm consistency, or tenderness -No compressive or obstructive symptoms (no dyspnea, cough, wheezing) -Recheck TSH and free T4 * Addendum Note - Madie Blair LPN - 01/26/2019 3:00 PM CDTAddended by: MADIE BLAIR on: 08/08/2019 02:09 PM Modules accepted: Orders E CLERK * Addendum Note - Madie Blair LPN - 01/26/2019 3:00 PM CDTAddended by: MADIE BLAIR on: 08/08/2019 02:09 PM Modules accepted: Orders E CLERK * Addendum Note - Madie Blair LPN - 01/26/2019 3:00 PM CDTAddended by: MADIE BLAIR on: 08/08/2019 02:09 PM Modules accepted: Orders E CLERK * Addendum Note - Madie Blair LPN - 01/26/2019 3:00 PM CDTAddended by: MADIE BLAIR on: 08/08/2019 02:09 PM Modules accepted: Orders E CLERK * Addendum Note - Madie Blair LPN - 01/26/2019 3:00 PM CDTAddended by: MADIE BLAIR on: 08/08/2019 02:09 PM Modules accepted: Orders E CLERK * Addendum Note - Madie Blair LPN - 01/26/2019 3:00 PM CDTAddended by: MADIE BLAIR on: 08/08/2019 02:09 PM Modules accepted: Orders E CLERK * Addendum Note - Madie Blair LPN - 01/26/2019 3:00 PM CDTAddended by: MADIE BLAIR on: 08/08/2019 02:10 PM Modules accepted: Orders E CLERK documented in this encounter Plan of Treatment Not on file documented as of this encounter Procedures Procedure Name Priority Date/Time Associated Diagnosis Comments TSH Routine 08/26/2019 8:59 AM CDT Multinodular goiter T3, FREE Routine 08/26/2019 8:58 AM CDT Multinodular goiter T4, FREE Routine 08/26/2019 8:57 AM CDT Multinodular goiter documented in this encounter Results * TSH (08/26/2019 8:59 AM CDT) TSH 1.510 0.450 - 4.500 uIU/mL [facility] - 01 Blood specimen (specimen) 08/26/2019 8:59 AM CDT 08/26/2019 Narrative [facility] - 08/27/2019 7:08 AM CDT Performed at: ??01 - [facility] ??[id number] Wire Drawing Machine Operator: Salomón Ornelas PhD, Phone: ??[phone] Specimen Comment: A courtesy copy of this report has been sent to [phone] Result [facility] Elton Barcenas MD PhD LAB BLOOD ORDERABLES Fin al Result Performing Organization Address [facility] de Phone Number [facility] - 01 * T3, free (08/26/2019 8:58 AM CDT) Triiodothyronin e,Free,Serum 2.6 2.0 - 4.4 pg/mL [facility] - 01 Blood specimen (specimen) 08/26/2019 8:58 AM CDT 08/26/2019 Narrative [facility] - 08/27/2019 7:08 AM CDT Performed at: ??01 - [facility] ??[id number] Wire Drawing Machine Operator: Salomón Ornelas PhD, Phone: ??[phone] Specimen Comment: A courtesy copy of this report has been sent to [phone] Result [facility] Elton Barcenas MD PhD LAB BLOOD ORDERABLES Fin al Result Performing Organization Address [facility] de Phone Number [facility] - 01 * T4, free (08/26/2019 8:57 AM CDT) T4,Free(Direct) 1.16 0.82 - 1.77 ng/dL [facility] - 01 Blood specimen (specimen) 08/26/2019 8:57 AM CDT 08/26/2019 Narrative [facility] - 08/27/2019 9:09 AM CDT Performed at: ??01 - [facility] ??[id number] Wire Drawing Machine Operator: Salomón Ornelas PhD, Phone: ??[phone] Elton Barcenas MD PhD LAB BLOOD ORDERABLES Fin al Result [facility] - 01 documented in this encounter Visit Diagnoses Diagnosis Multinodular goiter- Primary Nontoxic multinodular goiter Graves disease Toxic diffuse goiter without mention of thyrotoxic crisis or storm documented in this encounter Historical Medications * This list may reflect changes made after this encounter. fluticasone propionate (FLONASE) 50 mcg/actuation nasal spray Administer 1 spray into each nostril daily 1 added in this encounter Orders Outpatient Referral Count Last Ordered Date Fir st Ordered Date AMB REFERRAL TO ENDOCRINOLOGY 1 01/26/2019 documented in this encounter Care Teams Baker Head Relationship Specialty Start Date End Date Jett Yarbrough MD [address] [place] [address] PCP - General 09/27/15 documented as of this encounter
--- OUTSIDE RECORDS SUMMARY | 2024-06-01 00:23 | XMS_ITS | Encounter Summary ---
Author Organization [facility] Address [address] [place] [address] Care Team Providers Care Motel Manager Name Role Phone Jett Yarbrough MD Primary Care Provider [phone]- [phone] Reason for Visit * Diagnostic Imaging (Routine) - Closed Specialty Diagnoses / Procedures Referred By Contac t Referred To Contact Cardiology Imaging Diagnoses SVT (supraventricular tachycardia) ([facility]) Procedures Echo Exercise Stress Test Only Alexi Almeida NP Phone: tel: fax: [facility] Medical [facility] Cardiology [address] [facility] [address] [place] [phone] Phone: tel: fax: Referral ID Status Reason Start Date Expiration Date Visits Re quested Visits Authorized [id number] Closed 08/13/2018 09/11/2018 1 1 Encounter Details Date Type Department Care Team (Latest Contact Info) Description 08/16/2018 1:00 PM SOLAR TECHNICIAN Ancillary Procedure [facility] Cardiology [address] [place] [phone] SVT (supraventricular tachycardia) (CMS/HCC) Social History Tobacco Use Types Packs/Day Years Used Date Smoking Tobacco: Never Smokeless Tobacco: Never Alcohol Use Standard Drinks/Week Comments No 0 (1 standard drink = 0.6 oz pur e alcohol) Comments Unknown Sex and Gender Information Value Date Recorded Sex Assigned at Not on file Legal Sex Female 7:06 AM SOLAR TECHNICIAN Gender Identity Not on file Sexual Orientation Not on file documented as of this encounter Plan of Treatment Not on file documented as of this encounter Procedures Procedure Name Priority Date/Time Associated Diagnosis Comments STRESS ECHO EXERCISE WO DOPPLER/CF WO CONTRAST Routine 08/16/2018 1:59 PM SOLAR TECHNICIAN SVT (supraventricular tachycardia) (CMS/HCC) documented in this encounter Results * STRESS ECHO EXERCISE WO DOPPLER/CF WO CONTRAST (08/16/2018 1:59 PM SOLAR TECHNICIAN) Anatomical Region Laterality Modality Ultrasound 08/16/2018 12:0 6 PM SOLAR TECHNICIAN Narrative 08/16/2018 5:21 PM SOLAR TECHNICIAN [facility] [address] [facility] [address] [place] [id number] [address] [facility] [address], [place] [address] P:[phone] P:[phone] Echocardiographic Report Patient Name: CHIOMA CHU : 1970 Study Date: 08/16/2018 12:06:13 PM Gender: F Tech: Location: [place] Ref.Provider: CASPER Height(Cm): 168 BSA: 1.67 Weight(Kg): 58.97 Heart Rate: 77 BP: 108/70 Quality: Good Order Provider: ALEXI ALMEIDA Procedures: Stress Echo Report: Treadmill stress echocardiogram. Indications: SVT, Medications: Lipitor, Cardizem, Vitamin D, Prilosec, Zofran, and Stress test monitored by: Carol Sparks RN. Findings: Stress Echo: Protocol - Mason Protocol. Exercise Time - 8.00 min. Baseline Heart Rate - 77. Peak Heart Rate - 160. Predicted Maximal Heart Rate - 175. 85% MPHR - 149. Baseline BP - 108/70. Peak BP - 156/86. Rate Pressure Product - 89377. METS Achieved - 10.10. Percent Predicted Maximal HR Achieved - 91 %. Interpretation Site: Exam was interpreted at [facility]. Performance: Average exercise functional capacity. Hemodynamic Response: Normal blood pressure response. Arrhythmia: No exercise induced arrhythmias. Termination: Limiting Dyspnea. Resting ECG: Normal EKG. Exercise ECG: Non-diagnostic ST-T wave changes with exercise. Resting LV Function: Normal left ventricular size, normal systolic function, normal wall thickness with no segmental wall motion abnormalities at rest. Post Stress LV Function: Post exercise left ventricular global systolic contractility is hyperdynamic, no segmental wall motion abnormalities, and chamber size is smaller. Global Systolic Function is normal. Conclusions: Normal hemodynamic response to exercise. No significant exercise induced arrhythmias. No exercise induced chest pain. No Echocardiographic evidence of ischemia. Non-diagnostic exercise induced ST-T changes. Average functional capacity. Electronically Signed By: Tino Sanchez MD 2018-08-16 17:21:19 SOLAR TECHNICIAN Procedure Note Paul Sanchez MD - 08/16/2018 [facility] [facility] [address] [id number] [address] [facility] [address], [place] [address] P:[phone] P:[phone] Echocardiographic Report Patient Name: CHIOMA CHUPatient ID: [id number] : [id number] Date: 08/16/2018 12:06:13 PM Gender: FAccession #: [id number] Tech: Location: [place] Ref.Provider: [place]light(Cm): 168 BSA: 1.67Weight(Kg): 58.97 Heart Rate: 77BP: 108/70 Quality: GoodOrder Provider: ALEXI ALMEIDA Procedures: Stress Echo Report: Treadmill stress echocardiogram. Indications: SVT, Medications: Lipitor, Cardizem, Vitamin D, Prilosec, Zofran, andStress test monitored by: Carol Sparks RN. Findings: Stress Echo: Protocol - Mason Protocol. Exercise Time - 8.00 min. Baseline Heart Rate -77. Peak Heart Rate - 160. Predicted Maximal Heart Rate - 175. 85% MPHR - 149. BaselineBP - 108/70. Peak BP - 156/86. Rate Pressure Product - 32049. METS Achieved - 10.10.Percent Predicted Maximal HR Achieved - 91 %. Interpretation Site: Exam was interpreted at [facility]. Performance: Average exercise functional capacity. Hemodynamic Response: Normal blood pressure response. Arrhythmia: No exercise induced arrhythmias. Termination: Limiting Dyspnea. Resting ECG: Normal EKG. Exercise ECG: Non-diagnostic ST-T wave changes with exercise. Resting LV Function: Normal left ventricular size, normal systolic function, normal wallthickness with no segmental wall motion abnormalities at rest. Post Stress LV Function: Post exercise left ventricular global systolic contractility ishyperdynamic, no segmental wall motion abnormalities, and chamber size is smaller. GlobalSystolic Function is normal. Conclusions: Normal hemodynamic response to exercise. No significant exercise induced arrhythmias. No exercise induced chest pain. No Echocardiographic evidence of ischemia. Non-diagnostic exercise induced ST-T changes. Average functional capacity. Electronically Signed By: Tino Sanchez MD 2018-08-16 17:21:19 SOLAR TECHNICIAN Alexi Almeida STAVE INSPECTOR CV ECHO PROCEDURES Final Result documented in this encounter Visit Diagnoses Diagnosis SVT (supraventricular tachycardia) (HCC) Other specified cardiac dysrhythmias documented in this encounter Care Teams Motel Manager Relationship Specialty Start Date End Date Jett Yarbrough MD [address] [facility] [address] [place] [address] PCP - General 09/27/15 documented as of this encounter
--- OUTSIDE RECORDS SUMMARY | 2024-06-01 00:24 | XMS_ITS | Encounter Summary ---
Author Organization [facility] Medical Group Address [address] [facility] [address] [place] [address] Care Team Providers Care Tap Puller Name Role Phone Jett Yarbrough MD Primary Care Provider +1- [phone] Reason for Visit * Reason Comments Hospital Follow Up Racing of heart Encounter Details Date Type Department Care Team (Late st Contact Info) Description 03/09/2018 8:30 AM CDT Office Visit [facility] [address] [phone] Shanika Gamez NP [address] [facility] [address] [address] Palpitations (Primary Dx); Paroxysmal SVT (supraventricular tachycardia) (CMS/HCC); PAC (premature atrial contraction); History of hyperthyroidism Social History Tobacco Use Types Packs/Day Years Used Date Smoking Tobacco: Never Tobacco Cessation:Counseling Given: Yes Alcohol Use Standard Drinks/Week Comments No 0 (1 standard drink = 0.6 oz pur e alcohol) Comments Unknown Sex and Gender Information Value Date Recorded Sex Assigned at Not on file Legal Sex Female 7:06 AM DIRECTOR OF MEDICAL REVIEW Gender Identity Not on file Sexual Orientation Not on file documented as of this encounter Last Filed Vital Signs Vital Sign Reading Time Taken Comments Blood Pressure 116/62 03/09/2018 8:50 AM CDT Pulse 75 03/09/2018 8:50 AM CDT Temperature - - Respiratory Rate - - Oxygen Saturation 97% 03/09/2018 8:50 AM CDT Inhaled Oxygen Concentration - - Weight 66.7 kg (147 lb) 03/09/2018 8:50 AM CDT Height 167.6 cm (5' 6 ) 03/09/2018 8:50 AM CDT Body Mass Index 23.73 03/09/2018 8:50 AM CDT documented in this encounter Progress Notes * Shanika Gamez, VONDA - 03/09/2018 8:30 AM CDT [facility] Date of Visit: 03/09/2018 Patient ID: Chioma Chu 1970 Chief Complaint: Chioma Chu is a 47 y.o. female who was seen by Dr. Guerrero last year for a new patient evaluation of chest pain. History of Present Illness: Mrs Chu this very pleasant 45-year-old lady self-referred here because of an episode of chest pain which occurred back on September 13. She I does not know of any prior cardiac problems and herself but became concerned when at 2 o'clock in the morning she was awakened from sleep with significant chest pain. She thought about going to the hospital and her was actually a encouraging this but she felt better short time after she vomited and elected not to come into the hospital after that time. She went to see her primary care who ordered a stress echocardiogram followed by a Holter monitor. The stress echocardiogram was supervised by myself in looked normal. A 24 hour Holter was done which demonstrated infrequent atrial and ventricular ectopic activity and at 2 o'clock in the morning 6 beat run of a any atrial tachycardia which was of course asymptomatic. 11/12/2016: She does not have any exertional symptomatology she has rare momentary episodes of palpitations no history of syncope orthopnea PND or edema. She was concerned about her cardiac status because her father and 1 paternal uncle both had bicuspid aortic valve since which required surgical treatment her father was actually undergoing an extensive operation repairing his aortic root and aortic valve and did not survive the surgery. 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 She follows with a fashion stylist, Dr. Lassiter who has not recommended niece any specific treatment of that she has never had a thrombotic event complicating this illness. Because of her family history of thoracic aortic disease and her history of essential thrombocytosis I recommended a CTA of the thorax and then a follow-up visit with me in the office. After this initial office consultation, CTA of the chest was performed and was unremarkable. She also went on to be treated for hyperthyroidism, was on a beta- david at one point, but it was discontinued because of bradycardia (heart rate in the 40s). She became euvolemic by May of 2017, at which time she stopped the thyroid medication. 03/09/2018: She returns our office for further evaluation of palpitations after going to the emergency room on 02/19/2018. She reports she was in her usual state of health, riding home from [place] when she felt palpitations come on. Unfortunately EMS was not able to capture any rapid heartbeats because symptoms had resolved by the time they arrived and her ECG in the ER showed sinus rhythm with a heart rate in the 80s. Her potassium was 3.2, H&H normal. After this ER visit she called our office. We prescribed KCl 20 mEq daily for 7 days and potassium level normalized when rechecked (Mg was also normal). We also placed a 24 hr Holter monitor which showed low frequency vent ricular and supraventricular ectopy with 2 short runs of SVT, the longest was 11 beats at a rate of61 b.p.m.. After she finished wearing the monitor, she reports 1 other episode of an elevated heartrate of 180 beats per minute per her Smart watch and this lasted 10 min. When she gets these episodes of palpitations she feels breathless and feels discomfort in the center of her chest. Records that I personally reviewed on the day of this visit include: (the interpretation is outlined in the chief complaint above) 11/12/[address] Guerrero, [facility], 02/23/2018 Holter monitor report, 03/03/2018 lab results. I have also reviewed: allergies, current medications, past family history, past medical history, past social history, past surgical history and problem list Review of Systems Constitution: Positive for malaise/fatigue. Negative for diaphoresis, fever, weight gain and weightloss. HENT: Negative for hearing loss. Eyes: Negative for visual disturbance. Cardiovascular: Positive for palpitations. Negative for chest pain, claudication, dyspnea on exertion, leg swelling, orthopnea, paroxysmal nocturnal dyspnea and syncope. Respiratory: Positive for shortness of breath. Negative for cough, hemoptysis, snoring and wheezing. Hematologic/Lymphatic: Does not bruise/bleed easily. Skin: Negative for poor wound healing and rash. No easy bruising. No bleeding problems. Musculoskeletal: Negative for joint pain and myalgias. Gastrointestinal: Negative for heartburn, nausea and vomiting. No reflux Genitourinary: Negative for hematuria. Neurological: Negative for dizziness, headaches and light-headedness. Psychiatric/Behavioral: Negative for depression. The patient is not nervous/anxious. Vital Signs: BP 116/62 (BP Location: Left arm, Patient Position: Sitting) Pulse 75 Ht 167.6 cm (5' 6 ) Wt 66.7 kg (147 lb) SpO2 97% BMI 23.73 kg/m?? Physical Exam Constitutional: She is oriented [...] and breath sounds normal. No respiratory distress. Musculoskeletal: Normal range of motion. She exhibits no edema. Neurological: She is alert and oriented to person, place, and time. Skin: Skin is warm and dry. Psychiatric: She has a normal mood and affect. No Known Allergies No current outpatient prescriptions on file. Assessment: Diagnoses and all orders for this visit: Palpitations (Primary) Paroxysmal SVT (supraventricular tachycardia) ([facility]) PAC (premature atrial contraction) History of hyperthyroidism Plan/Recommendations: This is a patient with symptomatic intermittent episodes of SVT and PACs. She is not able to identify any triggers in relationship to these episodes. She does have an upcoming appointment to follow-up with her mandarin tutor to recheck her thyroid levels. I offered that we could try medical therapy if her symptoms continue to become more frequent and bothersome. Because she had bradycardia when placed on a beta-david last year, I would opt for calcium channel david. I explained to her thatwe could do 1 of 2 strategies: She could do a daily long-acting calcium channel david to prevent episodes, or she could use a ???pill in the pocket approach?? with the short-acting formula that would be taken when she began to feel symptoms come on. She would like to think about this before making a decision. I told her this would be reasonable. I also did teaching with the patient regarding vagal maneuvers she could try if another episode of SVT occurred. We will plan for her to return to the office in follow- up with Dr. Guerrero in about 6 weeks. Call us sooner with questions or concerns. Shanika Gamez, DRAKE- Nurse Practitioner with [facility] This note is dictated and transcribed using [employer] Direct Software. Fire Department Battalion Chief variancesmay occur. Despite proofreading, typographical errors may occur. Cosigned by Markus Guerrero MD at 04/29/2018 8:44 AM DIRECTOR OF MEDICAL REVIEW CTOR OF MEDICAL REVIEW documented in this encounter Plan of Treatment Not on file documented as of this encounter Visit Diagnoses Diagnosis Palpitations- Primary Paroxysmal SVT (supraventricular tachycardia) (HCC) PAC (premature atrial contraction) Supraventricular premature beats History of hyperthyroidism documented in this encounter Discontinued Medications Medication Sig Discontinue Reason Start Date End Da te ferrous sulfate (IRON) 325 mg (65 mg iron) capsule, extended release take 1 by Oral route once Discontinued by another clinician 11/12/2016 03/09/2018 potassium chloride ER (KLOR-CON,K-DUR) 20 mEq CR tablet Take 1 tablet (20 mEq total) by mouth daily. One daily for 7 days then reevaluate Discontinued by another clinician 02/22/2018 03/09/2018 documented as of this encounter Care Teams Tap Puller Relationship Specialty Start Date End Date Jett Yarbrough MD [address] [facility] [address] [place] [address] PCP - General 09/27/15 documented as of this encounter
--- OUTSIDE RECORDS SUMMARY | 2024-06-01 00:24 | XMS_ITS | Encounter Summary ---
Author Organization [facility] Medical Group Address [address] [facility] [address] [place] [address] Care Team Providers Care Estate Planner Name Role Phone Jett Yarbrough MD Primary Care Provider +1- [phone] Reason for Visit * (Routine) - Closed Specialty Diagnoses / Procedures Referred By Contac t Referred To Contact Diagnoses Palpitations Procedures 48 HR Holter Monitor Markus Guerrero MD Phone: tel: fax: [facility] Referral ID Status Reason Start Date Expiration Date Visits Re quested Visits Authorized [id number] Closed 02/23/2018 09/04/2019 1 1 Encounter Details Date Type Department Care Team (Late st Contact Info) Description 02/23/2018 9:00 AM CDT Ancillary Procedure [facility] Medical [facility] Cardiology [address] [facility] [address] [place] [address] Palpitations Social History Tobacco Use Types Packs/Day Years Used Date Smoking Tobacco: Never Alcohol Use Standard Drinks/Week Comments No 0 (1 standard drink = 0.6 oz pur e alcohol) Comments Unknown Sex and Gender Information Value Date Recorded Sex Assigned at Not on file Legal Sex Female 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 Ordering Physician Dr. Cr. Test Date 02/23/2018. Findings The patient wore the monitor for 1 day, 24 hours and 52 minutes. Underlying sinus rhythm with heart rate variability between 55 and 131 beats per minute with an average heart rate of 77 beats per minute. Low frequency supraventricular ectopy was noted, however, patient did have 2 runs of supraventricular tachycardia. Longest run was for 11 beats at a rate of 161beats per minute. There was also 12 isolated PACs and 2 atrial pairs. No bradycardia. Low frequencyventricular ectopy totaling 35 beats. This consisted of 33 isolated PVCs and 1 ventricular couplet. No significant pauses. Two diary events of heart skipped beat and shortness of breath/flutter all correlated to sinus rhythm only without arrhythmia. Conclusion 1. Underlying normal sinus rhythm with average heart rate of 77 beats per minute. Low frequency ventricular and supraventricular ectopy as detailed above. There were 2 short runs of supraventricular tachycardia with the longest run being for 11 beats at a rate of 161 beats per minute. 2. The patient events as detailed above correlating to sinus rhythm only. Job ID/VF Job ID: [id number] documented in this encounter Plan of Treatment Pending Results Name Type Priority Associated Diagnoses Date /Time 48 HR Holter Monitor Cardiac Services Routine Palpitations 02/23/2018 9:45 AM CDT documented as of this encounter Visit Diagnoses Diagnosis Palpitations documented in this encounter Care Teams Estate Planner Relationship Specialty Start Date End Date Jett Yarbrough MD [address] [facility] [address] [place] [address] PCP - General 09/27/15 documented as of this encounter
--- OUTSIDE RECORDS SUMMARY | 2024-06-01 00:24 | XMS_ITS | Encounter Summary ---
Author Organization [facility] Medical Group Address [address] [facility] [address] [place] [address] Care Team Providers Care Highway Commissioner Name Role Phone Jett Yarbrough MD Primary Care Provider +1- [phone] Encounter Details Date Type Department Care Team (Late st Contact Info) Description 09/23/2016 Orders Only [facility] ProviderYoli MD [address] [place] [address] Social History Tobacco Use Types Packs/Day Years Used Date Smoking Tobacco: Never Assessed Comments Unknown Sex and Gender Information Value Date Recorded Sex Assigned at Not on file Legal Sex Female 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 Historical Provider CV CARDIAC SERVICES PROCE DURES Final Result * CARDIOLOGY REPORT (09/23/2016) Anatomical Region Laterality Modality Other Narrative 09/23/2016 Ordered by an unspecified provider. Historical Provider CV CARDIAC SERVICES PROCE DURES Final Result documented in this encounter Visit Diagnoses Not on filedocumented in this encounter Care Teams Highway Commissioner Relationship Specialty Start Date End Date Jett Yarbrough MD [address] [facility] [address] [place] [id number] PCP - General 09/27/15 documented as of this encounter
--- OUTSIDE RECORDS SUMMARY | 2024-06-01 00:24 | XMS_ITS | Encounter Summary ---
Author Organization [facility] Care Team Providers Care Ip Counsel Name Role Phone Unavailable Primary Care Provider Unavailabl e Encounter Details Date Type Department Care Team (Latest Contact Info) Description 02/14/2011 9:27 AM CDT - 02/14/2011 11:59 PM CDT Hospital Encounter [facility] Routine general medical examination at a health care facility; Allergic rhinitis due to other allergen; Other specified abnormal findings of blood chemistry; Other malaise and fatigue Social History Tobacco Use Types Packs/Day Years Used Date Smoking Tobacco: Never Assessed Comments Unknown Sex and Gender Information Value Date Recorded Sex Assigned at Not on file 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
--- OUTSIDE RECORDS SUMMARY | 2024-06-01 00:24 | XMS_ITS | Encounter Summary ---
Author Organization [facility] Medical [facility] Address [address] [facility] [address] [place] [address] Care Team Providers Care Technical Associate Name Role Phone Jett Yarbrough MD Primary Care Provider +1- [phone] Encounter Details Date Type Department Care Team (Late st Contact Info) Description 03/03/2018 Telephone [facility] [address] [place] [address] Markus Guerrero MD [address] [facility] [address] [place] [address] Social History Tobacco Use Types Packs/Day Years Used Date Smoking Tobacco: Never Alcohol Use Standard Drinks/Week Comments No 0 (1 standard drink = 0.6 oz pur e alcohol) Comments Unknown Sex and Gender Information Value Date Recorded Sex Assigned at Not on file Legal Sex Female 7:06 AM GIS DATABASE ADMINISTRATOR Gender Identity Not on file Sexual Orientation Not on file documented as of this encounter Miscellaneous Notes * Telephone Encounter - Carol Sparks RN - 03/03/2018 4:04 PM CDT Spoke with patient. Following up on monitor results. Explained that we still do not have results. Reports that she did have some fluttering while wearing the monitor but had an episode this past weekend that was closer to what sent her to the ER. She is requesting copy of EKG completed at . Will request if to be faxed to office for review and patient will ask for copy while here for appointmentnext week. Patient reports that she is feeling okay now. Will continue to monitor symptoms and keepfollow up 03/09/18. * Telephone Encounter - Gilda Ibarra - 03/03/2018 10:50 AM CDT Pt called to follow up on email sent 03/01 from my chart. I advised the results from the monitor worn last week are not in yet. Pt would like a call back to discuss heart rate. [phone] documented in this encounter Plan of Treatment Not on file documented as of this encounter Visit Diagnoses Not on filedocumented in this encounter Care Teams Technical Associate Relationship Specialty Start Date End Date Jett Yarbrough MD [address] [facility] [address] [place] [address] PCP - General 09/27/15 documented as of this encounter
--- OUTSIDE RECORDS SUMMARY | 2024-06-01 00:24 | XMS_ITS | Encounter Summary ---
Author Organization [facility] Medical Group Address [address] [facility] [address] [place] [address] Care Team Providers Care Integration Software Engineer Name Role Phone Jett Yarbrough MD Primary Care Provider +1- [phone] Encounter Details Date Type Department Care Team (Late st Contact Info) Description 08/04/2018 Telephone [facility] [address] [address] Markus Guerrero MD [address] [address] Social History Tobacco Use Types Packs/Day Years Used Date Smoking Tobacco: Never Smokeless Tobacco: Never Alcohol Use Standard Drinks/Week Comments No 0 (1 standard drink = 0.6 oz pur e alcohol) Comments Unknown Sex and Gender Information Value Date Recorded Sex Assigned at Not on file Legal Sex Female 7:06 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 States that last night she was feeling nauseous and tired and decided to go to bed. She awoke feeling a tightness in her throat and felt her heart racing and beating hard. She checked her heart rate and it was anywhere between 130-180. She then began to feel pinching in her chest and back which she states that she has had this before. She was fearful of having a heart attack and wanted to call 911 but had nobody to care for her sleeping children as her spouse is out of town. Patient very upset and tearful during the conversation stating that she was very scared. Currently heart rate is in the 80's. Patient denies a fever and states that she limits caffeine intake. Jayden eduled follow up with Valencia Voss in the [place] office for today. NT MIXER DRIVER * Telephone Encounter - Candelaria Ontiveros - 08/04/2018 8:17 AM CEMENT MIXER DRIVER Pt will like a call back regarding heart racing, pt [phone] NT MIXER DRIVER documented in this encounter Plan of Treatment Not on file documented as of this encounter Visit Diagnoses Not on filedocumented in this encounter Care Teams Integration Software Engineer Relationship Specialty Start Date End Date Jett Yarbrough MD [address] [facility] [address] [place] [address] PCP - General 09/27/15 documented as of this encounter
--- OUTSIDE RECORDS SUMMARY | 2024-06-01 00:24 | XMS_ITS | Encounter Summary ---
Author Organization [facility] Medical [facility] Address [address] [facility] [address] [place] [address] Care Team Providers Care Guinea Pig Breeder Name Role Phone Jett Yarbrough MD Primary Care Provider +1- [phone] Encounter Details Date Type Department Care Team (Late st Contact Info) Description 11/18/2016 Telephone [facility] [address] [address] Markus Guerrero MD [address] [address] Social History Tobacco Use Types Packs/Day Years Used Date Smoking Tobacco: Never Alcohol Use Standard Drinks/Week Comments No 0 (1 standard drink = 0.6 oz pur e alcohol) Comments Unknown Sex and Gender Information Value Date Recorded Sex Assigned at Not on file Legal Sex Female 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 documented in this encounter Plan of Treatment Not on file documented as of this encounter Visit Diagnoses Not on filedocumented in this encounter Care Teams Guinea Pig Breeder Relationship Specialty Start Date End Date Jett Yarbrough MD [address] [facility] 120 [place] [address] PCP - General 09/27/15 documented as of this encounter
--- OUTSIDE RECORDS SUMMARY | 2024-06-01 00:24 | XMS_ITS | Encounter Summary ---
Author Organization [facility] Address [address] [facility] [address] [place] [address] Care Team Providers Care News Reel Cameraman Name Role Phone Jett Yarbrough MD Primary Care Provider [phone]- [phone] Encounter Details Date Type Department Care Team (Late st Contact Info) Description 02/22/2018 Telephone [facility] [address] [facility] [address] [facility] [address] [place] [address] Markus Guerrero MD [address] [facility] [address] [place] [address] Social History Tobacco Use Types Packs/Day Years Used Date Smoking Tobacco: Never Alcohol Use Standard Drinks/Week Comments No 0 (1 standard drink = 0.6 oz pur e alcohol) Comments Unknown Sex and Gender Information Value Date Recorded Sex Assigned at Not on file Legal Sex Female 7:06 AM ALIGNING CHECKER Gender Identity Not on file Sexual Orientation Not on file documented as of this encounter Ordered Prescriptions Prescription Sig Dispense Quantity Refills Last Filled Start Date End Date potassium chloride ER (KLOR-CON,K-DUR) 20 mEq CR tablet Take 1 tablet (20 mEq total) by mouth daily. One daily for 7 days then reevaluate 30 tablet 02/22/2018 8 documented in this encounter Miscellaneous Notes * Telephone Encounter - Carol Sparks RN - 02/22/2018 4:25 PM CDT Per VONDA Voss, have patient come in for 24 hours holter monitor prior to office visit. Prescribe KCL 20meq daily for 7 days then recheck BMP and Mag before office visit. Spoke with patient. Scheduled HM for tomorrow. Rx for KCL sent to [facility] in [place] per patient request. Orders for BMP and Mag sent to [facility] per patient request. Will have drawn prior to office visit but at least after 7 days of potassium. * Telephone Encounter - Carol Sparks RN - 02/22/2018 2:57 PM CDT Reviewed records from . Patient in with palpitations. EKG shows NSR and blood work reviewed whichshowed a Potassium of 3.2 which was not treated in the ER. Discharged home that day. Spoke with patient. States that she continues to feel her heart racing off and on but the other symptoms that she was having along with it the day she went to the ER are no longer there; warm feeling, chest pain, SOB, nausea, shaking. Recently had her thyroid checked which was okay. Wondering what the next step should be as she was directed to contact Dr. Guerrero's office for further orders. Has upcoming follow up with VONDA Voss on 03/09/18. Will review with Shanika. Patient states that BP has been running okay. * Telephone Encounter - Gilda Ibarra - 02/22/2018 11:55 AM CDT Pt was at ER on 02/19 for tachycardia. Is still experiencing episodes of fast heart rate. cb [phone] documented in this encounter Plan of Treatment Not on file documented as of this encounter Visit Diagnoses Not on filedocumented in this encounter Care Teams News Reel Cameraman Relationship Specialty Start Date End Date Jett Yarbrough MD [address] [facility] [address] [place], [place] [id number] PCP - General 09/27/15 documented as of this encounter
--- OUTSIDE RECORDS SUMMARY | 2024-06-01 00:24 | XMS_ITS | Encounter Summary ---
Author Organization [facility] Address [address] [facility] [address] [place] [address] Care Team Providers Care General Maintenance Helper Name Role Phone Jett Yarbrough MD Primary Care Provider [phone]- [phone] Reason for Visit * Reason Comments Follow-up [address] pal ps, SVT, PAC, h/o hyperthyroidism Encounter Details Date Type Department Care Team (Late st Contact Info) Description 04/22/2018 1:[address] LIGHT REPAIRER HELPER Office Visit [facility] [address] [phone] Markus Guerrero MD [address] [facility] [address] [address] Paroxysmal SVT (supraventricular tachycardia) (CMS/HCC) (Primary Dx) Social History Tobacco Use Types Packs/Day Years Used Date Smoking Tobacco: Never Smokeless Tobacco: Never Alcohol Use Standard Drinks/Week Comments No 0 (1 standard drink = 0.6 oz pur e alcohol) Comments Unknown Sex and Gender Information Value Date Recorded Sex Assigned at Not on file Legal Sex Female 7:[address] LIGHT REPAIRER HELPER Gender Identity Not on file Sexual Orientation Not on file documented as of this encounter Last Filed Vital Signs Vital Sign Reading Time Taken Comments Blood Pressure 116/80 04/22/2018 1:[address] LIGHT REPAIRER HELPER Pulse 74 04/22/2018 1:[address] LIGHT REPAIRER HELPER Temperature - - Respiratory Rate - - Oxygen Saturation 98% 04/22/2018 1:[address] LIGHT REPAIRER HELPER Inhaled Oxygen Concentration - - Weight 65.8 kg (145 lb) 04/22/2018 1:[address] LIGHT REPAIRER HELPER Height 167.6 cm (5' 6 ) 04/22/2018 1:[address] LIGHT REPAIRER HELPER Body Mass Index 23.4 04/22/2018 1:[address] LIGHT REPAIRER HELPER documented in this encounter Progress Notes * Markus Guerrero MD - 04/22/2018 1:15 PM CST [facility] CLINIC FOLLOW UP 04/22/2018 Chioma Chu is a 47 y.o. female [...] she has never had a syncopal episode. REVIEW OF SYSTEMS General ROS: negative for [...] skin, eczema, pruritus and rash HOME MEDICATIONS No current outpatient prescriptions on file. LABS AND OTHER DIAGNOSTIC TESTS No results found for: CHOL No results found for: HDL No results found for: LDLCALC No results found for: TRIG No results found for: CHOLHDL No results found for: WBC, HGB, HCT, MCV, PLT No lab exists for component: LABALBU PHYSICAL EXAM Vitals BP 116/80 (BP Location: Right arm, Patient Position: Sitting) Pulse 74 Ht 167.6 cm (5' 6 ) Wt 65.8 kg (145 lb) SpO2 98% BMI 23.40 kg/m?? Physical Examination: General appearance - alert, [...] for this visit: Paroxysmal SVT (supraventricular tachycardia) (CMS/[facility]) PLAN/RECOMMENDATIONS Will observe this cautiously for now without any medical treatment I think this is a decision that I agree with as well she is otherwise a young healthy lady I would like to avoid placing her on medications that might lower her blood pressure and certainly would like to avoid more specific ordered aggressive anti rhythmic agents. She is having very few episodes that are more than brief and transient so I also do not see a role for ablate of treatment at this time Will see the patient at 6 month intervals or of course p.r.n. Markus Guerrero MD ET LIGHT REPAIRER HELPER documented in this encounter Plan of Treatment Not on file documented as of this encounter Visit Diagnoses Diagnosis Paroxysmal SVT (supraventricular tachycardia) (HCC)- Primary documented in this encounter Care Teams General Maintenance Helper Relationship Specialty Start Date End Date Jett Yarbrough MD [address] [address] PCP - General 09/27/15 documented as of this encounter
--- OUTSIDE RECORDS SUMMARY | 2024-06-01 00:24 | XMS_ITS | Encounter Summary ---
Author Organization [facility] Address [address] [facility] [address] [place] [address] Care Team Providers Care Embossing Machine Operator Name Role Phone Jett Yarbrough MD Primary Care Provider [phone]- [phone] Reason for Referral * (Routine) - Closed Specialty Diagnoses / Procedures Referred By Contac t Referred To Contact Procedures ECG 12 lead [facility] [address] [place] [phone] Phone: tel: fax: Referral ID Status Reason Start Date Expiration Date Visits Re quested Visits Authorized [id number] Closed 03/03/2018 09/12/2019 1 1 Encounter Details Date Type Department Care Team (Late st Contact Info) Description 03/03/2018 Orders Only [facility] [address] [facility] [address] [place] [phone] Yoli Alves MD [address] [place] [address] Social History Tobacco Use Types Packs/Day Years Used Date Smoking Tobacco: Never Alcohol Use Standard Drinks/Week Comments No 0 (1 standard drink = 0.6 oz pur e alcohol) Comments Unknown Sex and Gender Information Value Date Recorded Sex Assigned at Not on file Legal Sex Female 7:06 AM PRESIDENT COLLEGE OR UNIVERSITY Gender Identity Not on file Sexual Orientation Not on file documented as of this encounter Plan of Treatment Not on file documented as of this encounter Procedures Procedure Name Priority Date/Time Associated Diagnosis Comments ECG 12-LEAD Routine 02/19/2018 documented in this encounter Results * ECG 12 lead (02/19/2018) us Historical Provider ECG ORDERABLES Final Res ult documented in this encounter Visit Diagnoses Not on filedocumented in this encounter Care Teams Embossing Machine Operator Relationship Specialty Start Date End Date Jett Yarbrough MD [address] [facility] [address] [place] [id number] PCP - General 09/27/15 documented as of this encounter
--- OUTSIDE RECORDS SUMMARY | 2024-06-01 00:28 | XMS_ITS | Encounter Summary ---
Author Organization [facility] Address [address] [place] [address] Care Team Providers Care Optoelectronics Engineer Name Role Phone Jett Yarbrough DO Primary Care Provider [phone] Reason for Referral * Outpatient Services (Routine) - Closed Specialty Diagnoses / Procedures Referred By Contac t Referred To Contact Radiology Diagnoses Abnormal maternal glucose tolerance, antepartum Procedures US OB FOLLOW UP PER FETUS Luciano White MD NO ADDRESS ON FILE [facility] [address] [place] [address] Referral ID Status Reason Start Date Expiration Date Visits Re quested Visits Authorized [id number] Closed 11/23/2012 12/24/2013 1 1 Reason for Visit * Outpatient Services (Routine) - Closed Specialty Diagnoses / Procedures Referred By Contac t Referred To Contact Radiology Diagnoses Abnormal maternal glucose tolerance, antepartum Procedures US OB FOLLOW UP PER FETUS Luciano White MD NO ADDRESS ON FILE [facility] [address] [place] [address] Referral ID Status Reason Start Date Expiration Date Visits Re quested Visits Authorized [id number] Closed 11/23/2012 12/24/2013 1 1 Encounter Details Date Type Department Care Team (Latest Contact Info) Description 12/20/2012 2:44 PM CDT - 12/20/2012 11:59 PM CDT Hospital Encounter [facility] Maternal and [facility] [address] [place] [address] Luciano White MD NO ADDRESS ON FILE Discharge Disposition: Home or Self Care Social History Tobacco Use Types Packs/Day Years Used Date Smoking Tobacco: Never Assessed Sex and Gender Information Value Date Recorded Sex Assigned at Not on file Gender Identity Not on file Sexual Orientation Not on file documented as of this encounter Plan of Treatment Not on file documented as of this encounter Procedures Procedure Name Priority Date/Time Associated Diagnosis Comments US OB FOLLOW UP PER FETUS Routine 12/20/2012 3:08 PM CDT Abnormal maternal glucose tolerance, antepartum documented in this encounter Results * US OB FOLLOW UP PER FETUS (12/20/2012 3:08 PM CDT) Anatomical Region Laterality Modality Pelvis Ultrasound 12/20/2012 2:47 PM CDT Narrative 12/20/2012 5:01 PM CDT ? Follow Up Basic Report Pat. Name: CHIOMA CHU ? Study Date: ?? 12/20/2012 ??2:47pm Pat. No: ?? [id number] ? Referring MD: Shanika Rashid MD Site: ?[place] ? Hydrologist: ??Alisia Kessler RDMS Height: ?66 in ? , Age: ? 1970, 42 LMP: ? 04/25/2012 ?Pregnancies: ?? 9, Para 4, Ab 4 GA by LMP: 34w1d ? GA Selected: ??34w1d (LMP) GA by 1st: 34w1d ? ICD9: ? 659.63, 648.03, 659.43 GA by US: ??36w1d ? CPT4: ? 65545 Hist/Ind: ??Assess Growth/TORSTEN ? Maternal Diabetes (Insulin) ? AMA - Multigravida ? Hx of Recurrent Loss ? CF Carrier ? Normal MT 21 Results ? ELROY: ?01/30/2013 MEASUREMENTS & AGE ? GROWTH EVALUATION Measurement ??GA ? Range ? Source ?? % ?? 34w1d ??Ratios ----- ------- ?? BPD ??9.1 cm 36w5d (42v9i-32d3d) Hadlock ??BPD ??88% ?? FL/BPD 0.76 (0.71 - 0.87) HC ??32.5 cm 36w6d (00c8u-54i5l) Hadlock ??HC ?? >95 ?? FL/AC ??0.20 (0.20 - 0.24) AC ??34.1 cm 38w0d (44p8t-01w2o) Hadlock ??AC ?? >95 ?? HC/AC ??0.95 (0.94 - 1.13) FL ?? 6.9 cm 35w4d (50a1z-39f9k) Hadlock ??FL ?? 72% ?? CI ? 0.79 (0.70 - 0.86) HL ?? 5.9 cm 34w1d (92q6v-49k3q) Uyen ?? HL ?? 50% TIB ??6.1 cm ? (99d0w-89l1m) Patricia ? TIB ??78% GA for sonogram 36w1d (01u4h-01w5v) ? Weight Estimate: based on (BPD,HC,AC,FL) Hadlock ?Weight: 3136 gm (5928-4473) Hadlock ? : 6lbs, 14oz ? Normal: 2417 gm (4376-4977) Oni ? Wt% ? 89% for 34.1 wks Heart Rate: 134 bpm Amniotic Fluid Index: 16.9cm (08.1-24.8) Q1: 5.2cm ??Q2: 5.8cm ??Q3: 3.1cm ??Q4: 2.8cm ?? Anatomy!Normal!Abnormal!Suboptimal!Prev. Seen!Comments Cranial Anato! ?? x ??! ?! ?! ? x ?! Cardiac Activ! ?? x ??! ?! ?! ? x ?! 4 Chamber Hea! ?? x ??! ?! ?! ? x ?! LVOT ? ! ?! ?! ?! ? x ?! RVOT ? ! ?! ?! ?! ? x ?! Stomach ?! ?? x ??! ?! ?! ? x ?! Diaphragm ?! ?? x ??! ?! ?! ? x ?! Right Kidney ! ?? x ??! ?! ?! ? x ?! Left Kidney ??! ?? x ??! ?! ?! ? x ?! Umb Cord ? ! ?? x ??! ?! ?! ? x ?! Abdominal Wal! ?? x ??! ?! ?! ? x ?! Bladder ?! ?? x ??! ?! ?! ? x ?! Spine ?! ?? x ??! ?! ?! ? x ?! Limbs ?! ?! ?! ?! ? x ?! Placenta ? ! ?? x ??! ?! ?! ? x ?! Other ?! ?! ?! ?! ? x ?! CLINICAL SUMMARY GA Selected is 34w1d ?? Bergman in the cephalic presentation. The ??placenta appears to be anterior. The amniotic fluid level appears to be ??normal. The gender is ?? male. IMPRESSION: growth is acceleratedat the 89 percentile. Limited anatomic survey reassuring for gestational age. Placenta normal. Amniotic fluid volume normal. RECOMMENDATIONS: A follow up ultrasound ??scheduled in 4 weeks. Steven Angel MD, [facility] <Electronic Signature> ??12/20/2012 05:01pm Procedure Note Steven Angel MD - 12/20/2012 Follow Up Basic Report Pat. Name: CHIOMA CHU Study Date: 12/20/20122:47pm Pat. No: [id number] Referring MD: Shanika Rashid MD Site: [place] Hydrologist: Alisia Kessler RDMS Height: 66 in , Age: 06 1970, 42 LMP: 04/25/2012 Pregnancies: 9, Para 4,Ab 4 GA by LMP: 34w1d GA Selected: 34w1d (LMP) GA by 1st: 34w1d ICD9: 659.63, 648.03,659.43 GA by US: 36w1d CPT4: 50595 Hist/Ind: Assess Growth/TORSTEN Maternal Diabetes (Insulin) AMA - Multigravida Hx of Recurrent Loss CF Carrier Normal MT 21 Results ELROY: 01/30/2013 MEASUREMENTS & AGE GROWTH EVALUATION Measurement GA Range Source % 34w1d Ratios ----- ------- BPD 9.1 cm 36w5d (97j3d-96a4k) Hadlock BPD 88% FL/BPD 0.76 (0.71 -0.87) HC 32.5 cm 36w6d (23y0x-99c7v) Hadlock HC >95 FL/AC 0.20 (0.20 -0.24) AC 34.1 cm 38w0d (48u2f-84o7s) Hadlock AC >95 HC/AC 0.95 (0.94 -1.13) FL 6.9 cm 35w4d (41u6c-55j4x) Hadlock FL 72% CI 0.79 (0.70 -0.86) HL 5.9 cm 34w1d (98s9h-25a2f) Uyen HL 50% TIB 6.1 cm (92f5w-18v9h) Patricia TIB 78% GA for sonogram 36w1d (29v8w-11s1e) Weight Estimate: based on (BPD,HC,AC,FL) Hadlock Weight: 3136 gm (5608-8816)Hadlock : 6lbs, 14oz Normal: 2417 gm (0720-7762)Oni Wt% 89% for 34.1 wks Heart Rate: 134 bpm Amniotic Fluid Index: 16.9cm (08.1-24.8) Q1: 5.2cm Q2: 5.8cm Q3: 3.1cm Q4: 2.8cm Anatomy!Normal!Abnormal!Suboptimal!Prev. Seen!Comments Cranial Anato! x ! ! ! x ! Cardiac Activ! x ! ! ! x ! 4 Chamber Hea! x ! ! ! x ! LVOT ! ! ! ! x ! RVOT ! ! ! ! x ! Stomach ! x ! ! ! x ! Diaphragm ! x ! ! ! x ! Right Kidney ! x ! ! ! x ! Left Kidney ! x ! ! ! x ! Umb Cord ! x ! ! ! x ! Abdominal Wal! x ! ! ! x ! Bladder ! x ! ! ! x ! Spine ! x ! ! ! x ! Limbs ! ! ! ! x ! Placenta ! x ! ! ! x ! Other ! ! ! ! x ! CLINICAL SUMMARY GA Selected is 34w1d Bergman in the cephalic presentation. The placenta appears to be anterior. The amniotic fluid level appears to be normal. The gender is male. IMPRESSION: growth is acceleratedat the 89 percentile. Limited anatomic survey reassuring for gestational age. Placenta normal. Amniotic fluid volume normal. RECOMMENDATIONS: A follow up ultrasound scheduled in 4 weeks. Steven Angel MD, [facility] <Electronic Signature> 12/20/2012 05:01pm Luciano White MD ORDERABLES documented in this encounter Visit Diagnoses Diagnosis Abnormal maternal glucose tolerance, antepartum documented in this encounter Care Teams Optoelectronics Engineer Relationship Specialty Start Date End Date Jett Yarbrough [address] [facility] [address] [place] [address] PCP - General Internal Medicine 07/09/12 documented as of this encounter
--- OUTSIDE RECORDS SUMMARY | 2024-06-01 00:28 | XMS_ITS | Encounter Summary ---
Author Organization [facility] Address [address] [place] [address] Care Team Providers Care Volunteer Coordinator Name Role Phone Jett Yarbrough DO Primary Care Provider [phone] Reason for Referral * Outpatient Services (Routine) - Closed Specialty Diagnoses / Procedures Referred By Contac t Referred To Contact Radiology Diagnoses Elderly multigravida with antepartum condition or complication Procedures US OB FOLLOW UP PER FETUS Mason Calles MD NO ADDRESS ON FILE [facility] [address] [place] [address] Referral ID Status Reason Start Date Expiration Date Visits Re quested Visits Authorized [id number] Closed 08/31/2012 10/01/2013 1 1 Reason for Visit * Outpatient Services (Routine) - Closed Specialty Diagnoses / Procedures Referred By Contac t Referred To Contact Radiology Diagnoses Elderly multigravida with antepartum condition or complication Procedures US OB FOLLOW UP PER FETUS Mason Calles MD NO ADDRESS ON FILE [facility] [address] [place] [address] Referral ID Status Reason Start Date Expiration Date Visits Re quested Visits Authorized [id number] Closed 08/31/2012 10/01/2013 1 1 Encounter Details Date Type Department Care Team (Latest Contact Info) Description 09/29/2012 12:58 PM CDT - 09/29/2012 11:59 PM CDT Hospital Encounter [place] M[facility] and [facility] [address] [place] [address] Mason Calles MD NO ADDRESS ON FILE Discharge Disposition: [...] US OB FOLLOW UP PER FETUS Routine 09/29/2012 1:10 PM CDT Elderly multigravida with antepartum condition or complication documented in this encounter Results * US OB FOLLOW UP PER FETUS (09/29/2012 1:10 PM CDT) Anatomical Region Laterality Modality Pelvis Ultrasound 09/29/2012 1:03 PM CDT Narrative 09/30/2012 7:13 AM CDT ? Follow Up Basic Report Pat. Name: CHIOMA CHU ? Study Date: ?? 09/29/2012 ??1:03pm Pat. No: ?? [id number] ? Referring MD: Shanika Rashid MD Site: ?[place] ? Device Sales Consultant: ??Alisia Kessler RDMS Height: ?66 in ? , Age: ? 1970, 41 LMP: ? 04/25/2012 ?Pregnancies: ?? 9, Para 4, Ab 4 GA by LMP: 22w3d ? GA Selected: ??22w3d (LMP) GA by 1st: 22w3d ? ICD9: ? 659.63, 648.03, 646.33, 659.43, V28.3 GA by US: ??22w5d ? CPT4: ? 51830 Hist/Ind: ??Assess Growth ? Maternal Diabetes (Insulin) ? AMA - Multigravida ? Hx of Recurrent Loss ? CF Carrier ? Normal MT 21 Results ? ELROY: ?01/30/2013 MEASUREMENTS & AGE ? GROWTH EVALUATION Measurement ??GA ? Range ? Source ?? % ?? 22w3d ??Ratios ----- ------- ?? BPD ??5.4 cm 22w3d (74g8k-85r6z) Hadlock ??BPD ??49% ?? FL/BPD 0.71 HC ??21.1 cm 23w1d (15m8a-87x9c) Hadlock ??HC ?? 72% ?? FL/AC ??0.20 (0.20 - 0.24)* AC ??19.4 cm 24w1d (31p4y-23u9p) Hadlock ??AC ?? 85% ?? HC/AC ??1.09 (1.04 - 1.23) FL ?? 3.8 cm 22w2d (92x3r-48x1a) Hadlock ??FL ?? 48% ?? CI ? 0.69 (0.70 - 0.86)* HL ?? 3.8 cm 23w4d (64a1z-41g4i) Uyen ?? HL ?? 68% CER ??2.7 cm 24w1d (46l2z-42x7o) Hill ? CER ??89% TIB ??3.4 cm ? (84r8k-73m8p) Patricia ? TIB ??62% GA for sonogram 22w5d (80e6h-73i4e) ? Weight Estimate: based on (HC,AC,FL) Hadlock ?Weight: 577 gm (492-661) Hadlock ? : 1lbs, 4oz ? Normal: 543 gm (338- 792) Oni ? Wt% ? 55% for 22.4 wks Heart Rate: 152 bpm Amniotic Fluid Index: 05.0cm (Deepest Pocket) Anatomy!Normal!Abnormal!Suboptimal!Prev. Seen!Comments Cranial Anato! ?? x ??! ?! ?! ?! Cardiac Activ! ?? x ??! ?! ?! ?! 4 Chamber Hea! ?? x ??! ?! ?! ?! LVOT ? ! ?? x ??! ?! ?! ? x ?! RVOT ? ! ?? x ??! ?! ?! ? x ?! Stomach ?! ?? x ??! ?! ?! ? x ?! Diaphragm ?! ?? x ??! ?! ?! ? x ?! Right Kidney ! ?? x ??! ?! ?! ? x ?! Left Kidney ??! ?? x ??! ?! ?! ? x ?! Umb Cord ? ! ?? x ??! ?! ?! ?! Abdominal Wal! ?? x ??! ?! ?! ? x ?! Bladder ?! ?? x ??! ?! ?! ? x ?! Spine ?! ?? x ??! ?! ?! ?! Limbs ?! ?? x ??! ?! ?! ?! Placenta ? ! ?? x ??! ?! ?! ? x ?! Other ?! ?! ?! ?! ? x ?! CLINICAL SUMMARY GA Selected is 22w3d ?? Bergman in the breech presentation. The ??placenta appears to be anterior. The amniotic fluid level appears to be ??normal. The gender is ?? male. IMPRESSION: Viable intrauterine at 22 3/7 weeks. biometry is consistent with menstrual age. Normal anatomy, growth, placentation, and fluid. growth is normal at the 55 percentile. No structural malformations or markers of aneuploidy identified. Placenta normal. Amniotic fluid volume normal. RECOMMENDATIONS A follow up ultrasound ??scheduled in 4 weeks. Thank you for referring ??your patient to our facility. Kenneth Callejas MD, [facility] <Electronic Signature> ??09/30/2012 07:13am Procedure Note Kenneth Callejas MD - 09/30/2012 Follow Up Basic Report Pat. Name: CHIOMA CHU Study Date: 09/29/20121:03pm Pat. No: [id number] Referring MD: Shanika Rashid MD Site: [place] Device Sales Consultant: Alisia Kessler RDMS Height: 66 in , Age: 06 1970, 41 LMP: 04/25/2012 Pregnancies: 9, Para 4,Ab 4 GA by LMP: 22w3d GA Selected: 22w3d (LMP) GA by 1st: 22w3d ICD9: 659.63, 648.03,646.33, 659.43, V28.3 GA by US: 22w5d CPT4: 50478 Hist/Ind: Assess Growth Maternal Diabetes (Insulin) AMA - Multigravida Hx of Recurrent Loss CF Carrier Normal MT 21 Results ELROY: 01/30/2013 MEASUREMENTS & AGE GROWTH EVALUATION Measurement GA Range Source % 22w3d Ratios ----- ------- BPD 5.4 cm 22w3d (38g8t-15k7n) Hadlock BPD 49% FL/BPD 0.71 HC 21.1 cm 23w1d (83q7k-64c0o) Hadlock HC 72% FL/AC 0.20 (0.20 -0.24)* AC 19.4 cm 24w1d (62v6l-79b4f) Hadlock AC 85% HC/AC 1.09 (1.04 -1.23) FL 3.8 cm 22w2d (99f0q-08e4w) Hadlock FL 48% CI 0.69 (0.70 -0.86)* HL 3.8 cm 23w4d (45d6z-16x9u) Uyen HL 68% CER 2.7 cm 24w1d (58p3q-17t1n) Hill CER 89% TIB 3.4 cm (42l0y-49j1h) Patricia TIB 62% GA for sonogram 22w5d (15e8j-15r2i) Weight Estimate: based on (HC,AC,FL) Hadlock Weight: 577 gm (492-661)Hadlock : 1lbs, 4oz Normal: 543 gm (338-792)Oni Wt% 55% for 22.4 wks Heart Rate: 152 bpm Amniotic Fluid Index: 05.0cm (Deepest Pocket) Anatomy!Normal!Abnormal!Suboptimal!Prev. Seen!Comments Cranial Anato! x ! ! ! ! Cardiac Activ! x ! ! ! ! 4 Chamber Hea! x ! ! ! ! LVOT ! x ! ! ! x ! RVOT ! x ! ! ! x ! Stomach ! x ! ! ! x ! Diaphragm ! x ! ! ! x ! Right Kidney ! x ! ! ! x ! Left Kidney ! x ! ! ! x ! Umb Cord ! x ! ! ! ! Abdominal Wal! x ! ! ! x ! Bladder ! x ! ! ! x ! Spine ! x ! ! ! ! Limbs ! x ! ! ! ! Placenta ! x ! ! ! x ! Other ! ! ! ! x ! CLINICAL SUMMARY GA Selected is 22w3d Bergman in the breech presentation. The placenta appears to be anterior. The amniotic fluid level appears to be normal. The gender is male. IMPRESSION: Viable intrauterine at 22 3/7 weeks. biometry is consistent with menstrual age. Normal anatomy, growth, placentation, and fluid. growth is normal at the 55 percentile. No structural malformations or markers of aneuploidy identified. Placenta normal. Amniotic fluid volume normal. RECOMMENDATIONS A follow up ultrasound scheduled in 4 weeks. Thank you for referring your patient to our facility. Kenneth Callejas MD, [facility] <Electronic Signature> 09/30/2012 07:13am Mason Calles MD ORDERABLES documented in this encounter Visit Diagnoses Diagnosis Elderly multigravida with antepartum condition or complication documented in this encounter Care Teams Volunteer Coordinator Relationship Specialty Start Date End Date Jett Yarbrough DO [address] [address] PCP - General Internal Medicine 07/09/12 documented as of this encounter
--- OUTSIDE RECORDS SUMMARY | 2024-06-01 00:28 | XMS_ITS | Continuity of Care Document ---
Author Organization [facility] Address [address] [place] [address] Phone Care Team Providers Care Railway Switchman Name Role Phone Unavailable Unavailable Unavailable Advance Directives Directive Yes / No Effective Date File Name No Information Encounters Encounter Description Practice Location Reason(s) For Visit Diagnoses Date Provider Providers Copied on Encounter [facility], [address] [facility], [place], [place], [id number], [place] tel:[phone] [facility] No Information No Information Referring Provider: REFERRAL SELF. Family History Family Member Type Diagnosis Age At Onset No Information Payers Payer name Insurance type Covered constitution party ID Authoriza rinku(s) [facility] PPO [id number] Social History Type Description Quantity Date Captured Comments Sex Female Smoking Status No Information Chief Complaint And Reason For Visit No Information History Of Present Illness Encounter Date Complaint History Of Prese nt Illness No Information Instructions Date Instruction Additional Infor mation No Information Assessments Type Assessment Date No Information
--- OUTSIDE RECORDS SUMMARY | 2024-06-01 00:28 | XMS_ITS | Encounter Summary ---
Author Organization [facility] Address [address] [place] [address] Care Team Providers Care Graphics Software Engineer Name Role Phone Jett Yarbrough DO Primary Care Provider [phone] Reason for Visit * Auth/Cert - Closed Specialty Diagnoses / Procedures Referred By Contlevar t Referred To Contact Radiology [facility] [address] [place] [address] Referral ID Status Reason Start Date Expiration Date Visits Re quested Visits Authorized [id number] Closed 1 1 Encounter Details Date Type Department Care Team (Late st Contact Info) Description 07/15/2012 8:30 AM INSPECTING SUPERVISOR - 07/15/2012 11:59 PM [facility] Hospital Encounter [facility] [address] [place] [address] Tita Rashid MD [address] [address] Maritza Garner [facility], Genetic Counseling Discharge Disposition: Home or Self Care Social History Tobacco Use Types Packs/Day Years Used Date Smoking Tobacco: Never Assessed Sex and Gender Information Value Date Recorded Sex Assigned at Not on file Gender Identity Not on file Sexual Orientation Not on file documented as of this encounter Progress Notes * Tatiana Pate - 01/21/2014 5:39 PM CDT * Scanning, [facility] - 08/08/2012 3:02 PM CST ECTING SUPERVISOR documented in this encounter Consult Notes * Marian Anne RN - 07/15/2012 9:47 AM CST Telehealth Visit Patient is seen 07/15/2012 at [facility], [place], [place] via Telehealth Services with bi-directional real time audio/video with Maritza Garner, Genetics Counselor, from [facility] [employer]. Start time: 846 End time: 916 MARIAN ANNE RN ECTING SUPERVISOR documented in this encounter Miscellaneous Notes * Scanned Form - Scanning, [facility] - 08/08/2012 3:02 PM CST ECTING SUPERVISOR documented in this encounter Plan of Treatment Scheduled Referrals Name Type Priority Associated Diagnoses Orde r Schedule AMB REFERRAL TO GENETIC COUNSELING Outpatient Referral Routine Elderly multigravida with antepartum condition or complication Ordered: 06/29/2012 documented as of this encounter Visit Diagnoses Not on filedocumented in this encounter Care Teams Graphics Software Engineer Relationship Specialty Start Date End Date Jett Yarbrough DO [address] [facility] [address] [place] [address] PCP - General Internal Medicine 07/09/12 documented as of this encounter
--- OUTSIDE RECORDS SUMMARY | 2024-06-01 00:28 | XMS_ITS ---
Author Organization [facility] Address [address] [place] [address] Care Team Providers Care Impregnating Helper Name Role Phone Pedrito, Desmond Primary Care Provider Rolanda Ordaz Unavailable [phone] Allergies Allergen (clinical drug ingredient) Drug/Non Drug Allergy documented on EMR Reaction Allergy Type Onset Date Status Penicillin (uncoded) Hives Allergy Active REASON FOR VISIT Chronic upper airway symptoms concerning for uncontrolled atopic disease - uses Sudafed and FlonasePRN., Chronic cough due to ongoing drainage., PCN allergy - reported generalized hives in 1997 Medications Medication SIG (Take, Route, Frequency, Duration) Notes Start Date End Date Status Azelastine HCl 137 MCG/SPRAY 2 sprays in each nostril Nasally Twice a day for 30 days Active Fluticasone Propionate 50 MCG/ACT 2 sprays in each nostril Nasally Once a day for 30 days Active Nasal Washes as directed intranasally Active Cetirizine HCl 10 MG 1 tablet Orally Onc e a day for 30 days Active Atorvastatin Calcium 40 MG 1 tablet Orally Once a day Active Pantoprazole Sodium 40 MG 1 tablet Orally Once a day Active dilTIAZem HCl 30 MG as directed Orally Active LORazepam 0.5 MG 1 tablet at bedtime as needed Orally Once a day Active PARoxetine HCl 10 MG 1 tablet in the mor christina Orally Once a day Active Social History Tobacco Use: Social History Observation Description Date Details (start date - stop date) Never Smoker NA - NA Tobacco Control (Standard) Question Answer Notes Tobacco use: Nonsmoker Vital Signs Blood pressure systolic 125 mm Hg 12/30/19 24 Blood pressure diastolic 78 mm Hg 024 Height 66 in 12/30/2023 Weight 137.8 lbs 12/30/2023 BMI 22.24 kg/m2 12/30/2023 Oximetry 100 % 12/30/2023 Encounters Encounter Location Date Provider Diagnosis [facility] [address] [facility] [address] [place] [address] 12/30/2023 Rolanda Higuera Allergic rhinitis du e to pollen J30.1 ; Allergic rhinitis due to animal (cat) (dog) hair and dander J30.81 ; Other allergic rhinitis J30.89 ; Other chronic allergic conjunctivitis H10.45 ; Chronic cough R05.3 ; Other adverse food reactions, not elsewhere classified, initial encounter T78.1XXA ; Rash and other nonspecific skin eruption R21 ; Adverse effect of penicillins, initial encounter T36.0X5A and Elevated blood-pressure reading, without diagnosis of hypertension R03.0 Assessments Encounter Date Diagnosis (ICD Code) Assessment Notes Treatment Notes Treatment Clinical Notes Section Notes 12/30/2023 Allergic rhinitis due to pollen (ICD-10 - J30.1) Given the history and symptoms, skin testing was performed to common aeroallergens to determine atopic status. Chioma clearly suffers from atopic disease based upon our skin testing and clinical history. Accordingly, we have introduced a new, aggressive medication regimen, discussed nasal washes and allergy-specific avoidance measures. We also discussed adjunctive therapies including subcutaneous, specific allergen immunotherapy as relates to the treatment and prevention of atopic disease. She is currently considering the risks, benefits and alternatives to this care. Risks: bleeding, infection, allergic reaction, anaphylaxis; Benefits: reduced need for medications, improved symptoms, disease modification. Alternatives: watch/wait, change medication regimen, improve allergy avoidance measures. - Of note, patient had delayed intradermal reaction to macedonian thistle. Treated with topical steroids with resolution of symptoms. - Continue medications as listed above. Refills sent for Astelin. Recommend trial of daily antihistamines. Zyrtec purchased. - Patient is considering SCIT - wants to attempt daily antihistamines at this time. - Follow-up in 6 months for interval evaluation and management 12/30/2023 Allergic rhinitis due to animal (cat) (dog) hair and dander (ICD-10 - J30.81) Follow allergen avoidance, meds and consider SCIT as an adjunctive treatment to current regimen 12/30/2023 Other allergic rhinitis (ICD-10 - J30.89) Follow allergen avoidance, meds and consider SCIT as an adjunctive treatment to current regimen 12/30/2023 Other chronic allergic conjunctivitis (ICD-10 - H10.45) Given ocular signs and symptoms I encouraged allergy avoidance measures and meds as above. If symptoms persist, consider adding additional medications including intraocular antihistamine/mast cell stabilizer, PRN and consider SCIT as an adjunctive measure 12/30/2023 Chronic cough (ICD-10 - R05.3) Ongoing cough that Chioma believes is related to drainage. Initial spirometry showed supernormal FVC, FEV1. Normal FEV%. FVL reproducible. Normal lung age. - Cough is now improved since addition of asteline. - Consider attempting HARLAN for worsening symptoms. - Treat atopy as stated above. - Consider spirometry challenge for worsening or persistent symptoms. 12/30/2023 Other adverse food reactions, not elsewhere classified, initial encounter (ICD-10 - T78.1XXA) Chioma reports nausea, bloating and diarrhea with milk. Additionally, reports abdominal pain and nausea shortly after steak ingestion that will remain throughout the evening until she goes to bed. She is able to tolerate ground beef, ely, ham, pork. She does not eat lopez. She denies vomiting, hives, shortness of breath and all other IgE-mediated symptoms. She does have a history of tick bites - Encouraged to journal for triggers and notify office for worsening symptoms. - Consider GI evaluation. - Consider alpha-gal work-up for eworsening symptoms. 12/30/2023 Rash and other nonspecific skin eruption (ICD-10 - R21) Chioma reports rashes with medical tape and adhesives. Encouraged to continue avoidance of adhsevie and take pictures of future skin rashes. Consider patch testing in future. 12/30/2023 Adverse effect of penicillins, initial encounter (ICD-10 - T36.0X5A) Reported full body hives after PCN injection in 1997. Continue avoidance at this time. Discuss treatment at follow-up and consider PCN testing in future. 12/30/2023 Elevated blood-pressure reading, without diagnosis of hypertension (ICD-10 - R03.0) BP elevated today without symptoms of urgency or emergency. Continue serial checks and follow-up with PCP Plan Of Treatment Medication Medication Name Sig Start Date Stop Date Notes Azelastine HCl 137 MCG/SPRAY 2 sprays in each nostril Nasally Twice a day for 30 days Fluticasone Propionate 50 MCG/ACT 2 sprays in each nostril Nasally Once a day for 30 days Nasal Washes as directed intranasally Cetirizine HCl 10 MG 1 tablet Orally Onc e a day for 30 days Treatment Notes Assessment Notes Allergic rhinitis due to pollen Given the history and symptoms, skin testing was performed to common aeroallergens to determine atopic status. Chioma clearly suffers from atopic disease based upon our skin testing and clinical history. Accordingly, we have introduced a new, aggressive medication regimen, discussed nasal washes and allergy-specific avoidance measures. We also discussed adjunctive therapies including subcutaneous, specific allergen immunotherapy as relates to the treatment and prevention of atopic disease. She is currently considering the risks, benefits and alternatives to this care. Risks: bleeding, infection, allergic reaction, anaphylaxis; Benefits: reduced need for medications, improved symptoms, disease modification. Alternatives: watch/wait, change medication regimen, improve allergy avoidance measures. - Of note, patient had delayed intradermal reaction to macedonian thistle. Treated with topical steroids with resolution of symptoms. - Continue medications as listed above. Refills sent for Astelin. Recommend trial of daily antihistamines. Zyrtec purchased. - Patient is considering SCIT - wants to attempt daily antihistamines at this time. - Follow-up in 6 months for interval evaluation and management Allergic rhinitis due to ani mal (cat) (dog) hair and dander Follow allergen avoidance, meds and consider SCIT as an adjunctive treatment to current regimen Other allergic rhinitis Follow allergen avoidance, meds and consider SCIT as an adjunctive treatment to current regimen Other chronic allergic conjunctivitis Gi mariama ocular signs and symptoms I encouraged allergy avoidance measures and meds as above. If symptoms persist, consider adding additional medications including intraocular antihistamine/mast cell stabilizer, PRN and consider SCIT as an adjunctive measure Chronic cough Ongoing cough that Chioma believes is related to drainage. Initial spirometry showed supernormal FVC, FEV1. Normal FEV%. FVL reproducible. Normal lung age. - Cough is now improved since addition of asteline. - Consider attempting HARLAN for worsening symptoms. - Treat atopy as stated above. - Consider spirometry challenge for worsening or persistent symptoms. Other adverse food reactions , not elsewhere classified, initial encounter Chioma reports nausea, bloating and diarrhea with milk. Additionally, reports abdominal pain and nausea shortly after steak ingestion that will remain throughout the evening until she goes to bed. She is able to tolerate ground beef, ely, ham, pork. She does not eat lopez. She denies vomiting, hives, shortness of breath and all other IgE-mediated symptoms. She does have a history of tick bites - Encouraged to journal for triggers and notify office for worsening symptoms. - Consider GI evaluation. - Consider alpha-gal work-up for eworsening symptoms. Rash and other nonspecific skin eruption Chioma reports rashes with medical tape and adhesives. Encouraged to continue avoidance of adhsevie and take pictures of future skin rashes. Consider patch testing in future. Adverse effect of penicillin s, initial encounter Reported full body hives after PCN injection in 1997. Continue avoidance at this time. Discuss treatment at follow-up and consider PCN testing in future. Elevated blood-pressure read ing, without diagnosis of hypertension BP elevated today without symptoms of urgency or emergency. Continue serial checks and follow-up with PCP Next Appt Details Follow Up: 6 Months, Reason: Evaluation and Management Provider Name:Rolanda polanco, 09/14/2024 08:30:00 AM, [address] [facility], [address], [address], Progress Notes * Timothy CHUOB: [birth year] (53 yo F)Acc No.[id number]:12/30/2023 Progress Notes Patient:?Chioma CHU Provider:?ZEE AgostoP-BC :1970???Age:53 Y???Sex:Female D ate:12/30/2023 Address:[address] [place], [place] [id number] Pcp:Desmond Major Subjective: * Chief Complaints: * ???Chronic upper airway symp toms concerning for uncontrolled atopic disease - uses Sudafed and Flonase PRN.Chronic cough due to ongoing drainage.PCN allergy - reported generalized hives in 1997 * HPI: ???*Introduction:?I had the pleasure of seeing?Chioma Chu, a 53-year-old WF with a past medical history of Daniel's thyroid disease, prediabetes, hyperlipidemia, SVT here today for interval evaluation and management. She is alone for today's visit.?Aeroallergen skin testing was completed at first visit, and was positive to multiple seasonal and perennial allergens. Of note, she had a delayed intradermal reaction to macedonian thistle, treated with topical steroids with resolution of symptoms.?Chioma reports ongoing itchy/watery eyes, rhinorrhea, sneezing, coughing and PND. Symptoms are worse from Spring to Fall.Descriptors of her upper airways symptoms are outlined below.??Chioma reports coughing almost daily due to drainage down back of throat. Laughing will trigger coughing fits that she feels is mainly caused by PND. She feels cough is productive this time of year, but becomes a dry cough during the Winter. She uses cough drops PRN. No associated chest tightness, shortness of breath or wheezing. She denies inhaler usage, asthma diagnosis. She denies frequent infections, OCS use, hospitalizations. She reports PNA diagnosis at age 5. Today, reporting overall symptom improvement since addition of azelastine. Cough has improved, but still has ongoing PND though it is 50% better compared to initial visit.??She is only using Azelastine, not taking daily antihistamine.? Chioma reports nausea, bloating and diarrhea with milk. Additionally, reports abdominal pain and nausea shortly after steak ingestion and remain throughout the evening until she goes to bed.? She is able to tolerate ground beef, ely, ham, pork. She does not eat lopez. She denies vomiting, hives, shortness of breath and all other IgE-mediated symptoms. She does have a history of tick bites.?Chioma reports a pencillin allergy after developing full body hives s/t pencillin injection in 1997 after D&C. She continues avoidance at this time. Chioma also reports rashes that will occur when walking through weeds. She also reports adhesive sensitivity. She has developed rashes and blisters after wearing holter monitor and with medical tape. She also reports vague symptoms of bloating when eating certain foods, though cannot identify certain foods. She denies IgE-mediated symptoms. Today, she reports no fevers, chills, night sweats or other constitutional symptoms.? * ROS:?ALLERGY:?runny nose?Yes.?scratchy throat?Yes.?itchy eyes?Yes.?ear fullness?Yes.?sinus congestion?Yes.?SPECIAL SENSES:?cataracts?No.?glaucoma?No.?loss of hearing?No.?itching in ears?Yes.?ringing in ears?Yes.?loss of balance?No.?loss of smell?No.?dry eyes?Yes.?excessive tearing?No.?itching eyes?Yes.?loss of taste?No.?conjunctivitis?No.?ear infections?No.?CONSTITUTIONAL:?weight gain?No.?loss of appetite?Yes.?fever?No.?weakness?No.?weight loss?Yes.?fatigue?Yes.?night sweats?Yes.?ENT:?cold?Yes.?cough?Yes.?epistaxis?No.?hearing loss?No.?change in voice?No.?sore throat?No.?ringing in ears?Yes.?sinus pain?Yes.?RESPIRATORY:?shortness of breath?No.?chest pain?Yes.?chest congestion?No.?cough?Yes.?OPHTHALMOLOGY:?diminished vision?No.?eye irritation?Yes.?drainage from eyes?No.?blurring of vision?No.?seasonal eye sx?Yes.?itching?Yes.?sensitivity to light?No.?discharge?No.?watering?No.?swelling of the eyelids?No.?redness?Yes.?ENDOCRINOLOGY:?fatigue?Yes.?polydipsia?No.?polyuria?No.?weight loss?Yes.?sleep disturbance?Yes.?cold intolerance?Yes.?heat intolerance?Yes.?diabetes?Yes.?CARDIOLOGY:?chest pain?Yes.?palpitations?Yes.?leg edema?No.?dizziness?No.?shortness of breath?Yes.?GASTROENTEROLOGY:?dysphagia?No.?abdominal pain?Yes.?nausea?Yes.?vomiting?No.?constipation?Yes.?diarrhea?Yes.?blood in stool?No.?indigestion?Yes.?hemorrhoids?No.?UROLOGY:?difficulty urinating?No.?blood in urine?No.?frequent urination?No.?urinary incontinence?No.?recurrent UTI?No.?DERMATOLOGY:?rash?Yes.?mole?Yes.?lumps?Yes.?dry or sensitive skin?Yes.?hives (urticaria)?Yes.?acne?No.?skin cancer?No.?NEUROLOGY:?headache?Yes.?tingling numbness?No.?seizures?No.?insomnia?No.?memory loss?No.?dizziness?No.?gait abnormality?No.?MUSCULOSKELETAL:?joint swelling?No.?joint pain?Yes.?leg cramps?Yes.?joint stiffness?Yes.?sciatica?Yes.?fracture?No.?carpal tunnel?No.?gout?No.?PSYCHOLOGY:?high stress level?No.?depression?No.?sleep disturbances?Yes.?suicidal ideation?No.?eating disorder?No.?mental or physical abuse?No.?anxiety?Yes.?FEMALE REPRODUCTIVE:?heavy periods?Yes.?hot flashes?Yes.?abnormal vaginal discharge?No.?sexually active?Yes.?infertility?No.?frequent yeat infections?No.?pelvic pain?No.?breast pain?Yes.?nipple discharge No.?Are you ??No.?Are you planning on a future pregancy??No.? * Medical History:? * Surgical History:?Orthoscopi c knee surgery 08/13/1988Orthoscopic knee surgery 11/13/2004DNC for miscarriage 05/29/1998Peanut removed from bronchial tube 07/16/1974Heart ablation 04/05/2021Tubes in ears 07/16/1974 * Hospitalization/Major Diagno stic Procedure:?For Surgical procedures listed above. * Family History:?Father: dece ased, Yes.?Mother: alive, Yes.?Paternal Grand Father: Yes.?Paternal Grand Mother: Yes.?Maternal Grand Father: No.?Maternal Grand Mother: No.?Siblings: No.?Children: Yes.? Father: heart problems,diabetes Mother:diabetes,appendix/skin cancer. * Social History:?Marital Status?What is your marital status?Alcohol Screening?Do you ever drink alcoholic beverages??Yes ?Number of drinks per occasion:?1 ?Frequency??Every 6 months ???Smoking?Have you ever smoked tobacco:?never smoked ?Additional Findings: Tobacco Non-User?Never chewed tobacco ?Are you a :?never smoker ???Recreational drug use?Have you ever used recreational drugs??No ???Details on consumption of certain products?Do you regularly consume products with aspartame; Equal or NutraSweet??No ?Do you regularly consume products with artificial coloring??Yes ?Have you ever noticed worsening of your rash with these food items??No ???Exercise?What kind(s) of exercise do you perform regularly??pilates ?How often do you perform this exercise??2-5 x per year ???Are any of the following personal care products containing fragrance, dye or preservatives used regularly?Shampoo:?Yes ?Conditioner:?Yes ?Soap:?Yes ?Laundry Detergent:?Yes ?Fabric Softener:?Yes ?Deodorant:?Yes ?Perfume, cologne, after shave:?Yes ?Air freshners or other scented products:?Yes ?Hair coloring dyes or rinses:?No ?Other:?No ???Occupation?Are you currenly employed??Yes ?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 number of years?15 ?Do you believe that your current or previous occupation has any bearing on your illness??No ?Do you have any pending or planned legal action against your current or former employer which pertains to your medical illness??No ?Do you anticipate that your evaluation will be used in any legal action against your current employer or former employer??No ?Have you had any job with high exposure to fumes, chemicals, dust or other noxious substances??No ?Are you currently a student??No ???Environmental History?Living environment:?private home ?Where [place] ?Age of home:?32 ?How long have you lived there??5 years or more ?How many people live in the home??5 ???Home description?Basement:?Yes ?Any water damage in basement??No ?Smokers in the home??No ?Smokers outside the home??No ?Air Conditioning??Yes ?Central Air??Yes ?Forced air heating??Yes ?Gas or electric??gas ?Fireplace??Yes ?Used how often??winter months only ?Wood burning stove??No ?Do you vacuum the home??Yes ?Air purification systems??No ?Pillow and mattress dust-proof encasings??No ?Do you use a humidifier??Yes ?Whole house or room??room humidifier ?Does it have a humidistat??No ?Is it used year-round, seasonal, or as needed??as needed ?Is the humidifier cleaned regularly??Yes ?Do you own any pets??Yes ?What kind(s)? (click all that apply)?cats,dog,guinea pig,hamster ?Where do your pets sleep??anywhere in the house ?Fabric softeners used??Yes ?Plants in the home??Yes ?How many??4 ?Where are they kept??your room,kitchen,other room in home ?Is there carpeting in your bedroom??No ?Do you have [id number] carpeting??No ?What is the age of your mattress (years)??10 ?What material(s) are used to manufacture your bedding and pillow??synthetic,natural fiber (e.g. cotton) ?What is the age of your pillow (years)??1 ?What material are your bedding items made of??synthetic,natural fiber (e.g. cotton) ?Do you sleep with quilts or blankets or a duvet??Yes ?What material??synthetic,natural fiber (e.g. cotton) ?How many cats??5 ?How many dogs??2 ?How many guinea pigs??1 ???Tobacco Control (Standard)?Tobacco use:?Nonsmoker * Medications:?TakingPantopraz ole Sodium 40 MG Tablet Delayed Release 1 tablet Orally Once a day PARoxetine HCl 10 MG Tablet 1 tablet in the morning Orally Once a day LORazepam 0.5 MG Tablet 1 tablet at bedtime as needed Orally Once a day dilTIAZem HCl 30 MG Tablet as directed Orally Atorvastatin Calcium 40 MG Tablet 1 tablet Orally Once a day Cetirizine HCl 10 MG Tablet 1 tablet Orally Once a day Fluticasone Propionate 50 MCG/ACT Suspension 2 sprays in each nostril Nasally Twice a day Nasal Washes N/A - 1 quart of sterilized tap water or distilled water, 1 tsp NaCl, 1 pinch of baking soda as directed intranasally Azelastine HCl 137 MCG/SPRAY Solution 2 sprays in each nostril Nasally Twice a day Taking Pantoprazole Sodium 40 MG Tablet Delayed Release 1 tablet Orally Once a day Taking PARoxetine HCl 10 MG Tablet 1 tablet in the morning Orally Once a day Taking LORazepam 0.5 MG Tablet 1 tablet at bedtime as needed Orally Once a day Taking dilTIAZem HCl 30 MG Tablet as directed Orally Taking Atorvastatin Calcium 40 MG Tablet 1 tablet Orally Once a day Taking Cetirizine HCl 10 MG Tablet 1 tablet Orally Once a day Taking Fluticasone Propionate 50 MCG/ACT Suspension 2 sprays in each nostril Nasally Twice a day Taking Nasal Washes N/A - 1 quart of sterilized tap water or distilled water, 1 tsp NaCl, 1 pinch of baking soda as directed intranasally Taking Azelastine HCl 137 MCG/SPRAY Solution 2 sprays in each nostril Nasally Twice a day * Allergies:?Penicillin: Hives no[Allergies Verified] Objective: * Vitals:?BP:125/78mm Hg, HR:7 6/min, Pulse Oximetry:100%, Ht: 66 in, Wt: 137.8 lbs, BMI:22.24Index. * Examination: ???General examination: ?General appearance:?pleasant, well-developed, well-nourished.?HEENT:?pupils equal, round, and reactive to light and accommodation, conjunctiva are injected bilaterally, no tenderness to palpation of the sinuses, TM's without evidence of acute infection, turbinates 2+ swollen and pale inferiorly bilaterally, clear rhinorrhea is present, no polyps noted, no septal perforation, posterior oropharynx is erythematous and cobblestoning is present, erythema on pharyngeal wall, no exudates, no tongue swelling, and uvula is midline.?Oral cavity:?normal, no lesions.?Neck, thyroid :?supple, non-tender, no anterior cervical lymphadenopathy.?Breasts :?not performed.?Heart:?RRR, S1-S2, no murmurs, no rubs, no gallops.?Lungs:?clear to auscultation in all lung hernandez, no wheezes or crackles.?Neurologic exam:?unremarkable.?Skin:?normal, no rash, dermatographism, urticaria, angioedema.?Peripheral pulses:?normal (2+) bilaterally.?Back:?normal.?Extremities:?normal ROM, no clubbing, no cyanosis, no edema.?Genitalia:?not performed.? Assessment: * Assessment: 1.?Allergic rhinitis due to pollen - J30.1 (Primary)???2.?Allergic rhinitis due to animal (cat) (dog) hair and dander - J30.81???3.?Other allergic rhinitis - J30.89???4.?Other chronic allergic conjunctivitis - H10.45???5.?Chronic cough - R05.3???6.?Other adverse food reactions, not elsewhere classified, initial encounter - T78.1XXA???7.?Rash and other nonspecific skin eruption - R21???8.?Adverse effect of penicillins, initial encounter - T36.0X5A ??9.?Elevated blood-pressure reading, without diagnosis of hypertension - R03.0??? Plan: * Treatment: 2.?Allergic rhinitis due to animal (cat) (dog) hair and dander? Notes: Follow allergen avoidance, meds and consider SCIT as an adjunctive treatment to current regimen?? 3.?Other allergic rhinitis? Notes: Follow allergen avoidance, meds and consider SCIT as an adjunctive treatment to current regimen?? 4.?Other chronic allergic co njunctivitis? Notes: Given ocular signs and symptoms I encouraged allergy avoidance measures and meds as above. If symptoms persist, consider adding additional medications including intraocular antihistamine/mast cell stabilizer, PRN and consider SCIT as an adjunctive measure?? 5.?Chronic cough? Notes: Ongoing cough that Chioma believes is related to drainage. Initial spirometry showed supernormal FVC, FEV1. Normal FEV%. FVL reproducible. Normal lung age. - Cough is now improved since addition of asteline. - Consider attempting HARLAN for worsening symptoms. - Treat atopy as stated above. - Consider spirometry challenge for worsening or persistent symptoms. ?? 6.?Other adverse food reacti ons, not elsewhere classified, initial encounter? Notes:Chioma reports nausea, bloating and diarrhea with milk. Additionally, reports abdominal pain and nausea shortly after steak ingestion that will remain throughout the evening until she goes to bed. She is able to tolerate ground beef, ely, ham, pork. She does not eat lopez. She denies vomiting, hives, shortness of breath and all other IgE-mediated symptoms. She does have a history of tick bites - Encouraged to journal for triggers and notify office for worsening symptoms. - Consider GI evaluation. - Consider alpha-gal work-up for eworsening symptoms.?? 7.?Rash and other nonspecifi c skin eruption? Notes: Chioma reports rashes with medical tape and adhesives. Encouraged to continue avoidance of adhsevie and take pictures of future skin rashes. Consider patch testing in future. ?? 8.?Adverse effect of penicil kallie, initial encounter? Notes: Reported full body hives after PCN injection in 1997. Continue avoidance at this time. Discuss treatment at follow-up and consider PCN testing in future. ?? 9.?Elevated blood-pressure r eading, without diagnosis of hypertension? Notes: BP elevated today without symptoms of urgency or emergency. Continue serial checks and follow-up with PCP?? * Procedure Codes:?G8427 DOC M EDS VERIFIED W/PT OR RE * Preventive Medicine:? ??Counseling:?Diet?as tolerated.?Exercise?Continue activity as usual.?Medication instruction:?Watch for side effects of prescribed medications, Nasal steroid/antihistamine instruction: avoid septum.?Education:?GENERAL EDUCATION:, Our staff spent an additional 30 minutes in direct contact with the patient educating them on their current diagnoses and proper treatment and prevention of symptoms and the proper use of medications, Our staff discussed pulmonary function testing and results with the patient/family.?Education 2:?ARC EDUCATION:, Our staff discussed the appropriate allergen avoidance measures and medication utilization including upper airway hygiene with nasal washes given the patient's clinical status and diagnoses, SCIT EDUCATION:, Discussed allergy immunotherapy including the relative risks, benefits and alternatives to this treatment as an adjunctive measure to current therapy, Allergy Immunotherapy: Risks: bleeding, infection, allergic reaction, anaphylaxis = severe allergic reaction that can cause ; Benefits: reduced need for medications, improved symptoms, disease modification. Alternatives: watch/wait, change medication regimen, improve allergy avoidance measures, Our staff discussed the warning signs of anaphylaxis and the indications to use self-injectable epinephrine and seek urgent or emergent care.?Patient education material?sent to portal??Yes ?BP Management:?PRE-HYPERTENSIVE FOLLOW-UP PLAN:?Follow-up 1 month ?REFERRAL TO ALTERNATIVE / PRIMARY CARE PROVIDER:?Referral to general physician * Follow Up:?6 Months (Reason: Evaluation and Management) * Billing Information: * Visit Code:? 62633 Office Visit, Est Pt., Level 4. Modifiers: 25 * Procedure Codes:? G8427 DOC MEDS VERIFIED W/PT OR RE. * Electronically co-signed by Roberto Alcocer MD, FAAAAI on 01/05/2024 at 01:31 PM CDT Sign off status: Completed true * Provider:?CAT Agosto Karan e:?12/30/2023 Generated for Angel choudhury/Efrain/eTransmitting on:?06/01/2024 12:27 AM PHARMACIST MANAGER History and Physical Notes * HPI (History of Present Illness) Category Sub-Category Detail Notes Category Not es *Introduction I had the pleasure o f seeing Chioma Chu, a 53-year-old WF with a past medical history of Daniel's thyroid disease, prediabetes, hyperlipidemia, SVT here today for interval evaluation and management. She is alone for today's visit. Aeroallergen skin testing was completed at first visit, and was positive to multiple seasonal and perennial allergens. Of note, she had a delayed intradermal reaction to macedonian thistle, treated with topical steroids with resolution of symptoms. Chioma reports ongoing itchy/watery eyes, rhinorrhea, sneezing, coughing and PND. Symptoms are worse from Spring to Fall. Descriptors of her upper airways symptoms are outlined below. Chioma reports coughing almost daily due to drainage down back of throat. Laughing will trigger coughing fits that she feels is mainly caused by PND. She feels cough is productive this time of year, but becomes a dry cough during the Winter. She uses cough drops PRN. No associated chest tightness, shortness of breath or wheezing. She denies inhaler usage, asthma diagnosis. She denies frequent infections, OCS use, hospitalizations. She reports PNA diagnosis at age 5. Today, reporting overall symptom improvement since addition of azelastine. Cough has improved, but still has ongoing PND though it is 50% better compared to initial visit. She is only using Azelastine, not taking daily antihistamine. Chioma reports nausea, bloating and diarrhea with milk. Additionally, reports abdominal pain and nausea shortly after steak ingestion and remain throughout the evening until she goes to bed. She is able to tolerate ground beef, ely, ham, pork. She does not eat lopez. She denies vomiting, hives, shortness of breath and all other IgE-mediated symptoms. She does have a history of tick bites. 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 She continues avoidance at this time. Chioma also reports rashes that will occur when walking through weeds. She also reports adhesive sensitivity. She has developed rashes and blisters after wearing holter monitor and with medical tape. She also reports vague symptoms of bloating when eating certain foods, though cannot identify certain foods. She denies IgE-mediated symptoms. Today, she reports no fevers, chills, night sweats or other constitutional symptoms Examination Category Sub-Category Detail Notes Category Not es General examination HEENT: pupils equal , round, and reactive to light and accommodation, conjunctiva are injected bilaterally, no tenderness to palpation of the sinuses, TM's without evidence of acute infection, turbinates 2+ swollen and pale inferiorly bilaterally, clear rhinorrhea is present, no polyps noted, no septal perforation, posterior oropharynx is erythematous and cobblestoning is present, erythema on pharyngeal wall, no exudates, no tongue swelling, and uvula is midline Neck, thyroid : supple, non-tender, no anterior cervical lymphadenopathy Heart: RRR, S1-S2, no murmu rs, no rubs, no gallops Lungs: clear to auscultatio n in all lung hernandez, no wheezes or crackles Extremities: normal ROM, no clubb ing, no cyanosis, no edema General appearance: pleasant, well-devel oped, well-nourished Skin: normal, no rash, beata matographism, urticaria, angioedema Neurologic exam: unremarkable Oral cavity: normal, no lesions Breasts : not performed Peripheral pulses: normal (2+) bilatera lly Back: normal Genitalia: not performed
--- OUTSIDE RECORDS SUMMARY | 2024-06-01 00:28 | XMS_ITS | Encounter Summary ---
Author Organization [facility] Address [address] [place] [address] Care Team Providers Care Nursing Faculty Name Role Phone Jett Yarbrough DO Primary Care Provider [phone] Reason for Referral * Outpatient Services (Routine) - Closed Specialty Diagnoses / Procedures Referred By Contac t Referred To Contact Radiology Diagnoses Abnormal maternal glucose tolerance, antepartum Procedures US OB FOLLOW UP PER FETUS Luciano White MD NO ADDRESS ON FILE [facility] [address] [place] [address] Referral ID Status Reason Start Date Expiration Date Visits Re quested Visits Authorized [id number] Closed 10/27/2012 11/27/2013 1 1 Reason for Visit * Outpatient Services (Routine) - Closed Specialty Diagnoses / Procedures Referred By Contac t Referred To Contact Radiology Diagnoses Abnormal maternal glucose tolerance, antepartum Procedures US OB FOLLOW UP PER FETUS Luciano White MD NO ADDRESS ON FILE [facility] [address] [place] [address] Referral ID Status Reason Start Date Expiration Date Visits Re quested Visits Authorized [id number] Closed 10/27/2012 11/27/2013 1 1 Encounter Details Date Type Department Care Team (Latest Contact Info) Description 11/23/2012 1:53 PM CDT - 11/23/2012 11:59 PM CDT Hospital Encounter [facility] [address] [place] [address] Luciano White MD NO ADDRESS [...] US OB FOLLOW UP PER FETUS Routine 11/23/2012 2:05 PM CDT Abnormal maternal glucose tolerance, antepartum documented in this encounter Results * US OB FOLLOW UP PER FETUS (11/23/2012 2:05 PM CDT) Anatomical Region Laterality Modality Pelvis Ultrasound 11/23/2012 1:58 PM CDT Narrative 11/23/2012 2:12 PM CDT ? Follow Up Basic Report Pat. Name: CHIOMA CHU ? Study Date: ?? 11/23/2012 ??1:58pm Pat. No: ?? [id number] ? Referring MD: Shanika Rashid MD Site: ?[place] ? Filenet Developer: ??Alisia Kessler RDMS Height: ?66 in ? , Age: ? 1970, 41 LMP: ? 04/25/2012 ?Pregnancies: ?? 9, Para 4, Ab 4 GA by LMP: 30w2d ? GA Selected: ??30w2d (LMP) GA by 1st: 30w2d ? ICD9: ? 659.63, 648.03, 646.33, 659.43 GA by US: ??32w0d ? CPT4: ? 38946 Hist/Ind: ??Assess Growth/TORSTEN ? Maternal Diabetes (Insulin) ? AMA - Multigravida ? Hx of Recurrent Loss ? CF Carrier ? Normal MT 21 Results ? ELROY: ?01/30/2013 MEASUREMENTS & AGE ? GROWTH EVALUATION Measurement ??GA ? Range ? Source ?? % ?? 30w2d ??Ratios ----- ------- ?? BPD ??8.1 cm 32w3d (74r8u-09h0w) Hadlock ??BPD ??82% ?? FL/BPD 0.75 (0.71 - 0.87) HC ??30.6 cm 34w0d (54s0r-69b2w) Hadlock ??HC ?? >95 ?? FL/AC ??0.22 (0.20 - 0.24) AC ??27.5 cm 31w4d (44t5g-49l6c) Hadlock ??AC ?? 69% ?? HC/AC ??1.11 (0.97 - 1.16) FL ?? 6.0 cm 31w3d (99n0m-14m4n) Hadlock ??FL ?? 66% ?? CI ? 0.73 (0.70 - 0.86) HL ?? 5.3 cm 30w6d (47b0z-49t1t) Uyen ?? HL ?? 59% CER ??4.0 cm 32w2d (69v5f-53u8f) Hill ? CER ??88% TIB ??5.1 cm ? (48e6f-36u0x) Patricia ? TIB ??73% GA for sonogram 32w0d (99c2d-84n9e) ? Weight Estimate: based on (BPD,HC,AC,FL) Hadlock ?Weight: 1846 gm (1062-3698) Hadlock ? : 4lbs, 1oz ? Normal: 1547 gm (999-2216) Oni ? Wt% ? 68% for 30.3 wks Heart Rate: 147 bpm Amniotic Fluid Index: 14.0cm (08.9-23.5) Q1: 3.1cm ??Q2: 4.2cm ??Q3: 4.2cm ??Q4: 2.5cm ?? Anatomy!Normal!Abnormal!Suboptimal!Prev. Seen!Comments Cranial Anato! ?? x ??! ?! ?! ? x ?! Cardiac Activ! ?? x ??! ?! ?! ? x ?! 4 Chamber Hea! ?? x ??! ?! ?! ? x ?! LVOT ? ! ?? x ??! [...] ?! ?! ? x ?! Spine ?! ?! ?! ? x ?! ? x ?! Limbs ?! ?? x ??! ?! ? x ?! ? x ?! Placenta ? ! ?? x ??! ?! ?! ? x ?! Other ?! ?! ?! ?! ? x ?! CLINICAL SUMMARY GA Selected is 30w2d ?? Bergman in the cephalic presentation. The ??placenta appears to be anterior. The amniotic fluid level appears to be ??normal. The gender is ?? not well visualized today. IMPRESSION: AGA growth with normal fluid Scheduled for a growth scan in 4 weeks, and to begin twice-weekly MBPPs in 2 weeks. Luciano White MD, [facility] <Electronic Signature> ??11/23/2012 02:12pm Procedure Note Luciano White MD - 11/23/2012 Follow Up Basic Report Pat. Name: CHIOMA CHU Study Date: 11/23/20121:58pm Pat. No: [id number] Referring MD: Shanika Rashid MD Site: [place] Filenet Developer: Alisia Kessler RDMS Height: 66 in , Age: 06 1970, 41 LMP: 04/25/2012 Pregnancies: 9, Para 4,Ab 4 GA by LMP: 30w2d GA Selected: 30w2d (LMP) GA by 1st: 30w2d ICD9: 659.63, 648.03,646.33, 659.43 GA by US: 32w0d CPT4: 71510 Hist/Ind: Assess Growth/TORSTEN Maternal Diabetes (Insulin) AMA - Multigravida Hx of Recurrent Loss CF Carrier Normal MT 21 Results ERLOY: 01/30/2013 MEASUREMENTS & AGE GROWTH EVALUATION Measurement GA Range Source % 30w2d Ratios ----- ------- BPD 8.1 cm 32w3d (83a1f-12h1r) Hadlock BPD 82% FL/BPD 0.75 (0.71 -0.87) HC 30.6 cm 34w0d (65d8s-85g1d) Hadlock HC >95 FL/AC 0.22 (0.20 -0.24) AC 27.5 cm 31w4d (86r5t-44a1w) Hadlock AC 69% HC/AC 1.11 (0.97 -1.16) FL 6.0 cm 31w3d (27x8a-88k1n) Hadlock FL 66% CI 0.73 (0.70 -0.86) HL 5.3 cm 30w6d (15f2c-81d7e) Uyen HL 59% CER 4.0 cm 32w2d (09i3t-76y8c) Hill CER 88% TIB 5.1 cm (35z4r-69m5a) Patricia TIB 73% GA for sonogram 32w0d (13t6k-31t1k) Weight Estimate: based on (BPD,HC,AC,FL) Hadlock Weight: 1846 gm (02[address]61)Hadlock : 4lbs, 1oz Normal: 1547 gm (999-2216)Oni Wt% 68% for 30.3 wks Heart Rate: 147 bpm Amniotic Fluid Index: 14.0cm (08.9-23.5) Q1: 3.1cm Q2: 4.2cm Q3: 4.2cm Q4: 2.5cm Anatomy!Normal!Abnormal!Suboptimal!Prev. Seen!Comments Cranial Anato! x ! ! ! x ! Cardiac Activ! x ! ! ! x ! 4 Chamber Hea! x ! ! ! x ! LVOT ! x ! ! ! [...] ! ! ! x ! Spine ! ! ! x ! x ! Limbs ! x ! ! x ! x ! Placenta ! x ! ! ! x ! Other ! ! ! ! x ! CLINICAL SUMMARY GA Selected is 30w2d Bergman in the cephalic presentation. The placenta appears to be anterior. The amniotic fluid level appears to be normal. The gender is not well visualized today. IMPRESSION: AGA growth with normal fluid Scheduled for a growth scan in 4 weeks, and to begin twice-weekly MBPPs in2 weeks. Luciano White MD, [facility] <Electronic Signature> 11/23/2012 02:12pm Luciano White MD ORDERABLES documented in this encounter Visit Diagnoses Diagnosis Abnormal maternal glucose tolerance, antepartum documented in this encounter Care Teams Nursing Faculty Relationship Specialty Start Date End Date Jett Yarbrough DO [address] [facility] [address] [phone] PCP - General Internal Medicine 07/09/12 documented as of this encounter
--- OUTSIDE RECORDS SUMMARY | 2024-06-01 00:28 | XMS_ITS | Encounter Summary ---
Author Organization [facility] Address [address] [place] [address] Care Team Providers Care Pin Puller Name Role Phone Jett Yarbrough DO Primary Care Provider [phone] Encounter Details Date Type Department Care Team (Late st Contact Info) Description 10/01/2016 Orders Only [facility] Internal Medicine - [facility] [address] [address] [facility] [address] [place] [address] Jett Yarbrough DO [address] [facility] [address] [place] [address] Social History Tobacco Use Types Packs/Day Years Used Date Smoking Tobacco: Never Assessed Sex and Gender Information Value Date Recorded Sex Assigned at Not on file Gender Identity Not on file Sexual Orientation Not on file documented as of this encounter Plan of Treatment Not on file documented as of this encounter Visit Diagnoses Not on filedocumented in this encounter Care Teams Pin Puller Relationship Specialty Start Date End Date Jett Yarbrough DO [address] [facility] [address] [place] [address] PCP - General Internal Medicine 07/09/12 documented as of this encounter
--- OUTSIDE RECORDS SUMMARY | 2024-06-01 00:28 | XMS_ITS ---
Author Organization [facility] Address [address] [place] [address] Care Team Providers Care Leather Scraper Name Role Phone Pedrito Desmond Primary Care Provider Rolanda Ordaz Unavailable [phone] REASON FOR VISIT Reaction Encounters Encounter Location Date Provider Diagnosis [place] [address] [place] [address] 12/07/2023 Rolanda Higuera Plan Of Treatment Next Appt Details Provider Name:Rolanda polanco, 09/14/2024 08:30:00 AM, [address] [facility], [address], [address], Progress Notes * Timothy CHUOB: [birth year] (52 yo F)Acc No.[id number]:12/07/2023 Patient:?Chioma CHU :1970???Age:52 Y???Sex:Female Address:[address] [place], [place] [address] , [place], [address] * true * Date:? Generated for Printi ng/Faxing/eTransmitting on:?06/01/2024 12:28 AM CRANE OPERATOR CAB
--- OUTSIDE RECORDS SUMMARY | 2024-06-01 00:28 | XMS_ITS | Clinical Summary ---
Author Organization [facility] Address [address] [place] [address] Phone Care Team Providers Care Email Campaign Manager Name Role Phone BennieJett schmid Primary Care Provider [phone] Social History Tobacco Use Types Packs/Day Years Used Date Smoking Tobacco: Never Assessed Sex and Gender Information Value Date Recorded Sex Assigned at Not on file Gender Identity Not on file Sexual Orientation Not on file Plan of Treatment Health Maintenance Due Date Last Done Comments DTAP/TDAP/TD VACCINES (1 - Tdap) 12/10/1991 HEPATITIS B VACCINES (1 of 3 - 19+ 3-dose series) 12/10/1991 CERVICAL CANCER SCREENING 2002 BREAST CANCER SCREENING 2012 COLORECTAL SCREENING 2017 Colorectal Cancer Screening 2017 FIT-DNA Q 3 years 2017 FIT/FOBT Q 1 year 2017 Flex Sig/CT Colonography Q 5 years 2017 ZOSTER VACCINE (1 of 2) 2022 INFLUENZA VACCINE (#1) 2024 PNEUMOCOCCAL VACCINE 0-64 YEARS Aged Out No longer eligible based on patient's age to complete this topic Care Teams Email Campaign Manager Relationship Specialty Start Date End Date Zenon DO Jett [address] [facility] [address] [facility] [address] [place] [address] PCP - General Internal Medicine 07/09/12
--- OUTSIDE RECORDS SUMMARY | 2024-06-01 00:28 | XMS_ITS | Encounter Summary ---
Author Organization [facility] Address [address] [place] [address] Care Team Providers Care Sql Engineer Name Role Phone Jett Yarbrough DO Primary Care Provider [phone] Reason for Referral * Outpatient Services (Routine) - Closed Specialty Diagnoses / Procedures Referred By Contac t Referred To Contact Radiology Diagnoses Elderly multigravida with antepartum condition or complication Procedures US OB FOLLOW UP PER FETUS Kenneth Callejas MD NO ADDRESS ON FILE [facility] [address] [place] [address] Referral ID Status Reason Start Date Expiration Date Visits Re quested Visits Authorized [id number] Closed 09/29/2012 10/30/2013 1 1 Reason for Visit * Outpatient Services (Routine) - Closed Specialty Diagnoses / Procedures Referred By Contac t Referred To Contact Radiology Diagnoses Elderly multigravida with antepartum condition or complication Procedures US OB FOLLOW UP PER FETUS Kenneth Callejas MD NO ADDRESS ON FILE [facility] [address] [place] [address] Referral ID Status Reason Start Date Expiration Date Visits Re quested Visits Authorized [id number] Closed 09/29/2012 10/30/2013 1 1 Encounter Details Date Type Department Care Team (Latest Contact Info) Description 10/27/2012 1:56 PM CDT - 10/27/2012 11:59 PM CDT Hospital Encounter [facility] [place] [address] [place] [address] Kenneth Callejas MD NO ADDRESS ON FILE Discharge Disposition: [...] US OB FOLLOW UP PER FETUS Routine 10/27/2012 2:29 PM CDT Elderly multigravida with antepartum condition or complication documented in this encounter Results * US OB FOLLOW UP PER FETUS (10/27/2012 2:29 PM CDT) Anatomical Region Laterality Modality Pelvis Ultrasound 10/27/2012 2:08 PM CDT Narrative 10/27/2012 8:31 PM CDT ? Follow Up Basic Report Pat. Name: CHIOMA CHU ? Study Date: ?? 10/27/2012 ??2:08pm Pat. No: ?? [id number] ? Referring MD: Shanika Rashid MD Site: ?[place] ? Supervisor Power Reactor: ??Alisia Kessler RDMS Height: ?66 in ? , Age: ? 1970, 41 LMP: ? 04/25/2012 ?Pregnancies: ?? 9, Para 4, Ab 4 GA by LMP: 26w3d ? GA Selected: ??26w3d (LMP) GA by 1st: 26w3d ? ICD9: ? 659.63, 648.03, 646.33, 659.43 GA by US: ??27w2d ? CPT4: ? 36359 Hist/Ind: ??Assess Growth ? Maternal Diabetes (Insulin) ? AMA - Multigravida ? Hx of Recurrent Loss ? CF Carrier ? Normal MT 21 Results ? ELROY: ?01/30/2013 MEASUREMENTS & AGE ? GROWTH EVALUATION Measurement ??GA ? Range ? Source ?? % ?? 26w3d ??Ratios ----- ------- ?? BPD ??6.9 cm 27w5d (80r7o-78o9j) Hadlock ??BPD ??76% ?? FL/BPD 0.74 (0.71 - 0.87) HC ??26.1 cm 28w2d (18y0r-04t4f) Hadlock ??HC ?? 91% ?? FL/AC ??0.22 (0.20 - 0.24) AC ??23.4 cm 27w5d (72f1x-63g3s) Hadlock ??AC ?? 76% ?? HC/AC ??1.12 (1.00 - 1.19) FL ?? 5.1 cm 27w2d (61e3g-22w6k) Hadlock ??FL ?? 68% ?? CI ? 0.72 (0.70 - 0.86) HL ?? 4.6 cm 27w1d (80v6u-94f3z) Uyen ?? HL ?? 62% CER ??3.1 cm 26w4d (99s2l-30r4b) Hill ? CER ??55% TIB ??4.4 cm ? (39g3v-80d6k) Patricia ? TIB ??72% GA for sonogram 27w2d (72v7k-31n9r) ? Weight Estimate: based on (BPD,HC,AC,FL) Hadlock ?Weight: 1098 gm (937-1258) Hadlock ? : 2lbs, 6oz ? Normal: 931 gm (578- 1359) Oni ? Wt% ? 66% for 26.4 wks Heart Rate: 142 bpm Amniotic Fluid Index: 17.6cm (09.6-22.4) Q1: 4.2cm ??Q2: 4.9cm ??Q3: 3.7cm ??Q4: 4.8cm ?? Anatomy!Normal!Abnormal!Suboptimal!Prev. Seen!Comments Cranial Anato! ?? x [...] ?! ?! ? x ?! Limbs ?! ?? x ??! ?! ?! ? x ?! Placenta ? ! ?? x ??! ?! ?! ? x ?! Other ?! ?! ?! ?! ? x ?! CLINICAL SUMMARY GA Selected is 26w3d ?? Bergman in the cephalic presentation. The ??placenta appears to be anterior. The amniotic fluid level appears to be ??normal. The gender is ?? male. IMPRESSION: Viable intrauterine at 26 3/7 weeks. biometry is consistent with prior dating. . Normal anatomy, growth, placentation, and fluid. growth is normal at the 66 percentile. No structural malformations or markers of aneuploidy identified. Placenta normal. Amniotic fluid volume normal. RECOMMENDATIONS A follow up ultrasound ??scheduled in 4 weeks. Thank you for referring ??your patient to our facility. Kenneth Callejas MD, [facility] <Electronic Signature> ??10/27/2012 08:31pm Procedure Note Kenneth Callejas MD - 10/27/2012 Follow Up Basic Report Pat. Name: CHIOMA CHU Study Date: 10/27/20122:08pm Pat. No: [id number] Referring MD: Shanika Rashid MD Site: [place] Supervisor Power Reactor: Alisia Kessler RDMS Height: 66 in , Age: 06 1970, 41 LMP: 04/25/2012 Pregnancies: 9, Para 4,Ab 4 GA by LMP: 26w3d GA Selected: 26w3d (LMP) GA by 1st: 26w3d ICD9: 659.63, 648.03,646.33, 659.43 GA by US: 27w2d CPT4: 97162 Hist/Ind: Assess Growth Maternal Diabetes (Insulin) AMA - Multigravida Hx of Recurrent Loss CF Carrier Normal MT 21 Results ELROY: 01/30/2013 MEASUREMENTS & AGE GROWTH EVALUATION Measurement GA Range Source % 26w3d Ratios ----- ------- BPD 6.9 cm 27w5d (34p0d-21f9g) Hadlock BPD 76% FL/BPD 0.74 (0.71 -0.87) HC 26.1 cm 28w2d (51b0y-97y1f) Hadlock HC 91% FL/AC 0.22 (0.20 -0.24) AC 23.4 cm 27w5d (39k7m-16g8t) Hadlock AC 76% HC/AC 1.12 (1.00 -1.19) FL 5.1 cm 27w2d (23k8y-11o2s) Hadlock FL 68% CI 0.72 (0.70 -0.86) HL 4.6 cm 27w1d (38a1s-44i4m) Uyen HL 62% CER 3.1 cm 26w4d (10w6t-56z9e) Hill CER 55% TIB 4.4 cm (21x7e-99w5s) Patricia TIB 72% GA for sonogram 27w2d (97s0z-16k5n) Weight Estimate: based on (BPD,HC,AC,FL) Hadlock Weight: 1098 gm (937-1258)Hadlock : 2lbs, 6oz Normal: 931 gm (578-1359)Oni Wt% 66% for 26.4 wks Heart Rate: 142 bpm Amniotic Fluid Index: 17.6cm (09.6-22.4) Q1: 4.2cm Q2: 4.9cm Q3: 3.7cm Q4: 4.8cm Anatomy!Normal!Abnormal!Suboptimal!Prev. Seen!Comments Cranial Anato! x ! ! [...] ! ! ! x ! Limbs ! x ! ! ! x ! Placenta ! x ! ! ! x ! Other ! ! ! ! x ! CLINICAL SUMMARY GA Selected is 26w3d Bergman in the cephalic presentation. The placenta appears to be anterior. The amniotic fluid level appears to be normal. The gender is male. IMPRESSION: Viable intrauterine at 26 3/7 weeks. biometry is consistent with prior dating. . Normal anatomy, growth, placentation, and fluid. growth is normal at the 66 percentile. No structural malformations or markers of aneuploidy identified. Placenta normal. Amniotic fluid volume normal. RECOMMENDATIONS A follow up ultrasound scheduled in 4 weeks. Thank you for referring your patient to our facility. Kenneth Callejas MD, [facility] <Electronic Signature> 10/27/2012 08:31pm Kenneth Callejas MD ORDERABLES documented in this encounter Visit Diagnoses Diagnosis Elderly multigravida with antepartum condition or complication documented in this encounter Care Teams Sql Engineer Relationship Specialty Start Date End Date Jett Yarbrough [address] [facility] [address] [place] [address] PCP - General Internal Medicine 07/09/12 documented as of this encounter
--- OUTSIDE RECORDS SUMMARY | 2024-06-01 00:28 | XMS_ITS | Encounter Summary ---
Author Organization [facility] Address [address] [place] [address] Care Team Providers Care Bike Technician Name Role Phone Jett Yarbrough DO Primary Care Provider [phone] Reason for Referral * Outpatient Services (Routine) - Closed Specialty Diagnoses / Procedures Referred By Contac t Referred To Contact Radiology Diagnoses Elderly multigravida with antepartum condition or complication Procedures US OB FOLLOW UP PER FETUS Steven Angel MD [address] [address], [place] [address] [facility] [address] [place] [address] Referral ID Status Reason Start Date Expiration Date Visits Re quested Visits Authorized [id number] Closed 12/20/2012 01/20/2014 1 1 Reason for Visit * Outpatient Services (Routine) - Closed Specialty Diagnoses / Procedures Referred By Contac t Referred To Contact Radiology Diagnoses Elderly multigravida with antepartum condition or complication Procedures US OB FOLLOW UP PER FETUS Steven Angel MD [address], [place] [address] [facility] [address] [place] [address] Referral ID Status Reason Start Date Expiration Date Visits Re quested Visits Authorized [id number] Closed 12/20/2012 01/20/2014 1 1 Encounter Details Date Type Department Care Team (Latest Contact Info) Description 01/10/2013 3:26 PM CDT - 01/10/2013 11:59 PM CDT Hospital Encounter [facility] [address] [place] [address] Steven Angel MD [address] [facility] [address] [place] [id number] Discharge Disposition: Home or Self Care Social [...] US OB FOLLOW UP PER FETUS Routine 01/10/2013 3:44 PM CDT Elderly multigravida with antepartum condition or complication documented in this encounter Results * US OB FOLLOW UP PER FETUS (01/10/2013 3:44 PM CDT) Anatomical Region Laterality Modality Pelvis Ultrasound 01/10/2013 3:30 PM CDT Narrative 01/10/2013 5:23 PM CDT ? Follow Up Basic Report Pat. Name: CHIOMA CHU ? Study Date: ?? 01/10/2013 ??3:30pm Pat. No: ?? [id number] ? Referring MD: Shanika Rashid, Site: ?[place] ? Warble Saw Operator: ??Alisia Kessler,TIP Height: ?66 in ? , Age: ? 1970, 42 LMP: ? 04/25/2012 ?Pregnancies: ?? 9, Para 4, Ab 4 GA by LMP: 37w1d ? GA Selected: ??37w1d (LMP) GA by 1st: 37w1d ? ICD9: ? 659.63, 648.03, 659.43 GA by US: ??38w0d ? CPT4: ? 02009 Hist/Ind: ??Assess Growth/TORSTEN ? Maternal Diabetes (Insulin) ? AMA - Multigravida ? Hx of Recurrent Loss ? CF Carrier ? Normal MT 21 Results ? ELROY: ?01/30/2013 MEASUREMENTS & AGE ? GROWTH EVALUATION Measurement ??GA ? Range ? Source ?? % ?? 37w1d ??Ratios ----- ------- ?? BPD ??9.5 cm 38w5d (56p2p-21g8n) Hadlock ??BPD ??72% ?? FL/BPD 0.76 (0.71 - 0.87) HC ??34.4 cm 39w5d (67f6n-88s5b) Hadlock ??HC ?? 94% ?? FL/AC ??0.20 (0.20 - 0.24) AC ??35.7 cm 39w4d (51h6o-66o6q) Hadlock ??AC ?? 88% ?? HC/AC ??0.96 (0.91 - 1.10) FL ?? 7.2 cm 36w5d (49x2u-33f3s) Hadlock ??FL ?? 45% ?? CI ? 0.78 (0.70 - 0.86) HL ?? 6.2 cm 35w4d (43l0k-35y0n) Uyen ?? HL ?? 26% TIB ??6.5 cm ? (55v2q-26j4n) Patricia ? TIB ??90% GA for sonogram 38w0d (31h8o-92g3k) ? Weight Estimate: based on (BPD,HC,AC,FL) Hadlock ?Weight: 3630 gm (8874-0195) Hadlock ? : 8lbs, 0oz ? Normal: 3070 gm (3340-7752) Oni ? Wt% ? 84% for 37.1 wks Heart Rate: 135 bpm Amniotic Fluid Index: 16.3cm (07.5-24.4) Q1: 6.9cm ??Q2: 3.0cm ??Q3: 5.0cm ??Q4: 1.4cm ?? Anatomy!Normal!Abnormal!Suboptimal!Prev. Seen!Comments Cranial Anato! ?? x [...] ? x ?! Spine ?! ?! ?! ?! ? x ?! Limbs ?! ?! ?! ?! ? x ?! Placenta ? ! ?? x ??! ?! ?! ? x ?! Other ?! ?! ?! ?! ? x ?! CLINICAL SUMMARY GA Selected is 37w1d ?? Bergman in the cephalic presentation. The ??placenta appears to be anterior. The amniotic fluid level appears to be ??normal. The gender is ?? male. IMPRESSION: biometry is consistent with prior dating. . growth is upper normal at the 84 percentile. Limited anatomic survey reassuring for gestational age. Placenta normal. Amniotic fluid volume normal. RECOMMENDATIONS Follow up ??scan as clinically indicated. Continue antepartum testing until delivery. Mariposa Alves MD <Electronic Signature> ??01/10/2013 05:23pm Procedure Note Mariposa Alves MD - 01/10/2013 Follow Up Basic Report Pat. Name: CHIOMA CHU Study Date: 01/10/20133:30pm Pat. No: [id number] Referring MD: Shanika Rashid MD Site: [place] Warble Saw Operator: Alisia Kessler RDMS Height: 66 in , Age: 06 1970, 42 LMP: 04/25/2012 Pregnancies: 9, Para 4,Ab 4 GA by LMP: 37w1d GA Selected: 37w1d (LMP) GA by 1st: 37w1d ICD9: 659.63, 648.03,659.43 GA by US: 38w0d CPT4: 55531 Hist/Ind: Assess Growth/TORSTEN Maternal Diabetes (Insulin) AMA - Multigravida Hx of Recurrent Loss CF Carrier Normal MT 21 Results ELROY: 01/30/2013 MEASUREMENTS & AGE GROWTH EVALUATION Measurement GA Range Source % 37w1d Ratios ----- ------- BPD 9.5 cm 38w5d (97t3i-74u1m) Hadlock BPD 72% FL/BPD 0.76 (0.71 -0.87) HC 34.4 cm 39w5d (74u2g-23j3h) Hadlock HC 94% FL/AC 0.20 (0.20 -0.24) AC 35.7 cm 39w4d (89n4p-34v7o) Hadlock AC 88% HC/AC 0.96 (0.91 -1.10) FL 7.2 cm 36w5d (14b9v-88a2j) Hadlock FL 45% CI 0.78 (0.70 -0.86) HL 6.2 cm 35w4d (04f2q-71r6c) Uyen HL 26% TIB 6.5 cm (56p4v-21t8l) Patricia TIB 90% GA for sonogram 38w0d (52s6d-15g2o) Weight Estimate: based on (BPD,HC,AC,FL) Hadlock Weight: 3630 gm (7679-1522)Hadlock : 8lbs, 0oz Normal: 3070 gm (3655-8992)Oni Wt% 84% for 37.1 wks Heart Rate: 135 bpm Amniotic Fluid Index: 16.3cm (07.5-24.4) Q1: 6.9cm Q2: 3.0cm Q3: 5.0cm Q4: 1.4cm Anatomy!Normal!Abnormal!Suboptimal!Prev. Seen!Comments Cranial Anato! x ! ! [...] ! x ! Spine ! ! ! ! x ! Limbs ! ! ! ! x ! Placenta ! x ! ! ! x ! Other ! ! ! ! x ! CLINICAL SUMMARY GA Selected is 37w1d Bergman in the cephalic presentation. The placenta appears to be anterior. The amniotic fluid level appears to be normal. The gender is male. IMPRESSION: biometry is consistent with prior dating. . growth is upper normal at the 84 percentile. Limited anatomic survey reassuring for gestational age. Placenta normal. Amniotic fluid volume normal. RECOMMENDATIONS Follow up scan as clinically indicated. Continue antepartum testing until delivery. Mariposa Alves MD <Electronic Signature> 01/10/2013 05:23pm Steven Angel MD ORDERABLES documented in this encounter Visit Diagnoses Diagnosis Elderly multigravida with antepartum condition or complication documented in this encounter Care Teams Bike Technician Relationship Specialty Start Date End Date Zenon JettDO [address] [facility] [address] [place] [address] PCP - General Internal Medicine 07/09/12 documented as of this encounter
--- OUTSIDE RECORDS SUMMARY | 2024-06-01 00:28 | XMS_ITS | Continuity of Care Document ---
Author Organization [facility] Address [address] [place] [address] Phone Care Team Providers Care Cosmetic Sales Assistant Name Role Phone [facility] Unavailable Unavail able Charity Fernandez Unavailable Unavailable Procedures Procedure Date Vision Svcs Frames Purchases SV Poly Carb Sph Kake To +/- 4 010 No Charge Glasses Check No Charge Glasses Check Advance Directives Directive Yes / No Effective Date File Name No Information Encounters Encounter Description Practice Location Reason(s) For Visit Diagnoses Date Provider Providers Copied on Encounter [facility], [address] [place] [address] [address], [place], [place], [id number], [place] tel:[phone] [facility] No Information 0-201 0 [facility] . [address] [facility], [facility] [address], [place], [place], [address], [place]. tel:[phone] Referring Provider: Jerry Juarez OD Laci, [address], [place], [address]. tel:[phone] bee Provider: Charity Fernandez, [address] [facility], [place], [address]. tel:[phone] [facility], [address], [place], [place], [address], [place] tel:[phone] [facility] No Information May-3 0-200 9 Juarez OD Jerry. [address] , [address], [place], [address], [place]. tel:[phone] [facility], [address], [place], [place], [address], [place] tel:[phone] [facility] No Information 0-200 8 Juarez OD Jerry. [address] , [address], [place], [address], [place]. tel:[phone] Family History Family Member Type Diagnosis Age At Onset No Information Payers Payer name Insurance type Covered libertarian ID Authoriza tion(s) No Information Social History Type Description Quantity Date Captured Comments Sex Female Smoking Status No Information Chief Complaint And Reason For Visit No Information Reason For Referral Reason For Referral No Information History Of Present Illness Encounter Date Complaint History Of Prese nt Illness No Information Functional Status Date Functional Assessmen t No Information Instructions Date Instruction Additional Infor mation No Information Assessments Type Assessment Date No Information Patient Care Teams Name Effective Dates (start - stop) Status Members No Information
--- OUTSIDE RECORDS SUMMARY | 2024-06-01 00:28 | XMS_ITS ---
Author Organization [facility] Address [address] [place] [address] Care Team Providers Care Gas Blender Name Role Phone Pedrito Desmond Primary Care Provider Rolanda Ordaz Unavailable [phone] Allergies Allergen (clinical drug ingredient) Drug/Non Drug Allergy documented on EMR Reaction Allergy Type Onset Date Status Penicillin (uncoded) Hives Allergy Active REASON FOR VISIT ARC - uses Azelastine and Zyrtec. Symptoms worse in Fall., Chronic cough due to ongoing drainage. Normal spirometry in past with no lower airway symptoms., PCN allergy - reported generalized hives [id number] Medications Medication SIG (Take, Route, Frequency, Duration) Notes Start Date End Date Status LORazepam 0.5 MG 1 tablet at bedtime as needed Orally Once a day Active PARoxetine HCl 10 MG 1 tablet in the mor christina Orally Once a day Active dilTIAZem HCl 30 MG as directed Orally Active Pantoprazole Sodium 40 MG 1 tablet Orally Once a day Active Atorvastatin Calcium 40 MG 1 tablet Orally Once a day Active Cetirizine HCl 10 MG 1 tablet Orally Onc e a day for 30 days Active Olopatadine HCl 0.6 % 2 sprays in each n ostril Nasally Twice a day for 30 days 05/25/2024 Active Nasal Washes as directed intranasally Active Fluticasone Propionate 50 MCG/ACT 1 spray in each nostril Nasally Twice a day for 30 days Active Social History Tobacco Use: Social History Observation Description Date Details (start date - stop date) Never Smoker NA - NA Tobacco Control (Standard) Question Answer Notes Tobacco use: Nonsmoker Problems Problem Type SNOMED Code ICD Code Onset Dates Problem Status W/U Status Risk Notes Problem Gastro-esophagea l reflux disease without esophagitis (730468402) Gastro-esophage al reflux disease without esophagitis (K21.9) Active confirmed Vital Signs Blood pressure systolic 114 mm Hg 05/25/20 24 Blood pressure diastolic 73 mm Hg 024 Height 66 in 05/25/2024 Weight 140.2 lbs 05/25/2024 BMI 22.63 kg/m2 05/25/2024 Oximetry 99 % 05/25/2024 Encounters Encounter Location Date Provider Diagnosis [facility] [address] [facility] [address] [place] [address] 05/25/2024 Rolanda Higuera Allergic rhinitis du e to [...] effect of penicillins, initial encounter T36.0X5A and Gastro-esophageal reflux disease without esophagitis K21.9 Assessments Encounter Date Diagnosis (ICD Code) Assessment Notes Treatment Notes Treatment Clinical Notes Section Notes 05/25/2024 Allergic rhinitis due to pollen (ICD-10 - J30.1) Chioma clearly suffers from atopic disease based [...] note, patient had delayed intradermal reaction to palestinian thistle. Treated with topical steroids with resolution of symptoms. - Continue medications as listed above. Will stop Azelastine and trial Patanase and Flonase. Orders sent out. - Discussed attempting LTRA, but patient is not interested at this time. - Patient is considering SCIT - wants to reassess in Spring. - Follow-up in 4 months for interval evaluation and management 05/25/2024 Allergic rhinitis due to animal (cat) (dog) hair and dander (ICD-10 - J30.81) Follow allergen avoidance, meds and consider SCIT as an adjunctive treatment to current regimen 05/25/2024 Other allergic rhinitis (ICD-10 - J30.89) Follow allergen avoidance, meds and consider SCIT as an adjunctive treatment to current regimen 05/25/2024 Other chronic allergic conjunctivitis (ICD-10 - H10.45) Given ocular signs and symptoms I encouraged allergy avoidance measures and meds as above. If symptoms persist, consider adding additional medications including intraocular antihistamine/mas t cell stabilizer, PRN and consider SCIT as an adjunctive measure 05/25/2024 Chronic cough (ICD-10 - R05.3) Ongoing cough that Chioma believes is related to drainage. Initial spirometry showed supernormal FVC, FEV1. Normal FEV%. FVL reproducible. Normal lung age. - Cough improved since addition of astelin, but feels it improvemetn faded during Fall. Will trial Patanase as stated above. - Consider attempting HARLAN for worsening symptoms - denies all lower airway issus today - Recommend ENT evaluation as she has not had one in almost 10 years - Treat atopy as stated above. - Consider spirometry challenge for worsening or persistent symptoms. 05/25/2024 Other adverse food reactions, not elsewhere classified, [...] - Consider alpha-gal work-up for eworsening symptoms. 05/25/2024 Rash and other nonspecific skin eruption (ICD-10 - R21) Chioma reports rashes with medical tape and adhesives. Encouraged to continue avoidance of adhsevie and take pictures of future skin rashes. Consider patch testing in future. 05/25/2024 Adverse effect of penicillins, initial encounter (ICD-10 - T36.0X5A) Reported full body hives after PCN injection in 1997. Continue avoidance at this time. Discuss treatment at follow-up and consider PCN testing in future. 05/25/2024 Gastro-esophageal reflux disease without esophagitis (ICD-10 - K21.9) Patient is on PPI for reflux, which has been worse as of late. - Possibly contributing to cough. Recommend GI evaluation. 05/25/2024 Other Plan Of Treatment Medication Medication Name Sig Start Date Stop Date Notes Azelastine HCl 137 MCG/SPRAY 2 sprays in each nostril Nasally Twice a day for 30 days Pantoprazole Sodium 40 MG 1 tablet Orally Once a day Cetirizine HCl 10 MG 1 tablet Orally Onc e a day for 30 days Olopatadine HCl 0.6 % 2 sprays in each n ostril Nasally Twice a day for 30 days 05/25/2024 Nasal Washes as directed intranasally Fluticasone Propionate 50 MCG/ACT 1 spray in each nostril Nasally Twice a day for 30 days Treatment Notes Assessment Notes Allergic rhinitis due to pollen Chioma clearly suffers from atopic disease based [...] note, patient had delayed intradermal reaction to palestinian thistle. Treated with topical steroids with resolution of symptoms. - Continue medications as listed above. Will stop Azelastine and trial Patanase and Flonase. Orders sent out. - Discussed attempting LTRA, but patient is not interested at this time. - Patient is considering SCIT - wants to reassess in Spring. - Follow-up in 4 months for interval evaluation and management Allergic [...] FVL reproducible. Normal lung age. - Cough improved since addition of astelin, but feels it improvemetn faded during Fall. Will trial Patanase as stated above. - Consider attempting HARLAN for worsening symptoms - denies all lower airway issus today - Recommend ENT evaluation as she has not had one in almost 10 years - Treat atopy as stated above. - [...] follow-up and consider PCN testing in future. Gastro-esophageal reflux dis ease without esophagitis Patient is on PPI for reflux, which has been worse as of late. - Possibly contributing to cough. Recommend GI evaluation. Next Appt Details Follow Up: 4 Months, Reason: Evaluation and Management Provider Name:Rolanda polanco, 09/14/2024 08:30:00 AM, [address] [facility] [address], [place], [address], Progress Notes * Yeny CHU: 9[birth year] (53 yo F)Acc No.[id number]:05/25/2024 Progress Notes Patient:Chioma OTERO Provider:?ZEE AgostoPJENNYFER :1970???Age:53 Y???Sex:Female D ate:05/25/2024 Address:[address] [place], [place] [id number] Pcp:Desmond Major Subjective: * Chief Complaints: * ???ARC - uses Azelastine and Zyrtec. Symptoms worse in Fall.Chronic cough due to ongoing drainage. Normal spirometry in past with no lower airway symptoms.PCN allergy - reported generalized hives in 1997 * HPI: ???*Introduction:?I had the pleasure of seeing?Chioma Chu, a 53-year-old WF with a past medical history of ARC, Daniel's thyroid disease, prediabetes, hyperlipidemia, SVT here today for interval evaluation and management. She is alone for today's visit.?Aeroallergen skin testing was completed at first visit, and was positive to multiple seasonal and perennial allergens. Of note, she had a delayed intradermal reaction to palestinian thistle, treated with topical steroids with resolution [...] PNA diagnosis at age 5. Today, reporting cough has improved, but still has ongoing PND though it is 50% better compared to initial visit. She reports increase in?sinus headaches this past Fall. She attempted daily antihistamine without improvement. Also reporting nasal congestion and sneezing today. She is still considering SCIT.? 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 ?In what field is your current occupation??other [...] carpeting in your bedroom??No ?Do you have yxkb-ly-wbgu carpeting??No ?What is the age of your [...] guinea pigs??1 ???Tobacco Control (Standard)?Tobacco use:?Nonsmoker * Medications:?TakingNasal Was hes N/A - 1 quart of sterilized tap water or distilled water, 1 tsp NaCl, 1 pinch of baking soda as directed intranasally Azelastine HCl 137 MCG/SPRAY Solution 2 sprays in each nostril Nasally Twice a day Pantoprazole Sodium 40 MG Tablet Delayed Release [...] 1 tablet Orally Once a day Taking Nasal Washes N/A - [...] Tablet 1 tablet Orally Once a day Not-Taking/PRNFluticasone Propionate 50 MCG/ACT Suspension 2 sprays in each nostril Nasally Once a day Medication List reviewed and reconciled with the patientNot-Taking/PRN Fluticasone Propionate 50 MCG/ACT Suspension 2 sprays in each nostril Nasally Once a day Medication List reviewed and reconciled with the patient * Allergies:?Penicillin: Hives no[Allergies Verified] Objective: * Vitals:?BP:114/73mm Hg, HR:6 3/min, Pulse Oximetry:99%, Ht: 66 in, Wt: 140.2 lbs, BMI:22.63Index. * Examination: ???General examination: ?General appearance:?pleasant, well-developed, [...] swelling, and uvula is midline.?Oral cavity:?normal, no lesions.?Breasts :?not performed.?Heart:?RRR, S1-S2, no murmurs, no rubs, [...] effect of penicillins, initial encounter - T36.0X5A ??9.?Gastro-esophageal reflux disease without esophagitis - K21.9??? Plan: * Treatment: 2.?Allergic rhinitis due to [...] FVL reproducible. Normal lung age. - Cough improved since addition of astelin, but feels it improvemetn faded during Fall. Will trial Patanase as stated above. - Consider attempting HARLAN for worsening symptoms - denies all lower airway issus today - Recommend ENT evaluation as she has not had one in almost 10 years - Treat atopy as stated above. - [...] and consider PCN testing in future. ?? 9.?Gastro-esophageal reflux disease without esophagitis? Continue Pantoprazole Sodium Tablet Delayed Release, 40 MG, 1 tablet, Orally, Once a day.?? Notes: Patient is on PPI for reflux, which has been worse as of late. - Possibly contributing to cough. Recommend GI evaluation. ?? * Procedure Codes:?G8427 DOC M EDS VERIFIED [...] or emergent care.?Patient education material?sent to portal??Yes * Follow Up:?4 Months (Reason: Evaluation and Management) * Billing Information: * Visit Code:? 34979 Office Visit, Est Pt., Level 4. Modifiers: 25 * Procedure Codes:? G8427 DOC MEDS VERIFIED W/PT OR RE. * YST GEOCHEMICAL PROSPECTING Sign off status: Completed true * Provider:?CAT Agosto Karan e:?05/25/2024 Generated for Angel choudhury/Efrain/eTransmitting on:?06/01/2024 12:27 AM ANALYST GEOCHEMICAL PROSPECTING History and Physical Notes * HPI (History of Present Illness) Category Sub-Category Detail Notes Category Not es *Introduction I had the pleasure o f seeing Chioma Chu, a 53-year-old WF with a past medical history of ARC, Daniel's thyroid disease, prediabetes, hyperlipidemia, SVT here today for interval evaluation and management. She is alone for today's visit. Aeroallergen skin testing was completed at first visit, and was positive to multiple seasonal and perennial allergens. Of note, she had a delayed intradermal reaction to palestinian thistle, treated with topical steroids with resolution [...] PNA diagnosis at age 5. Today, reporting cough has improved, but still has ongoing PND though it is 50% better compared to initial visit. She reports increase in sinus headaches this past Fall. She attempted daily antihistamine without improvement. Also reporting nasal congestion and sneezing today. She is still considering SCIT. Chioma reports nausea, bloating and diarrhea with [...] no tongue swelling, and uvula is midline Heart: RRR, S1-S2, no murmu rs, no [...]
--- OUTSIDE RECORDS SUMMARY | 2024-06-01 00:28 | XMS_ITS | Encounter Summary ---
Author Organization [facility] Address [address] [place] [address] Care Team Providers Care Risk Management Analyst Name Role Phone Jett Yarbrough DO Primary Care Provider [phone] Reason for Referral * Outpatient Services (Routine) - Closed Specialty Diagnoses / Procedures Referred By Valerioac t Referred To Contact Genetics Diagnoses Elderly multigravida with antepartum condition or complication Procedures US OB DETAIL SINGLE Tita Sheehan MD [address] [place] [address] Referral ID Status Reason Start Date Expiration Date Visits Requested Visits Authorized [id number] Closed Performing Department To Schedule (STL) 06/29/2012 07/30/2013 1 1 Reason for Visit * Outpatient Services (Routine) - Closed Specialty Diagnoses / Procedures Referred By Contac t Referred To Contact Genetics Diagnoses Elderly multigravida with antepartum condition or complication Procedures US OB DETAIL SINGLE Tita Sheehan MD [address] [place] [address] Referral ID Status Reason Start Date Expiration Date Visits Requested Visits Authorized [id number] Closed Performing Department To Schedule (STL) 06/29/2012 07/30/2013 1 1 Encounter Details Date Type Department Care Team (Late st Contact Info) Description 08/31/2012 12:52 PM CDT - 08/31/2012 11:59 PM CDT Hospital Encounter [facility] [address] [place] [address] Tita Rashid MD [address] [place] [address] Discharge Disposition: Home or Self Care Social [...] Priority Date/Time Associated Diagnosis Comments US OB DETAIL SINGLE GEST Routine 08/31/2012 1:25 PM CDT Elderly multigravida with antepartum condition or complication documented in this encounter Results * US OB DETAIL SINGLE GEST (08/31/2012 1:25 PM CDT) Anatomical Region Laterality Modality Pelvis Ultrasound 08/31/2012 12:5 8 PM CDT Narrative 08/31/2012 1:45 PM CDT ? Comprehensive with Cervical Length Report Pat. Name: CHIOMA CHU ? Study Date: ?? 08/31/2012 ??12:58pm Pat. No: ?? [id number] ? Referring MD: Shanika Rashid MD Site: ?[facility] ? Instrument And Controls Technician: ??Alisia Kessler RDMS Height: ?66 in ? , Age: ? 1970, 41 Weight: ?130 lb ?Pregnancies: ?? 9, Para 4, Ab 4 LMP: ? 04/25/2012 ?GA Selected: ??18w2d (LMP) GA by LMP: 18w2d ? ICD9: ? 659.63, 648.03, 646.33, 659.43, V28.3 GA by US: ??18w5d ? CPT4: ? 65523, 67172 Hist/Ind: ??Anatomic Survey Requested ? Maternal Diabetes (Insulin) ? AMA - Multigravida ? Hx of Recurrent Loss ? CF Carrier ? Normal MT 21 Results ? ELROY: ?01/30/2013 MEASUREMENTS & AGE ? GROWTH EVALUATION Measurement ??GA ? Range ? Source ?? % ?? 18w2d ??Ratios ----- ------- ?? BPD ??4.3 cm 19w0d (28s2b-16u4x) Hadlock ??BPD ??70% ?? FL/BPD 0.66 HC ??16.4 cm 19w1d (68y9w-08a8t) Hadlock ??HC ?? 74% ?? FL/AC ??0.22 AC ??12.9 cm 18w3d (03z4h-49a2s) Hadlock ??AC ?? 52% ?? HC/AC ??1.27 (1.07 - 1.26)* FL ?? 2.9 cm 18w5d (64j6n-87e9q) Hadlock ??FL ?? 62% ?? CI ? 0.72 (0.70 - 0.86) HL ?? 2.7 cm 18w5d (39y3l-97b3v) Uyen ?? HL ?? 57% BOD ??2.9 cm ? (89h3f-48g0z) Mayden ?? BOD ??46% CMAG 0.4 cm ?CMAG ? LVEN 0.6 cm ?LVEN ? CER ??2.0 cm 19w0d (76w8k-04l1f) Hill ? CER ??68% TIB ??2.4 cm ? (43s6p-84j4h) Patricia ? TIB ??69% GA for sonogram 18w5d (80y9f-09l6p) ? Weight Estimate: based on (BPD,HC,AC,FL) Hadlock ?Weight: 250 gm (214-287) Hadlock ? : 0lbs, 8oz Markers for Chromosomal Abnormality: NF ?? 2.1 mm (Normal) Cervical Length: ??3.6 cm Heart Rate: 140 bpm Anatomy!Normal!Abnormal!Not well se!Prev. Seen!Comments Four chamber ! ?? x ??! ?! ? ! ?! Cardiac Rhyth! ?? x ??! ?! ? ! ?! Foramen Ovale! ?? x ??! ?! ? ! ?! RVOT ? ! ?? x ??! ?! ? ! ?! LVOT ? ! ?? x ??! ?! ? ! ?! Aortic Arch ??! ?? x ??! ?! ? ! ?! Ductal Arch ??! ?? x ??! ?! ? ! ?! Thoracic aort! ?? x ??! ?! ? ! ?! IVC ?! ?? x ??! ?! ? ! ?! SVC ?! ?? x ??! ?! ? ! ?! Abdominal aor! ?? x ??! ?! ? ! ?! Lungs ?! ?? x ??! ?! ? ! ?! Placenta ? ! ?? x ??! ?! ? ! ?! Nuchal Fold ??! ?? x ??! ?! ? ! ?! Calvarium ?! ?? x ??! ?! ? ! ?! Cerebellum ?? ! ?? x ??! ?! ? ! ?! Cavum Septum ! ?? x ??! ?! ? ! ?! Ventricles ?? ! ?? x ??! ?! ? ! ?! Choroid Plexu! ?? x ??! ?! ? ! ?! Cisterna Magn! ?? x ??! ?! ? ! ?! Lip ?! ?? x ??! ?! ? ! ?! Profile ?! ?? x ??! ?! ? ! ?! Nose ? ! ?? x ??! ?! ? ! ?! Palate ? ! ?? x ??! ?! ? ! ?! Chin ? ! ?? x ??! ?! ? ! ?! Stomach ?! ?? x ??! ?! ? ! ?! Diaphragm ?! ?? x ??! ?! ? ! ?! Right Kidney ! ?? x ??! ?! ? ! ?! Left Kidney ??! ?? x ??! ?! ? ! ?! Bowel ?! ?? x ??! ?! ? ! ?! Bladder ?! ?? x ??! ?! ? ! ?! Umbilical Cor! ?? x ??! ?! ? ! ?! Abdominal Wal! ?? x ??! ?! ? ! ?! PCI ?! ?? x ??! ?! ? ! ?! Cervical Spin! ?? x ??! ?! ? ! ?! Thoracic Spin! ?? x ??! ?! ? ! ?! Lumbar Spine ! ?? x ??! ?! ? ! ?! Sacral Spine ! ?? x ??! ?! ? ! ?! Left Arm ? ! ?? x ??! ?! ? ! ?! Right Arm ?! ?? x ??! ?! ? ! ?! Left hand ?! ?? x ??! ?! ? ! ?! Right hand ?? ! ?? x ??! ?! ? ! ?! Left leg ? ! ?? x ??! ?! ? ! ?! Right leg ?! ?? x ??! ?! ? ! ?! Left foot ?! ?? x ??! ?! ? ! ?! Right foot ?? ! ?? x ??! ?! ? ! ?! Other ?! ?? x ??! ?! ? ! ?! CLINICAL SUMMARY GA Selected is 18w2d ?? Bergman in the cephalic presentation. The ??placenta appears to be anterior and greater than 2cm from internal os of cervix as seen by transvaginal ultrasound. The amniotic fluid level appears to be ??normal. The gender is ?? male. Transvaginal ultrasound was performed. ??The patient stated she is not allergic to latex and a latex transducer cover was used. The Cervical length measures 3.6 cm without funneling as seen by transvaginal ultrasound. IMPRESSION: Viable intrauterine at 18 2/7 ??weeks. biometry is consistent with menstrual age. Normal anatomy, growth, placentation, and fluid. No structural malformations or markers of aneuploidy identified. Cervical length is normal. RECOMMENDATIONS A follow up ultrasound ??scheduled in 4 weeks. Mason Calles MD, [facility] <Electronic Signature> ??08/31/2012 01:45pm Procedure Note Mason Calles MD - 08/31/2012 Comprehensive with Cervical Length Report Pat. Name: CHIOMA CHU Study Date: 08/31/201212:58pm Pat. No: [id number] Referring MD: Shanika Rashid MD Site: [facility] Instrument And Controls Technician: Alisia Kessler RDMS Height: 66 in , Age: 06 1970, 41 Weight: 130 lb Pregnancies: 9, Para 4,Ab 4 LMP: 04/25/2012 GA Selected: 18w2d (LMP) GA by LMP: 18w2d ICD9: 659.63, 648.03,646.33, 659.43, V28.3 GA by US: 18w5d CPT4: 38218, 48844 Hist/Ind: Anatomic Survey Requested Maternal Diabetes (Insulin) AMA - Multigravida Hx of Recurrent Loss CF Carrier Normal MT 21 Results ELROY: 01/30/2013 MEASUREMENTS & AGE GROWTH EVALUATION Measurement GA Range Source % 18w2d Ratios ----- ------- BPD 4.3 cm 19w0d (07l4a-34m7w) Hadlock BPD 70% FL/BPD 0.66 HC 16.4 cm 19w1d (20q8x-39j2p) Hadlock HC 74% FL/AC 0.22 AC 12.9 cm 18w3d (14o8w-71k5x) Hadlock AC 52% HC/AC 1.27 (1.07 -1.26)* FL 2.9 cm 18w5d (25p7d-31x9v) Hadlock FL 62% CI 0.72 (0.70 -0.86) HL 2.7 cm 18w5d (18o0a-19m9c) Uyen HL 57% BOD 2.9 cm (23l9s-88o1z) Mayden BOD 46% CMAG 0.4 cm CMAG LVEN 0.6 cm LVEN CER 2.0 cm 19w0d (59g3k-92t0s) Hill CER 68% TIB 2.4 cm (70c3d-70f0g) Patricia TIB 69% GA for sonogram 18w5d (22g7w-51n6f) Weight Estimate: based on (BPD,HC,AC,FL) Hadlock Weight: 250 gm (214-287)Hadlock : 0lbs, 8oz Markers for Chromosomal Abnormality: NF 2.1 mm (Normal) Cervical Length: 3.6 cm Heart Rate: 140 bpm Anatomy!Normal!Abnormal!Not well se!Prev. Seen!Comments Four chamber ! x ! ! ! ! Cardiac Rhyth! x ! ! ! ! Foramen Ovale! x ! ! ! ! RVOT ! x ! ! ! ! LVOT ! x ! ! ! ! Aortic Arch ! x ! ! ! ! Ductal Arch ! x ! ! ! ! Thoracic aort! x ! ! ! ! IVC ! x ! ! ! ! SVC ! x ! ! ! ! Abdominal aor! x ! ! ! ! Lungs ! x ! ! ! ! Placenta ! x ! ! ! ! Nuchal Fold ! x ! ! ! ! Calvarium ! x ! ! ! ! Cerebellum ! x ! ! ! ! Cavum Septum ! x ! ! ! ! Ventricles ! x ! ! ! ! Choroid Plexu! x ! ! ! ! Cisterna Magn! x ! ! ! ! Lip ! x ! ! ! ! Profile ! x ! ! ! ! Nose ! x ! ! ! ! Palate ! x ! ! ! ! Chin ! x ! ! ! ! Stomach ! x ! ! ! ! Diaphragm ! x ! ! ! ! Right Kidney ! x ! ! ! ! Left Kidney ! x ! ! ! ! Bowel ! x ! ! ! ! Bladder ! x ! ! ! ! Umbilical Cor! x ! ! ! ! Abdominal Wal! x ! ! ! ! PCI ! x ! ! ! ! Cervical Spin! x ! ! ! ! Thoracic Spin! x ! ! ! ! Lumbar Spine ! x ! ! ! ! Sacral Spine ! x ! ! ! ! Left Arm ! x ! ! ! ! Right Arm ! x ! ! ! ! Left hand ! x ! ! ! ! Right hand ! x ! ! ! ! Left leg ! x ! ! ! ! Right leg ! x ! ! ! ! Left foot ! x ! ! ! ! Right foot ! x ! ! ! ! Other ! x ! ! ! ! CLINICAL SUMMARY GA Selected is 18w2d Bergman in the cephalic presentation. The placenta appears to be anterior and greater than 2cm from internal osof cervix as seen by transvaginal ultrasound. The amniotic fluid level appears to be normal. The gender is male. Transvaginal ultrasound was performed. The patient stated she is notallergic to latex and a latex transducer cover was used. The Cervical length measures 3.6 cm without funneling as seen bytransvaginal ultrasound. IMPRESSION: Viable intrauterine at 18 2/7 weeks. biometry is consistent with menstrual age. Normal anatomy, growth, placentation, and fluid. No structural malformations or markers of aneuploidy identified. Cervical length is normal. RECOMMENDATIONS A follow up ultrasound scheduled in 4 weeks. Mason Calles MD, [facility] <Electronic Signature> 08/31/2012 01:45pm Tita Rashid MD ORDERABLES documented in this encounter Visit Diagnoses Diagnosis Elderly multigravida with antepartum condition or complication documented in this encounter Care Teams Risk Management Analyst Relationship Specialty Start Date End Date Jett Yarbrough DO [address] [facility] [address] [place] [address] PCP - General Internal Medicine 07/09/12 documented as of this encounter
== END 2024-05-28 08:53 | disposition home or self-care (01) ==
PROVIDERS: PCP Internal Medicine; Visit Provider Obstetrics & Gynecology Gynecology
DX: M85.88 Other specified disorders of bone density and structure, other site (principal); M85.852 Other specified disorders of bone density and structure, left thigh; M85.851 Other specified disorders of bone density and structure, right thigh
CPT/HCPCS: 77080

== ENCOUNTER 2024-08-20 08:00 | Outpatient (CLI) | payer BC, SELFPAY ==
--- NOTE | ~2024-08-20 | US_ITS ---
EXAMINATION: US thyroid DATE: 08/20/2024 08:15 INDICATION: Nontoxic single thyroid nodule. TECHNIQUE: Multiple ultrasound images of the thyroid were obtained. COMPARISON: Ultrasound 02/27/2024, 05/27/2021 FINDINGS: The right thyroid lobe measures 4.3 x 1.7 x 1.3 cm. The left thyroid lobe measures 5.0 x 2.0 x 1.6 c m. In the left thyroid lobe, there is a 2.4 cm solid, hypoechoic, wider than tall nodule with ill-de fined margin without echogenic foci (TI-RADS TR4), stable from 05/27/2021 when biopsy was benign. IMPRESSION: 1. Stable benign thyroid nodule. No follow-up is needed. Reviewed, dictated and finalized at location A. 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
== END 2024-08-20 08:01 | disposition home or self-care (01) ==
PROVIDERS: PCP Internal Medicine; Visit Provider Internal Medicine Endocrinology, Diabetes & Metabolism
DX: E04.1 Nontoxic single thyroid nodule (principal)
CPT/HCPCS: 76536

== ENCOUNTER 2024-10-10 15:55 | Outpatient (CLI) | payer BC, SELFPAY ==
--- NOTE | ~2024-10-10 | MM_ITS ---
EXAMINATION: MM screening [facility] BI w ekta HISTORY: Screening mammogram TECHNIQUE: Craniocaudal and mediolateral oblique 3-D tomosynthesis images were obtained and synthetic 2-D images were generated. CAD analysis was submitted and interpreted. COMPARISON: 10/09/2023, 05/27/2022, 01/14/2021 BREAST PARENCHYMAL COMPOSITION:Not Dense. There are scattered areas of fibroglandular density. FINDINGS: No suspicious mass, calcification, or architectural distortion are identified in either yolanda ast to suggest malignancy. There has been no suspicious interval change. IMPRESSION: No mammographic evidence of malignancy. Recommend routine screening mammography in one year. BI-RADS Category 1: Negative Reviewed, dictated and finalized at location .
== END 2024-10-10 15:56 | disposition home or self-care (01) ==
LOC: MICIMG 15:57
PROVIDERS: PCP Internal Medicine; Visit Provider Obstetrics & Gynecology Gynecology
DX: Z12.31 Encounter for screening mammogram for malignant neoplasm of breast (principal)
CPT/HCPCS: 77063; 77067